=== PATIENT | female | born 1955 | race Caucasian/White ===

== ENCOUNTER 2019-12-25 07:00 | Outpatient (CLI) | payer OTHER, SELFPAY ==
[2019-12-25 07:34] LABS: Basophils Absolute Auto 0.1 K/mm3 (0.0-0.1); Basophils Percent Auto 0.8 % (0.2-1.2); Eosinophils Absolute Auto 0.2 K/mm3 (0-0.3); Eosinophils Percent Auto 3.7 % (0-4.4); Hematocrit 42.7 % (37.0-47.0); Hemoglobin 14.1 g/dL (12.0-15.0); Immature Granulocyte Absolute 0.02 K/mm3 (0.00-0.031); Immature Granulocyte Percent A 0.3 % (0-0.5); Lymphocytes Absolute Auto 1.92 K/mm3 (0.9-3.2); Lymphocytes Percent Auto 31.2 % (18.3-44.2); Mean Corpuscular Hemoglobin 30.5 pg (26-34); Mean Corpuscular Volume 92.2 fl (80-100); Mean Platelet Volume 9.4 fl (7.4-10.4); Monocytes Absolute Auto 0.6 K/mm3 (0.1-0.6); Monocytes Percent Auto 9.9 % (2.6-8.5); Neutrophils Absolute Auto 3.3 K/mm3 (1.3-6.7); Neutrophils Percent Auto 54.1 % (45.5-73.1); Platelet Count Result 271 k/mm3 (150-375); Red Blood Count 4.63 M/mm3 (4.2-5.4); Red Cell Distribution Width 12.8 % (11.5-14.5); White Blood Count 6.2 K/mm3 (4.5-10.0)
[2019-12-25 07:46] LABS: Alanine Aminotransferase 17 U/L (4-35); Alkaline Phosphatase 81 U/L (38-126); Aspartate Amino Transferase 23 U/L (14-36); Bilirubin,Total 0.5 mg/dL (0.2-1.3); Blood Urea Nitrogen 9 mg/dL (7-17); Calcium 9.1 mg/dL (8.4-10.2); Carbon Dioxide 36 mmol/L (22-30); Chloride 100 mmol/L (98-107); Estimated Glomerular Filt Rate > 60; Glucose 106 mg/dL (65-105); Potassium 3.2 mmol/L (3.4-5.0); Sodium 139 mmol/L (137-145)
[2019-12-25 07:48] LABS: Hemoglobin A1C 5.5 % (<5.7)
[2019-12-25 07:54] LABS: Cholesterol 240 mg/dL (0-200)
[2019-12-25 08:22] LABS: LDL Cholesterol Direct 151 mg/dL
[2019-12-25 08:39] LABS: HDL Direct 58 mg/dL; Triglycerides 124 mg/dL (<150)
== END 2019-12-25 07:01 | disposition home or self-care (01) ==
PROVIDERS: PCP Family Medicine; Visit Provider Family Medicine
DX: F32.89 Other specified depressive episodes (principal); E88.81 Metabolic syndrome and other insulin resistance; E78.5 Hyperlipidemia, unspecified; E55.9 Vitamin D deficiency, unspecified
CPT/HCPCS: 36415; 80053; 80061; 82306; 83036; 84443; 85025

== ENCOUNTER 2020-07-07 07:24 | Outpatient (CLI) | payer OTHER, SELFPAY ==
[2020-07-07 08:01] LABS: Basophils Percent Auto 0.7 % (0.2-1.2); Eosinophils Absolute Auto 0.2 K/mm3 (0-0.3); Hematocrit 44.2 % (37.0-47.0); Hemoglobin 14.9 g/dL (12.0-15.0); Immature Granulocyte Absolute 0.02 K/mm3 (0.00-0.031); Immature Granulocyte Percent A 0.3 % (0-0.5); Lymphocytes Absolute Auto 1.65 K/mm3 (0.9-3.2); Lymphocytes Percent Auto 27.2 % (18.3-44.2); Mean Corpuscular HGB Conc 33.7 g/dl (32-36); Mean Corpuscular Hemoglobin 31.4 pg (26-34); Mean Corpuscular Volume 93.1 fl (80-100); Mean Platelet Volume 9.4 fl (7.4-10.4); Monocytes Absolute Auto 0.5 K/mm3 (0.1-0.6); Monocytes Percent Auto 8.9 % (2.6-8.5); Neutrophils Absolute Auto 3.6 K/mm3 (1.3-6.7); Neutrophils Percent Auto 59.9 % (45.5-73.1); Platelet Count Result 283 k/mm3 (150-375); Red Blood Count 4.75 M/mm3 (4.2-5.4); Red Cell Distribution Width 12.1 % (11.5-14.5); White Blood Count 6.1 K/mm3 (4.5-10.0)
[2020-07-07 08:14] LABS: Alanine Aminotransferase 14 U/L (4-35); Albumin Level 4.1 g/dL (3.5-5.1); Alkaline Phosphatase 77 U/L (38-126); Anion Gap 4 mmol/L (8-16); Aspartate Amino Transferase 21 U/L (14-36); Bilirubin,Total 0.7 mg/dL (0.2-1.3); Blood Urea Nitrogen 8 mg/dL (7-17); Calcium 9.5 mg/dL (8.4-10.2); Carbon Dioxide 35 mmol/L (22-30); Chloride 101 mmol/L (98-107); Cholesterol 212 mg/dL (0-200); Estimated Glomerular Filt Rate > 60; Glucose 114 mg/dL (65-105); HDL Direct 52 mg/dL; Potassium 3.5 mmol/L (3.4-5.0); Sodium 140 mmol/L (137-145); Triglycerides 148 mg/dL (<150)
[2020-07-07 08:30] LABS: Hemoglobin A1C 5.5 % (<5.7)
[2020-07-07 08:38] LABS: LDL Cholesterol Direct 122 mg/dL
== END 2020-07-07 07:25 | disposition home or self-care (01) ==
PROVIDERS: PCP Family Medicine; Visit Provider Family Medicine
DX: E78.5 Hyperlipidemia, unspecified (principal); E03.9 Hypothyroidism, unspecified; I10 Essential (primary) hypertension; R73.03 Prediabetes
CPT/HCPCS: 36415; 80053; 80061; 83036; 84443; 85025

== ENCOUNTER 2020-10-02 15:13 | Outpatient (CLI) | payer OTHER, SELFPAY ==
--- NOTE | ~2020-10-02 | MM_ITS ---
EXAMINATION: MM screening christopher BI w jose ramon HISTORY: Screening TECHNIQUE: Craniocaudal and mediolateral oblique 3-D tomosynthesis images were obtained and synthetic 2-D images were generated. CAD analysis was submitted and interpreted. COMPARISON: Comparison to multiple prior studies sequentially, with oldest reviewed study dated 07/21. BREAST PARENCHYMAL COMPOSITION: There are scattered areas of fibroglandular density. FINDINGS: There is no evidence of suspicious mass, calcification, or architectural distortion to sugg est malignancy in either breast. There has been no suspicious interval change. IMPRESSION: 1. No mammographic evidence of malignancy. 2. Recommend routine screening mammography in one year. BI-RADS Category 1: Negative Reviewed, dictated and finalized at location A. [facility] [employer] SOCIAL WORKER
== END 2020-10-02 15:14 | disposition home or self-care (01) ==
PROVIDERS: PCP Family Medicine; Visit Provider Nurse Practitioner
DX: Z12.31 Encounter for screening mammogram for malignant neoplasm of breast (principal)
CPT/HCPCS: 77063; 77067

== ENCOUNTER 2020-11-10 09:55 | Outpatient (CLI) | payer OTHER, SELFPAY ==
--- NOTE | ~2020-11-10 | XR_ITS ---
XR chest 2V DATE: 11/10/2020 10:16 INDICATION: Cough TECHNIQUE: Frontal and lateral views COMPARISON: 02/04/2013 two-view chest FINDINGS: Normal heart size. No hilar or mediastinal enlargement. No pulmonary infiltrate or consolid ation, pleural effusion or pulmonary vascular congestion or pneumothorax. Diffuse osteopenia. Prominent rotatory levoscoliosis of the lumbar spine. IMPRESSION: No active cardiopulmonary disease Reviewed, dictated and finalized at location A. DITER CLERK
== END 2020-11-10 09:56 | disposition home or self-care (01) ==
PROVIDERS: PCP Family Medicine; Visit Provider Nurse Practitioner
DX: R05 Cough (principal)
CPT/HCPCS: 71046

== ENCOUNTER 2020-12-15 10:29 | Outpatient (CLI) | payer OTHER, SELFPAY ==
--- NOTE | 2020-12-15 10:36 | EST_ITS ---
Patient Info Name: Elli Garcia Age: 65 years : 1955 Gender: Female Ht: 69 in Wt: 245 lbs BSA: 2.37 m2 Exam Date: 12/15/2020 10:40 AM Exam Location: [facility] Stress Patient Status: Outpatient Admit Date: 12/15/2020 Staff Ordering Physician: Zara Nelson NP Attending Provider: Laurita Mueller MD Exercise Technologist: Alisa Finney RDCS Exercise Physician: Samy Almaguer DO Exam Type: CA stress test treadmill Study Info Indications R06.02 - Shortness of breath A treadmill exercise stress test was performed. Summary 1. 1. Negative [place] exercise stress test for ischemic ST changes by ECG criteria. 2. 2. Poor functional capacity, achieving 5 METs of workload. 3. 3. Rapid HR response to exercise. 4. 4. Appropriate HR recovery at 1 minute post exercise. 5. 5. Baseline hypertension with hypertensive response to exercise. 6. 6. No imaging with stress testing. 7. 7. Patient informed of the above results. Protocol: [place] Stress ECG Details Stage: REST Duration (min): 8 min : 42 sec Speed (mph): 0.0 Grade (%): 0 HR (bpm): 69 SBP (mmHg): 146 DBP (mmHg): 97 METS: --- Stage: REST Duration (min): 11 min : 6 sec Speed (mph): 0.0 Grade (%): 0 HR (bpm): 68 SBP (mmHg): 146 DBP (mmHg): 97 METS: --- Stage: STAGE 1 Duration (min): 1 min : 0 sec Speed (mph): 1.7 Grade (%): 10 HR (bpm): 105 SBP (mmHg): 146 DBP (mmHg): 97 METS: --- Stage: STAGE 1 Duration (min): 2 min : 0 sec Speed (mph): 1.7 Grade (%): 10 HR (bpm): 124 SBP (mmHg): 146 DBP (mmHg): 97 METS: --- Stage: STAGE 1 Duration (min): 3 min : 0 sec Speed (mph): 1.7 Grade (%): 10 HR (bpm): 135 SBP (mmHg): 183 DBP (mmHg): 97 METS: --- Stage: STAGE 2 Duration (min): 0 min : 12 sec Speed (mph): 2.5 Grade (%): 12 HR (bpm): 138 SBP (mmHg): 183 DBP (mmHg): 97 METS: --- Stage: RECOVERY Duration (min): 0 min : 47 sec Speed (mph): 0.0 Grade (%): 0 HR (bpm): 129 SBP (mmHg): 183 DBP (mmHg): 97 METS: --- Stage: RECOVERY Duration (min): 1 min : 47 sec Speed (mph): 0.0 Grade (%): 0 HR (bpm): 102 SBP (mmHg): 211 DBP (mmHg): 94 METS: --- Stage: RECOVERY Duration (min): 2 min : 47 sec Speed (mph): 0.0 Grade (%): 0 HR (bpm): 88 SBP (mmHg): 211 DBP (mmHg): 94 METS: --- Stage: RECOVERY Duration (min): 3 min : 47 sec Speed (mph): 0.0 Grade (%): 0 HR (bpm): 89 SBP (mmHg): 192 DBP (mmHg): 90 METS: --- Stage: RECOVERY Duration (min): 4 min : 47 sec Speed (mph): 0.0 Grade (%): 0 HR (bpm): 81 SBP (mmHg): 192 DBP (mmHg): 90 METS: --- Stage: RECOVERY Duration (min): 5 min : 15 sec Speed (mph): 0.0 Grade (%): 0 HR (bpm): 76 SBP (mmHg): 149 DBP (mmHg): 85 METS: --- Rest HR: 68 bpm Peak HR: 142
== END 2020-12-15 10:30 | disposition home or self-care (01) ==
PROVIDERS: PCP Family Medicine; Visit Provider Family Medicine
DX: R06.02 Shortness of breath (principal)
CPT/HCPCS: 93017

== ENCOUNTER 2021-02-03 13:49 | Outpatient (CLI) | payer OTHER, SELFPAY ==
--- NOTE | ~2021-02-03 | XR_ITS ---
XR hip LT min 3V w AP pelvis DATE: 02/03/2021 14:12 INDICATION: Left hip pain for 3 weeks. Recent fall. TECHNIQUE: AP pelvis. AP, lateral and crosstable lateral views of left hip COMPARISON: None FINDINGS: The pubic symphysis and sacroiliac joints are intact. No pelvic fracture or bone destructio n. No fracture, dislocation, avascular necrosis or bone destruction of the left hip. IMPRESSION: No significant abnormality Reviewed, dictated and finalized at location B. IMPRESSION: No significant abnormality
--- NOTE | ~2021-02-03 | XR_ITS ---
XR lumbar spine min 4V DATE: 02/03/2021 14:12 INDICATION: Low back pain for 3 weeks. Recent fall. TECHNIQUE: AP, lateral, coned lateral lumbosacral and bilateral oblique views COMPARISON: None FINDINGS: Mild levoscoliosis of the lumbar spine. Prominent degenerative disc disease at T11-T12 and moderately prominent degenerative disc disease at T12-L1. There are 6 functional lumbar vertebrae. Normal alignment of the lumbar spine. No fracture or bone destruction. The lumbar pedicles are intact . No spondylolysis. There is grade 1 anterolisthesis at L3-4 due to degenerative change at the apophyseal joints. The sac roiliac joints are intact. IMPRESSION: Mild levoscoliosis Degenerative changes of facet joints with associated minimal grade 1 anterolisthesis at L3-4 No fracture or bone destruction Reviewed, dictated and finalized at location B. IMPRESSION: Mild levoscoliosis Degenerative changes of facet joints with associated minimal grade 1 anterolist hesis at L3-4 No fracture or bone destruction
== END 2021-02-03 13:50 | disposition home or self-care (01) ==
PROVIDERS: PCP Family Medicine; Visit Provider Nurse Practitioner
DX: M47.815 Spondylosis without myelopathy or radiculopathy, thoracolumbar region (principal)
CPT/HCPCS: 72110; 73502

== ENCOUNTER 2021-03-26 07:36 | Outpatient (CLI) | payer MEDICARE, OTHER, SELFPAY ==
--- NOTE | ~2021-03-26 | MR_ITS ---
EXAMINATION: MR lumbar spine wo con DATE: 03/26/2021 08:48 INDICATION: Low back pain. TECHNIQUE: Magnetic resonance imaging (MRI) of the lumbar spine was performed without intravenous con trast. Sequences included sagittal T2-weighted FSE, sagittal T2-weighted FS FSE, sagittal T1-weighted FSE, and axial T2-weighted FSE. COMPARISON: Lumbar spine radiographs 02/03/2021, chest 2 views 11/10/2020 FINDINGS: There is 11 degrees levoscoliosis of lumbar spine. Vertebral body heights are normal. S1 is a transitional segment. There is severely decreased disc height at T11-T12 and mildly decreased disc height at L3-L4 with endplate remodeling. The distal spinal cord signal intensity is normal. The con us medullaris is at L1. The following disc levels are specifically discussed: L1-L2: The disc does not extend beyond the endplate margin. There is mild bilateral facet joint osteo arthritis. There is no neural foraminal stenosis. There is no central canal stenosis. L2-L3: There is a left foraminal protrusion. There is moderate right and mild left facet joint osteoa rthritis. There is mild left neural foraminal stenosis. There is no central canal stenosis. L3-L4: The disc is bulging and has an annular fissure. There is severe bilateral facet joint osteoart hritis. There is mild bilateral neural foraminal stenosis. There is mild central canal stenosis. L4-L5: The disc is bulging. There is severe bilateral facet joint osteoarthritis. There is mild bilat eral neural foraminal stenosis. There is no central canal stenosis. L5-S1: The disc is bulging and has an annular fissure. There is moderate right and severe left facet joint osteoarthritis. There is mild bilateral neural foraminal stenosis. There is no central canal st enosis. IMPRESSION: 1. Mild lumbar spondylosis and severe lower thoracic spondylosis. Reviewed, dictated and finalized at location A.
== END 2021-03-26 07:37 | disposition home or self-care (01) ==
LOC: ANHIMG 07:46
PROVIDERS: PCP Family Medicine; Visit Provider Nurse Practitioner
DX: M54.5 Low back pain (principal); M47.816 Spondylosis without myelopathy or radiculopathy, lumbar region; M47.814 Spondylosis without myelopathy or radiculopathy, thoracic region
CPT/HCPCS: 72148

== ENCOUNTER 2021-04-10 12:19 | Outpatient (CLI) | payer MEDICARE, OTHER, SELFPAY ==
[2021-04-14 11:18] LABS: ANA Cascade Screen Negative (Negative)
[2021-04-14 22:05] LABS: Immunoglobulin E 29 kU/L (<=114)
[2021-04-15 10:58] LABS: Alpha-1-Antitrypsin, QN 159 mg/dL (83-199)
== END 2021-04-10 12:20 | disposition home or self-care (01) ==
PROVIDERS: PCP Family Medicine; Visit Provider Internal Medicine Critical Care Medicine
DX: R06.02 Shortness of breath (principal); J84.9 Interstitial pulmonary disease, unspecified; R05 Cough
CPT/HCPCS: 36415; 82103; 82104; 82785; 86038

== ENCOUNTER 2021-04-27 06:36 | Outpatient (CLI) | payer MEDICARE, OTHER, SELFPAY ==
--- NOTE | ~2021-04-27 | CT_ITS ---
EXAMINATION: CT diagnostic chest wo con DATE: 04/27/2021 06:57 INDICATION: Shortness of breath and cough TECHNIQUE: Computed tomography (CT) of the chest was performed without intravenous contrast. The dose -length product (DLP) was 512.32 mGy-cm. Automated exposure control and iterative reconstruction tech [employer] were employed. COMPARISON: None FINDINGS: There is atelectasis of the lower lobes, lingula, and right middle lobe. No focal airspace opacities are identified. There is no pleural effusion or pneumothorax. No definite findings of inter stitial lung disease are evident. No pathologically enlarged thoracic lymph nodes are identified. The heart size is normal. Calcified coronary artery atherosclerosis is noted. Subendocardial fat deposit ion in the left ventricular apex is consistent with prior myocardial infarction. There is severe lowe r thoracic spondylosis. IMPRESSION: 1. Areas of mild atelectasis without definite findings of interstitial lung disease. Reviewed, dictated and finalized at location B. IMPRESSION: 1. Areas of mild atelectasis without definite findings of interstitial lung dis ease.
== END 2021-04-27 06:37 | disposition home or self-care (01) ==
PROVIDERS: PCP Family Medicine; Visit Provider Internal Medicine Critical Care Medicine
DX: R06.02 Shortness of breath (principal); J98.11 Atelectasis
CPT/HCPCS: 71250

== ENCOUNTER 2021-05-13 07:28 | Outpatient (CLI) | payer MEDICARE, OTHER, SELFPAY ==
--- NOTE | 2021-05-13 07:49 | ECHO_ITS ---
Patient Info Name: Elli Garcia Age: 66 years : 1955 Gender: Female Ht: 68 in Wt: 250 lbs BSA: 2.38 m2 HR: 70 bpm BP: 125 / 84 mmHg Heart Rhythm: Sinus Rhythm Exam Date: 05/13/2021 8:06 AM Exam Location: [facility] Patient Status: Outpatient Admit Date: 05/13/2021 Staff Ordering Physician: No Yousif MD Senior Wind Turbine Technician: Shira Kim RDCS Attending Provider: No Yousif MD Referring Physician: Benja LEMUS; Exam Type: CA echo doppler color flow Study Info Indications - EVALUATE FOR PULMONARY HYPERTENSION Complete two-dimensional, color flow and Doppler transthoracic echocardiogram is performed. Summary 1. Complete two-dimensional, color flow and Doppler transthoracic echocardiogram is performed. 2. Left ventricular chamber dimension is normal. 3. Left ventricular systolic function is normal, estimated at 60-65%. 4. The left ventricular diastolic function is grade II diastolic dysfunction. 5. E/e' 13 is mildly elevated. 6. There is mild mitral valve regurgitation. 7. There is trace tricuspid valve regurgitation. 8. No pulmonary hypertension, estimated pulmonary arterial systolic pressure is 24 mmHg. Left Ventricle E/e' 13 is mildly elevated. Left ventricular chamber dimension is normal. Left ventricular systolic function is normal, estimated at 60-65%. The left ventricular diastolic function is grade II diastolic dysfunction. Right Ventricle Right ventricular systolic function is normal and with normal TAPSE 1.9 cm. Right ventricular chamber dimension is normal. Left Atria Left atrial chamber dimension is normal. Right Atria Right atrial chamber dimension is normal. Aortic Valve The aortic valve is trileaflet. There is no aortic valve stenosis. There is no aortic valve regurgitation. Pulmonic Valve There is no pulmonic regurgitation. Mitral Valve There is no mitral valve stenosis. There is mild mitral valve regurgitation. Tricuspid Valve There is trace tricuspid valve regurgitation. No pulmonary hypertension, estimated pulmonary arterial systolic pressure is 24 mmHg. Pericardium/Pleural There is no pericardial effusion. Inferior Vena Cava Normal inferior vena cava with >50% collapse upon inspiration consistent with normal right atrial pressure, 5 mmHg. Aorta The aortic root size at the sinus of Valsalva is normal. Left Ventricular Outflow Tract Name Value Normal LVOT 2D LVOT Diameter 2.0 cm LVOT Doppler LVOT Peak Gradient 3 mmHg LVOT Mean Gradient 2 mmHg LVOT VTI 25 cm LVOT VTI/AV VTI Ratio 0.6 LVOT Stroke Volume 79 ml LVOT CO 4.6 l/min LVOT CI 2.0 l/min/m2 Pulmonic Valve Name Value Normal RVOT Doppler
--- NOTE | 2021-05-13 12:42 | WPDPFTINT ---
PFT Procedure Performed PFT Procedure Performed Spirometry with Pre/Post Bronchodilator Plethysmography (Lung Vol) Diffusing Cap (DLCO) Flow Vol Loop PFT Interpretation This is a pulmonary function test with pre and post-bronchodilator spirometry, plethysmography and diffusing capacity. The test was performed and results interpreted in accordance with the 2019 and 2005 ATS/ERS Task Force guidelines respectively using the Global Lung Function Initiative-2012 reference equations. Patient demonstrated good effort and cooperation. Reproducibility criteria were met. The quality of the pre bronchodilator spirometry maneuver was Grade A and post bronchodilator spirometry maneuver was Grade A. Findings: Spirometry: There is decreased maximal expiratory airflow at all lung volumes with concave expiratory flow tracing. The contour of the inspiratory flow tracing is normal. The pre bronchodilator FVC is 2.73 L, 79% predicted. The pre bronchodilator FEV1 is 1.74 L, 65% predicted. The FEV1: FVC ratio 64%. The post bronchodilator FVC is 3.13 L, representing a 15% increase. The post bronchodilator FEV1 is 2.01 L, representing a 16% increase. Plethysmography: The total lung capacity is 5.74 L, 101% predicted. The functional residual capacity is 3.82 L, 118% predicted. The residual volume is 3.01 L, 131% predicted. Diffusing capacity: The absolute diffusion capacity is 21.2, 94% predicted. The diffusing capacity corrected for alveolar volume is 4.29, 103% predicted. Impression: There is a moderate obstructive abnormality with significant improvement after inhaling a single dose of albuteral. The lung volumes are normal. The diffusing capacity is normal. There are no prior studies for comparison
== END 2021-05-13 07:29 | disposition home or self-care (01) ==
LOC: ANHCARD 07:30
PROVIDERS: PCP Family Medicine; Visit Provider Internal Medicine Critical Care Medicine
DX: R06.02 Shortness of breath (principal); R94.2 Abnormal results of pulmonary function studies
CPT/HCPCS: 93306; 94060; 94726; 94729

== ENCOUNTER 2021-06-01 07:41 | Outpatient (CLI) | payer MEDICARE, OTHER, SELFPAY ==
--- NOTE | 2021-06-12 17:58 | WPDHOMESLEEP ---
Sleep Study - Home Unattended Date of Study: 06/01/21 Ordering Provider: No Yousif MD Interpreting Provider: No Yousif MD Home Sleep Study Type: Apnea Link Air Height: 1.73 m Weight: 113.398 kg Body Mass Index: 38.0 Neck Circumference (inches): 15 [place]: 2 Reason for Sleep Study Restless sleep with night time awakenings, need for sedatives to go to sleep Sleep History Elli Garcia is a 66 year old female difficulty falling asleep. She uses Klonopin 0.5 mg HS to help her fall asleep. She does not awaken from sleep feeling short of breath. She rarely awakens at night with heartburn, belching or coughing. She does not know if she snores but others do not tell her or complain about it. She rarely has trouble sleeping with a cold. She does not suddenly wake up at night gasping for breath or have breathing problems at night observed by others. She does not sweat excessively at night or notice her heart pounding or beating irregularly at night. She does not fall asleep during the day, does not fall asleep involuntarily or while driving. She does not have loss of muscle tone with strong emotion. She does not have daytime difficulties due to excessive sleepiness. 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 She does not feel paralyzed on waking or falling asleep. She rarely has vivid dreamlike scenes upon awakening or falling asleep. She does not feel afraid to go to sleep. She does not have nightmares. She rarely remembers her dreams. She rarely has racing thoughts. She rarely feels sad or depressed. She rarely has anxiety. She occasionally has muscular tension. She does not notice parts of her body jerking and she does not kick at night. She frequently has crawling and aching feelings in her legs and frequently has leg pain during the night which she attributes to 3 bulging discs. She does not have morning jaw pain or grind her teeth during sleep. She constantly is bothered by pain during the day. She frequently is awakened by pain at night, frequently wakes up feeling stiff in the morning with sore achy muscles and pain in the neck and spine. She is depressed, has fatigue and take sedatives to get to sleep. Normal bedtime is between 9:00 p.m. and 10:00 p.m. falling asleep within 1-2 hours, typically waking 1-2 times during the night. While awake, she uses the bathroom and let her dogs out. It takes her 20 minutes to return to sleep. She wakes the morning between 6:00 and 7:00 a.m.. She does not take naps in the afternoon or evening. Most of the time she feels good when she wakes. She feels better in the morning compared to other times of day. Habits: never smoked tobacco. Caffeine 2-3 cups of coffee a day. One diet Coke. She drinks alcohol, 3 time a week. Recreational substances: CBD gummies. [facility] Past Medical History Medical History (Updated 06/12/21 @ 18:30 by No Yousif MD) Arthritis Bipolar 1 disorder Depression Hernia Hyperlipidemia Hypertension Hypothyroidism Obesity Obstructive lung disease Prediabetes Surgical History Surgical History History of umbilical hernia repair (~1998) S/P LAN-BSO 2003 Family History Family History Father Hypertension Carcinoma of colon Family history of emphysema Mother Hypertension Family history of diabetes mellitus in first degree relative Other Depression Diabetes mellitus Family history of arthritis Family history of cardiovascular disease Family history of lymphoma Family history of malignant neoplasm Social History Social History Smoking status: Never smoker Alcohol intake: current Substance use: never Substance use type: does not use Additional living arrangements comments: With Medications Home Medications Medication Instructions
[2021-06-12 18:38] VITALS: BMI 38.0
== END 2021-06-02 10:49 | disposition home or self-care (01) ==
LOC: ANHCSM 07:44
PROVIDERS: PCP Family Medicine; Visit Provider Internal Medicine Critical Care Medicine
DX: G47.10 Hypersomnia, unspecified (principal); G47.33 Obstructive sleep apnea (adult) (pediatric); G25.81 Restless legs syndrome; Z68.38 Body mass index [BMI] 38.0-38.9, adult
CPT/HCPCS: 95806

== ENCOUNTER 2021-07-03 07:47 | Outpatient (CLI) | payer MEDICARE, OTHER, SELFPAY ==
[2021-07-20 10:40] VITALS: BMI 38.2
--- NOTE | 2021-07-20 10:40 | WPDSLEEPSTUD ---
Sleep Study Date of Study: 07/03/21 Ordering Provider: Cuba Orellana APRN Interpreting Physician: No Yousif MD Sleep Study Type: CPAP Titration Height: 1.74 m Weight: 115.666 kg Body Mass Index: 38.2 Neck Circumference (inches): 15 [place]: 2 Reason for Sleep Study * 06/01/2021 home sleep test using ApneaLink with at least mild obstructive sleep apnea with an AHI of 5.4, desaturation to 87% and snoring. There were more central apneas than obstructive apneas, 83% central verses 17% obstructive however it was a small total number of apneas. She presents now for PAP titration. Sleep History Elli Garcia is a 66 year old female difficulty falling asleep. She uses Klonopin 0.5 mg HS to help her fall asleep. She does not awaken from sleep feeling short of breath. She rarely awakens at night with heartburn, belching or coughing. She does not know if she snores but others do not tell her or complain about it. She rarely has trouble sleeping with a cold. She does not suddenly wake up at night gasping for breath or have breathing problems at night observed by others. She does not sweat excessively at night or notice her heart pounding or beating irregularly at night. She does not fall asleep during the day, does not fall asleep involuntarily or while driving. She does not have loss of muscle tone with strong emotion. She does not have daytime difficulties due to excessive sleepiness. 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 She does not feel paralyzed on waking or falling asleep. She rarely has vivid dreamlike scenes upon awakening or falling asleep. She does not feel afraid to go to sleep. She does not have nightmares. She rarely remembers her dreams. She rarely has racing thoughts. She rarely feels sad or depressed. She rarely has anxiety. She occasionally has muscular tension. She does not notice parts of her body jerking and she does not kick at night. She frequently has crawling and aching feelings in her legs and frequently has leg pain during the night which she attributes to 3 bulging discs. She does not have morning jaw pain or grind her teeth during sleep. She constantly is bothered by pain during the day. She frequently is awakened by pain at night, frequently wakes up feeling stiff in the morning with sore achy muscles and pain in the neck and spine. She is depressed, has fatigue and take sedatives to get to sleep. Normal bedtime is between 9:00 p.m. and 10:00 p.m. falling asleep within 1-2 hours, typically waking 1-2 times during the night. While awake, she uses the bathroom and let her dogs out. It takes her 20 minutes to return to sleep. She wakes the morning between 6:00 and 7:00 a.m.. She does not take naps in the afternoon or evening. Most of the time she feels good when she wakes. She feels better in the morning compared to other times of day. Habits: never smoked tobacco. Caffeine 2-3 cups of coffee a day. One diet Coke. She drinks alcohol, 3 time a week. Recreational substances: CBD gummies. [facility] Past Medical History Medical History (Updated 07/20/21 @ 11:23 by No Yousif MD) Arthritis Bipolar 1 disorder Depression Hernia Hyperlipidemia Hypertension Hypothyroidism Obesity Obstructive lung disease Prediabetes Surgical History Surgical History History of umbilical hernia repair (~1998) S/P LAN-BSO 2003 Family History Family History Father Hypertension Carcinoma of colon Family history of emphysema Mother Hypertension Family history of diabetes mellitus in first degree relative Other Depression Diabetes mellitus Family history of arthritis Family history of cardiovascular disease Family history of lymphoma Family history of malignant neoplasm Social History Social History Smoking status: Never sm
== END 2021-07-04 07:06 | disposition home or self-care (01) ==
LOC: ANHCSM 07:48
PROVIDERS: PCP Family Medicine; Visit Provider Nurse Practitioner Family
DX: G47.33 Obstructive sleep apnea (adult) (pediatric) (principal)
CPT/HCPCS: 95811

== ENCOUNTER 2021-07-04 07:20 | Outpatient (CLI) | payer MEDICARE, OTHER, SELFPAY ==
[2021-07-04 08:04] LABS: Alanine Aminotransferase 22 U/L (4-35); Albumin Level 4.4 g/dL (3.5-5.1); Alkaline Phosphatase 84 U/L (38-126); Anion Gap 7 mmol/L (8-16); Aspartate Amino Transferase 29 U/L (14-36); Bilirubin,Total 0.5 mg/dL (0.2-1.3); Blood Urea Nitrogen 7 mg/dL (7-17); Calcium 9.4 mg/dL (8.4-10.2); Carbon Dioxide 33 mmol/L (22-30); Chloride 99 mmol/L (98-107); Cholesterol 220 mg/dL (0-200); Estimated Glomerular Filt Rate > 60; Glucose 117 mg/dL (65-110); HDL Direct 69 mg/dL; Potassium 3.2 mmol/L (3.4-5.0); Sodium 139 mmol/L (137-145); Triglycerides 113 mg/dL (<150)
[2021-07-04 08:14] LABS: Basophils Absolute Auto 0.1 K/mm3 (0.0-0.1); Basophils Percent Auto 1.1 % (0.2-1.2); Eosinophils Absolute Auto 0.3 K/mm3 (0-0.3); Eosinophils Percent Auto 5.2 % (0-4.4); Hematocrit 41.5 % (37.0-47.0); Hemoglobin 13.6 g/dL (12.0-15.0); Immature Granulocyte Absolute 0.02 K/mm3 (0.00-0.031); Immature Granulocyte Percent A 0.4 % (0-0.5); Lymphocytes Absolute Auto 1.72 K/mm3 (0.9-3.2); Lymphocytes Percent Auto 30.6 % (18.3-44.2); Mean Corpuscular HGB Conc 32.8 g/dl (32-36); Mean Corpuscular Hemoglobin 30.9 pg (26-34); Mean Corpuscular Volume 94.3 fl (80-100); Mean Platelet Volume 9.4 fl (7.4-10.4); Monocytes Absolute Auto 0.7 K/mm3 (0.1-0.6); Monocytes Percent Auto 12.3 % (2.6-8.5); Neutrophils Absolute Auto 2.8 K/mm3 (1.3-6.7); Neutrophils Percent Auto 50.4 % (45.5-73.1); Platelet Count Result 249 k/mm3 (150-375); White Blood Count 5.6 K/mm3 (4.5-10.0)
[2021-07-04 08:23] LABS: LDL Cholesterol Direct 117 mg/dL
[2021-07-04 08:33] LABS: Total Triiodothyronine (T3) 1.16 NG/ML (0.97-1.69)
[2021-07-06 12:39] LABS: Hemoglobin A1C 5.6 % (<5.7)
== END 2021-07-04 07:21 | disposition home or self-care (01) ==
LOC: ANHLAB 07:21
PROVIDERS: PCP Family Medicine; Visit Provider Nurse Practitioner
DX: E03.9 Hypothyroidism, unspecified (principal); E78.5 Hyperlipidemia, unspecified; R73.03 Prediabetes
CPT/HCPCS: 36415; 80053; 80061; 83036; 84436; 84443; 84480; 85025

== ENCOUNTER 2021-07-22 18:16 | Emergency (ER) | payer MEDICARE, OTHER, SELFPAY ==
--- NOTE | ~2021-07-22 | XR_ITS ---
XR chest 2V DATE: 07/22/2021 20:04 INDICATION: Left-sided chest and neck pain today. Shortness of breath. TECHNIQUE: 2 views COMPARISON: 05/07/2021 CT chest 11/10/2020 2 view chest FINDINGS: Normal heart size. No hilar or mediastinal enlargement. Moderate bilateral hyperinflation. There is mild discoid atelectasis or scarring in the lower lung zones. No pulmonary infiltrate or con solidation, pleural effusion or pulmonary vascular congestion or pneumothorax. Diffuse osteopenia. There is thoracic and particularly lumbar scoliosis. IMPRESSION: Mild discoid atelectasis or scarring in the lower lung zones, likely chronic Reviewed, dictated and finalized at location A. IMPRESSION: Mild discoid atelectasis or scarring in the lower lung zones, likel y chronic
[2021-07-22 18:51] VITALS: BP 144/86; PULSE 74; RESP 18; TEMP 36.3; O2SAT 98
--- NOTE | 2021-07-22 19:55 | ECG_ITS ---
Measurements Intervals [place] Rate: 71 P: 218 MI: 105 QRS: -4 QRSD: 101 T: 13 QT: 411 QTc: 448 Interpretive Statements SINUS RHYTHM BASELINE ARTIFACT- I, II, AVR, AVF NORMAL ECG Electronically Signed On 07-23-2021 6:36:02 CDT by Samy Almagure D.O.
[2021-07-22 21:00] VITALS: BP 150/77; PULSE 70; RESP 19; O2SAT 97
--- NOTE | 2021-07-22 22:14 | ED.SOB ---
HPI - SOB/Dyspnea General Chief Complaint: Shortness of Breath/Dyspnea Stated Complaint: sob, dizzy Time Seen by Provider: 07/22/21 22:10 Source: patient Mode of arrival: EMS Limitations: no limitations History of Present Illness HPI Narrative: 66-year-old female history of high cholesterol, sleep apnea, hypothyroidism comes in complaining of at least 2 weeks of ongoing dyspnea with exertion and chest pressure with exertion. 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 No cough, no fever, no wheezing, pressure substernal nonradiating only with exertion. No recent surgeries, no recent travel. No hemoptysis. No leg swelling. Of note patient has been diagnosed with sleep apnea and recently saw pulmonology for asthma. She has an appointment coming up with cardiology but has not had a stress test or cardiac cath in the past. She does have a family history of CAD both of her brothers have had MIs per patient. No chest pain currently. She did not take aspirin today. Related Data Home Medications Medication Instructions Recorded Confirmed bupropion HCl [Wellbutrin XL] 300 mg PO QAM 07/31/19 07/17/21 sertraline [Zoloft] 100 mg PO DAILY 07/31/19 07/17/21 quetiapine 50 mg tablet 50 mg PO ONCE tablet 07/09/20 07/17/21 calcium carbonate 500 mg calcium 500 mg PO DAILY 04/10/21 07/17/21 (1,250 mg) chewable tablet clonazepam 0.5 mg tablet 0.5 mg PO DAILY 04/10/21 07/17/21 omega-3 fatty acids 1,000 mg 1,000 mg PO DAILY 04/10/21 07/17/21 capsule Allergies Allergy/AdvReac Type Severity Reaction Status Date / Time atorvastatin Allergy Mild Muscle Pain Verified 07/17/21 10:30 levofloxacin Allergy Mild Muscle Pain Verified 07/17/21 10:30 simvastatin Allergy Mild Muscle Pain Verified 07/17/21 10:30 Review of Systems Review of Systems: CONSTITUTIONAL: no fever, no weight loss, no confusion EYES: no vision changes, no eye pain ENT: no rhinorrhea, no sore throat, no difficulty swallowing CARDIOVASCULAR: positive chest pain, no leg edema, no palpitations RESPIRATORY: no cough, positive shortness of breath, no hemoptysis GASTROINTESTINAL: no abdominal pain, no nausea, no vomiting, no diarrhea GENITOURINARY: no flank pain, no dysuria, no hematuria SKIN: no rash, no jaundice MUSCULOSKELETAL: no back pain, no trauma. NEUROLOGIC: No headache, no dizziness, no focal weakness PSYCHIATRIC: No hallucinations, no suicidal ideation [facility] Past Medical History Medical History Arthritis Bipolar 1 disorder Depression Hernia Hyperlipidemia Hypertension Hypothyroidism Obesity Obstructive lung disease Prediabetes Surgical History Surgical History History of umbilical hernia repair (~1998) S/P LAN-BSO 2003 Family History Family History Father Hypertension Carcinoma of colon Family history of emphysema Mother Hypertension Family history of diabetes mellitus in first degree relative Other Depression Diabetes mellitus Family history of arthritis Family history of cardiovascular disease Family history of lymphoma Family history of malignant neoplasm Social History Social History Smoking status: Never smoker Alcohol intake: current Substance use: never Substance use type: does not use Additional living arrangements comments: With Exam Narrative: General: alert, afebrile, answering all questions appropriately Head: normocephalic, atraumatic Eyes: EOMI bilaterally, anicteric, no injection ENT: moist mucous membranes, oropharynx patent, no rhinorrhea Neck: supple, trachea midline, no JVD Chest: equal chest rise bilaterally, no chest wall trauma noted Lungs: clear to auscultation bilaterally, respirations unlabored CV: regul
[2021-07-22 22:22] LABS: Basophils Absolute Auto 0.1 K/mm3 (0.0-0.1); Basophils Percent Auto 0.9 % (0.2-1.2); Eosinophils Absolute Auto 0.3 K/mm3 (0-0.3); Eosinophils Percent Auto 3.6 % (0-4.4); Hematocrit 40.7 % (37.0-47.0); Hemoglobin 13.7 g/dL (12.0-15.0); Immature Granulocyte Absolute 0.04 K/mm3 (0.00-0.031); Immature Granulocyte Percent A 0.5 % (0-0.5); Lymphocytes Absolute Auto 2.49 K/mm3 (0.9-3.2); Lymphocytes Percent Auto 28.5 % (18.3-44.2); Mean Corpuscular HGB Conc 33.7 g/dl (32-36); Mean Corpuscular Hemoglobin 31.1 pg (26-34); Mean Corpuscular Volume 92.5 fl (80-100); Mean Platelet Volume 9.2 fl (7.4-10.4); Monocytes Absolute Auto 0.8 K/mm3 (0.1-0.6); Monocytes Percent Auto 9.5 % (2.6-8.5); Platelet Count Result 302 k/mm3 (150-375); Red Cell Distribution Width 12.7 % (11.5-14.5); White Blood Count 8.7 K/mm3 (4.5-10.0)
[2021-07-22] MEDS: ASPIRIN 81 MG CHEWABLE TABLET 324 MG PO (22:49)
[2021-07-22 23:08] LABS: Anion Gap 10 mmol/L (8-16); Blood Urea Nitrogen 13 mg/dL (7-17); Calcium 9.4 mg/dL (8.4-10.2); Carbon Dioxide 30 mmol/L (22-30); Chloride 98 mmol/L (98-107); Estimated CRCL calculation 91 ml/min; Estimated Glomerular Filt Rate > 60; Glucose 108 mg/dL (65-110); Magnesium 1.9 mg/dL (1.6-2.3); Potassium 3.1 mmol/L (3.4-5.0); Sodium 138 mmol/L (137-145); Troponin I < 0.012 ng/mL (0.000-0.034)
[2021-07-23] MEDS: POTASSIUM CHLORIDE 20 MEQ TABLET 40 MEQ PO (01:23)
[2021-07-23 02:09] LABS: Troponin I < 0.012 ng/mL (0.000-0.034)
[2021-07-23 02:36] VITALS: BP 131/72; PULSE 70; RESP 22; O2SAT 98
== END 2021-07-23 02:30 | disposition home or self-care (01) ==
PROVIDERS: Family Medicine; Emergency Provider Emergency Medicine; PCP Family Medicine
DX: R06.00 Dyspnea, unspecified (principal); R07.89 Other chest pain; E78.5 Hyperlipidemia, unspecified; E03.9 Hypothyroidism, unspecified; J44.9 Chronic obstructive pulmonary disease, unspecified; R73.03 Prediabetes; M19.90 Unspecified osteoarthritis, unspecified site; F31.9 Bipolar disorder, unspecified
CPT/HCPCS: 36415; 71046; 80048; 83735; 84484; 85025; 93005; 99284; A9270

== ENCOUNTER 2021-08-31 01:02 | Day surgery (SDC) | payer MEDICARE, OTHER, SELFPAY ==
[2021-08-28 19:47] VITALS: BMI 38.1
[2021-08-31] VITALS (18 sets, daily range): BP systolic 121–141; BP diastolic 56–86; PULSE 63–84; RESP 12–20; TEMP 36.6–36.7; O2SAT 93–99; BMI 37.8
--- NOTE | ~2021-08-31 | US_ITS ---
EXAMINATION: US arterial duplex LE RT DATE: 09/01/2021 08:30 INDICATION: Right groin hematoma post angiogram TECHNIQUE: Multiple grayscale and Doppler ultrasound images of the right groin were obtained. COMPARISON: None FINDINGS: The right common femoral, superficial femoral and profunda femoral artery and veins appear normal. No evident pseudoaneurysm or fluid collections to suggest hematoma. IMPRESSION: 1. No evident pseudoaneurysm or hematoma at the right groin. Reviewed, dictated and finalized at location A. ROL ROOM OPERATOR
[2021-08-31] MEDS: SODIUM CHLORIDE 0.9% IV 500 ML 100 ML IV CONT (09:10)
[2021-08-31 09:24] LABS: Basophils Percent Auto 0.6 % (0.2-1.2); Eosinophils Absolute Auto 0.3 K/mm3 (0-0.3); Eosinophils Percent Auto 4.4 % (0-4.4); Hematocrit 39.7 % (37.0-47.0); Hemoglobin 13.7 g/dL (12.0-15.0); Immature Granulocyte Absolute 0.04 K/mm3 (0.00-0.031); Immature Granulocyte Percent A 0.6 % (0-0.5); Lymphocytes Absolute Auto 1.29 K/mm3 (0.9-3.2); Lymphocytes Percent Auto 19.5 % (18.3-44.2); Mean Corpuscular HGB Conc 34.5 g/dl (32-36); Mean Corpuscular Hemoglobin 32.1 pg (26-34); Mean Platelet Volume 9.1 fl (7.4-10.4); Monocytes Absolute Auto 0.7 K/mm3 (0.1-0.6); Monocytes Percent Auto 11.2 % (2.6-8.5); Neutrophils Absolute Auto 4.2 K/mm3 (1.3-6.7); Neutrophils Percent Auto 63.7 % (45.5-73.1); Platelet Count Result 254 k/mm3 (150-375); Red Blood Count 4.27 M/mm3 (4.2-5.4); Red Cell Distribution Width 12.6 % (11.5-14.5); White Blood Count 6.6 K/mm3 (4.5-10.0)
[2021-08-31 09:31] LABS: Prothrombin Time 13.1 Seconds (11.1-14.7)
[2021-08-31 09:32] LABS: Anion Gap 9 mmol/L (8-16); Blood Urea Nitrogen 8 mg/dL (7-17); Calcium 9.3 mg/dL (8.4-10.2); Carbon Dioxide 28 mmol/L (22-30); Chloride 101 mmol/L (98-107); Estimated CRCL calculation 92 ml/min; Estimated Glomerular Filt Rate > 60; Glucose 120 mg/dL (65-110); Potassium 3.2 mmol/L (3.4-5.0); Sodium 138 mmol/L (137-145)
--- NOTE | 2021-08-31 09:55 | SUR.PREOP ---
DR. PIZARRO HERE. NOTIFIED OF K+ LEVEL OF 3. 2.
--- NOTE | 2021-08-31 09:56 | WPDHPUPDATE1 ---
History and Physical Update Update Date/Time: 08/31/21 09:56 History and Physical has been reviewed, including an updated exam of the patient. There are NO changes in the patient's condition. Risks, benefits, and alternatives have been discussed and questions answered. Patient agrees to proceed with procedure.
--- NOTE | 2021-08-31 09:56 | WPDMODSED ---
Moderate Sedation Note-Pt Data Patient Data Diagnosis: Abnormal stress test, progressive angina Present Complaint: None Procedure to be performed/Plan: Left heart catheterization with selective left and right coronary angiography with left ventriculography and hemodynamics and possible percutaneous intervention and stent implantation Allergies Allergy/AdvReac Type Severity Reaction Status Date / Time atorvastatin Allergy Mild Muscle Pain Verified 08/31/21 08:55 levofloxacin Allergy Mild Muscle Pain Verified 08/31/21 08:55 simvastatin Allergy Mild Muscle Pain Verified 08/31/21 08:55 azithromycin Allergy Unknown Verified 08/31/21 08:55 Jynovbr-ACS-NaI Reductase Allergy Muscle Pain Verified 08/31/21 08:55 Inhibitor Sulfa (Sulfonamide Allergy Unknown Verified 08/31/21 08:55 Antibiotics) Home Medications Medication Instructions Recorded Confirmed Type bupropion HCl [Wellbutrin XL] 300 mg PO QAM 07/31/19 08/28/21 History sertraline [Zoloft] 100 mg PO DAILY 07/31/19 08/28/21 History quetiapine 50 mg tablet 50 mg PO HS tablet 07/09/20 08/28/21 History calcium carbonate 500 mg calcium 1,000 mg PO BID 04/10/21 08/28/21 History (1,250 mg) chewable tablet clonazepam 0.5 mg tablet 0.5 mg PO HS PRN 04/10/21 08/28/21 History omega-3 fatty acids 1,000 mg 1,000 mg PO BID 04/10/21 08/28/21 History capsule albuterol sulfate 90 mcg/actuation 1 inh INHALATION Q4H PRN #6.7 g 07/10/21 08/28/21 Rx aerosol inhaler celecoxib 200 mg capsule 200 mg PO DAILY #90 cap 07/10/21 08/31/21 Rx cetirizine 10 mg tablet 10 mg PO DAILY PRN #90 tablet 07/10/21 08/28/21 Rx ezetimibe 10 mg tablet 10 mg PO DAILY #90 tablet 07/10/21 08/28/21 Rx hydrochlorothiazide 25 mg tablet 25 mg PO DAILY #90 tablet 07/10/21 08/28/21 Rx levothyroxine 75 mcg tablet 75 mcg PO DAILY #90 tablet 07/10/21 08/28/21 Rx omeprazole 20 mg capsule,delayed 20 mg PO BID #180 cap 07/10/21 08/28/21 Rx release aspirin [Adult Low Dose Aspirin] 81 mg PO DAILY 08/28/21 08/31/21 History cyclobenzaprine 10 mg PO TID PRN 08/28/21 08/31/21 History fluticasone propion-salmeterol 1 inh INHALATION DAILY PRN 08/28/21 08/28/21 History [Advair Diskus] gabapentin 300 mg PO BID 08/28/21 08/31/21 History nitroglycerin 0.4 mg SUBLINGUAL Q5MIN PRN 08/28/21 08/28/21 History Current Medications: Active Medications Sodium Chloride (Normal Saline Iv) 500 mls @ 100 mls/hr IV CONT .Q5H AMIRA Sedation/Anesthesia: No previous sedation/anesthesia problems (including family history). PENDING SALE TO [facility] Past Medical History Medical History Arthritis Bipolar 1 disorder Depression Hernia Hyperlipidemia Hypertension Hypothyroidism Obesity Obstructive lung disease Prediabetes Surgical History Surgical History History of umbilical hernia repair (~1998) S/P LAN-BSO 2003 Family History Family History Father Hypertension Carcinoma of colon Family history of emphysema Mother Hypertension Family history of diabetes mellitus in first degree relative Other Depression Diabetes mellitus Family history of arthritis Family history of cardiovascular disease Family history of lymphoma Family history of malignant neoplasm Social History Social History Smoking packs per day: 0 Smoking cigarettes per day: 0.0 Years smoked: 0 Smoking pack-years: 0.00 Smoking status: Never smoker Second hand tobacco smoke exposure: No Alcohol intake: current Drinks per week: 2 Substance use: never Substance use type: does not use Living arrangements: with family Additional living arrangements comments: LIVES W/ Spiritual care concerns: No Mod Sed Physical Exam Physical Exam Pre Procedural Exam: Normal: Appearance, Eyes, Ears, Nose, Neck (Supple, norm
--- NOTE | 2021-08-31 09:58 | PM.OP ---
Procedure Note - Brief Procedure Note - Brief Date of procedure: 08/31/21 Pre-op diagnosis: Chest Pain , KEENE Post-op diagnosis: same Procedure performed: Left heart catheterization with selective [id number] coronary angiography with left ventriculography and hemodynamics Description of procedure: BRIEF HISTORY OF PRESENT ILLNESS: Patient is a pleasant 66-year-old female with past medical history significant for family history of premature atherosclerosis, progressive exertional dyspnea and chest pain, coronary artery calcification, dyslipidemia, hypertension, obstructive sleep apnea, and family history of premature atherosclerosis which chest pain with exertion, poor activity tolerance, hypertensive blood pressure response progressive lifestyle limiting exertional dyspnea chest discomfort referred for coronary angiography for delineation of her coronary anatomy. PROCEDURES PERFORMED: 1. Left heart catheterization 2. Selective left and right coronary angiography 3. Left ventriculography and hemodynamics 4. Moderate/conscious sedation administration CATHETERS UTILIZED: Left coronary system- 5 Irish JL3.5 catheter Right coronary system- 5 Irish JR4 catheter Left ventriculography and hemodynamics- 5 Irish angled pigtail catheter PROCEDURE IN DETAIL: After verbal and written informed consent was obtained the patient, risks, benefits, and alternatives explained in detail the patient agreed to proceed with the plan of care as outlined above. The patient was subsequently brought to the cardiac catheterization lab, placed on the cardiac catheterization table, and prepped and draped in the usual sterile fashion. Utilizing approximately 18cc of 1% subcutaneous Lidocaine, the right groin was then locally anesthetized. Utilizing the modified Seldinger technique, a 5 Irish arterial vascular access sheath was inserted in the right common femoral artery easily and without complications. Through this access, coronary angiography was subsequently obtained in multiple standard re-projections. The 5 Irish JL4 catheter was unable to satisfactorily engage the left main so this was removed, the sheath flushed. Subsequently, the 5 Irish JL 3.5 catheter was advanced easily and without complication and very nicely engaged the left main without difficulty. Following this, a 5 Irish angled pigtail catheter was advanced retrograde across aortic valve into the cavity of the left ventricle. Left ventriculography was performed and pullback across aortic valve was subsequently recorded. The vascular access sheath and angiographic catheters were flushed before and after catheter exchanges. At the conclusion of the diagnostic portion of the procedure, all angiographic guidewires and catheters were removed. The 5 Irish arterial vascular access sheath remained in place in anticipation for IFR and possible percutaneous intervention by Dr. Graham of Interventional Cardiology. There no complications noted at the conclusion of the diagnostic portion of the study. MODERATE SEDATION/ANESTHESIA ADMINISTRATION: Patient reports no prior problems with sedation/anesthesia. Please see pre-sedation noted for physical examination documentation. Sedation start time was 1028 and end time was 1055 for a total intra-service/procedure face-face time of 27 minutes. A total of 2 mg intravenous Versed and a total of 50 mcg intravenous Fentanyl in multiple divided doses was administered for moderate sedation. Moderate sedation was administered by qualified/certified observer Jael Fan RN under my supervision with intra-procedure [id number] observation and management throughout the entirety of the procedure. There were no other issues or complications and patient tolerated the procedure well. See post-anesthesia documentation. Anesthesia: local and other (Moderate/conscious sedation) Surgeon: Wellington Eason MD Drains: No Packing: No Pathology: none sent Complications: No
[2021-08-31] MEDS: KCL 20 MEQ/SW 100 ML 100 ML 50 MEQ IVPB (10:10)
--- NOTE | 2021-08-31 10:10 | SUR.PREOP ---
20 MEQ K+ RIDER ORDERED BY DR. PIZARRO FOR K+ 3.2. STARTED VIA PUMP AT THIS TIME.
[2021-08-31] MEDS: SODIUM CHLORIDE 0.9% IV 500 ML 150 ML IV CONT (12:35)
--- NOTE | 2021-08-31 13:26 | ADMGEN ---
This patient, Elli Garcia, was admitted to IMU obs status at 1326 from outpatient status. Remains in OFFICE NURSE PRACTITIONER 5 as IMU overflow. Patient/family oriented to hospital policies and general routines including ID bracelet, bed and alarms, visiting hours, pain management, procedures, bathroom and other care routines, personal items, smoking policy, room service/diet, and visiting hours. Information on how to activate the Rapid Response Team has been discussed. Patient/Family are encouraged to report perceived risks to care and to ask questions if they do not understand what they are told or what they should do.
[2021-08-31] MEDS: CYCLOBENZAPRINE HCL 10 MG TABLET PO (14:23)
--- NOTE | 2021-08-31 14:40 | P.PCNCC_ITS ---
Cardiac Cath Procedure Note Date of procedure:: 08/31/21 Performing physician:: Yadiel Graham MD Indication:: request to perform coronary IFR on identified circumflex lesion. Brief clinical history:: This is a 66-year-old patient who just underwent diagnostic angiography in this laboratory because of symptoms of chest pain. She was found to have a stenosis in the midportion of her circumflex of question able significance. I was asked to consider further evaluation of this with IFR. Procedure Procedure performed:: Attempted IFR Procedure note:: patient was in the cath laboratory technician with 5 Faroese sheath in the right femoral artery. The decision was made to upsize to a 6 Faroese sheath for a combination of a 6 Faroese guiding catheter and subsequent IFR. I placed the exchange wire for the sheath into the artery through the existing sheath and withdrew the 5 Faroese sheath. Upon attempts to advance the 6 Faroese sheath over the guidewire into the artery there was significant resistance. I stopped attempted to advance this and under the fluoroscopy the wire was badly deformed and coiled subcutaneously prior to entering the artery. The wire was deformed enough where there was clearly not going to be any way to reaccess the vessel using this wire it was badly deformed. I then withdrew the wire which did encounter some resistance on simply withdrawing it and manual pressure is being held to obtain hemostasis. The attempt at IFR of this lesion was therefore aborted because of access difficulty during the attempt at changing to a 6 Faroese sheath. Conclusion:: Coronary artery disease with moderate circumflex disease marva ographically IFR of this was to be performed but was not performed as we could not obtain successful access with the 6 Faroese sheath due to deformation/coiling of the guidewire as detailed above. Yadiel Graham MD [facility]
[2021-08-31] MEDS: fentaNYL CITRATE INJ (*CRX) 100 MCG/2 ML VIAL 50 MCG IV PUSH (14:42)
[2021-08-31 15:54] LABS: Hematocrit 37.3 % (37.0-47.0); Hemoglobin 12.6 g/dL (12.0-15.0); Mean Corpuscular HGB Conc 33.8 g/dl (32-36); Mean Corpuscular Volume 94.7 fl (80-100); Mean Platelet Volume 9.5 fl (7.4-10.4); Platelet Count Result 253 k/mm3 (150-375); Red Blood Count 3.94 M/mm3 (4.2-5.4); Red Cell Distribution Width 12.7 % (11.5-14.5); White Blood Count 5.5 K/mm3 (4.5-10.0)
[2021-08-31] MEDS: CALCIUM CARBONATE (TUMS) 500 MG (200 MG ELEMENTAL) 400 MG PO (19:01)
[2021-08-31] MEDS: GABAPENTIN 300 MG CAPSULE PO (19:01)
--- NOTE | 2021-08-31 19:25 | PC.NURSE ---
TRANSFERRED TO IMU 206.1 FROM [facility] 5 IMU STATUS PT, VIA WC WITH ALL PERSONAL BELONGINGS. OBSERVED Cliff Angulo/ BACILIO KERR ON ARRIVAL. DENIES PAIN OR SOB. NO DISTRESS NOTED.
--- NOTE | 2021-08-31 20:02 | PC.NURSE ---
This patient, Elli Garcia, was received from [[facility] ] on 08/31/21 at 1945. Patient/family oriented to unit policies and routines
--- NOTE | 2021-08-31 20:21 | PC.NURSE ---
REPORT CALLED TO BACILIO Bejarano RN IN IMU [id number]. PT. IT TO TRANSFER TO IMU 206.1 IMU STATUS PT.
[2021-08-31] MEDS: METOPROLOL TARTRATE 12.5 MG TABLET PO (21:16)
[2021-08-31] MEDS: clonazePAM (*CRX) 0.5 MG TABLET PO (21:16)
[2021-08-31] MEDS: PANTOPRAZOLE 40 MG TABLET PO (21:16)
[2021-08-31] MEDS: ACETAMINOPHEN 325 MG TABLET 650 MG PO (21:17)
[2021-08-31] MEDS: QUEtiapine FUMARATE 25 MG TABLET 50 MG PO (22:07)
[2021-09-01] VITALS (7 sets, daily range): BP systolic 117–121; BP diastolic 73–78; PULSE 66–77; RESP 16–18; TEMP 36.4–36.7; O2SAT 97–99
[2021-09-01 05:19] LABS: Hematocrit 35.8 % (37.0-47.0); Hemoglobin 12.1 g/dL (12.0-15.0); Mean Corpuscular HGB Conc 33.8 g/dl (32-36); Mean Corpuscular Hemoglobin 31.7 pg (26-34); Mean Corpuscular Volume 93.7 fl (80-100); Mean Platelet Volume 9.1 fl (7.4-10.4); Platelet Count Result 243 k/mm3 (150-375); Red Blood Count 3.82 M/mm3 (4.2-5.4); Red Cell Distribution Width 12.6 % (11.5-14.5); White Blood Count 6.5 K/mm3 (4.5-10.0)
[2021-09-01] MEDS: LEVOTHYROXINE SODIUM 75 MCG TABLET PO (05:50)
[2021-09-01] MEDS: ACETAMINOPHEN 325 MG TABLET 650 MG PO (09:27)
[2021-09-01] MEDS: GABAPENTIN 300 MG CAPSULE PO (09:28)
[2021-09-01] MEDS: CYCLOBENZAPRINE HCL 10 MG TABLET PO (09:28)
[2021-09-01] MEDS: ISOSORBIDE MONONITRATE 30 MG TAB.ER.24H PO (09:29)
[2021-09-01] MEDS: PANTOPRAZOLE 40 MG TABLET PO (09:29)
[2021-09-01] MEDS: METOPROLOL TARTRATE 12.5 MG TABLET PO (09:29)
[2021-09-01] MEDS: ROSUVASTATIN 10 MG TABLET PO (09:29)
[2021-09-01] MEDS: CELECOXIB 200 MG CAPSULE PO (09:30)
[2021-09-01] MEDS: CALCIUM CARBONATE (TUMS) 500 MG (200 MG ELEMENTAL) 400 MG PO (09:30)
--- NOTE | 2021-09-01 10:36 | PM.PNCARD ---
Progress Note: A&P Assessment and Plan (1) CAD (coronary artery disease): Code(s): I25.10 - Atherosclerotic heart disease of chilkoot coronary artery without angina pectoris Status: Acute Assessment and Plan: 80% somewhat hazy appearing stenosis in circumflex with mild nonobstructive disease 30% and mid LAD, 40% RCA. -ASA 81 mg daily, rosuvastatin 10 mg at bedtime goal LDL less than 70. Metoprolol tartrate. Lifestyle modification counseling. IFR plan to establish flow limiting hemodynamic significance of 80% stenosis, however, due to hematoma complication with sheath exchange this evaluation was aborted per Interventional Cardiology. Follow up as an outpatient, medical management in the interval with plans to proceed with repeat angiography and IFR if symptoms are not able to be controlled satisfactorily. We discussed at length the relative risks versus benefits of medical therapy versus invasive angiography and stent implantation. I reviewed in great detail circumstances surrounding to the best of my knowledge and according to Dr. Graham note regarding hematoma development of the underlying mechanism. All questions answered to her satisfaction. Patient verbalized understanding and appreciated although if done and understands those risks. She is open to repeat angiography if her symptoms are poorly controlled if recommended but we will allow her to heal provided symptoms are reasonably stable in the interval. (2) Stable angina: Code(s): I20.8 - Other forms of angina pectoris Status: Acute Assessment and Plan: Imdur 30 mg daily along with metoprolol tartrate 12.5 mg twice daily for additional antianginal benefit in optimal medical therapy. Counseled on side effects, risks and benefits. All questions answered to her satisfaction. Notify office with regards symptoms in response to therapy. Discussed medical management versus invasive stenting. If symptoms controlled on medical therapy continue observation. Patient verbalized understanding and agreed with this plan of care. Would like to see her back in the office within 2 weeks and she will communicate any new concerns, questions or progression as to his stability and satisfaction with quality of life on medical therapy. (3) Hematoma following angiography: Status: Acute Assessment and Plan: Right groin vascular ultrasound without hematoma, pseudoaneurysm or other complication. No residual hematoma noted. Successful hemostasis this morning. Local bruising and discomfort as expected no vascular compromise. H&H stable. Tylenol as counseled for pain control. Counseled on red flag symptoms to monitor for cold leg or discoloration, progressive swelling, firmness, pain, fevers, chills. Stable for discharge home today. See discharge instructions. Reviewed all precautions once again. All questions answered to her satisfaction. (4) Hypertension: Qualifiers: Hypertension type: essential hypertension Qualified Code(s): I10 - Essential (primary) hypertension Code(s): I10 - Essential (primary) hypertension Status: Acute Assessment and Plan: Well controlled. Continue medical therapy. (5) Hyperlipidemia: Qualifiers: Hyperlipidemia type: unspecified Qualified Code(s): E78.5 - Hyperlipidemia, unspecified Code(s): E78.5 - Hyperlipidemia, unspecified Status: Chronic Assessment and Plan: As above, add rosuvastatin 10 mg at bedtime. Patient reports intolerance to atorvastatin simvastatin the past, however, she agrees and would like to try another statin given the presence of CAD and we will observe her tolerance in this regard. Alternatives such as PCSK9 inhibitor will then be discussed and pursued if she poorly tolerates statin therapy once again. Goal LDL less than 70. LDL not ideally controlled given presence of CAD with LDL of 117 June 2021. Subjective Date/time seen: Date of service:
--- NOTE | 2021-09-01 10:54 | PM.DS ---
DS: Admitting Diagnosis Discharge Date 09/01/2021 Admitting Diagnosis Progressive angina Abnormal stress test Hypertension Dyslipidemia Family history of premature atherosclerosis DS: Discharge Diagnosis Discharge Diagnosis (1) CAD (coronary artery disease): Code(s): I25.10 - Atherosclerotic heart disease of [place] coronary artery without angina pectoris Status: Acute Assessment and Plan: 80% somewhat hazy appearing stenosis in circumflex with mild nonobstructive disease 30% and mid LAD, 40% RCA. -ASA 81 mg daily, rosuvastatin 10 mg at bedtime goal LDL less than 70. Metoprolol tartrate. Lifestyle modification counseling. IFR plan to establish flow limiting hemodynamic significance of 80% stenosis, however, due to hematoma complication with sheath exchange this evaluation was aborted per Interventional Cardiology. Follow up as an outpatient, medical management in the interval with plans to proceed with repeat angiography and IFR if symptoms are not able to be controlled satisfactorily. We discussed at length the relative risks versus benefits of medical therapy versus invasive angiography and stent implantation. I reviewed in great detail circumstances surrounding to the best of my knowledge and according to Dr. Graham note regarding hematoma development of the underlying mechanism. All questions answered to her satisfaction. Patient verbalized understanding and appreciated although if done and understands those risks. She is open to repeat angiography if her symptoms are poorly controlled if recommended but we will allow her to heal provided symptoms are reasonably stable in the interval. (2) Hematoma following angiography: Status: Acute Assessment and Plan: Right groin vascular ultrasound without hematoma, pseudoaneurysm or other complication. No residual hematoma noted. Successful hemostasis this morning. Local bruising and discomfort as expected no vascular compromise. H&H stable. Tylenol as counseled for pain control. Counseled on red flag symptoms to monitor for cold leg or discoloration, progressive swelling, firmness, pain, fevers, chills. Stable for discharge home today. See discharge instructions. Reviewed all precautions once again. All questions answered to her satisfaction. (3) Stable angina: Code(s): I20.8 - Other forms of angina pectoris Status: Acute Assessment and Plan: Imdur 30 mg daily along with metoprolol tartrate 12.5 mg twice daily for additional antianginal benefit in optimal medical therapy. Counseled on side effects, risks and benefits. All questions answered to her satisfaction. Notify office with regards symptoms in response to therapy. Discussed medical management versus invasive stenting. If symptoms controlled on medical therapy continue observation. Patient verbalized understanding and agreed with this plan of care. Would like to see her back in the office within 2 weeks and she will communicate any new concerns, questions or progression as to his stability and satisfaction with quality of life on medical therapy. (4) Hypertension: Qualifiers: Hypertension type: essential hypertension Qualified Code(s): I10 - Essential (primary) hypertension Code(s): I10 - Essential (primary) hypertension Status: Acute Assessment and Plan: Well controlled. Continue medical therapy. (5) Hyperlipidemia: Qualifiers: Hyperlipidemia type: unspecified Qualified Code(s): E78.5 - Hyperlipidemia, unspecified Code(s): E78.5 - Hyperlipidemia, unspecified Status: Chronic Assessment and Plan: As above, add rosuvastatin 10 mg at bedtime. Patient reports intolerance to atorvastatin simvastatin the past, however, she agrees and would like to try another statin given the presence of CAD and we will observe her tolerance in this regard. Alternatives such as PCSK9 inhibitor will then be discussed and pursued if she
[2021-09-01] MEDS: buPROPion HCL XL (24 HR) 150 MG TABCR 300 MG PO (12:22)
[2021-09-01] MEDS: ASPIRIN 81 MG ENTERIC TABLET PO (12:22)
[2021-09-01] MEDS: EZETIMIBE 10 MG TABLET PO (12:23)
[2021-09-01] MEDS: SERTRALINE HCL 50 MG TABLET 100 MG PO (12:23)
[2021-09-01] MEDS: hydroCHLOROthiazide 25 MG TABLET PO (12:23)
== END 2021-09-01 13:29 | disposition home or self-care (01) ==
LOC: ANHCATHLAB 12:40 → ANHCPC 13:09 → ANH2MED 09-27 09:31
PROVIDERS: Nurse Practitioner; PCP Family Medicine; Visit Provider Internal Medicine Cardiovascular Disease
PROC: 4A023N7 Measurement of Cardiac Sampling and Pressure, Left Heart, Percutaneous Approach (ICD-10-PCS; CPT 93452; principal; 2021-08-31 10:00)
DX: I25.118 Atherosclerotic heart disease of native coronary artery with other forms of angina pectoris (principal); R07.9 Chest pain, unspecified; R06.09 Other forms of dyspnea; R94.39 Abnormal result of other cardiovascular function study; I97.610 Postprocedural hemorrhage of a circulatory system organ or structure following a cardiac catheterization; Y84.0 Cardiac catheterization as the cause of abnormal reaction of the patient, or of later complication, without mention of misadventure at the time of the procedure; I10 Essential (primary) hypertension; E78.5 Hyperlipidemia, unspecified; E03.9 Hypothyroidism, unspecified; R73.03 Prediabetes; J44.9 Chronic obstructive pulmonary disease, unspecified; F31.9 Bipolar disorder, unspecified; Z79.51 Long term (current) use of inhaled steroids
CPT/HCPCS: 36415; 80048; 85025; 85027; 85610; 93458; 93926; 99199; A9270; C1887; C1894; J1644; J2250; J3010; J3480; J7040

== ENCOUNTER 2021-09-03 07:58 | Emergency (ER) | payer MEDICARE, OTHER, SELFPAY ==
[2021-09-03] VITALS (35 sets, daily range): BP systolic 118–153; BP diastolic 61–103; PULSE 57–76; RESP 10–37; TEMP 36.2–36.3; O2SAT 83–100
--- NOTE | ~2021-09-03 | US_ITS ---
EXAMINATION: US right upper quadrant DATE: 09/03/2021 09:06 INDICATION: Right upper quadrant pain TECHNIQUE: Multiple grayscale and Doppler ultrasound images of the abdomen were obtained. COMPARISON: None available FINDINGS: The head and body of the pancreas are normal. The pancreatic tail is obscured by bowel gas. The liver is normal with normal echogenicity and echotexture. No surface nodularity. Normal hepatope carlyn flow in the main portal vein. Stones are present in the nondistended gallbladder. The normal comm on bile duct measures 5 mm. There was a sonographic Andujar sign. IMPRESSION: 1. Cholelithiasis and positive sonographic Andujar sign without additional findings of acute cholecyst itis. Consider nuclear hepatobiliary scan if there is clinical concern for cholecystitis. Reviewed, dictated and finalized at location A. STRIPPER IMPRESSION: 1. Cholelithiasis and positive sonographic Andujar sign without additional findi ngs of acute cholecystitis. Consider nuclear hepatobiliary scan if there is cli nical concern for cholecystitis.
--- NOTE | ~2021-09-03 | XR_ITS ---
EXAMINATION: XR chest 2V DATE: 09/03/2021 08:34 INDICATION: Right-sided chest pain TECHNIQUE: AP and lateral views of the chest are obtained. COMPARISON: 07/22/2021 FINDINGS: There is mild atelectasis of the lung bases. There is no pleural effusion or pneumothorax. The cardiomediastinal silhouette is normal. There is moderate thoracic spondylosis. IMPRESSION: 1. Mild atelectasis of the lung bases. Reviewed, dictated and finalized at location A. TENDER SECOND OPERATOR
--- NOTE | 2021-09-03 08:02 | ECG_ITS ---
Measurements Intervals [place] Rate: 63 P: 63 IN: 184 QRS: 7 QRSD: 96 T: 21 QT: 402 QTc: 413 Interpretive Statements SINUS RHYTHM BASELINE WANDER- I, II, AVR, AVL, AVF, V1-V5 NORMAL ECG Electronically Signed On 09-03-2021 10:54:53 CURRICULUM COORDINATOR by Samy Almaguer D.O.
[2021-09-03 08:39] LABS: Basophils Absolute Auto 0.1 K/mm3 (0.0-0.1); Basophils Percent Auto 0.7 % (0.2-1.2); Eosinophils Absolute Auto 0.2 K/mm3 (0-0.3); Eosinophils Percent Auto 2.9 % (0-4.4); Hematocrit 35.9 % (37.0-47.0); Hemoglobin 12.4 g/dL (12.0-15.0); Immature Granulocyte Absolute 0.04 K/mm3 (0.00-0.031); Immature Granulocyte Percent A 0.5 % (0-0.5); Lymphocytes Percent Auto 20.7 % (18.3-44.2); Mean Corpuscular HGB Conc 34.5 g/dl (32-36); Mean Corpuscular Hemoglobin 32.4 pg (26-34); Mean Corpuscular Volume 93.7 fl (80-100); Mean Platelet Volume 9.6 fl (7.4-10.4); Monocytes Absolute Auto 0.7 K/mm3 (0.1-0.6); Monocytes Percent Auto 8.9 % (2.6-8.5); Neutrophils Absolute Auto 5.5 K/mm3 (1.3-6.7); Neutrophils Percent Auto 66.3 % (45.5-73.1); Platelet Count Result 284 k/mm3 (150-375); Red Blood Count 3.83 M/mm3 (4.2-5.4); Red Cell Distribution Width 12.6 % (11.5-14.5); White Blood Count 8.2 K/mm3 (4.5-10.0)
[2021-09-03] MEDS: ONDANSETRON INJ 4 MG/2 ML VIAL IV PUSH (08:40)
[2021-09-03] MEDS: MORPHINE SULFATE (*CRX) 4 MG/ML INJ IV PUSH ×2 (08:46→09:36)
[2021-09-03 08:57] LABS: Alanine Aminotransferase 21 U/L (4-35); Albumin Level 4.1 g/dL (3.5-5.1); Alkaline Phosphatase 92 U/L (38-126); Anion Gap 11 mmol/L (8-16); Aspartate Amino Transferase 37 U/L (14-36); Bilirubin,Total 0.6 mg/dL (0.2-1.3); Blood Urea Nitrogen 12 mg/dL (7-17); Carbon Dioxide 26 mmol/L (22-30); Chloride 100 mmol/L (98-107); Estimated CRCL calculation 92 ml/min; Estimated Glomerular Filt Rate > 60; Glucose 115 mg/dL (65-110); Lipase 120 U/L (23-300); Potassium 4.3 mmol/L (3.4-5.0); Sodium 137 mmol/L (137-145)
[2021-09-03 09:04] LABS: Troponin I < 0.012 ng/mL (0.000-0.034)
--- NOTE | 2021-09-03 09:36 | ED.GENADULT ---
HPI - General Adult General Chief complaint: Chest Pain Stated complaint: chest pain Time Seen by Provider: 09/03/21 08:03 History of Present Illness HPI narrative: Patient is a 66-year-old female who presents ER with chest pain. Sudden onset earlier this morning. Moves straight through to her back. No fevers or chills or sweats. Had a cardiac catheterization 2 days ago that showed 80% stenosis of her circumflex. There is a complication with sheath exchange and patient developed hematoma and intervention was aborted. Patient did have an ultrasound to rule out a pseudoaneurysm. She has large bruising in her groin but no increased pain or swelling. No improvement with nitroglycerin. Related Data Home Medications Medication Instructions Recorded Confirmed bupropion HCl [Wellbutrin XL] 300 mg PO QAM 07/31/19 08/28/21 sertraline [Zoloft] 100 mg PO DAILY 07/31/19 08/28/21 quetiapine 50 mg tablet 50 mg PO HS tablet 07/09/20 08/28/21 calcium carbonate 500 mg calcium 1,000 mg PO BID 04/10/21 08/28/21 (1,250 mg) chewable tablet clonazepam 0.5 mg tablet 0.5 mg PO HS PRN 04/10/21 08/28/21 omega-3 fatty acids 1,000 mg 1,000 mg PO BID 04/10/21 08/28/21 capsule aspirin [Adult Low Dose Aspirin] 81 mg PO DAILY 08/28/21 08/31/21 cyclobenzaprine 10 mg PO TID PRN 08/28/21 08/31/21 fluticasone propion-salmeterol 1 inh INHALATION DAILY PRN 08/28/21 08/28/21 [Advair Diskus] gabapentin 300 mg PO BID 08/28/21 08/31/21 nitroglycerin 0.4 mg SUBLINGUAL Q5MIN PRN 08/28/21 08/28/21 Allergies Allergy/AdvReac Type Severity Reaction Status Date / Time atorvastatin Allergy Mild Muscle Pain Verified 09/03/21 11:27 levofloxacin Allergy Mild Muscle Pain Verified 09/03/21 11:27 simvastatin Allergy Mild Muscle Pain Verified 09/03/21 11:27 azithromycin Allergy Unknown Verified 09/03/21 11:27 [id number] Reductase Allergy Muscle Pain Verified 09/03/21 11:27 Inhibitor Sulfa (Sulfonamide Allergy Unknown Verified 09/03/21 11:27 Antibiotics) Review of Systems Review of Systems: All systems reviewed & are unremarkable except as noted in HPI and below Constitutional: Constitutional: Denies chills, Denies fever(s) and Denies weakness ENT: Denies nasal congestion and Denies sore throat Cardiovascular: Cardiovascular: Reports chest pain, Denies rapid heart rate and Denies radiating jaw, neck or arm pain Comments: Radiates to back Respiratory: Respiratory: Denies cough, Denies dyspnea and Denies wheezing Gastrointestinal: Gastrointestinal: Reports abdominal pain, Denies diarrhea, Denies nausea and Denies vomiting [facility] Past Medical History Medical History (Updated 09/03/21 @ 12:58 by Lamberto Balderrama MD) Arthritis Bipolar 1 disorder CAD (coronary artery disease) Depression Hernia History of left heart catheterization Hyperlipidemia Hypertension Hypothyroidism Obesity Obstructive lung disease Prediabetes Surgical History Surgical History History of umbilical hernia repair (~1998) S/P LAN-BSO 2003 Family History Family History Father Hypertension Carcinoma of colon Family history of emphysema Mother Hypertension Family history of diabetes mellitus in first degree relative Other Depression Diabetes mellitus Family history of arthritis Family history of cardiovascular disease Family history of lymphoma Family history of malignant neoplasm Social History Social History Smoking packs per day: 0 Smoking cigarettes per day: 0.0 Years smoked: 0 Smoking pack-years: 0.00 Smoking status: Never smoker Second hand tobacco smoke exposure: No Alcohol intake: current Drinks per week: 2 Substance use: never Substance use type: does not use Additional living arrangements comments: LIVES W/ Spiritual care concern
[2021-09-03 11:50] LABS: Troponin I < 0.012 ng/mL (0.000-0.034)
--- NOTE | 2021-09-03 15:34 | PM.CNGS ---
Assessment and Plan Assessment and plan (1) Cholelithiasis: Code(s): K80.20 - Calculus of gallbladder without cholecystitis without obstruction Status: Acute Assessment and Plan: Current episode likely secondary to biliary colic, cholelithiasis, much improved after morphine, recommend conservative treatment at this time with low-fat diet, will follow-up as outpatient to discuss interval cholecystectomy (2) CAD (coronary artery disease): Code(s): I25.10 - Atherosclerotic heart disease of [place] coronary artery without angina pectoris Status: Acute Assessment and Plan: continue cardiac workup, cardiology has been consulted History of Present Illness Consult details Consult date: 09/03/21 Reason for consult: abdominal pain Requesting physician: Lamberto Balderrama MD Narrative: The the patient is a 66-year-old female presenting to the emergency department complaining of severe epigastric abdominal pain with radiation to her chest. The patient reports that the pain has been going on over the last few hours. The patient reports some abdominal distension and bloating, as well as nausea. The patient has a history of coronary artery disease, and had a cardiac catheterization 2 days ago that showed blockage of her circumflex artery. Workup in the emergency department, including imaging and laboratory, are consistent with biliary colic. Review of Systems Constitutional: Constitutional: Reports anorexia, Denies chills, Reports fatigue, Denies fever(s), Denies increased appetite, Reports lethargy, Denies malaise, Reports poor appetite, Denies weakness, Denies weight gain and Denies weight loss Eyes: Eyes: Reports no additional eye complaints ENT: Reports system reviewed and no additional complaints, except as documented Cardiovascular: Cardiovascular: Reports chest pain, Reports chest pain at rest, Reports chest pain with activity and Denies dyspnea Respiratory: Respiratory: Reports no additional respiratory complaints Gastrointestinal: Gastrointestinal: Reports as per HPI, Reports abdominal pain, Reports bloating, Reports GI cramping, Reports early satiety, Denies fecal incontinence, Reports diarrhea, Reports nausea and Denies vomiting Genitourinary: Genitourinary: Reports no additional female genitourinary complaints Musculoskeletal: Musculoskeletal: Reports no additional musculoskeletal complaints Integumentary/Breasts: Skin/Breast: Reports system reviewed and no additional complaints, except as docu Neurologic: Reports system reviewed and no additional complaints, except as documented Psychiatric: Psychiatric: Reports no additional psychiatric complaints Endocrine: Endocrine: Reports no additional endocrine complaints Hematologic/Lymphatic: Hematologic/Lymphatic: Reports no additional hematologic/lymphatic complaints Allergic/Immunologic: Allergic/Immunologic: Reports no additional allergic/immunologic complaints [facility] Past Medical History Medical History Arthritis Bipolar 1 disorder CAD (coronary artery disease) Depression Hernia History of left heart catheterization Hyperlipidemia Hypertension Hypothyroidism Obesity Obstructive lung disease Prediabetes Surgical History Surgical History History of umbilical hernia repair (~1998) S/P LAN-BSO 2003 Family History Family History Father Hypertension Carcinoma of colon Family history of emphysema Mother Hypertension Family history of diabetes mellitus in first degree relative Other Depression Diabetes mellitus Family history of arthritis Family history of cardiovascular disease Family history of lymphoma Family history of malignant neoplasm Social History Social History Smoking packs per day: 0 Smoking
== END 2021-09-03 13:18 | disposition home or self-care (01) ==
PROVIDERS: Emergency Provider Emergency Medicine; PCP Family Medicine
DX: K80.20 Calculus of gallbladder without cholecystitis without obstruction (principal); I25.10 Atherosclerotic heart disease of native coronary artery without angina pectoris; E78.5 Hyperlipidemia, unspecified; I10 Essential (primary) hypertension; E03.9 Hypothyroidism, unspecified; Z79.82 Long term (current) use of aspirin
CPT/HCPCS: 36415; 71046; 76705; 80053; 83690; 84484; 85025; 93005; 96374; 96375; 96376; 99284; J2270; J2405

== ENCOUNTER → 2021-09-30 02:14 | Outpatient (CLI) | payer MEDICARE, OTHER, SELFPAY ==
[2021-10-01 01:23] LABS: SARS-CoV-2 RNA PCR Positive
== END ==
PROVIDERS: PCP Family Medicine; Visit Provider Nurse Practitioner
DX: U07.1 COVID-19 (principal); Z20.822 Contact with and (suspected) exposure to COVID-19
CPT/HCPCS: C9803; U0003; U0005

== ENCOUNTER 2021-11-06 12:56 | Outpatient (CLI) | payer MEDICARE, OTHER, SELFPAY | END 2021-11-06 12:57 | disposition home or self-care (01) | PROVIDERS: PCP Family Medicine; Visit Provider Physician Assistant | DX: G25.81 Restless legs syndrome (principal); M25.552 Pain in left hip | CPT/HCPCS: 36415; 82728 ==

== ENCOUNTER 2021-11-06 15:22 | Outpatient (CLI) | payer MEDICARE, OTHER, SELFPAY ==
--- NOTE | ~2021-11-06 | MM_ITS ---
EXAMINATION: MM screening christopher BI w jose ramon HISTORY: Screening TECHNIQUE: Craniocaudal and mediolateral oblique 3-D tomosynthesis images were obtained and synthetic 2-D images were generated. CAD analysis was submitted and interpreted. COMPARISON: Comparison to multiple prior studies sequentially, with oldest reviewed study dated 07/21. BREAST PARENCHYMAL COMPOSITION: The breasts are almost entirely fatty. FINDINGS: There is no evidence of suspicious mass, calcification, or architectural distortion to sugg est malignancy in either breast. There has been no suspicious interval change. IMPRESSION: 1. No mammographic evidence of malignancy. 2. Recommend routine screening mammography in one year. BI-RADS Category 1: Negative Reviewed, dictated and finalized at location A. OR PASTOR
== END 2021-11-06 15:23 | disposition home or self-care (01) ==
LOC: ANHIMG 15:25
PROVIDERS: PCP Family Medicine; Visit Provider Family Medicine
DX: Z12.31 Encounter for screening mammogram for malignant neoplasm of breast (principal)
CPT/HCPCS: 36415; 77063; 77067; 82728

== ENCOUNTER 2021-11-09 16:00 | Observation (INO) | payer MEDICARE, OTHER, SELFPAY ==
[2021-11-06 16:51] VITALS: BMI 38.5
[2021-11-09] VITALS (25 sets, daily range): BP systolic 108–144; BP diastolic 61–97; PULSE 56–80; RESP 12–20; TEMP 36.3–36.9; O2SAT 94–100; BMI 37.8; BMI 39.0
[2021-11-09 09:21] LABS: Prothrombin Time 12.4 Seconds (11.1-14.7)
[2021-11-09 09:22] LABS: Basophils Absolute Auto 0.1 K/mm3 (0.0-0.1); Basophils Percent Auto 0.6 % (0.2-1.2); Eosinophils Absolute Auto 0.1 K/mm3 (0-0.3); Eosinophils Percent Auto 1.5 % (0-4.4); Hematocrit 42.6 % (37.0-47.0); Hemoglobin 14.1 g/dL (12.0-15.0); Immature Granulocyte Absolute 0.04 K/mm3 (0.00-0.031); Immature Granulocyte Percent A 0.5 % (0-0.5); Lymphocytes Absolute Auto 1.65 K/mm3 (0.9-3.2); Mean Corpuscular HGB Conc 33.1 g/dl (32-36); Mean Corpuscular Hemoglobin 30.2 pg (26-34); Mean Corpuscular Volume 91.2 fl (80-100); Mean Platelet Volume 9.4 fl (7.4-10.4); Monocytes Absolute Auto 0.8 K/mm3 (0.1-0.6); Monocytes Percent Auto 9.7 % (2.6-8.5); Neutrophils Absolute Auto 5.6 K/mm3 (1.3-6.7); Neutrophils Percent Auto 67.7 % (45.5-73.1); Platelet Count Result 285 k/mm3 (150-375); Red Blood Count 4.67 M/mm3 (4.2-5.4); Red Cell Distribution Width 13.3 % (11.5-14.5); White Blood Count 8.3 K/mm3 (4.5-10.0)
[2021-11-09 09:27] LABS: Anion Gap 7 mmol/L (8-16); Blood Urea Nitrogen 14 mg/dL (7-17); Calcium 9.2 mg/dL (8.4-10.2); Carbon Dioxide 32 mmol/L (22-30); Chloride 99 mmol/L (98-107); Estimated CRCL calculation 91 ml/min; Estimated Glomerular Filt Rate > 60; Glucose 93 mg/dL (65-110); Potassium 3.7 mmol/L (3.4-5.0); Sodium 138 mmol/L (137-145)
--- NOTE | 2021-11-09 10:12 | WPDMODSED ---
Moderate Sedation Note-Pt Data Patient Data Diagnosis: coronary artery disease with recent angiography demonstrating stenosis of the circumflex trunk Present Complaint: exertional dyspnea intermittent chest pain Procedure to be performed/Plan: percutaneous revascularization of the circumflex Allergies Allergy/AdvReac Type Severity Reaction Status Date / Time atorvastatin Allergy Mild Muscle Pain Verified 11/09/21 09:20 levofloxacin Allergy Mild Muscle Pain Verified 11/09/21 09:20 simvastatin Allergy Mild Muscle Pain Verified 11/09/21 09:20 azithromycin Allergy Unknown Verified 11/09/21 09:20 [id number] Reductase Allergy Muscle Pain Verified 11/09/21 09:20 Inhibitor Sulfa (Sulfonamide Allergy Unknown Verified 11/09/21 09:20 Antibiotics) Home Medications Medication Instructions Recorded Confirmed Type bupropion HCl [Wellbutrin XL] 300 mg PO QAM 07/31/19 11/09/21 History sertraline [Zoloft] 100 mg PO DAILY 07/31/19 11/09/21 History quetiapine 50 mg tablet 50 mg PO HS tablet 07/09/20 11/09/21 History calcium carbonate 500 mg calcium 1,000 mg PO BID 04/10/21 11/09/21 History (1,250 mg) chewable tablet clonazepam 0.5 mg tablet 0.5 mg PO HS PRN 04/10/21 11/09/21 History omega-3 fatty acids 1,000 mg 1,000 mg PO BID 04/10/21 11/09/21 History capsule albuterol sulfate 90 mcg/actuation 1 inh INHALATION Q4H PRN #6.7 g 07/10/21 11/06/21 Rx aerosol inhaler celecoxib 200 mg capsule 200 mg PO DAILY #90 cap 07/10/21 11/09/21 Rx cetirizine 10 mg tablet 10 mg PO DAILY PRN #90 tablet 07/10/21 11/09/21 Rx ezetimibe 10 mg tablet 10 mg PO DAILY #90 tablet 07/10/21 11/09/21 Rx hydrochlorothiazide 25 mg tablet 25 mg PO DAILY #90 tablet 07/10/21 11/09/21 Rx levothyroxine 75 mcg tablet 75 mcg PO DAILY #90 tablet 07/10/21 11/09/21 Rx aspirin [Adult Low Dose Aspirin] 81 mg PO DAILY 08/28/21 11/09/21 History nitroglycerin 0.4 mg SUBLINGUAL Q5MIN PRN 08/28/21 11/06/21 History metoprolol tartrate 12.5 mg PO BID #60 tablet 09/01/21 11/09/21 Rx rosuvastatin [Crestor] 10 mg PO QAM #30 tablet 09/01/21 11/09/21 Rx ondansetron 4 mg PO Q6H PRN #10 tablet 09/03/21 11/06/21 Rx cyclobenzaprine 5 mg tablet 5 mg PO TID PRN #90 tablet 09/22/21 11/06/21 Rx Advair Diskus 100 mcg-50 mcg/dose 1 inh INHALATION DAILY PRN #60 ea 10/06/21 11/09/21 Rx powder for inhalation NS gabapentin 300 mg PO DAILY 11/06/21 11/09/21 History isosorbide mononitrate 15 mg PO QAM 11/06/21 11/09/21 History omeprazole 20 mg PO DAILY 11/06/21 11/09/21 History Current Medications: Active Medications Sodium Chloride (Normal Saline Iv) 500 mls @ 100 mls/hr IV CONT .Q5H AMIRA Sedation/Anesthesia: No previous sedation/anesthesia problems (including family history). [facility] Past Medical History Medical History Arthritis Bipolar 1 disorder CAD (coronary artery disease) Depression Hernia History of left heart catheterization Hyperlipidemia Hypertension Hypothyroidism Obesity Obstructive lung disease Prediabetes Surgical History Surgical History History of umbilical hernia repair (~1998) S/P LAN-BSO 2003 Family History Family History Father Hypertension Carcinoma of colon Family history of emphysema Mother Hypertension Family history of diabetes mellitus in first degree relative Other Depression Diabetes mellitus Family history of arthritis Family history of cardiovascular disease Family history of lymphoma Family history of malignant neoplasm Social History Social History Smoking packs per day: 0 Smoking cigarettes per day: 0.0 Years smoked: 0 Smoking pack-years: 0.00 Smoking status: Never smoker Second hand tobacco smoke exposure: No Alcohol intake: current Drinks per week: 2 Substance use: never Substa
--- NOTE | 2021-11-09 11:03 | ECG_ITS ---
Measurements Intervals [place] Rate: 58 P: 55 ID: [id number] QRS: -61 QRSD: 101 T: 27 QT: 447 QTc: 439 Interpretive Statements SINUS BRADYCARDIA LEFT AXIS DEVIATION BASELINE ARTIFACT- I, II, III, AVF BORDERLINE ECG Electronically Signed On 11-09-2021 17:06:35 SUPERVISOR CEMETERY WORKERS by Samy Almaguer D.O.
--- NOTE | 2021-11-09 11:06 | WPDCARDPROC ---
Cardiac Cath Procedure Note Date of procedure:: 11/09/21 Performing physician:: Yadiel Graham MD Indication:: ischemic chest pain with known stenosis in proximal circumflex Brief clinical history:: this is a 66-year-old woman who just underwent diagnostic angiography recently in this laboratory because of ischemic chest pain. She was found to high-grade stenosis in the proximal trunk of her circumflex. PCI was considered during that hospitalization but there was difficulty on sheath exchange and procedure could not be performed at that time. She is admitted as an outpatient for planned PCI of this lesion. Procedure Procedure performed:: Right coronary angiography left coronary angiography PCI(BAILEY) to the proximal circumflex Sedation/Medication given:: fentanyl 25 mg Versed 2 mg case start time 10:40 a.m. case end time 11:01 a.m. sedation provided by Alvaro Rosenberg RN, trained observer Access site:: right femoral artery Estimated blood loss:: 15 cc Procedure note:: patient was brought to the cardiac catheterization lab in the postabsorptive state where the right femoral triangle was prepared and draped in the normal fashion. Anesthesia was provided with 1% lidocaine infiltrated locally. Using the modified Seldinger technique the right femoral artery was punctured and a 6 [place] vascular sheath was placed. I used a 5 [place] JR4 diagnostic catheter to engage and inject the right coronary artery in orthogonal projections. Following this I used a 6 [place] CLS 3.5 guiding catheter to engage and inject the left coronary artery. The plan PCI of the circumflex was then carried out. The patient received 600 mg of clopidogrel in the holding area prior to coming into the orthodontic laboratory technician. She was anticoagulated with Angiomax bolus and infusion for this PCI. Following conclusion of the PCI the sheath was sutured into position the patient was taken to the holding area for postprocedure recovery. There were no procedural complications. She was having modest 4/10 chest pain at the end of the procedure for which she was given nitro glycerin spray. Findings:: Hemodynamics: Central aortic pressure is 128/72. Left ventricle not entered during this procedure the left main coronary artery is nicely patent the left anterior descending artery is a medium caliber artery. In the views that was used there is no significant disease in the LAD. I did not perform a complete angiographic assessment of the LAD because that was just done about a month ago. The circumflex is a medium caliber vessel giving rise to 1 obtuse marginal branch. Prior to the origin of that branch the circumflex has a eccentric 85-90% stenosis. This lesion is relatively discrete. Right coronary artery is a large caliber vessel dominant to the posterior circulation there is mild atherosclerosis in the RCA. There is about a 40-50% stenosis in the 3rd portion of the RCA. There are diffuse luminal irregularities throughout the vessel. Intervention: The right coronary artery was wired using a 0.014 BMW coronary guidewire. The lesion was pre-dilated using a 2.5 x 15 mm emerge. Following this the lesion was stented using a 3 x 18 mm Xience Skypoint deployed at 12 atmospheres with an excellent anatomic result there was no residual stenosis dissection disruption or distal embolization with SHANAE 3 flow into the OM branch. Conclusion:: 1. Coronary artery disease angiographically unchanged from recent examination 2. culprit lesion was a high-grade stenosis in the proximal circumflex prior to the largest OM branch. This was treated successfully using the Xience drug-eluting stent described above with an excellent angiographic result. Yadiel Graham MD [facility]
[2021-11-09] MEDS: SODIUM CHLORIDE 0.9% IV 1,000 ML 125 ML IV CONT (13:31)
[2021-11-09] MEDS: HYDROcodone/acetaminophen (*CRX) 5-325 MG TABLET 1 TAB PO (13:41)
--- NOTE | 2021-11-09 16:30 | PC.NURSE ---
Pt received from cath lab radiological technologist for extended recovery overnight, after stent placement. Pt A&O x 4. Report received at bedside. Pt on bedrest until 2029 this evening.
[2021-11-09] MEDS: CALCIUM CARBONATE (TUMS) 500 MG (200 MG ELEMENTAL) 1000 MG PO (17:46)
[2021-11-09] MEDS: OMEGA 3 POLYUNSAT FATTY ACIDS 1 GM CAP PO (17:47)
[2021-11-09] MEDS: METOPROLOL TARTRATE 12.5 MG TABLET PO (20:47)
[2021-11-09] MEDS: clonazePAM (*CRX) 0.5 MG TABLET PO (20:47)
[2021-11-09] MEDS: QUEtiapine FUMARATE 25 MG TABLET 50 MG PO (20:47)
[2021-11-09] MEDS: ASPIRIN 81 MG ENTERIC TABLET PO (20:47)
[2021-11-10] VITALS (7 sets, daily range): BP systolic 134–152; BP diastolic 57–80; PULSE 50–72; RESP 12–20; TEMP 36.2–36.8; O2SAT 96–100
--- NOTE | 2021-11-10 05:11 | ECG_ITS ---
Measurements Intervals [place] Rate: 58 P: 14 [place]: 152 QRS: -20 QRSD: 97 T: 28 QT: 425 QTc: 420 Interpretive Statements SINUS OR ECTOPIC ATRIAL BRADYCARDIA LOW QRS VOLTAGE IN PRECORDIAL LEADS BORDERLINE ST-T WAVE ABNORMALITY- DIFFUSE LEADS BORDERLINE ECG Electronically Signed On 11-10-2021 11:03:01 READING COACH by Samy Almaguer D.O.
[2021-11-10] MEDS: LEVOTHYROXINE SODIUM 75 MCG TABLET PO (06:10)
--- NOTE | 2021-11-10 07:44 | PM.DS ---
DS: Admitting Diagnosis Discharge Date 11/10/2021 Admitting Diagnosis Coronary artery disease with angina pectoris DS: Discharge Diagnosis Discharge Diagnosis (1) CAD (coronary artery disease): Qualifiers: Coronary Disease-Associated Artery/Lesion type: unspecified vessel or lesion type [place] vs. transplanted heart: unspecified whether [place] or transplanted heart Associated angina: without angina Qualified Code(s): I25.10 - Atherosclerotic heart disease of [place] coronary artery without angina pectoris Code(s): I25.10 - Atherosclerotic heart disease of [place] coronary artery without angina pectoris Status: Acute (2) Chest pain: Qualifiers: Chest pain type: other chest pain Qualified Code(s): R07.89 - Other chest pain Code(s): R07.9 - Chest pain, unspecified Status: Acute (3) Stented coronary artery: Code(s): Z95.5 - Presence of coronary angioplasty implant and graft Status: Acute DS: Summary Hospital Course Reason for hospitalization: Elective/schedule PCI to circumflex Hospital Course: This is a 66-year-old woman who was recently found to have coronary artery disease with angiographically with significant stenosis in the proximal trunk for circumflex. PCI of this was recommended on the previous hospitalization but could not be done because there was difficulty with exchange of the sheath in the groin puncture site and access was lost. She is readmitted electively for this procedure. She underwent the procedure uneventfully. She had angiography performed of the right coronary artery which shows [id number] diffuse disease, no new problems compared with the recent angiogram. The left coronary artery also was angiographically unchanged. The details of this her the separately dictated cardiac cath no. There was 80-90% stenosis in the circumflex which is a medium caliber vessel. This was addressed uneventfully using a Xience drug-eluting stent with a good angiographic result. There were no procedural complications. She was started on Clopidogrel for this PCI. Today she is asymptomatic has recovered uneventfully and is a good candidate for discharge. Discharge medicines are listed below. Follow-up in the office is already scheduled for next month. Status at Discharge Functional status at discharge: independent ambulation Overall status at discharge: patient is back to baseline Time Spent with Patient Time attestation: Total time spent providing and/or coordinating discharge services: Time spent: Less than 30 minutes Exam Const: General: comfortable and no acute distress Other: Obese lady comfortable cooperative no distress HENMT: Mouth: Yes moist mucous membranes Eyes: Sclera: sclerae normal Pupils: Equal, round and reactive pupils present Neck: Neck: supple and no JVD Resp: Effort & Inspection: normal respiratory effort Auscultation: clear to auscultation bilaterally Cardio: Rate: regular rate Rhythm: regular rhythm Other: No murmur no gallop GI: GI Palp: Yes Soft to palpation Auscultation: normal bowel sounds Skin: General skin exam: normal color Extrem: General: normal to inspection DS: Data Data Completed and Pending Labs on day of discharge: Labs from last 24 hours 11/09/21 11/09/21 11/09/21 09:04 09:04 09:04 WBC 8.3 RBC 4.67 Hgb 14.1 Hct 42.6 MCV 91.2 MCH 30.2 MCHC 33.1 RDW 13.3 Plt Count 285 MPV 9.4 Immature Gran % (Auto) 0.5 Neut % (Auto) 67.7 Lymph % (Auto) 20.0 [place] % (Auto) 9.7 H Eos % (Auto) 1.5 Baso % (Auto) 0.6 Lymph # (Auto) 1.65 [place] # (Auto) 0.8 H Eos # (Auto) 0.1 Baso # (Auto) 0.1 Abs Immat Gran (auto) 0.04 H Absolute Neuts (auto) 5.6 Absolute Nucleated RBC 0.0 Nucleated RBC % 0.0 PT 12.4 INR 1.0 Sodium 138 Potassium 3.7 Chloride 99 Carbon Dioxide 32 H Anion Gap 7 L BUN 14 Creatinine 0.70 Estim Cr
[2021-11-10] MEDS: buPROPion HCL XL (24 HR) 150 MG TABCR 300 MG PO (09:19)
[2021-11-10] MEDS: CELECOXIB 200 MG CAPSULE PO (09:20)
[2021-11-10] MEDS: GABAPENTIN 300 MG CAPSULE PO (09:21)
[2021-11-10] MEDS: CLOPIDOGREL BISULFATE 75 MG TABLET PO (09:21)
[2021-11-10] MEDS: EZETIMIBE 10 MG TABLET PO (09:21)
[2021-11-10] MEDS: METOPROLOL TARTRATE 12.5 MG TABLET PO (09:22)
[2021-11-10] MEDS: FERROUS SULFATE 324 MG TABLET PO (09:22)
[2021-11-10] MEDS: hydroCHLOROthiazide 25 MG TABLET PO (09:22)
[2021-11-10] MEDS: ROSUVASTATIN 10 MG TABLET PO (09:23)
[2021-11-10] MEDS: OMEGA 3 POLYUNSAT FATTY ACIDS 1 GM CAP PO (09:23)
[2021-11-10] MEDS: SERTRALINE HCL 50 MG TABLET 100 MG PO (09:23)
[2021-11-10] MEDS: ISOSORBIDE MONONITRATE 15 MG TAB.ER.24H PO (09:23)
[2021-11-10] MEDS: PANTOPRAZOLE 40 MG TABLET PO (09:28)
[2021-11-10] MEDS: CALCIUM CARBONATE (TUMS) 500 MG (200 MG ELEMENTAL) 1000 MG PO (09:29)
--- NOTE | 2021-11-10 10:49 | PC.NURSE ---
Patient discharged this date; taken by wheelchair to front door to waiting vehicle/. Patient alert/oriented, no distress of any kind noted,p CHANG, no pain reported, pulses palpable in right foot prior to d/c; prescriptions transmitted to pharmacy at [place], right IV d/c'd, no bleeding, hematoma noted, dressing applied.
== END 2021-11-10 10:51 | disposition home or self-care (01) ==
LOC: ANHCPC 16:08
PROVIDERS: Admitting Provider Specialist; PCP Family Medicine; Visit Provider Specialist
PROC: (CPT 93454; principal; 2021-11-09 10:00)
PROC: (CPT 92928; 2021-11-09 10:00)
DX: I25.10 Atherosclerotic heart disease of native coronary artery without angina pectoris (principal); R07.9 Chest pain, unspecified; R06.09 Other forms of dyspnea; Z79.51 Long term (current) use of inhaled steroids; Z79.82 Long term (current) use of aspirin; I10 Essential (primary) hypertension; E78.5 Hyperlipidemia, unspecified; J44.9 Chronic obstructive pulmonary disease, unspecified; E03.9 Hypothyroidism, unspecified; R73.03 Prediabetes; F31.9 Bipolar disorder, unspecified; E66.9 Obesity, unspecified; Z68.39 Body mass index [BMI] 39.0-39.9, adult
CPT/HCPCS: 36415; 80048; 85025; 85610; 93005; 93454; A9270; C1725; C1769; C1874; C1887; C1894; C9600; G0378; J0583; J1644; J2250; J3010; J7030; J7040

== ENCOUNTER 2021-12-25 12:07 | Outpatient (CLI) | payer MEDICARE, OTHER, SELFPAY | END 2021-12-25 12:08 | disposition home or self-care (01) | LOC: ANHLAB 12:11 | PROVIDERS: PCP Family Medicine; Visit Provider Physician Assistant | DX: R79.0 Abnormal level of blood mineral (principal) | CPT/HCPCS: 36415; 82728 ==

== ENCOUNTER 2022-04-28 10:30 | Outpatient (NON) | payer MEDICARE, OTHER, SELFPAY | END 2022-04-28 10:31 | disposition home or self-care (01) | LOC: ANHLAB 05-26 10:30 | PROVIDERS: PCP Family Medicine; Visit Provider Nurse Practitioner | DX: R39.9 Unspecified symptoms and signs involving the genitourinary system (principal) | CPT/HCPCS: 87077; 87086; 87186 ==

== ENCOUNTER 2022-05-06 14:50 | Outpatient (CLI) | payer MEDICARE, OTHER, SELFPAY | END 2022-05-06 14:51 | disposition home or self-care (01) | LOC: ANHLAB 14:55 | PROVIDERS: Physician Assistant; PCP Family Medicine; Visit Provider Family Medicine | DX: D64.9 Anemia, unspecified (principal); N39.0 Urinary tract infection, site not specified | CPT/HCPCS: 36415; 82728; 87077; 87086; 87186 ==

== ENCOUNTER 2022-06-18 09:43 | Outpatient (CLI) | payer MEDICARE, OTHER, SELFPAY ==
[2022-06-18 10:34] LABS: Basophils Percent Auto 0.7 % (0.2-1.2); Eosinophils Absolute Auto 0.2 K/mm3 (0-0.3); Eosinophils Percent Auto 3.6 % (0-4.4); Hematocrit 43.7 % (37.0-47.0); Hemoglobin 14.6 g/dL (12.0-15.0); Immature Granulocyte Absolute 0.03 K/mm3 (0.00-0.031); Immature Granulocyte Percent A 0.5 % (0-0.5); Lymphocytes Absolute Auto 1.66 K/mm3 (0.9-3.2); Lymphocytes Percent Auto 27.3 % (18.3-44.2); Mean Corpuscular HGB Conc 33.4 g/dl (32-36); Mean Corpuscular Hemoglobin 32.1 pg (26-34); Mean Platelet Volume 9.3 fl (7.4-10.4); Monocytes Absolute Auto 0.6 K/mm3 (0.1-0.6); Monocytes Percent Auto 9.4 % (2.6-8.5); Neutrophils Absolute Auto 3.6 K/mm3 (1.3-6.7); Neutrophils Percent Auto 58.5 % (45.5-73.1); Platelet Count Result 261 k/mm3 (150-375); Red Blood Count 4.55 M/mm3 (4.2-5.4); Red Cell Distribution Width 12.4 % (11.5-14.5); White Blood Count 6.1 K/mm3 (4.5-10.0)
[2022-06-18 10:48] LABS: Hemoglobin A1C 5.4 % (<5.7)
[2022-06-18 11:36] LABS: Alanine Aminotransferase 19 U/L (6-35); Albumin Level 4.4 g/dL (3.5-5.1); Alkaline Phosphatase 70 U/L (38-126); Anion Gap 14 mmol/L (8-16); Aspartate Amino Transferase 24 U/L (14-36); Bilirubin,Total 0.6 mg/dL (0.2-1.3); Blood Urea Nitrogen 5 mg/dL (7-17); Calcium 9.4 mg/dL (8.4-10.2); Carbon Dioxide 32 mmol/L (22-30); Chloride 96 mmol/L (98-107); Cholesterol 162 mg/dL (0-200); Estimated Glomerular Filt Rate > 60; Glucose 107 mg/dL (65-110); HDL Direct 62 mg/dL; Potassium 3.7 mmol/L (3.4-5.0); Sodium 142 mmol/L (137-145); Triglycerides 132 mg/dL (<150)
[2022-06-18 11:47] LABS: LDL Cholesterol Direct 70 mg/dL
[2022-06-18 11:53] LABS: Vitamin D 25 Hydroxy 60.2 ng/mL
[2022-06-18 12:06] LABS: Thyroid Stimulating Hormone Reflex 0.481 uIU/mL (0.465-4.68)
== END 2022-06-18 09:44 | disposition home or self-care (01) ==
LOC: ANHLAB 09:46
PROVIDERS: PCP Family Medicine; Visit Provider Nurse Practitioner
DX: R73.03 Prediabetes (principal); I10 Essential (primary) hypertension; E78.5 Hyperlipidemia, unspecified; E03.9 Hypothyroidism, unspecified; E55.9 Vitamin D deficiency, unspecified
CPT/HCPCS: 36415; 80053; 80061; 82306; 83036; 84443; 85025

== ENCOUNTER 2022-09-17 09:51 | Outpatient (CLI) | payer MEDICARE, OTHER, SELFPAY ==
--- NOTE | ~2022-09-17 | DEXA_ITS ---
Bone Density Report Name: CLAU GAITAN Age: 67 Sex: Female Ethnicity: White Date of : 1955 Indication: postmenopausal; screening for osteoporosis; height loss; asthma or emphysema; hysterectomy; Referring Provider: BRANDEN ELLINGTON Study: Bone densitometry was performed. Exam Date: September 17, 2022 Accession number: [id number] Bone Density: Region BMD T-score Z-score Classification AP Spine(L1-L4) 1.349 2.7 4.6 Normal Femoral Neck (Left) 0.871 0.2 1.8 Normal Total Hip (Left) 0.951 0.1 1.4 Normal Femoral Neck (Right) 0.850 0.0 1.6 Normal Total Hip (Right) 0.929 -0.1 1.2 Normal Total Hip Mean 0.940 0.0 1.3 Normal World Health Organization criteria for BMD impression classify patients as: Normal (T-score at or above -1.0), Osteopenia (T-score between -1.0 and -2.5), or Osteoporosis (T-score at or below -2.5). 10-year Fracture Risk: FRAX not reported because: All T-scores for Spine Total, Hip Total, Femoral Neck at or above -1.0 Clinical Information Provided by Patient: Has used the following medications: Vitamin D, Calcium Has the following medical conditions: Asthma or Emphysema, Hysterectomy, hypothryroidism Patient maximum height was 69 Menopause Age: 49 No regular weight bearing exercise Does not regularly consume dairy products Drinks caffeinated beverages Onset of menses at age 15 Number of children 2 Impression: The patient has normal bone mass. Discussion: BONE DENSITY IS ABOVE THE MINIMUM DESIRABLE LEVEL AT ALL SKELETAL SITES TESTED. This patient?s bone mineral density is above the minimum desirable level (T-score -1.0 or better) at all sites measured. The patient should follow a healthful lifestyle (good nutrition with adequate calcium and vitamin D, and appropriate weight-bearing exercise). Follow-Up: Consider repeating this study in 5 years or sooner if there is some new clinical indication. Reported by: JOSE FRANCISCO on 09/17/2022 10:11:00 AM. Reviewed, dictated and finalized at location [facility]
== END 2022-09-17 09:52 | disposition home or self-care (01) ==
LOC: ANHIMG 09:52
PROVIDERS: PCP Family Medicine; Visit Provider Nurse Practitioner
DX: Z78.0 Asymptomatic menopausal state (principal)
CPT/HCPCS: 77080

== ENCOUNTER 2022-09-29 07:28 | Outpatient (CLI) | payer MEDICARE, OTHER, SELFPAY | END 2022-09-29 07:29 | disposition home or self-care (01) | PROVIDERS: PCP Family Medicine; Visit Provider Physician Assistant | DX: D64.9 Anemia, unspecified (principal) | CPT/HCPCS: 36415; 82728 ==

== ENCOUNTER 2022-10-05 11:23 | Outpatient (CLI) | payer MEDICARE, OTHER, SELFPAY ==
[2022-10-05 11:50] LABS: Hematocrit 42.3 % (37.0-47.0); Hemoglobin 13.9 g/dL (12.0-15.0)
[2022-10-05 12:12] LABS: Albumin Level 4.1 g/dL (3.5-5.1); Estimated Glomerular Filt Rate > 60; Glucose 91 mg/dL (65-110)
[2022-10-05 12:21] LABS: Hemoglobin A1C 5.6 % (<5.7)
== END 2022-10-05 11:24 | disposition home or self-care (01) ==
PROVIDERS: PCP Family Medicine; Visit Provider Orthopaedic Surgery
DX: M16.12 Unilateral primary osteoarthritis, left hip (principal); R73.03 Prediabetes; E78.5 Hyperlipidemia, unspecified
CPT/HCPCS: 36415; 82040; 82565; 82947; 83036; 85014; 85018

== ENCOUNTER 2022-11-19 07:59 | Outpatient (CLI) | payer MEDICARE, OTHER, SELFPAY ==
--- NOTE | 2022-11-19 09:35 | ECG_ITS ---
Measurements Intervals [place] Rate: 58 P: 227 IL: 101 QRS: 19 QRSD: 97 T: 42 QT: 467 QTc: 461 Interpretive Statements SINUS BRADYCARDIA WITH SHORT IL INTERVAL LOW QRS VOLTAGE IN PRECORDIAL LEADS BASELINE ARTIFACT- I, II, III, AVR, AVL, AVF, V1-V6 BORDERLINE ECG COMPARED TO ECG 11/10/2021 10:23:39 NO SIGNIFICANT CHANGES Electronically Signed On 11-19-2022 10:04:39 AUTOMOTIVE DESIGNER by Samy Almaguer D.O.
[2022-11-19 10:29] LABS: Basophils Percent Auto 0.7 % (0.2-1.2); Eosinophils Absolute Auto 0.2 K/mm3 (0-0.3); Hematocrit 42.7 % (37.0-47.0); Hemoglobin 14.2 g/dL (12.0-15.0); Immature Granulocyte Absolute 0.02 K/mm3 (0.00-0.031); Immature Granulocyte Percent A 0.4 % (0-0.5); Lymphocytes Absolute Auto 1.37 K/mm3 (0.9-3.2); Lymphocytes Percent Auto 25.4 % (18.3-44.2); Mean Corpuscular HGB Conc 33.3 g/dl (32-36); Mean Corpuscular Hemoglobin 31.8 pg (26-34); Mean Corpuscular Volume 95.5 fl (80-100); Mean Platelet Volume 9.5 fl (7.4-10.4); Monocytes Absolute Auto 0.6 K/mm3 (0.1-0.6); Monocytes Percent Auto 11.7 % (2.6-8.5); Neutrophils Absolute Auto 3.2 K/mm3 (1.3-6.7); Neutrophils Percent Auto 58.8 % (45.5-73.1); Platelet Count Result 225 k/mm3 (150-375); Red Blood Count 4.47 M/mm3 (4.2-5.4); Red Cell Distribution Width 12.6 % (11.5-14.5); White Blood Count 5.4 K/mm3 (4.5-10.0)
[2022-11-19 10:54] LABS: Anion Gap 4 mmol/L (8-16); Blood Urea Nitrogen 9 mg/dL (7-17); Calcium 9.3 mg/dL (8.4-10.2); Carbon Dioxide 32 mmol/L (22-30); Chloride 97 mmol/L (98-107); Estimated Glomerular Filt Rate > 60; Glucose 89 mg/dL (65-110); Potassium 3.7 mmol/L (3.4-5.0); Sodium 133 mmol/L (137-145)
[2022-11-19 11:14] LABS: Urine Cotinine NEGATIVE
== END 2022-11-19 08:00 | disposition home or self-care (01) ==
PROVIDERS: Anesthesiology; PCP Family Medicine; Visit Provider Orthopaedic Surgery
DX: Z01.818 Encounter for other preprocedural examination (principal); M16.12 Unilateral primary osteoarthritis, left hip; Z51.81 Encounter for therapeutic drug level monitoring
CPT/HCPCS: 80048; 80307; 85025; 86850; 86900; 86901; 87081; 93005

== ENCOUNTER 2022-12-02 00:50 | Day surgery (SDC) | payer MEDICARE, OTHER, SELFPAY ==
[2022-11-19 08:08] VITALS: BMI 39.9
[2022-11-19 08:30] VITALS: BP 137/65; PULSE 57; RESP 16; TEMP 36.5; O2SAT 96
--- NOTE | 2022-11-19 08:45 | PC.NURSE ---
Report to the Outpatient Waiting Room, entrance under the green pavilion located off [address], at time __6:00AM on date __12/02/22 . Planned Procedure Time: ___7:30AM . Time changes happen often and if your time is changed the preop area will call you the afternoon before. - You and your visitor will be asked to self-screen and do not enter if you have any COVID symptoms. - Only one visitor is requested with a max of two and NO children visitors are allowed at this time. - The patient visitor may be requested to leave or wait in car when not with patient due to distancing restrictions. - A mask is optional within the hospital at this time. Patients may have clear liquids (water, carbonated beverages, clear teas, apple juice) until 3 hours prior to surgery with a maximum of 20 ounces. - No food from midnight until time of surgery Take the following medications with a SIP of water the morning of surgery: ___ADVAIR DISKUS, ALBUTEROL INHALER NEEDED, BUPROPION, FLONASE NASAL SPRAY,LEVOTHYROXINE, METOPROLOL, SERTRALINE, GABAPENTIN NEEDED, HYDROCODONE OR TRAMADOL NEEDED DO NOT STOP ANY OF YOUR OTHER PRESCRIPTION MEDICATIONS PRIOR TO SURGERY ?EXCEPT THE FOLLOWING Medications to discontinue per physician __HOLD PLAVIX 7 DAYS PRE-OP- LAST DOSE 11/25/22, HOLD ASPIRIN PER DR JENNINGS, HOLD ALL VITAMINS/SUPPLEMENTS 3 DAYS PRE-OP- LAST DOSE 11/28/22 Please no make-up, nail citizen of [place], hairspray, perfume, deodorant, or body powder the day of surgery. No jewelry (including any body piercings) or valuables the day of surgery, leave them at home. Please take a shower or bath the night before, or the morning of, surgery with an antibacterial soap. Wear comfortable, loose fitting clothing. Children are encouraged to wear pajamas. - Jewelry must be removed prior to entering the operating room. Rings and piercings that are not removed may be cut off. - The hospital will not accept responsibility for valuables. - Please leave all valuables, including medications, at home the day of surgery. If you are going home after surgery, a licensed van cdl driver must drive you home. - NO public transportation without another adult if you receive anesthesia. - We recommend that an adult stay with you for 24 hours following discharge. - We also recommend that you do not drive, make important decision, drink alcoholic beverages, or take any drugs that were not prescribed by your health care provider for at least 24 hours after your discharge time. Follow any additional instructions given to you from your surgeon. If you or anyone in your household have experienced Covid symptoms in the past week, please notify your surgeon or the nurse liaison at the phone number below for possible testing. Telephone instructions given to _PATIENT and asked if any additional questions and then verbalized understanding. Patient advised to call surgeon office or pre surgery nurse liaison [phone] if any additional questions.
[2022-12-02] VITALS (11 sets, daily range): BP systolic 117–149; BP diastolic 68–75; PULSE 66–86; RESP 10–20; TEMP 36.1–37; O2SAT 93–100
--- NOTE | ~2022-12-02 | XR_ITS ---
EXAMINATION: XR hip LT min 2V DATE: 12/02/2022 10:52 INDICATION: Total left hip arthroplasty. Postop. TECHNIQUE: 2 views of left hip were obtained. COMPARISON: Left hip radiographs 09/30/2022 FINDINGS: There is a total left hip arthroplasty in near-anatomic alignment. No fracture. IMPRESSION: 1. Total left hip arthroplasty in near-anatomic alignment. Reviewed, dictated and finalized at location A.
[2022-12-02] MEDS: LACTATED RINGERS 1,000 ML 30 ML IV CONT ×2 (06:32→10:04)
[2022-12-02] MEDS: ACETAMINOPHEN 500 MG TABLET 1000 MG PO (06:40)
--- NOTE | 2022-12-02 06:50 | WPDANESEPPF ---
Anes - Initial Pre Proc Eval Procedure: Operation Date: 12/02/22 07:30 Proposed Procedures p Left Total Hip Arthroplasty - Rober Gordillo MD Date/Time: 12/02/22 06:50 Surgeon: Rober Gordillo MD Pre Op Diagnosis: primary OA left hip Patient Data Age: 67 Gender: F Height: 1.71 m Weight: 113.9 kg Last Vital Signs Temp 37.0 C 12/02/22 06:42 Pulse 66 12/02/22 06:42 Resp 16 12/02/22 06:42 BP 122/69 12/02/22 06:42 Pulse Ox 98 12/02/22 06:42 O2 Del Method Room Air 12/02/22 06:42 Allergies Allergy/AdvReac Type Severity Reaction Status Date / Time atorvastatin Allergy Mild Muscle Pain Verified 12/02/22 06:11 levofloxacin Allergy Mild Muscle Pain Verified 12/02/22 06:11 simvastatin Allergy Mild Muscle Pain Verified 12/02/22 06:11 azithromycin AdvReac AVOIDS PER Verified 12/02/22 06:11 POLITICAL 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 Home Medications Medication Instructions Recorded Confirmed Type bupropion HCl 300 mg 24 hr tablet, 300 mg PO QAM 07/31/19 12/02/22 History extended release (Wellbutrin XL) sertraline 100 mg tablet (Zoloft) 100 mg PO QAM 07/31/19 12/02/22 History quetiapine 50 mg tablet (Seroquel) 50 mg PO HS 07/09/20 12/02/22 History calcium carbonate 500 mg calcium 1,000 mg PO QAM 04/10/21 12/02/22 History (1,250 mg) chewable tablet (Calcium 500) clonazepam 0.5 mg tablet (Klonopin) 0.5 mg PO HS PRN Sleep 04/10/21 12/02/22 History omega-3 fatty acids 1,000 mg 1,000 mg PO BID 04/10/21 12/02/22 History capsule (Fish Oil Concentrate) albuterol sulfate 90 mcg/actuation 1 inh inhalation Q4H PRN shortness 07/10/21 12/02/22 Rx aerosol inhaler of breath or wheezing #6.7 grams aspirin 81 mg tablet,delayed 81 mg PO HS 08/28/21 12/02/22 History release (Adult Low Dose Aspirin) nitroglycerin 0.4 mg sublingual 0.4 mg sublingual Q5MIN PRN Chest 08/28/21 12/02/22 History tablet Pain rosuvastatin 10 mg tablet (Crestor) 10 mg PO QAM #30 tabs 09/01/21 12/02/22 Rx coenzyme Q10 100 mg capsule (Co 100 mg PO DAILY 01/13/22 12/02/22 History Q-10) multivitamin 1 tablet PO DAILY 01/13/22 12/02/22 History metoprolol tartrate 25 mg tablet 12.5 mg PO QAM 03/12/22 12/02/22 History ezetimibe 10 mg tablet (Zetia) 10 mg PO DAILY #90 tabs 06/15/22 11/30/22 Rx pantoprazole 20 mg tablet,delayed 20 mg PO QAM #90 tabs 06/15/22 12/02/22 Rx release (Protonix) ferrous sulfate 325 mg (65 mg 325 mg PO DAILY #30 tabs 09/29/22 12/02/22 Rx iron) tablet cyclobenzaprine 5 mg tablet 10 mg PO TID PRN muscle spasm #30 09/30/22 12/02/22 Rx tabs hydrocodone 7.5 mg-acetaminophen 1 tablet PO Q12H PRN pain (scale 09/30/22 12/02/22 Rx 325 mg tablet score 7-10) #30 tabs melatonin 5 mg capsule 5 mg PO .at bedtime 09/30/22 12/02/22 History celecoxib 200 mg capsule (Celebrex) 200 mg PO QAM 11/19/22 12/02/22 History cetirizine 10 mg tablet (Zyrtec) 10 mg PO HS PRN allergy symptoms 11/19/22 12/02/22 History fluticasone 100 mcg-salmeterol 50 1 inh inhalation QAM 11/19/22 12/02/22 History mcg/dose blistr powdr for inhalation (Advair Diskus) fluticasone propionate 50 1 spray intranasal QAM 11/19/22 12/02/22 History mcg/actuation nasal spray,suspension hydrochlorothiazide 25 mg tablet 25 mg PO QAM 11/19/22 12/02/22 History levothyroxine 75 mcg tablet 75 mcg PO QAM 11/19/22 12/02/22 History gabapentin 300 mg capsule 300 mg PO DAILY PRN back pain #90 11/22/22 11/30/22 Rx caps tramadol 50 mg tablet 50 mg PO TID PRN pain #90 tabs 11/26/22 11/30/22 Rx Patient hx anesthesia problems: none Family hx anesthesia problems: none Results Review: All pre-operative results and documents have been reviewed as part of the pre-operative evaluation. [facility] Past Medical History Medical History Arthritis Bipolar 1 disorder CAD (coronary artery disease) Carcinoma determined by biopsy of vagina COPD (chronic obstructive pulmonary disease) Depression Hernia History
[2022-12-02] MEDS: TRANEXAMIC ACID 1,000MG/ISO100 1,000 MG/100 ML BAG 200 MG IVPB (07:11)
--- NOTE | 2022-12-02 07:24 | WPDHPUPDATE1 ---
History and Physical Update Update Date/Time: 12/02/22 07:24 History and Physical has been reviewed, including an updated exam of the patient. There are NO changes in the patient's condition. Risks, benefits, and alternatives have been discussed and questions answered. Patient agrees to proceed with procedure.
--- NOTE | 2022-12-02 07:35 | PM.IMHP ---
H&P: HPI History of Present Illness Date/Time: 12/02/22 07:35 Chief Complaint: Left hip pain. Narrative: Patient complains of persistent left hip pain. Pain started a year ago. Pain was in her groin, down her leg, and in her back. Notes that she has arthritis in her back and knee. She has had an injection to her SI and lumbar spine which has helped her back. Now her left hip is severe. She is using a cane. Pain is stabbing and radiates into her groin and down the front of her leg. She is having trouble sleeping. She has to ride a scooter in a store due to the pain. Interim history: Has obtained pulmonary and cardiac clearance. History of heart stent placed 11/09/21, she may come off of the Plavix preoperatively, but is instructed to continue with the aspirin 81 mg without interruption. Treatments: NSAIDs: Yes. Injections: None at her hip joint. PT: She has had 12 PT visits for her back. Review of Systems Review of Systems: All systems reviewed & are unremarkable except as noted in HPI and below PMFSH Past Medical History Medical History Arthritis Bipolar 1 disorder CAD (coronary artery disease) Carcinoma determined by biopsy of vagina COPD (chronic obstructive pulmonary disease) Depression Hernia History of left heart catheterization History of stress test (~2020) Hyperlipidemia Hypertension Hypothyroidism Low ferritin level Obesity Obstructive lung disease Osteoarthritis of spine Osteopenia Prediabetes Primary osteoarthritis of left hip Surgical History Surgical History History of arthroscopy of right knee History of breast biopsy Left -benign History of coronary artery stent placement (~11/09/21) History of hysterectomy (~2003) History of tonsillectomy (~1961) History of umbilical hernia repair (~1998) S/P LAN-BSO 2003 Family History Family History Father Hypertension Carcinoma of colon Family history of emphysema Mother Hypertension Family history of diabetes mellitus in first degree relative Family history of lymphoma Heart disease Diabetes mellitus COPD (chronic obstructive pulmonary disease) Grandparent Cerebrovascular accident Sibling Acute myocardial infarction Sibling Heart disease COPD (chronic obstructive pulmonary disease) Acute myocardial infarction Other Depression Family history of arthritis Family history of cardiovascular disease Family history of malignant neoplasm Social History Social History Smoking packs per day: 0 Smoking cigarettes per day: 0.0 Years smoked: 0 Smoking pack-years: 0.00 Smoking status: Never smoker Second hand tobacco smoke exposure: No Alcohol intake: current Drinks per week: 2 Substance use: never Substance use type: does not use Lack of Transportation: No Lack of Food: Never True Current Housing: I Have Housing Concerned About Future Housing: No Difficulty Paying Gas/Electric Bills: No Difficulty Paying for Meds: No Currently Unemployed: No Education: Associate Degree Difficulty w/ Childcare or Family Care: No Living arrangements: with family Additional living arrangements comments: [facility] Occupation/Education: retired Spiritual care concerns: No Meds Home Medications and Allergies Home Medications Medication Instructions Recorded Confirmed Type bupropion HCl 300 mg 24 hr tablet, 300 mg PO QAM 07/31/19 12/02/22 History extended release (Wellbutrin XL) sertraline 100 mg tablet (Zoloft) 100 mg PO QAM 07/31/19 12/02/22 History quetiapine 50 mg tablet (Seroquel) 50 mg PO HS 07/09/20 12/02/22 History calcium carbonate 500 mg calcium 1,000 mg PO QAM 04/10/21 12/02/22 History (1,250 mg) chewable tablet (Calcium 500) clonazepam 0.5 mg ta
[2022-12-02] MEDS: ceFAZolin 2 GM/D5W 50 ML 2 GM/50 ML BAG IVPB (07:43)
[2022-12-02] MEDS: TRANEXAMIC ACID 1,000 MG/10 ML AMPUL 1000 MG IV PUSH (09:27)
--- NOTE | 2022-12-02 10:34 | W.PM.PROC2 ---
Procedure Note - Detailed Date of Procedure 12/02/22 Pre-op Diagnosis primary OA left hip Post-op Diagnosis Same Procedure Performed Left Total Hip Arthroplasty Surgeon Rober Gordillo MD Anesthesia General Findings Good bone quality. Standard offset. Description of Procedure The patient was given preoperative antibiotics. A general anesthetic was administered. The patient was carefully placed in the lateral decubitus position on the PEG board. The shoulders and hips were carefully positioned for component and leg length positioning reference. The hip was prepped and draped in the usual sterile fashion. A longitudinal incision was created over the posterior aspect of the greater trochanter. Careful dissection was brought down through the deep fascia with electrocautery. A minimally invasive optimized posterior approach to the hip was performed. The short external rotators and capsule were taken down in an L-shaped capsulotomy. The tissue was tagged for later repair using number 2 high strength suture. The femoral neck was measured and taken in situ. The femoral head was removed. The acetabulum was carefully exposed. The inferior capsule was released. The labrum was resected. The acetabulum was sequentially reamed to the intended cup size. The cup was impacted into position with excellent press-fit. Typical anatomic landmarks, including the bony contact points as well as the inferior transverse acetabular ligament were used to confirm cup positioning with preoperative templating. Attention was turned to the femur, which was carefully exposed. The hip was reamed and then broached sequentially. Excellent press-fit was obtained with the broach. The hip was trialed. Measurements were utilized, including the lesser trochanter as well as the center of the femoral head and the tip of the trochanter, and excellent assessment of the offset and leg lengths were confirmed. The real component was impacted into position. Trialing confirmed appropriate leg length and offset with soft tissue balancing as well apparent feel of the leg, both at the knee and the heel. Soft tissues were assessed using the the iliotibial band. Reduction of the posterior capsule and external rotators were also used as a secondary assessment. The hip was copiously irrigated with pulsatile lavage antibiotic solution periodically throughout the procedure. The real components were then assembled and reduced. The hip was stable throughout typical maneuvers, including extension, external rotation to 70 degrees, the position of sleep as well as flexion to 90 degrees with internal rotation past 45 degrees. The shake test confirmed stability without impingement. Osteophytes were removed as necessary. The short external rotators and capsule were repaired back to the posterior trochanter through drill holes. The deep fascia was repaired with running number 2 Quill suture, followed by 0 Stratafix suture and 2-0 Stratafix suture in the dermis. Steri-Strips were placed on the skin, followed by a sterile silver occlusive dressing. There were no complications. Meticulous hemostasis was maintained with the AquaMantys device. The patient was brought to the recovery room in stable condition. There were no complications. Implants The Accolade II hip stem, 132 degree size 5 , was utilized with excellent press-fit. The 52 mm Trident II acetabular component was impacted with excellent press-fit stability.10 degree polyethylene liner. The +0, 36 mm Biolox ceramic femoral head was utilized. Estimated Blood Loss 400 Drains No Packing No Pathology None sent Complications No immediate complications Condition Stable Disposition PACU [facility] Billing Surgery - Charge Forward: Surgery Billing
[2022-12-02] MEDS: oxyCODONE HCL (*CRX) 5 MG TAB IR PO (14:10)
[2022-12-02] MEDS: SODIUM CHLORIDE 0.9% IV 1,000 ML 125 ML IV CONT (14:13)
--- NOTE | 2022-12-02 17:44 | PM.PNORT ---
Progress Note: A&P Assessment and Plan (1) Status post total hip replacement, left: Code(s): Z96.642 - Presence of left artificial hip joint Status: Acute Assessment and Plan: Post op check. Doing very well. Pain well controlled. Mobilizing with therapy. Dressing clean, dry, intact. NVI. Radiographs satisfactory. Instructions reviewed. Plan discharge tomorrow after morning therapy. Subjective Subjective Date/Time Seen: 12/02/22 17:44 Objective Data Vital Signs Vital Signs: Vital Signs - 24 hr 12/02/22 06:42 12/02/22 10:05 12/02/22 10:35 Temperature 37.0 C 36.6 C Pulse Rate 66 85 78 Respiratory Rate 16 16 18 Blood Pressure 122/69 126/71 122/75 Pulse Oximetry 98 99 96 Oxygen Delivery Room Air Simple Face Mask Room Air Oxygen Flow Rate 8 12/02/22 10:50 12/02/22 11:05 12/02/22 11:30 Temperature 36.2 C L Pulse Rate 75 79 74 Respiratory Rate 10 L 20 16 Blood Pressure 117/71 120/70 139/68 Pulse Oximetry 100 95 95 Oxygen Delivery Room Air Room Air Oxygen Flow Rate 12/02/22 11:45 12/02/22 12:15 12/02/22 13:27 Temperature 36.2 C L 36.4 C L Pulse Rate 78 78 Respiratory Rate 16 18 Blood Pressure 142/70 H 129/73 Pulse Oximetry 93 93 Oxygen Delivery Room Air Oxygen Flow Rate 12/02/22 13:15 Temperature 36.1 C L Pulse Rate 73 Respiratory Rate 16 Blood Pressure 125/72 Pulse Oximetry 93 Oxygen Delivery Oxygen Flow Rate Intake/Output Intake/Output: Intake & Output 11/29/22 11/30/22 12/01/22 12/02/22 23:59 23:59 23:59 23:59 Intake Total 1290 Balance 1290 Meds/Results Medications: Active Medications Generic Name Dose Route Start Last Admin Trade Name Freq PRN Reason Stop Dose Admin Albuterol 1 puff 12/02/22 11:13 Albuterol Sulfate (*Sp) Aerosol 1 Puff INHALATION Q4HRT PRN shortness of breath or wheezing Aspirin 81 mg 12/02/22 21:00 Aspirin 81 Mg Enteric Tablet PO HS AMIRA Bupropion HCl 300 mg 12/03/22 09:00 Bupropion Hcl Xl (24 Hr) 150 Mg Tabcr PO QAM [facility] Calcium Carbonate 400 mg 12/03/22 09:00 Calcium Carbonate (Tums) 500 Mg (200 Mg Elemental) PO QAM [facility] Celecoxib 200 mg 12/03/22 09:00 Celecoxib 200 Mg Capsule PO QAM [facility] Clonazepam 0.5 mg 12/02/22 11:13 Clonazepam (*Crx) 0.5 Mg Tablet PO HS PRN Sleep Cyclobenzaprine HCl 10 mg 12/02/22 11:13 Cyclobenzaprine Hcl 10 Mg Tablet PO TID PRN muscle spasm Ezetimibe 10 mg 12/03/22 09:00 Ezetimibe 10 Mg Tablet PO DAILY [facility] Ferrous Sulfate 324 mg 12/03/22 09:00 Ferrous Sulfate 324 Mg Tablet PO DAILY [facility] Fish Oil 1 gm 12/02/22 17:00 [place] 3 Polyunsat Fatty Acids 1 Gm Cap PO BID [facility] Fluticasone Propionate 1 spray 12/03/22 09:00 Fluticasone Propionate 0.05% Na Spr 16 Gm Btl (*Bkc) NASAL QAM [facility] Hydrochlorothiazide 25 mg 12/03/22 09:00 Hydrochlorothiazide 25 Mg Tablet PO QAM [facility] Acetaminophen 1,000 mg in 100 mls @ 400 mls/hr 12/02/22 12:00 12/02/22 14:13 Ofirmev 1,000 Mg Ivpb IVPB 12/03/22 11:59 400 mls/hr Q6HR [facility]IR[facility] Administration Cefazolin Sodium 1 gm in 50 mls @ 100 mls/hr 12/02/22 15:00 Ancef 1 Gm/Ns 50 Ml IVPB 12/03/22 07:29 Q8H [facility] Sodium Chloride 1,000 mls @ 125 mls/hr 12/02/22 11:13 12/02/22 14:13 Normal Saline Iv IV CONT 125 mls/hr .Q8H AMIRA Administration Levothyroxine Sodium 75 mcg 12/03/22 06:30 Levothyroxine Sodium 75 Mcg Tablet PO DAILY@0630 [facility] Loratadine 10 mg 12/02/22 11:13 Loratadine 10 Mg Tablet PO HS PRN allergy symptoms Melatonin 5 mg 12/02/22 21:00 Melatonin 5 Mg Tablet PO HS [facility] Metoprolol Tartrate 12.5 mg 12/03/22 09:00 Metoprolol Tartrate 12.5 Mg Tablet PO QAM [facility] Multivitamins Therapeutic 1 tablet 12/03/22 09:00 Multivitamins Therapeutic Tab (*Bkc) PO DAILY [facility] Naloxone HCl 0.1 mg 12/02/22 11:13 Naloxone
[2022-12-02] MEDS: ceFAZolin 1 GM/NS 50 ML 1 GM/50 ML BAG IVPB ×2 (18:12→23:00)
[2022-12-02] MEDS: OMEGA 3 POLYUNSAT FATTY ACIDS 1 GM CAP PO (18:16)
[2022-12-02] MEDS: SENNA/DOCUSATE SODIUM TABLET 2 TAB PO (18:17)
[2022-12-02] MEDS: oxyCODONE HCL (*CRX) 5 MG TAB IR 10 MG PO (21:14)
[2022-12-02] MEDS: clonazePAM (*CRX) 0.5 MG TABLET PO (21:15)
[2022-12-02] MEDS: MELATONIN 5 MG TABLET PO (21:15)
[2022-12-02] MEDS: ASPIRIN 81 MG ENTERIC TABLET PO (21:15)
[2022-12-02] MEDS: QUEtiapine FUMARATE 25 MG TABLET 50 MG PO (21:17)
[2022-12-02] MEDS: FLUTICASONE/SALMETEROL 45-21 MCG INHALER 1 PUFF 2 PUFF INHALATION (21:30)
[2022-12-02] MEDS: CYCLOBENZAPRINE HCL 10 MG TABLET PO (23:17)
[2022-12-03 00:58] VITALS: BP 122/41; PULSE 91; RESP 16; TEMP 35.9; O2SAT 91
[2022-12-03] MEDS: oxyCODONE HCL (*CRX) 5 MG TAB IR 10 MG PO ×3 (01:08→11:52)
[2022-12-03 04:58] VITALS: BP 138/54; PULSE 98; RESP 16; TEMP 37.1; O2SAT 91
[2022-12-03] MEDS: ceFAZolin 1 GM/NS 50 ML 1 GM/50 ML BAG IVPB (06:06)
[2022-12-03 06:28] LABS: Basophils Percent Auto 0.2 % (0.2-1.2); Eosinophils Percent Auto 0.1 % (0-4.4); Hematocrit 33.5 % (37.0-47.0); Hemoglobin 11.3 g/dL (12.0-15.0); Immature Granulocyte Absolute 0.06 K/mm3 (0.00-0.031); Immature Granulocyte Percent A 0.6 % (0-0.5); Lymphocytes Absolute Auto 1.29 K/mm3 (0.9-3.2); Lymphocytes Percent Auto 13.2 % (18.3-44.2); Mean Corpuscular HGB Conc 33.7 g/dl (32-36); Mean Corpuscular Hemoglobin 32.1 pg (26-34); Mean Corpuscular Volume 95.2 fl (80-100); Mean Platelet Volume 9.5 fl (7.4-10.4); Monocytes Absolute Auto 0.9 K/mm3 (0.1-0.6); Monocytes Percent Auto 8.8 % (2.6-8.5); Neutrophils Absolute Auto 7.6 K/mm3 (1.3-6.7); Neutrophils Percent Auto 77.1 % (45.5-73.1); Platelet Count Result 211 k/mm3 (150-375); Red Blood Count 3.52 M/mm3 (4.2-5.4); Red Cell Distribution Width 12.3 % (11.5-14.5); White Blood Count 9.8 K/mm3 (4.5-10.0)
[2022-12-03 06:39] LABS: Anion Gap 5 mmol/L (8-16); Blood Urea Nitrogen 9 mg/dL (7-17); Calcium 8.3 mg/dL (8.4-10.2); Carbon Dioxide 29 mmol/L (22-30); Chloride 100 mmol/L (98-107); Estimated CRCL calculation 89 ml/min; Estimated Glomerular Filt Rate > 60; Glucose 121 mg/dL (65-110); Potassium 3.6 mmol/L (3.4-5.0); Sodium 134 mmol/L (137-145)
[2022-12-03] MEDS: FLUTICASONE/SALMETEROL 45-21 MCG INHALER 1 PUFF 2 PUFF INHALATION (08:31)
[2022-12-03 08:33] VITALS: O2SAT 93
[2022-12-03] MEDS: buPROPion HCL XL (24 HR) 150 MG TABCR 300 MG PO (08:36)
[2022-12-03] MEDS: polyethylene glycoL 3350 17 GM POWD.PACK PO (08:36)
[2022-12-03] MEDS: CALCIUM CARBONATE (TUMS) 500 MG (200 MG ELEMENTAL) 400 MG PO (08:37)
[2022-12-03] MEDS: SERTRALINE HCL 50 MG TABLET 100 MG PO (08:37)
[2022-12-03] MEDS: OMEGA 3 POLYUNSAT FATTY ACIDS 1 GM CAP PO (08:37)
[2022-12-03] MEDS: FERROUS SULFATE 324 MG TABLET PO (08:37)
[2022-12-03] MEDS: LEVOTHYROXINE SODIUM 75 MCG TABLET PO (08:37)
[2022-12-03] MEDS: CELECOXIB 200 MG CAPSULE PO (08:37)
[2022-12-03] MEDS: PANTOPRAZOLE SOD SESQUIHYDRATE 20 MG TAB PO (08:37)
[2022-12-03] MEDS: hydroCHLOROthiazide 25 MG TABLET PO (08:38)
[2022-12-03] MEDS: EZETIMIBE 10 MG TABLET PO (08:38)
[2022-12-03] MEDS: SENNA/DOCUSATE SODIUM TABLET 2 TAB PO (08:38)
[2022-12-03] MEDS: MULTIVITAMINS THERAPEUTIC TAB (*BKC) 1 TABLET PO (08:38)
[2022-12-03] MEDS: FLUTICASONE PROPIONATE 0.05% NA SPR 16 GM BTL (*BKC) 1 SPRAY NASAL (08:38)
[2022-12-03] MEDS: METOPROLOL TARTRATE 12.5 MG TABLET PO (08:38)
[2022-12-03] MEDS: ROSUVASTATIN 10 MG TABLET PO (08:38)
[2022-12-03 08:58] VITALS: BP 118/53; PULSE 98; RESP 14; TEMP 36.7; O2SAT 93
== END 2022-12-03 12:03 | disposition home or self-care (01) ==
LOC: ANHSURGERY 05:48 → ANH3MEDSUR 11:19
PROVIDERS: PCP Family Medicine; Visit Provider Orthopaedic Surgery
PROC: (CPT 27130; principal; 2022-12-02 07:30)
DX: M16.12 Unilateral primary osteoarthritis, left hip (principal); I25.10 Atherosclerotic heart disease of native coronary artery without angina pectoris; J44.9 Chronic obstructive pulmonary disease, unspecified; F31.9 Bipolar disorder, unspecified; I10 Essential (primary) hypertension; E78.5 Hyperlipidemia, unspecified; E03.9 Hypothyroidism, unspecified; Z79.51 Long term (current) use of inhaled steroids; Z95.5 Presence of coronary angioplasty implant and graft; E66.9 Obesity, unspecified; Z68.38 Body mass index [BMI] 38.0-38.9, adult
CPT/HCPCS: 27130; 36415; 73502; 80048; 85025; 94640; 97110; 97116; 97161; 97165; 97530; 97535; A9270; C1776; J0131; J0171; J0690; J1100; J1170; J1885; J2270; J2405; J2704; J2710; J2795; J3010; J7030; J7120

== ENCOUNTER 2022-12-31 08:12 | Outpatient (CLI) | payer MEDICARE, OTHER, SELFPAY ==
--- NOTE | ~2022-12-31 | MM_ITS ---
EXAMINATION: MM screening christopher BI w jose ramon HISTORY: Screening mammogram TECHNIQUE: Craniocaudal and mediolateral oblique 3-D tomosynthesis images were obtained and synthetic 2-D images were generated. CAD analysis was submitted and interpreted. COMPARISON: November 06, 2021, October 02, 2020, August 02, 2019 bilateral screening mammogram exam inations BREAST PARENCHYMAL COMPOSITION: The breasts are almost entirely fatty. FINDINGS: There is no evidence of suspicious mass, calcification, or architectural distortion to sugg est malignancy in either breast. There has been no suspicious interval change. IMPRESSION: 1. No mammographic evidence of malignancy. 2. Recommend routine screening mammography in one year. BI-RADS Category 1: Negative Reviewed, dictated and finalized at location A.
== END 2022-12-31 08:13 | disposition home or self-care (01) ==
LOC: ANHIMG 08:15
PROVIDERS: PCP Family Medicine; Visit Provider Family Medicine
DX: Z12.31 Encounter for screening mammogram for malignant neoplasm of breast (principal)
CPT/HCPCS: 36415; 77063; 77067; 82728

== ENCOUNTER 2022-12-31 08:51 | Outpatient (CLI) | payer MEDICARE, OTHER, SELFPAY | END 2022-12-31 08:52 | disposition home or self-care (01) | PROVIDERS: PCP Family Medicine; Visit Provider Physician Assistant | DX: D64.9 Anemia, unspecified (principal) | CPT/HCPCS: 36415; 82728 ==

== ENCOUNTER 2023-02-16 15:22 | Outpatient (NON) | payer MEDICARE, OTHER, SELFPAY | END 2023-02-16 15:23 | disposition home or self-care (01) | LOC: ANHLAB 15:24 | PROVIDERS: PCP Family Medicine; Visit Provider Nurse Practitioner Family | DX: N39.0 Urinary tract infection, site not specified (principal) | CPT/HCPCS: 87077; 87086; 87186 ==

== ENCOUNTER 2023-03-05 15:49 | Emergency (ER) | payer MEDICARE, OTHER, SELFPAY ==
--- NOTE | ~2023-03-05 | CT_ITS ---
EXAMINATION: CT abdomen pelvis w con DATE: 03/05/2023 17:34 INDICATION: Right upper quadrant pain TECHNIQUE: Computed tomography (CT) of the abdomen and pelvis was performed with 100 cc Omnipaque 350 intravenous contrast. The dose-length product was 1405.27 mGy-cm. Automated exposure control and ite rative reconstruction technique were employed. COMPARISON: No prior studies for comparison. FINDINGS: There is bilateral lower lobe atelectasis. Heart size normal. No significant pleural or per icardial effusion. Gallbladder is distended with possible pericholecystic fluid and mild surrounding inflammatory change s, suspicious for cholecystitis. Possible mild biliary dilatation. The spleen, pancreas, adrenal glands and kidneys are unremarkable. Nonobstructive bowel gas pattern. There is a left total hip arthroplasty. There is moderate multileve l lower thoracic and lumbar spondylosis. There is scoliosis. IMPRESSION: 1. Distended gallbladder containing high density material with possible pericholecystic fluid and sub tle pericholecystic fatty infiltration. This constellation of findings is suspicious for cholecystiti s. Reviewed, dictated and finalized at location A. IMPRESSION: 1. Distended gallbladder containing high density material with possible pericho lecystic fluid and subtle pericholecystic fatty infiltration. This constellatio n of findings is suspicious for cholecystitis.
[2023-03-05 15:52] VITALS: BP 151/84; PULSE 75; RESP 17; TEMP 36.4; O2SAT 100
[2023-03-05 16:06] LABS: Basophils Percent Auto 0.4 % (0.2-1.2); Eosinophils Absolute Auto 0.2 K/mm3 (0-0.3); Eosinophils Percent Auto 1.4 % (0-4.4); Hematocrit 43.8 % (37.0-47.0); Hemoglobin 14.5 g/dL (12.0-15.0); Immature Granulocyte Absolute 0.04 K/mm3 (0.00-0.031); Immature Granulocyte Percent A 0.4 % (0-0.5); Lymphocytes Absolute Auto 1.44 K/mm3 (0.9-3.2); Lymphocytes Percent Auto 12.8 % (18.3-44.2); Mean Corpuscular HGB Conc 33.1 g/dl (32-36); Mean Corpuscular Hemoglobin 31.2 pg (26-34); Mean Corpuscular Volume 94.2 fl (80-100); Mean Platelet Volume 8.5 fl (7.4-10.4); Monocytes Absolute Auto 0.9 K/mm3 (0.1-0.6); Monocytes Percent Auto 7.9 % (2.6-8.5); Neutrophils Absolute Auto 8.7 K/mm3 (1.3-6.7); Neutrophils Percent Auto 77.1 % (45.5-73.1); Platelet Count Result 240 k/mm3 (150-375); Red Blood Count 4.65 M/mm3 (4.2-5.4); Red Cell Distribution Width 12.3 % (11.5-14.5); White Blood Count 11.2 K/mm3 (4.5-10.0)
[2023-03-05 16:17] LABS: Alanine Aminotransferase 23 U/L (6-35); Albumin Level 4.2 g/dL (3.5-5.1); Alkaline Phosphatase 78 U/L (38-126); Anion Gap 3 mmol/L (8-16); Aspartate Amino Transferase 26 U/L (14-36); Bilirubin,Total 0.6 mg/dL (0.2-1.3); Blood Urea Nitrogen 9 mg/dL (7-17); Calcium 9.1 mg/dL (8.4-10.2); Carbon Dioxide 34 mmol/L (22-30); Chloride 98 mmol/L (98-107); Estimated CRCL calculation 90 ml/min; Estimated Glomerular Filt Rate > 60; Glucose 113 mg/dL (65-110); Lipase 50 U/L (23-300); Potassium 3.9 mmol/L (3.4-5.0); Sodium 135 mmol/L (137-145)
--- NOTE | 2023-03-05 16:32 | ED.ABDPAIN ---
HPI - Abdominal Pain General Chief Complaint: Abdominal Pain Stated Complaint: abdominal pain Time Seen by Provider: 03/05/23 16:15 History of Present Illness HPI narrative: 67-year-old female with history of gallstones presented to the ED for evaluation of right upper quadrant pain. Patient reports in 2020 she was having some right upper quadrant pain and was diagnosed with gallstones. Patient states she has not had any issues with biliary colic since then and has not had follow-up with a surgeon. Patient reports that she began having increasing right upper quadrant pain last night and that the pain is now spread to her entire upper abdomen. Patient does have some associated nausea. Related Data Home Medications Medication Instructions Recorded Confirmed bupropion HCl 300 mg 24 hr tablet, 300 mg PO QAM 07/31/19 02/15/23 extended release (Wellbutrin XL) sertraline 100 mg tablet (Zoloft) 100 mg PO QAM 07/31/19 02/15/23 quetiapine 50 mg tablet (Seroquel) 50 mg PO HS 07/09/20 02/15/23 calcium carbonate 500 mg calcium 1,000 mg PO QAM 04/10/21 02/15/23 (1,250 mg) chewable tablet (Calcium 500) clonazepam 0.5 mg tablet (Klonopin) 0.5 mg PO HS PRN Sleep 04/10/21 02/15/23 omega-3 fatty acids 1,000 mg 1,000 mg PO BID 04/10/21 02/15/23 capsule (Fish Oil Concentrate) aspirin 81 mg tablet,delayed 81 mg PO HS 08/28/21 02/15/23 release (Adult Low Dose Aspirin) nitroglycerin 0.4 mg sublingual 0.4 mg sublingual Q5MIN PRN Chest 08/28/21 02/15/23 tablet Pain multivitamin 1 tablet PO DAILY 01/13/22 02/15/23 metoprolol tartrate 25 mg tablet 12.5 mg PO QAM 03/12/22 02/15/23 fluticasone 100 mcg-salmeterol 50 1 inh inhalation QAM 11/19/22 02/15/23 mcg/dose blistr powdr for inhalation (Advair Diskus) fluticasone propionate 50 1 spray intranasal QAM 11/19/22 02/15/23 mcg/actuation nasal spray,suspension levothyroxine 75 mcg tablet 75 mcg PO QAM 11/19/22 02/15/23 Allergies Allergy/AdvReac Type Severity Reaction Status Date / Time atorvastatin Allergy Mild Muscle Pain Verified 03/05/23 15:49 levofloxacin Allergy Mild Muscle Pain Verified 03/05/23 15:49 simvastatin Allergy Mild Muscle Pain Verified 03/05/23 15:49 azithromycin AdvReac AVOIDS PER Verified 03/05/23 15:49 [employer]ITE DEVEL[employer] Review of Systems Review of Systems: All systems reviewed & are unremarkable except as noted in HPI and below PMFSH Past Medical History Medical History Bipolar 1 disorder CAD (coronary artery disease) Carcinoma determined by biopsy of vagina COPD (chronic obstructive pulmonary disease) Hernia History of left heart catheterization History of stress test (~2020) Hyperlipidemia Hypertension Hypothyroidism Low ferritin level Obesity Obstructive lung disease Osteoarthritis of spine Osteopenia Prediabetes Primary osteoarthritis of left hip Surgical History Surgical History History of arthroscopy of right knee History of breast biopsy Left -benign History of coronary artery stent placement (~11/09/21) History of hysterectomy (~2003) History of tonsillectomy (~1961) History of umbilical hernia repair (~1998) S/P LAN-BSO 2003 Status post total hip replacement, left (~12/02/22) Stented coronary artery Family History Family History Father Hypertension Carcinoma of colon Family history of emphysema Mother Hypertension Family history of diabetes mellitus in first degree relative Family history of lymphoma Heart disease Diabetes mellitus COPD (chronic obstructive pulmonary disease) Grandparent Cerebrovascular accident Sibling Acute myocardial infarction Sibling Heart disease COPD (chronic obstructive pulmonary disease) Acute myocardial infarction Other Depression Family history of arthritis Family history of cardiovascular disease Family his
[2023-03-05] MEDS: SODIUM CHLORIDE 0.9% IV 1,000 ML 999 ML IV CONT (16:49)
[2023-03-05] MEDS: ONDANSETRON INJ 4 MG/2 ML VIAL IV PUSH (16:49)
[2023-03-05] MEDS: HYDROmorphone HCL INJ (*CRX) 1 MG/ML SYR IV PUSH (16:50)
[2023-03-05 16:54] VITALS: O2SAT 97
[2023-03-05 17:04] VITALS: O2SAT 92
[2023-03-05 17:09] LABS: Appearance Urine Clear (Clear); Bacteria Urine None Seen /hpf; Bilirubin Urine Negative (Negative); Blood Urine Negative (Negative); Color Urine Yellow (Yellow); Glucose Urine UA Negative (Negative); Ketones Urine Negative (Negative); Leukocyte Esterase Ur Trace LEU/UL (Negative); Nitrate Urine Negative (Negative); Non Pathogenic Casts 0-2; Protein Urine Negative (Negative); Specific Grav Ur 1.014 (1.001-1.035); Squamous Epithelial Cell Urine None seen /hpf (Few); WBC Urine 0-5 /hpf
[2023-03-05 17:10] LABS: Add Urine Microscopic? YES
[2023-03-05 17:15] VITALS: O2SAT 91
[2023-03-05 17:17] VITALS: BP 146/66; O2SAT 99
[2023-03-05 17:47] VITALS: BP 154/76; RESP 18; O2SAT 95
== END 2023-03-05 18:25 | disposition home or self-care (01) ==
PROVIDERS: Emergency Provider Emergency Medicine; PCP Family Medicine
DX: K80.50 Calculus of bile duct without cholangitis or cholecystitis without obstruction (principal); I25.10 Atherosclerotic heart disease of native coronary artery without angina pectoris; J44.9 Chronic obstructive pulmonary disease, unspecified; E78.5 Hyperlipidemia, unspecified; I10 Essential (primary) hypertension; E66.9 Obesity, unspecified; Z68.41 Body mass index [BMI] 40.0-44.9, adult; M85.80 Other specified disorders of bone density and structure, unspecified site; R73.03 Prediabetes; Z96.642 Presence of left artificial hip joint; Z95.5 Presence of coronary angioplasty implant and graft; Z90.710 Acquired absence of both cervix and uterus; Z90.722 Acquired absence of ovaries, bilateral; Z90.79 Acquired absence of other genital organ(s)
CPT/HCPCS: 36415; 74177; 80053; 81001; 83690; 85025; 96361; 96374; 96375; 99284; J1170; J2405; J7030; Q9967

== ENCOUNTER 2023-03-18 03:09 | Inpatient (IN) | payer MEDICARE, OTHER, SELFPAY ==
[2023-03-18] VITALS (25 sets, daily range): BP systolic 112–183; BP diastolic 62–99; PULSE 64–102; RESP 12–21; TEMP 36.4–37.7; O2SAT 90–99; BMI 39.7
--- NOTE | ~2023-03-18 | CT_ITS ---
CT of the Abdomen and Pelvis: Indication: Abdominal pain Technique: 2.5 mm axial scans were obtained through the abdomen and pelvis following intravenous adm inistration of 100 cc of Omnipaque 350. Dose reduction technique was used on this scan by utilizing a utomated exposure control and iterative reconstruction technique. The dose-length product (DLP) was 1 388.45 mGy-cm. COMPARISON: 03/05/2023 Findings: Scans through the lung bases demonstrate mild bibasilar atelectasis or scarring. There is gallbladder wall thickening and pericholecystic inflammatory stranding. There is mild peripo rtal edema. The liver, spleen, pancreas, adrenals and kidneys are otherwise within normal limits. No evidence of aortic aneurysm. No lymphadenopathy. No bowel obstruction or bowel wall thickening. There is no evidence to suggest acute appendicitis. Images through the pelvis are degraded by streak artifact from left hip arthroplasty. Urinary bladder unremarkable. Patient is post hysterectomy. No adnexal mass seen. No ascites. Impression: Gallbladder wall thickening and pericholecystic inflammatory change is consistent with acute cholecys titis. Reviewed, dictated and finalized at [facility]. Impression: Gallbladder wall thickening and pericholecystic inflammatory change is consiste nt with acute cholecystitis.
--- NOTE | ~2023-03-18 | XR_ITS ---
EXAMINATION: XR cholangiogram surg 1st inj DATE: 03/19/2023 12:14 INDICATION: Intraoperative cholangiogram TECHNIQUE: 89 fluoroscopic images of the right upper quadrant were obtained during intraoperative cho langiography performed by the surgeon. I was not present in the operating room. Fluoroscopy exposure time was 15.3 seconds. COMPARISON: None. FINDINGS: No stones or stricture of the common bile duct are identified. There is mild spillage of co ntrast at the injection site. IMPRESSION: 1. No stone or stricture identified in the common bile duct. Reviewed, dictated and finalized at location A.
[2023-03-18 04:32] LABS: Lactic Acid 1.2 mmol/L (0.7-2.0)
[2023-03-18 04:33] LABS: Anion Gap 5 mmol/L (8-16); Carbon Dioxide 32 mmol/L (22-30); Chloride 96 mmol/L (98-107); Potassium 3.8 mmol/L (3.4-5.0); Sodium 133 mmol/L (137-145)
--- NOTE | 2023-03-18 04:33 | ED.ABDPAIN ---
HPI - Abdominal Pain General Chief Complaint: Abdominal Pain <Gabriel Parker MD - Last Filed: 03/23/23 07:31> Time Seen by Provider: 03/18/23 07:16 <Gbariel Parker MD - Last Filed: 03/23/23 07:31> History of Present Illness HPI narrative: 67-year-old female with history of biliary sludge presented the emergency department for evaluation of acute onset of right upper quadrant pain. Patient was seen in the ED few weeks ago for similar symptoms and ultimately had follow-up with surgery. Prior to having her cholecystectomy patient was told that she needed to have cardiac clearance. Patient reports that her pain had been controlled until tonight she had acute worsening of her symptoms. Patient denies any current nausea but does have increased epigastric and right upper quadrant pain. <Gabriel Parker MD - Last Filed: 03/23/23 07:31> Related Data Home Medications: Home Medications Medication Instructions Recorded Confirmed bupropion HCl 300 mg 24 hr tablet, 300 mg PO QAM 07/31/19 03/18/23 extended release (Wellbutrin XL) sertraline 100 mg tablet (Zoloft) 100 mg PO QAM 07/31/19 03/18/23 quetiapine 50 mg tablet (Seroquel) 50 mg PO HS 07/09/20 03/18/23 calcium carbonate 500 mg calcium 1,000 mg PO QAM 04/10/21 03/18/23 (1,250 mg) chewable tablet (Calcium 500) clonazepam 0.5 mg tablet (Klonopin) 0.5 mg PO HS PRN Sleep 04/10/21 03/18/23 omega-3 fatty acids 1,000 mg 1,000 mg PO BID 04/10/21 03/18/23 capsule (Fish Oil Concentrate) aspirin 81 mg tablet,delayed 81 mg PO HS 08/28/21 03/18/23 release (Adult Low Dose Aspirin) nitroglycerin 0.4 mg sublingual 0.4 mg sublingual Q5MIN PRN Chest 08/28/21 03/18/23 tablet Pain multivitamin 1 tablet PO DAILY 01/13/22 03/18/23 fluticasone 100 mcg-salmeterol 50 1 inh inhalation QAM 11/19/22 03/18/23 mcg/dose blistr powdr for inhalation (Advair Diskus) fluticasone propionate 50 1 spray intranasal QAM 11/19/22 03/18/23 mcg/actuation nasal spray,suspension levothyroxine 75 mcg tablet 75 mcg PO QAM 11/19/22 03/18/23 metoprolol succinate 25 mg 12.5 mg PO DAILY 03/19/23 03/19/23 tablet,extended release 24 hr <Gabriel Parker MD - Last Filed: 03/23/23 07:31> Allergies/Adverse Reactions: Allergies Allergy/AdvReac Type Severity Reaction Status Date / Time atorvastatin Allergy Mild Muscle Pain Verified 03/16/23 10:30 levofloxacin Allergy Mild Muscle Pain Verified 03/16/23 10:30 simvastatin Allergy Mild Muscle Pain Verified 03/16/23 10:30 azithromycin AdvReac AVOIDS PER 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 COPD (chronic obstructive pulmonary disease) Denies COPD but states that she has asthma. Degenerative disc disease Hernia History of left heart catheterization History of sciatica History of stress test (~2020) Hyperlipidemia Hypertension Hypothyroidism Low ferritin level Obesity Obstructive lung disease Osteoarthritis of spine Osteopenia Prediabetes Primary osteoarthritis of left hip <Gabriel Parker MD - Last Filed: 03/23/23 07:31> Surgical History Surgical History: Surgical History History of arthroscopy of right knee History of breast biopsy Left -benign History of coronary artery stent placement (~11/09/21) History of hysterectomy (~2003) History of tonsillectomy (~1961) History of umbilical hernia repair (~1998) S/P LAN-BSO 2003 Status post total hip replaceme
[2023-03-18 04:34] LABS: Alanine Aminotransferase 250 U/L (6-35); Albumin Level 4.2 g/dL (3.5-5.1); Alkaline Phosphatase 168 U/L (38-126); Aspartate Amino Transferase 900 U/L (14-36); Bilirubin,Total 1.4 mg/dL (0.2-1.3); Blood Urea Nitrogen 10 mg/dL (7-17); Calcium 9.2 mg/dL (8.4-10.2); Estimated Glomerular Filt Rate > 60; Glucose 132 mg/dL (65-110); Lipase 99 U/L (23-300); Total Protein 7.7 g/dL (6.3-8.2)
[2023-03-18 04:42] LABS: Basophils Percent Auto 0.4 % (0.2-1.2); Eosinophils Absolute Auto 0.1 K/mm3 (0-0.3); Eosinophils Percent Auto 0.7 % (0-4.4); Hematocrit 38.7 % (37.0-47.0); Hemoglobin 12.8 g/dL (12.0-15.0); Immature Granulocyte Absolute 0.05 K/mm3 (0.00-0.031); Immature Granulocyte Percent A 0.6 % (0-0.5); Lymphocytes Absolute Auto 0.85 K/mm3 (0.9-3.2); Lymphocytes Percent Auto 10.4 % (18.3-44.2); Mean Corpuscular HGB Conc 33.1 g/dl (32-36); Mean Corpuscular Hemoglobin 30.5 pg (26-34); Mean Corpuscular Volume 92.4 fl (80-100); Mean Platelet Volume 9.1 fl (7.4-10.4); Monocytes Absolute Auto 0.7 K/mm3 (0.1-0.6); Monocytes Percent Auto 8.7 % (2.6-8.5); Neutrophils Absolute Auto 6.5 K/mm3 (1.3-6.7); Neutrophils Percent Auto 79.2 % (45.5-73.1); Platelet Count Result 349 k/mm3 (150-375); Red Blood Count 4.19 M/mm3 (4.2-5.4); Red Cell Distribution Width 12.2 % (11.5-14.5); White Blood Count 8.2 K/mm3 (4.5-10.0)
[2023-03-18] MEDS: HYDROmorphone HCL INJ (*CRX) 1 MG/ML SYR 0.5 MG IV PUSH ×4 (06:24→13:37)
--- NOTE | 2023-03-18 06:36 | PC.NURSE ---
Patient placed on 2L of oxygen for oxygen saturations of 88% after Dilaudid administration.
[2023-03-18] MEDS: SODIUM CHLORIDE 0.9% IV 1,000 ML 999 ML IV CONT (09:29)
[2023-03-18] MEDS: DICYCLOMINE HCL INJ 20 MG/2 ML VIAL IM (09:29)
[2023-03-18] MEDS: PIPERACILLN/TAZ 3.375GM/NS50ML 3.375 GM/50 ML BAG IVPB ×3 (09:30→20:12)
--- NOTE | 2023-03-18 10:21 | PC.NURSE ---
This patient, Elli Garcia, was admitted to 2 Medical Room 248-. Patient/family oriented to hospital policies and general routines including ID bracelet, bed and alarms, visiting hours, pain management, procedures, bathroom and other care routines, personal items, smoking policy, room service/diet, and visiting hours. Information on how to activate the Rapid Response Team has been discussed. Patient/Family are encouraged to report perceived risks to care and to ask questions if they do not understand what they are told or what they should do.
[2023-03-18] MEDS: LACTATED RINGERS 1,000 ML 125 ML IV CONT ×2 (11:33→20:14)
--- NOTE | 2023-03-18 12:40 | PM.CNCAR ---
Assessment and Plan Assessment and plan (1) CAD (coronary artery disease): Qualifiers: Coronary Disease-Associated Artery/Lesion type: unspecified vessel or lesion type [place] vs. transplanted heart: unspecified whether [place] or transplanted heart Associated angina: without angina Qualified Code(s): I25.10 - Atherosclerotic heart disease of [place] coronary artery without angina pectoris Code(s): I25.10 - Atherosclerotic heart disease of [place] coronary artery without angina pectoris Status: Acute Plan 67-year-old lady with history of single-vessel coronary disease with sick moderate circumflex stenosis identified about a year and half ago angiographically. This was treated successfully with percutaneous revascularization and from that respect she is stable. She is clear for gallbladder surgery Yadiel Graham MD [facility] History of Present Illness History of Present Illness Consult date/time: 03/18/23 12:40 Reason For Visit: Acute Cholecystitis Narrative: This is a 67-year-old lady known to our practice with following with Dr. Eason. She has a history of coronary artery disease which was diagnosed in the latter part of 2020 and for which she underwent percutaneous revascularization with drug-eluting stent to her proximal circumflex in October of 2021. Her principal symptom at that time was shortness of breath with activity and she had a somewhat abnormal looking nuclear stress test. She has done well following her percutaneous intervention and has not had any cardiac problems since then. She still experiences some exertional dyspnea and was apparently a bit disappointed that the symptoms did not resolve following PCI. None the less she have is doing well 1 year after her PCI dual anti-platelet therapy was discontinued. She continues to follow with Dr. Eason in the office and has not had any further problems with her ischemic heart disease. She is known to have cholelithiasis and had some gallbladder pain prior to her PCI which delayed any consideration of gallbladder surgery. Apparently her symptoms and improved and the decision was made to follow her conservatively. Recently her gallbladder pain is worsening she entered the hospital very early this morning sort of in the middle of the night with worsening of the symptoms she was admitted to the hospital. We have been asked to see her to provide cardiac clearance. There is no note in the chart from the surgeon yet to determine if they anticipate operating on her today or not. The patient was asking regarding those plans I told her that will be discussed between she and her surgeon. Review of Systems Constitutional: Constitutional: Reports no additional constitutional complaints Eyes: Eyes: Reports no additional eye complaints ENT: Reports system reviewed and no additional complaints, except as documented Cardiovascular: Cardiovascular: Reports no additional cardiovascular complaints Respiratory: Respiratory: Reports no additional respiratory complaints Gastrointestinal: Gastrointestinal: Reports as per HPI and Reports abdominal pain Musculoskeletal: Musculoskeletal: Reports back pain Integumentary/Breasts: Skin/Breast: Reports system reviewed and no additional complaints, except as docu Neurologic: Reports system reviewed and no additional complaints, except as documented Endocrine: Endocrine: Reports no additional endocrine complaints Hematologic/Lymphatic: Hematologic/Lymphatic: Reports no additional hematologic/lymphatic complaints Allergic/Immunologic: Allergic/Immunologic: Reports no additional allergic/immunologic complaints ON LICENSE OF [facility] Past Medical History Medical History Bipolar 1 disorder CAD (coronary artery disease) Carcinoma determined by biopsy of vagina COPD (chronic obstructive pulmonary disease) Hernia History of left heart catheterization History of stress test (~2020)
--- NOTE | 2023-03-18 13:17 | PM.IMHP ---
H&P: HPI History of Present Illness Date/Time: 03/18/23 13:17 Chief Complaint: Abdominal pain Narrative: This is a 67-year-old female patient has a history of biliary sludge. The patient stated that she was supposed to have her gallbladder removed over year ago however she had a stress test preoperatively which she failed and required a cardiac stent. The patient has been on anti-platelet for 1 year a needed to be off of her Plavix before she could have surgery. The patient stated that she has had similar episodes like today. The patient stated that her pain is worse than she previously remembered. Dr. Guo is her lens generator. The patient had uncontrolled pain last night and worsening of her symptoms. She denies any fever or chills or any nausea vomiting at this time. The patient did receive Dilaudid she stating that her pain is still in 8 out of 10. Her white count is normal. Sodium is 133 which appears to be her baseline. Her total bilirubin is 1.4. AST is 900 ALT is 250 and alkaline phosphatase [address] today was read as gallbladder wall thickening and pericholecystic inflammation. Cardiology was consulted for surgical clearance. Patient was started on Zosyn in the emergency room. She was given Dilaudid in IV fluids as well. Surgical consult was placed. The patient is being admitted to inpatient status on the date of service of 03/18/2023. Review of Systems Review of Systems: All systems reviewed & are unremarkable except as noted in HPI and below Constitutional: Constitutional: Reports as per HPI and Reports no additional constitutional complaints Eyes: Eyes: Reports as per HPI and Reports no additional eye complaints ENT: Reports system reviewed and no additional complaints, except as documented and Reports Normal hearing present Cardiovascular: Cardiovascular: Reports no additional cardiovascular complaints Respiratory: Respiratory: Reports no additional respiratory complaints and Reports no additional respiratory complaints Gastrointestinal: Gastrointestinal: Reports as per HPI and Reports no additional gastrointestinal complaints Musculoskeletal: Musculoskeletal: Reports no additional musculoskeletal complaints Integumentary/Breasts: Skin/Breast: Reports system reviewed and no additional complaints, except as docu and Reports as per HPI Neurologic: Reports system reviewed and no additional complaints, except as documented, Reports as per HPI and Reports Normal hearing present Psychiatric: Psychiatric: Reports no additional psychiatric complaints and Reports as per HPI Endocrine: Endocrine: Reports no additional endocrine complaints Hematologic/Lymphatic: Hematologic/Lymphatic: Reports no additional hematologic/lymphatic complaints Allergic/Immunologic: Allergic/Immunologic: Reports no additional allergic/immunologic complaints [facility] [place] Past Medical History Medical History (Updated 03/18/23 @ 15:06 by Marline Pérez NP) Bipolar 1 disorder CAD (coronary artery disease) Carcinoma determined by biopsy of vagina The patient stated it was benign she had a fibroid tumor. COPD (chronic obstructive pulmonary disease) Denies COPD but states that she has asthma. Degenerative disc disease Hernia History of left heart catheterization History of sciatica History of stress test (~2020) Hyperlipidemia Hypertension Hypothyroidism Low ferritin level Obesity Obstructive lung disease Osteoarthritis of spine Osteopenia Prediabetes Primary osteoarthritis of left hip Surgical History Surgical History History of arthroscopy of right knee History of breast biopsy Left -benign History of coronary artery stent placement (~11/09/21) History of hysterectomy (~2003) History of tonsillectomy (~1961) History of umbilical hernia repair (~1998) S/P LAN-BSO 2003 Status post total hip replacement, left (~12/02/22) Stented coronary artery
--- NOTE | 2023-03-18 15:32 | PM.CNGS ---
Assessment and Plan Assessment and plan (1) Acute cholecystitis: Code(s): K81.0 - Acute cholecystitis Status: Acute Assessment and Plan: continues to be quite symptomatic, pain control, recheck labs in am, will need urgent cholecystectomy, cont IV abx (2) CAD (coronary artery disease): Qualifiers: Coronary Disease-Associated Artery/Lesion type: unspecified vessel or lesion type [place] vs. transplanted heart: unspecified whether [place] or transplanted heart Associated angina: without angina Qualified Code(s): I25.10 - Atherosclerotic heart disease of [place] coronary artery without angina pectoris Code(s): I25.10 - Atherosclerotic heart disease of [place] coronary artery without angina pectoris Status: Acute Assessment and Plan: appreciate cardiology input, she has been cleared for surgery at this point History of Present Illness Consult details Consult date: 03/18/23 Reason for consult: abdominal pain Requesting physician: Yadiel Medellin MD Narrative: The patient is a 67-year-old female, well known to my service from previous consultation for cholecystectomy, presenting to the emergency department overnight complaining of severe right upper quadrant, epigastric abdominal pain. The patient reports that the pain is severe and constant, significantly worse than her previous episodes. The patient reports associated anorexia, nausea, bloating. Workup in the emergency department, including imaging, is significant for acute cholecystitis. Review of Systems Constitutional: Constitutional: Reports as per HPI, Reports anorexia, Denies chills, Reports fatigue, Denies fever(s), Reports lethargy, Reports malaise, Reports poor appetite, Reports weakness, Denies weight gain and Denies weight loss Eyes: Eyes: Reports no additional eye complaints ENT: Reports system reviewed and no additional complaints, except as documented Cardiovascular: Cardiovascular: Reports no additional cardiovascular complaints Respiratory: Respiratory: Reports no additional respiratory complaints Gastrointestinal: Gastrointestinal: Reports as per HPI, Reports abdominal pain, Reports bloating, Denies change in bowel habits, Reports GI cramping, Reports early satiety, Reports dyspepsia, Reports heartburn, Reports nausea, Denies vomiting and Denies hematemesis Genitourinary: Genitourinary: Reports no additional female genitourinary complaints Musculoskeletal: Musculoskeletal: Reports no additional musculoskeletal complaints Integumentary/Breasts: Skin/Breast: Reports system reviewed and no additional complaints, except as docu Neurologic: Reports system reviewed and no additional complaints, except as documented Psychiatric: Psychiatric: Reports no additional psychiatric complaints Endocrine: Endocrine: Reports no additional endocrine complaints Hematologic/Lymphatic: Hematologic/Lymphatic: Reports no additional hematologic/lymphatic complaints Allergic/Immunologic: Allergic/Immunologic: Reports no additional allergic/immunologic complaints [facility] Past Medical History Medical History Bipolar 1 disorder CAD (coronary artery disease) Carcinoma determined by biopsy of vagina The patient stated it was benign she had a fibroid tumor. COPD (chronic obstructive pulmonary disease) Denies COPD but states that she has asthma. Degenerative disc disease Hernia History of left heart catheterization History of sciatica History of stress test (~2020) Hyperlipidemia Hypertension Hypothyroidism Low ferritin level Obesity Obstructive lung disease Osteoarthritis of spine Osteopenia Prediabetes Primary osteoarthritis of left hip Surgical History Surgical History History of arthroscopy of right knee History of breast biopsy Left -benign History of coronary artery stent placement (~11/09/21) History of hysterect
[2023-03-18] MEDS: fentaNYL CITRATE INJ (*CRX) 100 MCG/2 ML VIAL 25 MCG IV PUSH ×2 (15:35→20:17)
[2023-03-18] MEDS: FLUTICASONE/SALMETEROL 45-21 MCG INHALER 1 PUFF 2 PUFF INHALATION (19:45)
[2023-03-19] VITALS (17 sets, daily range): BP systolic 117–152; BP diastolic 57–75; PULSE 81–94; RESP 12–20; TEMP 36–37.1; O2SAT 92–99
[2023-03-19] MEDS: fentaNYL CITRATE INJ (*CRX) 100 MCG/2 ML VIAL 25 MCG IV PUSH ×5 (00:12→12:35)
[2023-03-19] MEDS: LACTATED RINGERS 1,000 ML 125 ML IV CONT (03:04)
[2023-03-19] MEDS: PIPERACILLN/TAZ 3.375GM/NS50ML 3.375 GM/50 ML BAG IVPB ×4 (03:04→20:20)
[2023-03-19 04:42] LABS: Basophils Percent Auto 0.4 % (0.2-1.2); Eosinophils Absolute Auto 0.1 K/mm3 (0-0.3); Hematocrit 36.2 % (37.0-47.0); Hemoglobin 11.4 g/dL (12.0-15.0); Immature Granulocyte Absolute 0.06 K/mm3 (0.00-0.031); Immature Granulocyte Percent A 0.6 % (0-0.5); Lymphocytes Absolute Auto 0.79 K/mm3 (0.9-3.2); Lymphocytes Percent Auto 7.6 % (18.3-44.2); Mean Corpuscular HGB Conc 31.5 g/dl (32-36); Mean Corpuscular Hemoglobin 30.2 pg (26-34); Mean Platelet Volume 8.6 fl (7.4-10.4); Monocytes Absolute Auto 0.9 K/mm3 (0.1-0.6); Neutrophils Absolute Auto 8.4 K/mm3 (1.3-6.7); Neutrophils Percent Auto 81.4 % (45.5-73.1); Platelet Count Result 275 k/mm3 (150-375); Red Blood Count 3.77 M/mm3 (4.2-5.4); Red Cell Distribution Width 12.4 % (11.5-14.5); White Blood Count 10.4 K/mm3 (4.5-10.0)
[2023-03-19 04:54] LABS: Alanine Aminotransferase 340 U/L (6-35); Albumin Level 3.1 g/dL (3.5-5.1); Alkaline Phosphatase 230 U/L (38-126); Anion Gap 2 mmol/L (8-16); Aspartate Amino Transferase 516 U/L (14-36); Bilirubin,Total 3.1 mg/dL (0.2-1.3); Blood Urea Nitrogen 8 mg/dL (7-17); Calcium 8.3 mg/dL (8.4-10.2); Carbon Dioxide 35 mmol/L (22-30); Chloride 100 mmol/L (98-107); Estimated CRCL calculation 89 ml/min; Estimated Glomerular Filt Rate > 60; Glucose 100 mg/dL (65-110); Lactic Acid Reflex 0.7 mmol/L (0.7-2.0); Magnesium 2.2 mg/dL (1.6-2.3); Potassium 3.6 mmol/L (3.4-5.0); Sodium 137 mmol/L (137-145)
[2023-03-19] MEDS: LEVOTHYROXINE SODIUM INJ 100 MCG/5 ML VIAL 37.5 MCG IV PUSH (06:40)
[2023-03-19 07:02] LABS: Thyroid Stimulating Hormone Reflex 0.415 uIU/mL (0.465-4.68)
[2023-03-19 07:42] LABS: Free T4 Free Thyroxine Reflex 1.24 ng/dL (0.78-2.19)
[2023-03-19] MEDS: FLUTICASONE/SALMETEROL 45-21 MCG INHALER 1 PUFF 2 PUFF INHALATION ×2 (07:54→20:57)
--- NOTE | 2023-03-19 08:21 | PM.IMPN ---
Progress Note: A&P Assessment and Plan (1) Acute cholecystitis: Code(s): K81.0 - Acute cholecystitis Status: Acute Assessment and Plan: -moderate to severe right upper quadrant pain requiring fentanyl q 4 hours. -WBC 8.2--10.4 today; afebrile -Liver enzymes remain elevated: T bili 1.4-->3.1, AST 900-->516, ALT 250-->340, Alk Phos 168-->230 -Dr Grigsby is going to take her for surgery today for a lap emily, possibly open with potential cholangiogram -On Zosyn Q 6 hours (2) Hypertension: Qualifiers: Hypertension type: essential hypertension Qualified Code(s): I10 - Essential (primary) hypertension Code(s): I10 - Essential (primary) hypertension Status: Acute Assessment and Plan: -blood pressures reviewed and stable. Will restart home medication hydrochlorothiazide 25 mg PO and metoprolol 12.5 mg PO daily with tomorrows am medications. (3) Hyperlipidemia: Qualifiers: Hyperlipidemia type: unspecified Qualified Code(s): E78.5 - Hyperlipidemia, unspecified Code(s): E78.5 - Hyperlipidemia, unspecified Status: Chronic Assessment and Plan: -Will obtain lipid panel tomorrow. -Continue home medications ezetimibe 10 mg PO daily and Rosuvastatin 10 mg PO daily. -daily baby ASA resumes tomorrow (4) Hypothyroidism: Qualifiers: Hypothyroidism type: unspecified Qualified Code(s): E03.9 - Hypothyroidism, unspecified Code(s): E03.9 - Hypothyroidism, unspecified Status: Acute Assessment and Plan: TSH 0.415, Free thyroxine 1.24, and T3 0.83 -Levothyroxine 75 mcg PO daily, resumed (5) Bipolar 1 disorder: Code(s): F31.9 - Bipolar disorder, unspecified Status: Acute Assessment and Plan: pleasant, cooperative -resume home medications (6) CAD (coronary artery disease): Qualifiers: Associated angina: without angina Coronary Disease-Associated Artery/Lesion type: unspecified vessel or lesion type [place] vs. transplanted heart: unspecified whether [place] or transplanted heart Qualified Code(s): I25.10 - Atherosclerotic heart disease of [place] coronary artery without angina pectoris Code(s): I25.10 - Atherosclerotic heart disease of [place] coronary artery without angina pectoris Status: Acute Assessment and Plan: CAD with stents -will resume home ASA 81 mg tomorrow (7) GERD (gastroesophageal reflux disease): Qualifiers: Esophagitis presence: without esophagitis Qualified Code(s): K21.9 - Gastro-esophageal reflux disease without esophagitis Code(s): K21.9 - Gastro-esophageal reflux disease without esophagitis Status: Acute Assessment and Plan: Currently not an active issue -resume home protonix (8) Low ferritin level: Code(s): R79.0 - Abnormal level of blood mineral Status: Acute Assessment and Plan: Stable in December of this year, 43.2 -continue home medication Plan To OR for lap emily, possibly open with Dr Grigsby. Continue IV antibiotics. Subjective Date/time seen: 03/19/23 08:21 Interval history: This is a 67 year old female who presented to our ED last night with complaints of abdominal pain. She has a PMH of CAD s/p stents, Bipolar 1, COPD, DJD, HLD, HTN, and hypothyroidism. She had an episode like this a year ago and she was supposed to have surgery but failed cardiac clearance. Since she has had a cancerization with stenting and is now cleared by Cards. She was just here two weeks ago for the same complaints and was going to be scheduled as an outpatient. Unfortunately she had another attack before that could happen. She was seen by Dr Sahu with general surgery yesterday. Per the patient Dr Sahu wanted to get an ERCP prior to surgery because of transaminitis. I am reached out to Dr Grigsby, who is covering for general surgery to clarify plan of care. Per his recommendations the patient needs an MRCP at
[2023-03-19] MEDS: FLUTICASONE PROPIONATE 0.05% NA SPR 16 GM BTL (*BKC) 1 SPRAY NASAL (09:19)
[2023-03-19 09:22] LABS: Total Triiodothyronine (T3) 0.83 NG/ML (0.97-1.69)
--- NOTE | 2023-03-19 09:45 | WPDANESEPPF ---
Anes - Initial Pre Proc Eval Date/Time: 03/19/23 09:45 Surgeon: Yadiel Medellin MD Pre Op Diagnosis: Acute Cholecystitis Patient Data Age: 67 Gender: F Height: 1.7 m Weight: 115.2 kg Last Vital Signs Temp 36.0 C L 03/19/23 04:00 Pulse 87 03/19/23 04:00 Resp 20 03/19/23 04:00 BP 117/63 03/19/23 04:00 Pulse Ox 92 03/19/23 07:58 O2 Del Method Room Air 03/19/23 07:58 O2 Flow Rate 2 03/18/23 20:00 Allergies Allergy/AdvReac Type Severity Reaction Status Date / Time atorvastatin Allergy Mild Muscle Pain Verified 03/16/23 10:30 levofloxacin Allergy Mild Muscle Pain Verified 03/16/23 10:30 simvastatin Allergy Mild Muscle Pain Verified 03/16/23 10:30 azithromycin AdvReac AVOIDS PER Verified 03/16/23 10:30 E [employer] Home Medications Medication Instructions Recorded Confirmed Type bupropion HCl 300 mg 24 hr tablet, 300 mg PO QAM 07/31/19 03/18/23 History extended release (Wellbutrin XL) sertraline 100 mg tablet (Zoloft) 100 mg PO QAM 07/31/19 03/18/23 History quetiapine 50 mg tablet (Seroquel) 50 mg PO HS 07/09/20 03/18/23 History calcium carbonate 500 mg calcium 1,000 mg PO QAM 04/10/21 03/18/23 History (1,250 mg) chewable tablet (Calcium 500) clonazepam 0.5 mg tablet (Klonopin) 0.5 mg PO HS PRN Sleep 04/10/21 03/18/23 History omega-3 fatty acids 1,000 mg 1,000 mg PO BID 04/10/21 03/18/23 History capsule (Fish Oil Concentrate) albuterol sulfate 90 mcg/actuation 1 inh inhalation Q4H PRN shortness 07/10/21 03/18/23 Rx aerosol inhaler of breath or wheezing #6.7 grams aspirin 81 mg tablet,delayed 81 mg PO HS 08/28/21 03/18/23 History release (Adult Low Dose Aspirin) nitroglycerin 0.4 mg sublingual 0.4 mg sublingual Q5MIN PRN Chest 08/28/21 03/18/23 History tablet Pain rosuvastatin 10 mg tablet (Crestor) 10 mg PO QAM #30 tabs 09/01/21 03/18/23 Rx multivitamin 1 tablet PO DAILY 01/13/22 03/18/23 History metoprolol tartrate 25 mg tablet 12.5 mg PO QAM 03/12/22 03/18/23 History pantoprazole 20 mg tablet,delayed 20 mg PO QAM #90 tabs 06/15/22 03/18/23 Rx release (Protonix) fluticasone 100 mcg-salmeterol 50 1 inh inhalation QAM 11/19/22 03/18/23 History mcg/dose blistr powdr for inhalation (Advair Diskus) fluticasone propionate 50 1 spray intranasal QAM 11/19/22 03/18/23 History mcg/actuation nasal spray,suspension levothyroxine 75 mcg tablet 75 mcg PO QAM 11/19/22 03/18/23 History tramadol 50 mg tablet 50 mg PO TID PRN pain #90 tabs 11/26/22 03/18/23 Rx cetirizine 10 mg tablet (Zyrtec) 10 mg PO HS PRN allergy symptoms 12/16/22 03/18/23 Rx #90 tabs cholecalciferol (vitamin D3) 125 125 mcg PO DAILY 30 days #30 caps 01/03/23 03/18/23 Rx mcg (5,000 unit) capsule hydrochlorothiazide 25 mg tablet 25 mg PO QAM #90 tabs 01/11/23 03/18/23 Rx celecoxib 200 mg capsule (Celebrex) 200 mg PO QAM #90 caps 01/17/23 03/18/23 Rx ezetimibe 10 mg tablet (Zetia) 10 mg PO DAILY #90 tabs 01/17/23 03/18/23 Rx gabapentin 300 mg capsule 300 mg PO DAILY PRN back pain #90 01/17/23 03/18/23 Rx caps ferrous sulfate 325 mg (65 mg 325 mg PO DAILY #90 tabs 01/26/23 03/18/23 Rx iron) tablet Laboratory Tests 03/19/23 04:35 WBC 10.4 H K/mm3 (4.5-10.0) RBC 3.77 L M/mm3 (4.2-5.4) Hgb 11.4 L g/dL (12.0-15.0) Hct 36.2 L % (37.0-47.0) MCV 96.0 fl (80-100) MCH 30.2 pg (26-34) MCHC 31.5 L g/dl (32-36) RDW 12.4 % (11.5-14.5) Plt Count 275 k/mm3 (150-375) MPV 8.6 fl (7.4-10.4) Immature Gran % (Auto) 0.6 H % (0-0.5) Neut % (Auto) 81.4 H % (45.5-73.1) Lymph % (Auto) 7.6 L % (18.3-44.2) [place] % (Auto) 9.0 H % (2.6-8.5) Eos % (Auto) 1.0 % (0-4.4) Baso % (Auto) 0.4 % (0.2-1.2) Lymph # (Auto) 0.79 L K/mm3 (0.9-3.2) [place] # (Auto) 0.9 H K/mm3 (0.1-0.6) Eos # (Auto) 0.1 K/mm3 (0-0.3) Baso # (Auto) 0.0 K/mm3 (0.0-0.1) Abs Immat Gran (auto) 0.06 H K/mm3 (0.0
--- NOTE | 2023-03-19 10:07 | PM.PNGS ---
Progress Note: A&P Assessment and Plan (1) Acute cholecystitis: Code(s): K81.0 - Acute cholecystitis Status: Acute Assessment and Plan: The patient continues to constant pain and her liver enzymes are still elevated. GI unavailable for consultation this weekend. Have recommended proceeding with urgent laparoscopic cholecystectomy with cholangiogram, possible open. Discussed the procedure, risks, benefits, and alternatives. Questions were answered. (2) CAD (coronary artery disease): Qualifiers: Coronary Disease-Associated Artery/Lesion type: unspecified vessel or lesion type [place] vs. transplanted heart: unspecified whether [place] or transplanted heart Associated angina: without angina Qualified Code(s): I25.10 - Atherosclerotic heart disease of [place] coronary artery without angina pectoris Code(s): I25.10 - Atherosclerotic heart disease of [place] coronary artery without angina pectoris Status: Acute (3) Hypertension: Qualifiers: Hypertension type: essential hypertension Qualified Code(s): I10 - Essential (primary) hypertension Code(s): I10 - Essential (primary) hypertension Status: Acute (4) Bipolar 1 disorder: Code(s): F31.9 - Bipolar disorder, unspecified Status: Acute Subjective Subjective Date/Time Seen: 03/19/23 10:07 Interval history: Patient continued to have pain overnight. She was requiring pain meds every 4 hours. Exam GI: Inspection: normal to inspection and non-distended GI Palp: Yes Soft to palpation, Yes Tenderness to palpation present (GI) (Right upper quadrant), No Guarding due to palpation present (GI) and No Rebound tenderness present Objective Data Vital Signs Vital Signs: Vital Signs - 24 hr 03/18/23 10:41 03/18/23 10:25 03/18/23 14:20 Temperature 36.4 C 37.1 C Pulse Rate 70 83 Respiratory Rate 16 16 Blood Pressure 147/72 H 153/69 H Pulse Oximetry 97 97 98 Oxygen Delivery Nasal Cannula Oxygen Flow Rate 2 03/18/23 18:27 03/18/23 19:59 03/18/23 20:00 Temperature 37.7 C H 36.7 C Pulse Rate 102 H 101 H Respiratory Rate 20 20 Blood Pressure 183/83 H 150/81 H Pulse Oximetry 90 97 91 Oxygen Delivery Oxygen Flow Rate 1 03/18/23 20:00 03/19/23 00:00 03/19/23 04:00 Temperature 36.8 C 36.0 C L Pulse Rate 101 H 90 87 Respiratory Rate 20 18 20 Blood Pressure 145/69 H 117/63 Pulse Oximetry 91 95 95 Oxygen Delivery Nasal Cannula Oxygen Flow Rate 2 03/19/23 07:58 Temperature Pulse Rate Respiratory Rate Blood Pressure Pulse Oximetry 92 Oxygen Delivery Room Air Oxygen Flow Rate Intake/Output Intake/Output: Intake & Output 03/16/23 03/17/23 03/18/23 03/19/23 23:59 23:59 23:59 23:59 Intake Total 1150 1050 Balance 1150 1050 Meds/Results Medications: Active Medications Generic Name Dose Route Start Last Admin Trade Name Freq PRN Reason Stop Dose Admin Albuterol 1 puff 03/18/23 15:17 Albuterol Sulfate (*Sp) Aerosol 1 Puff INHALATION Q4H PRN shortness of breath or wheezing Fentanyl Citrate 25 mcg 03/18/23 18:14 03/19/23 08:26 Fentanyl Citrate Inj (*Crx) 100 Mcg/2 Ml Vial IV PUSH 25 mcg Q4H PRN Administration Pain Rated 7-10 Fentanyl Citrate 25 mcg 03/19/23 09:46 Fentanyl Citrate Inj (*Crx) 100 Mcg/2 Ml Vial IV PUSH Q2M PRN Pain Fluticasone Propionate 1 spray 03/19/23 09:00 03/19/23 09:19 Fluticasone Propionate 0.05% Na Spr 16 Gm Btl (*Bkc) NASAL 1 spray QAM AMIRA Administration Piperacillin/Tazobactam/Dextrose 3.375 gm in 50 mls @ 100 mls/hr 03/18/23 15:00 03/19/23 09:19 Zosyn 3.375 Gm/Ns 50 Ml IVPB 100 mls/hr Q6H AMIRA Administration Lactated Ringer's 1,000 mls @ 125 mls/hr 03/18/23 09:30 03/19/23 03:04 Lr - Lactated Ringers Iv IV CONT 125 mls/hr .Q8H AMIRA Administration Lactated Ringer's 1,000 mls @ 30 mls/hr 03/19/23 09:50 Lr - Lactated Ringers Iv IV CONT
--- NOTE | 2023-03-19 10:10 | WPDHPUPDATE1 ---
History and Physical Update Update Date/Time: 03/19/23 10:10 History and Physical has been reviewed, including an updated exam of the patient. There are NO changes in the patient's condition. Risks, benefits, and alternatives have been discussed and questions answered. Patient agrees to proceed with procedure.
[2023-03-19] MEDS: BUPIVACAINE/EPINEPHRINE 0.25% 50 ML VIAL 30 ML INFILTRATE (11:50)
[2023-03-19] MEDS: LACTATED RINGERS 1,000 ML 30 ML IV CONT ×2 (12:22)
--- NOTE | 2023-03-19 12:23 | W.PM.PROC2 ---
Procedure Note - Detailed Date of Procedure 03/19/23 Pre-op Diagnosis Acute Cholecystitis, elevated liver enzymes Post-op Diagnosis Same Procedure Performed Laparoscopic cholecystectomy with intraoperative cholangiogram Surgeon Zeke Raza, DO Anesthesia General and Local (0.5% bupivacaine) Indications This is a 67 year woman who presented to the emergency department with abdominal pain. This is the 2nd time she had presented to the emergency department in the past week. She was found to have evidence of acute calculous cholecystitis. Her liver enzymes were also slightly elevated. There was no evidence of a dilated common bile duct. She continued to have pain after being admitted and placed NPO with IV antibiotics. Discussions were then made with the patient about treatment options and decision was made to proceed with urgent laparoscopic cholecystectomy with cholangiogram, possible open. Findings Laparoscopic cholecystectomy with cholangiogram was performed. The surgery was extremely difficult due to significant pericholecystic adhesions and a thickened gallbladder wall. The patient's gallbladder was also filled with gallstones which made grabbing and manipulating it very difficult. I attempted to decompress the gallbladder but was only able to aspirate about 10 mL of bile. The surgery took a total of about 80 minutes which is about twice as long as an uncomplicated cholecystectomy. There was also significant blood loss due to the pericholecystic adhesions and inflammation. Total blood loss was about 350 mL which is over 10 times the typical amount of blood loss expected. With careful dissection I was able to eventually identify the neck of the gallbladder and then identify the cystic duct. Intraoperative cholangiogram was obtained which showed no filling defects or occlusion within the common bile duct. The gallbladder was then removed and sent to the lab for pathology. Description of Procedure Procedure as well as risks, benefits, and alternatives were discussed with patient. Written consent was obtained and placed in chart prior to procedure. The patient was brought back to surgical suite. Patient was placed in supine position on operating table. Time-out was done to confirm patient and procedure. Patient was then intubated by the anesthesia department. Abdomen was prepped and draped in sterile fashion using chlorhexidine prep. 0.5% bupivacaine with epinephrine was infiltrated at each site of incision. A 5 millimeter incision was made near the umbilicus, and a 5 millimeter Optiview trocar was advanced through the abdominal layers under direct visualization. Once inside the abdominal cavity, carbon dioxide was insufflated to create a pneumoperitoneum. The camera was inserted and the abdomen was inspected. No immediate abnormalities were identified. The patient was placed in reverse Trendelenburg position and rotated slightly to the left. An 11 millimeter incision was made in the subxiphoid region, and an 11 millimeter trocar was inserted under direct visualization. Two 5 millimeter incisions were made in the right upper quadrant, and two 5 millimeter trocars were inserted under direct visualization. The gallbladder was identified and grasped at the fundus and retracted superiorly. It was then grasped at the infundibulum retracted laterally. Careful dissection around the neck of the gallbladder was performed using blunt dissection with a [place] grasper and hook electrocautery. The cystic duct was identified, and a window was created behind it. The cystic artery was also identified and a window was created behind it. The critical view of safety was identified, visualizing the cystic duct running directly into the neck of the gallbladder, and the cystic artery running directly into the wall of the gallbladder. A Brink clamp was then placed across the neck of the gallbladder and the Brink cholangiocatheter was advanced into the dista
--- NOTE | 2023-03-19 13:27 | PC.NURSE ---
Returned from OR. Report received from CIRILO Keller.
[2023-03-19] MEDS: LACTATED RINGERS 1,000 ML 100 ML IV CONT (13:45)
[2023-03-19] MEDS: OMEGA 3 POLYUNSAT FATTY ACIDS 1 GM CAP PO (16:58)
[2023-03-19 17:14] LABS: Hematocrit 39.2 % (37.0-47.0); Hemoglobin 12.5 g/dL (12.0-15.0); Mean Corpuscular HGB Conc 31.9 g/dl (32-36); Mean Corpuscular Volume 97.3 fl (80-100); Mean Platelet Volume 9.1 fl (7.4-10.4); Platelet Count Result 317 k/mm3 (150-375); Red Blood Count 4.03 M/mm3 (4.2-5.4); Red Cell Distribution Width 12.5 % (11.5-14.5); White Blood Count 12.8 K/mm3 (4.5-10.0)
[2023-03-19 17:26] LABS: Alanine Aminotransferase 315 U/L (6-35); Albumin Level 3.6 g/dL (3.5-5.1); Alkaline Phosphatase 272 U/L (38-126); Anion Gap 7 mmol/L (8-16); Aspartate Amino Transferase 318 U/L (14-36); Bilirubin,Total 2.3 mg/dL (0.2-1.3); Blood Urea Nitrogen 8 mg/dL (7-17); Calcium 8.5 mg/dL (8.4-10.2); Carbon Dioxide 28 mmol/L (22-30); Chloride 102 mmol/L (98-107); Estimated CRCL calculation 121 ml/min; Estimated Glomerular Filt Rate > 60; Glucose 117 mg/dL (65-110); Potassium 3.7 mmol/L (3.4-5.0); Sodium 137 mmol/L (137-145)
[2023-03-19 17:55] LABS: Band Neutrophils Percent 2 % (0-6); Lymphocytes Absolute Manual 0.12 K/mm3 (1.1-4.5); Monocytes Absolute Manual 0.76 K/mm3 (0.1-0.90); Monocytes Percent Manual 6 % (3-9); Neutrophils Percent Manual 91 % (46-73); Platelet Estimate Adequate (Adequate); Total Cells Counted 100
[2023-03-19 17:56] LABS: Hypochromasia 1+ (NORMAL); Schistocytes None Seen (NORMAL)
[2023-03-19] MEDS: ACETAMINOPHEN 325 MG TABLET 650 MG PO (18:21)
[2023-03-19] MEDS: HYDROcodone/acetaminophen (*CRX) 10-325 MG TABLET 1 TAB PO (20:19)
[2023-03-19] MEDS: ASPIRIN 81 MG ENTERIC TABLET PO (20:20)
[2023-03-19] MEDS: QUEtiapine FUMARATE 25 MG TABLET 50 MG PO (20:52)
[2023-03-20] VITALS (7 sets, daily range): BP systolic 106–140; BP diastolic 43–68; PULSE 65–89; RESP 18; TEMP 36.6–36.8; O2SAT 93–97
[2023-03-20] MEDS: PIPERACILLN/TAZ 3.375GM/NS50ML 3.375 GM/50 ML BAG IVPB (02:41)
[2023-03-20] MEDS: HYDROcodone/acetaminophen (*CRX) 10-325 MG TABLET 1 TAB PO ×3 (02:46→21:30)
[2023-03-20 05:21] LABS: Basophils Percent Auto 0.2 % (0.2-1.2); Eosinophils Percent Auto 0.2 % (0-4.4); Hemoglobin 10.3 g/dL (12.0-15.0); Immature Granulocyte Absolute 0.08 K/mm3 (0.00-0.031); Immature Granulocyte Percent A 0.9 % (0-0.5); Lymphocytes Absolute Auto 0.57 K/mm3 (0.9-3.2); Lymphocytes Percent Auto 6.1 % (18.3-44.2); Mean Corpuscular HGB Conc 32.2 g/dl (32-36); Mean Corpuscular Hemoglobin 30.7 pg (26-34); Mean Corpuscular Volume 95.2 fl (80-100); Mean Platelet Volume 9.1 fl (7.4-10.4); Monocytes Absolute Auto 0.6 K/mm3 (0.1-0.6); Monocytes Percent Auto 6.1 % (2.6-8.5); Neutrophils Absolute Auto 8.1 K/mm3 (1.3-6.7); Neutrophils Percent Auto 86.5 % (45.5-73.1); Platelet Count Result 267 k/mm3 (150-375); Red Blood Count 3.36 M/mm3 (4.2-5.4); Red Cell Distribution Width 12.2 % (11.5-14.5); White Blood Count 9.3 K/mm3 (4.5-10.0)
[2023-03-20 05:28] LABS: Alanine Aminotransferase 230 U/L (6-35); Albumin Level 2.9 g/dL (3.5-5.1); Alkaline Phosphatase 214 U/L (38-126); Anion Gap 2 mmol/L (8-16); Aspartate Amino Transferase 167 U/L (14-36); Bilirubin,Total 0.9 mg/dL (0.2-1.3); Blood Urea Nitrogen 6 mg/dL (7-17); Calcium 8.2 mg/dL (8.4-10.2); Carbon Dioxide 33 mmol/L (22-30); Chloride 102 mmol/L (98-107); Cholesterol 137 mg/dL (0-200); Estimated CRCL calculation 101 ml/min; Estimated Glomerular Filt Rate > 60; Glucose 118 mg/dL (65-110); HDL Direct 43 mg/dL; Potassium 3.5 mmol/L (3.4-5.0); Sodium 137 mmol/L (137-145); Triglycerides 69 mg/dL (<150)
[2023-03-20 05:40] LABS: LDL Cholesterol Direct 61 mg/dL
[2023-03-20] MEDS: LEVOTHYROXINE SODIUM 75 MCG TABLET PO (06:23)
--- NOTE | 2023-03-20 07:08 | PM.IMPN ---
Progress Note: A&P Assessment and Plan (1) Acute cholecystitis: Code(s): K81.0 - Acute cholecystitis Status: Acute Assessment and Plan: -mild pain to RUQ controlled with prn norco. Pain is much improved today after surgery. -WBC 8.2--10.4--> 9.3 today; afebrile -Liver enzymes remain elevated: T bili 1.4-->3.1-->normalized, AST 900-->516-->167, ALT 250-->340-->230, Alk Phos 168-->230-->214 -POD 1 lap emily with cholangiogram with Dr Grigsby -On Zosyn Q 6 hours. Loss of IV access this morning. Dr. Leon Care assess it is okay to transition to oral antibiotics. Added Augmentin 500-125 t.i.d. for another 3 days as she has already received 2 days of IV Zosyn, for a total treatment of 5 days. -white count is normalized 9.3 today and she remains afebrile (2) Hypertension: Qualifiers: Hypertension type: essential hypertension Qualified Code(s): I10 - Essential (primary) hypertension Code(s): I10 - Essential (primary) hypertension Status: Acute Assessment and Plan: -blood pressures reviewed, SBP 104/54 this morning. Holding home hydrochlorothiazide 25 mg PO. Resume metoprolol 12.5 mg PO daily, less likely to lower BP. (3) Hyperlipidemia: Qualifiers: Hyperlipidemia type: unspecified Qualified Code(s): E78.5 - Hyperlipidemia, unspecified Code(s): E78.5 - Hyperlipidemia, unspecified Status: Chronic Assessment and Plan: -Will obtain lipid panel. WNL. -Continue home medications ezetimibe 10 mg PO daily and Rosuvastatin 10 mg PO daily. -daily baby ASA resumes tomorrow (4) Hypothyroidism: Qualifiers: Hypothyroidism type: unspecified Qualified Code(s): E03.9 - Hypothyroidism, unspecified Code(s): E03.9 - Hypothyroidism, unspecified Status: Acute Assessment and Plan: TSH 0.415, Free thyroxine 1.24, and T3 0.83 -Levothyroxine 75 mcg PO daily, resumed (5) Bipolar 1 disorder: Code(s): F31.9 - Bipolar disorder, unspecified Status: Acute Assessment and Plan: pleasant, cooperative -resume home medications (6) CAD (coronary artery disease): Qualifiers: Associated angina: without angina Coronary Disease-Associated Artery/Lesion type: unspecified vessel or lesion type [place] vs. transplanted heart: unspecified whether [place] or transplanted heart Qualified Code(s): I25.10 - Atherosclerotic heart disease of [place] coronary artery without angina pectoris Code(s): I25.10 - Atherosclerotic heart disease of [place] coronary artery without angina pectoris Status: Acute Assessment and Plan: CAD with stents -will resume home ASA 81 mg tomorrow (7) GERD (gastroesophageal reflux disease): Qualifiers: Esophagitis presence: without esophagitis Qualified Code(s): K21.9 - Gastro-esophageal reflux disease without esophagitis Code(s): K21.9 - Gastro-esophageal reflux disease without esophagitis Status: Acute Assessment and Plan: Currently not an active issue -resume home protonix (8) Low ferritin level: Code(s): R79.0 - Abnormal level of blood mineral Status: Acute Assessment and Plan: Stable in December of this year, 43.2 -continue home medication Plan POD2 Lap Emily. Continue post-op care. Transition to p.o. antibiotics hopefully patient will discharge tomorrow. Subjective Date/time seen: 03/20/23 07:08 Interval history: This is a 67 year old female who presented to our ED last night with complaints of abdominal pain. She has a PMH of CAD s/p stents, Bipolar 1, COPD, DJD, HLD, HTN, and hypothyroidism. She had an episode like this a year ago and she was supposed to have surgery but failed cardiac clearance. Since she has had a cancerization with stenting and is now cleared by Cards. She was just here two weeks ago for the same complaints and was going to be scheduled as an outpatient. Unfortunately she had another miriam
[2023-03-20] MEDS: FLUTICASONE/SALMETEROL 45-21 MCG INHALER 1 PUFF 2 PUFF INHALATION ×2 (08:13→20:38)
[2023-03-20] MEDS: buPROPion HCL XL (24 HR) 150 MG TABCR 300 MG PO (09:06)
[2023-03-20] MEDS: CALCIUM CARBONATE (TUMS) 500 MG (200 MG ELEMENTAL) 400 MG PO (09:06)
[2023-03-20] MEDS: CHOLECALCIFEROL 1,000 UNITS TABLET 5000 UNITS PO (09:07)
[2023-03-20] MEDS: CELECOXIB 200 MG CAPSULE PO (09:07)
[2023-03-20] MEDS: EZETIMIBE 10 MG TABLET PO (09:07)
[2023-03-20] MEDS: FERROUS SULFATE 324 MG TABLET PO (09:08)
[2023-03-20] MEDS: FLUTICASONE PROPIONATE 0.05% NA SPR 16 GM BTL (*BKC) 1 SPRAY NASAL (09:08)
[2023-03-20] MEDS: OMEGA 3 POLYUNSAT FATTY ACIDS 1 GM CAP PO ×2 (09:09→17:05)
[2023-03-20] MEDS: METOPROLOL SUCCINATE EXT REL 12.5 MG TABCR PO (09:09)
[2023-03-20] MEDS: MULTIVITAMINS THERAPEUTIC TAB (*BKC) 1 TABLET PO (09:09)
[2023-03-20] MEDS: ROSUVASTATIN 10 MG TABLET PO (09:10)
[2023-03-20] MEDS: SERTRALINE HCL 50 MG TABLET 100 MG PO (09:10)
[2023-03-20] MEDS: PANTOPRAZOLE SOD SESQUIHYDRATE 20 MG TAB PO (09:10)
[2023-03-20] MEDS: ENOXAPARIN 40 MG/0.4 ML SYRINGE SUB-Q (09:12)
[2023-03-20] MEDS: polyethylene glycoL 3350 17 GM POWD.PACK PO (09:15)
--- NOTE | 2023-03-20 14:07 | PM.PNGS ---
Progress Note: A&P Assessment and Plan (1) Acute cholecystitis: Code(s): K81.0 - Acute cholecystitis Status: Acute Assessment and Plan: Advanced to low-fat diet as tolerated Transition from Zosyn to Augmentin and Flagyl Increase activity Possibly home in the next 1-2 days (2) CAD (coronary artery disease): Qualifiers: Coronary Disease-Associated Artery/Lesion type: unspecified vessel or lesion type [place] vs. transplanted heart: unspecified whether [place] or transplanted heart Associated angina: without angina Qualified Code(s): I25.10 - Atherosclerotic heart disease of [place] coronary artery without angina pectoris Code(s): I25.10 - Atherosclerotic heart disease of [place] coronary artery without angina pectoris Status: Acute (3) Hypertension: Qualifiers: Hypertension type: essential hypertension Qualified Code(s): I10 - Essential (primary) hypertension Code(s): I10 - Essential (primary) hypertension Status: Acute (4) Bipolar 1 disorder: Code(s): F31.9 - Bipolar disorder, unspecified Status: Acute Subjective Subjective Date/Time Seen: 03/20/23 14:07 Interval history: Doing well on postop day 1. Still having a little abdominal soreness. Still only on full liquids but advancing diet as tolerated. No fevers. Pain controlled. Exam GI: Inspection: incision (Mild bruising around incisions, intact with glue) GI Palp: Yes Soft to palpation, Yes Tenderness to palpation present (GI) (Right upper quadrant and incisional) and No Guarding due to palpation present (GI) Auscultation: normal bowel sounds Objective Data Vital Signs Vital Signs: Vital Signs - 24 hr 03/19/23 14:30 03/19/23 15:04 03/19/23 19:25 Temperature 36.6 C 36.7 C 36.4 C L Pulse Rate 91 94 86 Respiratory Rate 16 16 16 Blood Pressure 133/75 137/67 123/64 Pulse Oximetry 95 97 95 Oxygen Delivery Oxygen Flow Rate 03/19/23 20:00 03/19/23 20:57 03/19/23 23:01 Temperature 37.1 C Pulse Rate 86 86 85 Respiratory Rate 16 17 18 Blood Pressure 142/68 H Pulse Oximetry 95 94 Oxygen Delivery Nasal Cannula Oxygen Flow Rate 1 03/20/23 03:04 03/20/23 08:13 03/20/23 09:09 Temperature 36.6 C 36.8 C Pulse Rate 65 89 89 Respiratory Rate 18 18 Blood Pressure 106/43 L 140/68 Pulse Oximetry 94 93 Oxygen Delivery Oxygen Flow Rate 03/20/23 09:00 Temperature Pulse Rate Respiratory Rate Blood Pressure Pulse Oximetry 93 Oxygen Delivery Nasal Cannula Oxygen Flow Rate 1 Intake/Output Intake/Output: Intake & Output 03/17/23 03/18/23 03/19/23 03/20/23 23:59 23:59 23:59 23:59 Intake Total 1150 2680 1400 Output Total 800 2 Balance 1150 1880 1398 Meds/Results Medications: Active Medications Generic Name Dose Route Start Last Admin Trade Name Freq PRN Reason Stop Dose Admin Acetaminophen 650 mg 03/19/23 13:19 03/19/23 18:21 Acetaminophen 325 Mg Tablet PO 650 mg Q6H PRN Administration Mild Pain (1-3) or Fever Hydrocodone Bitart/Acetaminophen 1 tab 03/19/23 13:19 Hydrocodone/Acetaminophen (*Crx) 5-325 Mg Tablet PO Q4H PRN Pain Rated 4-6 Hydrocodone Bitart/Acetaminophen 1 tab 03/19/23 13:19 03/20/23 09:10 Hydrocodone/Acetaminophen (*Crx) 10-325 Mg Tablet PO 1 tab Q6H PRN Administration Pain Rated 7-10 Albuterol 1 puff 03/18/23 15:17 Albuterol Sulfate (*Sp) Aerosol 1 Puff INHALATION Q4H PRN shortness of breath or wheezing Amoxicillin/Clavulanate Potassium 1 tablet 03/20/23 21:00 Amoxicillin/Clavulanate K 875-125 Mg Tab PO Q12HR AMIRA Aspirin 81 mg 03/19/23 21:00 03/19/23 20:20 Aspirin 81 Mg Enteric Tablet PO 81 mg HS AMIRA Administration Bupropion HCl 300 mg 03/20/23 09:00 03/20/23 09:06 Bupropion Hcl Xl (24 Hr) 150 Mg Tabcr PO 300 mg QAM AMIRA Administration Calcium Carbonate 400 mg 03/20/23 09:00 03/20/23 09:06 Calciu
[2023-03-20] MEDS: HYDROcodone/acetaminophen (*CRX) 5-325 MG TABLET 1 TAB PO (15:25)
[2023-03-20] MEDS: metroNIDAZOLE 250 MG TABLET 500 MG PO ×2 (15:26→21:30)
[2023-03-20] MEDS: AMOXICILLIN/CLAVULANATE K 875-125 MG TAB 1 TABLET PO (21:30)
[2023-03-20] MEDS: QUEtiapine FUMARATE 25 MG TABLET 50 MG PO (21:30)
[2023-03-20] MEDS: ASPIRIN 81 MG ENTERIC TABLET PO (21:30)
[2023-03-20] MEDS: clonazePAM (*CRX) 0.5 MG TABLET PO (23:17)
[2023-03-21 05:38] LABS: Basophils Absolute Auto 0.1 K/mm3 (0.0-0.1); Basophils Percent Auto 0.6 % (0.2-1.2); Eosinophils Absolute Auto 0.7 K/mm3 (0-0.3); Eosinophils Percent Auto 8.4 % (0-4.4); Hematocrit 36.2 % (37.0-47.0); Hemoglobin 11.4 g/dL (12.0-15.0); Immature Granulocyte Absolute 0.05 K/mm3 (0.00-0.031); Immature Granulocyte Percent A 0.6 % (0-0.5); Lymphocytes Absolute Auto 1.36 K/mm3 (0.9-3.2); Lymphocytes Percent Auto 16.2 % (18.3-44.2); Mean Corpuscular HGB Conc 31.5 g/dl (32-36); Mean Corpuscular Hemoglobin 30.5 pg (26-34); Mean Corpuscular Volume 96.8 fl (80-100); Mean Platelet Volume 8.9 fl (7.4-10.4); Monocytes Absolute Auto 0.6 K/mm3 (0.1-0.6); Monocytes Percent Auto 7.1 % (2.6-8.5); Neutrophils Absolute Auto 5.6 K/mm3 (1.3-6.7); Neutrophils Percent Auto 67.1 % (45.5-73.1); Platelet Count Result 385 k/mm3 (150-375); Red Blood Count 3.74 M/mm3 (4.2-5.4); Red Cell Distribution Width 12.4 % (11.5-14.5); White Blood Count 8.4 K/mm3 (4.5-10.0)
[2023-03-21 05:56] LABS: Alanine Aminotransferase 202 U/L (6-35); Albumin Level 3.4 g/dL (3.5-5.1); Alkaline Phosphatase 240 U/L (38-126); Anion Gap 3 mmol/L (8-16); Aspartate Amino Transferase 126 U/L (14-36); Bilirubin,Total 0.7 mg/dL (0.2-1.3); Blood Urea Nitrogen 4 mg/dL (7-17); Calcium 8.5 mg/dL (8.4-10.2); Carbon Dioxide 38 mmol/L (22-30); Chloride 98 mmol/L (98-107); Estimated CRCL calculation 101 ml/min; Estimated Glomerular Filt Rate > 60; Glucose 89 mg/dL (65-110); Potassium 3.3 mmol/L (3.4-5.0); Sodium 139 mmol/L (137-145)
[2023-03-21 06:00] VITALS: BP 135/59; PULSE 71; RESP 18; TEMP 36.7; O2SAT 94
[2023-03-21] MEDS: metroNIDAZOLE 250 MG TABLET 500 MG PO ×2 (06:05→13:14)
[2023-03-21] MEDS: HYDROcodone/acetaminophen (*CRX) 10-325 MG TABLET 1 TAB PO (06:05)
[2023-03-21] MEDS: LEVOTHYROXINE SODIUM 75 MCG TABLET PO (06:05)
--- NOTE | 2023-03-21 06:45 | PM.IMPN ---
Progress Note: A&P Assessment and Plan (1) Acute cholecystitis: Code(s): K81.0 - Acute cholecystitis Status: Acute Assessment and Plan: -mild pain to RUQ controlled with prn norco. Pain is much improved today after surgery. -WBC 8.2--10.4--> 9.3 today; afebrile -Liver enzymes remain elevated: T bili 1.4-->3.1-->normalized, AST 900-->516-->167-->126, ALT 250-->340-->230-->202, Alk Phos 168-->230-->214-->240 -POD 2 lap emily with cholangiogram with Dr Grigsby -On Zosyn Q 6 hours. Loss of IV access this morning. Dr. Grigsby says it is okay to transition to oral antibiotics. Added Augmentin 500-125 PO BID and Flagyl 500 PO Q 8 hours. -white count is normalized 9.3-->8.4 today and she remains afebrile -Replace K+ 40 meq (2) Hypertension: Qualifiers: Hypertension type: essential hypertension Qualified Code(s): I10 - Essential (primary) hypertension Code(s): I10 - Essential (primary) hypertension Status: Acute Assessment and Plan: -blood pressures reviewed, SBP 104/54 this morning. Holding home hydrochlorothiazide 25 mg PO. Resume metoprolol 12.5 mg PO daily, less likely to lower BP. (3) Hyperlipidemia: Qualifiers: Hyperlipidemia type: unspecified Qualified Code(s): E78.5 - Hyperlipidemia, unspecified Code(s): E78.5 - Hyperlipidemia, unspecified Status: Chronic Assessment and Plan: -Will obtain lipid panel. WNL. -Continue home medications ezetimibe 10 mg PO daily and Rosuvastatin 10 mg PO daily. -daily baby ASA resumes tomorrow (4) Hypothyroidism: Qualifiers: Hypothyroidism type: unspecified Qualified Code(s): E03.9 - Hypothyroidism, unspecified Code(s): E03.9 - Hypothyroidism, unspecified Status: Acute Assessment and Plan: TSH 0.415, Free thyroxine 1.24, and T3 0.83 -Levothyroxine 75 mcg PO daily, resumed (5) Bipolar 1 disorder: Code(s): F31.9 - Bipolar disorder, unspecified Status: Acute Assessment and Plan: pleasant, cooperative -resume home medications (6) CAD (coronary artery disease): Qualifiers: Associated angina: without angina Coronary Disease-Associated Artery/Lesion type: unspecified vessel or lesion type [place] vs. transplanted heart: unspecified whether [place] or transplanted heart Qualified Code(s): I25.10 - Atherosclerotic heart disease of [place] coronary artery without angina pectoris Code(s): I25.10 - Atherosclerotic heart disease of [place] coronary artery without angina pectoris Status: Acute Assessment and Plan: CAD with stents -will resume home ASA 81 mg tomorrow (7) GERD (gastroesophageal reflux disease): Qualifiers: Esophagitis presence: without esophagitis Qualified Code(s): K21.9 - Gastro-esophageal reflux disease without esophagitis Code(s): K21.9 - Gastro-esophageal reflux disease without esophagitis Status: Acute Assessment and Plan: Currently not an active issue -resume home protonix (8) Low ferritin level: Code(s): R79.0 - Abnormal level of blood mineral Status: Acute Assessment and Plan: Stable in December of this year, 43.2 -continue home medication Plan POD2 Lap Emily. Continue post-op care. Transition to p.o. antibiotics Anticipate d/c today if okay with surgery. Subjective Date/time seen: 03/21/23 06:45 Interval history: This is a 67 year old female who presented to our ED last night with complaints of abdominal pain. She has a PMH of CAD s/p stents, Bipolar 1, COPD, DJD, HLD, HTN, and hypothyroidism. She had an episode like this a year ago and she was supposed to have surgery but failed cardiac clearance. Since she has had a cancerization with stenting and is now cleared by Cards. She was just here two weeks ago for the same complaints and was going to be scheduled as an outpatient. Unfortunately she had another attack before that could happen. She
[2023-03-21] MEDS: FLUTICASONE/SALMETEROL 45-21 MCG INHALER 1 PUFF 2 PUFF INHALATION (07:48)
[2023-03-21] MEDS: AMOXICILLIN/CLAVULANATE K 875-125 MG TAB 1 TABLET PO (08:09)
[2023-03-21] MEDS: CALCIUM CARBONATE (TUMS) 500 MG (200 MG ELEMENTAL) 400 MG PO (08:10)
[2023-03-21] MEDS: buPROPion HCL XL (24 HR) 150 MG TABCR 300 MG PO (08:10)
[2023-03-21] MEDS: CHOLECALCIFEROL 1,000 UNITS TABLET 5000 UNITS PO (08:10)
[2023-03-21] MEDS: ENOXAPARIN 40 MG/0.4 ML SYRINGE SUB-Q (08:10)
[2023-03-21] MEDS: CELECOXIB 200 MG CAPSULE PO (08:10)
[2023-03-21] MEDS: FLUTICASONE PROPIONATE 0.05% NA SPR 16 GM BTL (*BKC) 1 SPRAY NASAL (08:11)
[2023-03-21] MEDS: FERROUS SULFATE 324 MG TABLET PO (08:11)
[2023-03-21] MEDS: EZETIMIBE 10 MG TABLET PO (08:11)
[2023-03-21 08:12] VITALS: PULSE 61
[2023-03-21] MEDS: METOPROLOL SUCCINATE EXT REL 12.5 MG TABCR PO (08:12)
[2023-03-21] MEDS: MULTIVITAMINS THERAPEUTIC TAB (*BKC) 1 TABLET PO (08:13)
[2023-03-21] MEDS: OMEGA 3 POLYUNSAT FATTY ACIDS 1 GM CAP PO (08:13)
[2023-03-21] MEDS: SERTRALINE HCL 50 MG TABLET 100 MG PO (08:14)
[2023-03-21] MEDS: ROSUVASTATIN 10 MG TABLET PO (08:14)
[2023-03-21] MEDS: PANTOPRAZOLE SOD SESQUIHYDRATE 20 MG TAB PO (08:14)
[2023-03-21] MEDS: polyethylene glycoL 3350 17 GM POWD.PACK PO (08:14)
[2023-03-21] MEDS: POTASSIUM CHLORIDE 20 MEQ ER TABLET 40 MEQ PO (08:14)
[2023-03-21] MEDS: HYDROcodone/acetaminophen (*CRX) 5-325 MG TABLET 1 TAB PO (13:13)
[2023-03-21 14:40] VITALS: BP 121/59; PULSE 74; RESP 16; TEMP 36.9; O2SAT 98
--- NOTE | 2023-03-21 14:41 | PM.DS ---
DS: Admitting Diagnosis Discharge Date March 21 Admitting Diagnosis acute cholecystitis DS: Discharge Diagnosis Discharge Diagnosis (1) Acute cholecystitis: Code(s): K81.0 - Acute cholecystitis Status: Acute Assessment and Plan: -mild pain to RUQ controlled with prn norco. Pain is much improved today after surgery. -WBC 8.2--10.4--> 9.3 today; afebrile -Liver enzymes remain elevated: T bili 1.4-->3.1-->normalized, AST 900-->516-->167-->126, ALT 250-->340-->230-->202, Alk Phos 168-->230-->214-->240 -POD 2 lap emily with cholangiogram with Dr Grigsby -On Zosyn Q 6 hours. Loss of IV access this morning. Dr. Grigsby says it is okay to transition to oral antibiotics. Added Augmentin 500-125 PO BID and Flagyl 500 PO Q 8 hours. -white count is normalized 9.3-->8.4 today and she remains afebrile -Replace K+ 40 meq (2) Hypertension: Qualifiers: Hypertension type: essential hypertension Qualified Code(s): I10 - Essential (primary) hypertension Code(s): I10 - Essential (primary) hypertension Status: Acute Assessment and Plan: -blood pressures reviewed, SBP 104/54 this morning. Holding home hydrochlorothiazide 25 mg PO. Resume metoprolol 12.5 mg PO daily, less likely to lower BP. (3) Hyperlipidemia: Qualifiers: Hyperlipidemia type: unspecified Qualified Code(s): E78.5 - Hyperlipidemia, unspecified Code(s): E78.5 - Hyperlipidemia, unspecified Status: Chronic Assessment and Plan: -Will obtain lipid panel. WNL. -Continue home medications ezetimibe 10 mg PO daily and Rosuvastatin 10 mg PO daily. -daily baby ASA resumes tomorrow (4) Hypothyroidism: Qualifiers: Hypothyroidism type: unspecified Qualified Code(s): E03.9 - Hypothyroidism, unspecified Code(s): E03.9 - Hypothyroidism, unspecified Status: Acute Assessment and Plan: TSH 0.415, Free thyroxine 1.24, and T3 0.83 -Levothyroxine 75 mcg PO daily, resumed (5) Bipolar 1 disorder: Code(s): F31.9 - Bipolar disorder, unspecified Status: Acute Assessment and Plan: pleasant, cooperative -resume home medications (6) CAD (coronary artery disease): Qualifiers: Coronary Disease-Associated Artery/Lesion type: unspecified vessel or lesion type [place] vs. transplanted heart: unspecified whether [place] or transplanted heart Associated angina: without angina Qualified Code(s): I25.10 - Atherosclerotic heart disease of [place] coronary artery without angina pectoris Code(s): I25.10 - Atherosclerotic heart disease of [place] coronary artery without angina pectoris Status: Acute Assessment and Plan: CAD with stents -will resume home ASA 81 mg tomorrow (7) GERD (gastroesophageal reflux disease): Qualifiers: Esophagitis presence: without esophagitis Qualified Code(s): K21.9 - Gastro-esophageal reflux disease without esophagitis Code(s): K21.9 - Gastro-esophageal reflux disease without esophagitis Status: Acute Assessment and Plan: Currently not an active issue -resume home protonix (8) Low ferritin level: Code(s): R79.0 - Abnormal level of blood mineral Status: Acute Assessment and Plan: Stable in December of this year, 43.2 -continue home medication Plan POD2 Lap Emily. Continue post-op care. Transition to p.o. antibiotics Anticipate d/c today if okay with surgery. DS: Summary Hospital Course Reason for hospitalization: acute cholecystitis Hospital Course: you came to the hospital with abdominal pain and was found to have acute calculous cholecystitis. your liver enzymes were also elevated. You underwent a laparoscopic cholecystectomy with Dr. Grigsby. since surgery her labs have continued to normalize and her pain is much improved. Your vital signs are also stable in your tolerating a regular diet. From medical standpoint you are ready f
--- NOTE | 2023-03-21 15:02 | PM.PNGS ---
Progress Note: A&P Assessment and Plan (1) Acute cholecystitis: Code(s): K81.0 - Acute cholecystitis Status: Acute Assessment and Plan: Doing well today OK to discharge home Discharge instructions discussed with patient. Follow up in 2 weeks. (2) CAD (coronary artery disease): Qualifiers: Coronary Disease-Associated Artery/Lesion type: unspecified vessel or lesion type [place] vs. transplanted heart: unspecified whether [place] or transplanted heart Associated angina: without angina Qualified Code(s): I25.10 - Atherosclerotic heart disease of [place] coronary artery without angina pectoris Code(s): I25.10 - Atherosclerotic heart disease of [place] coronary artery without angina pectoris Status: Acute (3) Hypertension: Qualifiers: Hypertension type: essential hypertension Qualified Code(s): I10 - Essential (primary) hypertension Code(s): I10 - Essential (primary) hypertension Status: Acute (4) Bipolar 1 disorder: Code(s): F31.9 - Bipolar disorder, unspecified Status: Acute Subjective Subjective Date/Time Seen: 03/21/23 15:02 Interval history: Doing well. Tolerating low fat diet. Pain controlled. Exam GI: Inspection: incision (Mild bruising around incisions, intact with glue) GI Palp: Yes Soft to palpation, Yes Tenderness to palpation present (GI) (Right upper quadrant and incisional) and No Guarding due to palpation present (GI) Auscultation: normal bowel sounds Objective Data Vital Signs Vital Signs: Vital Signs - 24 hr 03/20/23 20:13 03/20/23 20:00 03/21/23 06:00 Temperature 36.7 C 36.7 C Pulse Rate 68 68 71 Respiratory Rate 18 18 18 Blood Pressure 110/47 L 135/59 L Pulse Oximetry 97 97 94 Oxygen Delivery Nasal Cannula Oxygen Flow Rate 1 03/21/23 08:12 03/21/23 08:00 Temperature Pulse Rate 61 Respiratory Rate Blood Pressure Pulse Oximetry Oxygen Delivery Room Air Oxygen Flow Rate Intake/Output Intake/Output: Intake & Output 03/18/23 03/19/23 03/20/23 03/21/23 23:59 23:59 23:59 23:59 Intake Total 1150 2680 2150 360 Output Total 800 502 Balance 1150 1880 1648 360 Meds/Results Medications: Active Medications Generic Name Dose Route Start Last Admin Trade Name Freq PRN Reason Stop Dose Admin Acetaminophen 650 mg 07/01/23 13:19 03/19/23 18:21 Acetaminophen 325 Mg Tablet PO 650 mg Q6H PRN Administration Mild Pain (1-3) or Fever Hydrocodone Bitart/Acetaminophen 1 tab 03/19/23 13:19 03/21/23 13:13 Hydrocodone/Acetaminophen (*Crx) 5-325 Mg Tablet PO 1 tab Q4H PRN Administration Pain Rated 4-6 Hydrocodone Bitart/Acetaminophen 1 tab 03/19/23 13:19 03/21/23 06:05 Hydrocodone/Acetaminophen (*Crx) 10-325 Mg Tablet PO 1 tab Q6H PRN Administration Pain Rated 7-10 Albuterol 1 puff 03/18/23 15:17 Albuterol Sulfate (*Sp) Aerosol 1 Puff INHALATION Q4H PRN shortness of breath or wheezing Amoxicillin/Clavulanate Potassium 1 tablet 03/20/23 21:00 03/21/23 08:09 Amoxicillin/Clavulanate K 875-125 Mg Tab PO 1 tablet Q12HR AMIRA Administration Aspirin 81 mg 03/19/23 21:00 03/20/23 21:30 Aspirin 81 Mg Enteric Tablet PO 81 mg HS AMIRA Administration Bupropion HCl 300 mg 03/20/23 09:00 03/21/23 08:10 Bupropion Hcl Xl (24 Hr) 150 Mg Tabcr PO 300 mg QAM AMIRA Administration Calcium Carbonate 400 mg 03/20/23 09:00 03/21/23 08:10 Calcium Carbonate (Tums) 500 Mg (200 Mg Elemental) PO 400 mg QAM AMIRA Administration Celecoxib 200 mg 03/20/23 09:00 03/21/23 08:10 Celecoxib 200 Mg Capsule PO 200 mg QAM AMIRA Administration Clonazepam 0.5 mg 03/19/23 10:53 03/20/23 23:17 Clonazepam (*Crx) 0.5 Mg Tablet PO 0.5 mg HS PRN Administration Sleep Ezetimibe 10 mg 03/20/23 09:00 03/21/23 08:11 Ezetimibe 10 Mg Tablet PO 10 mg DAILY AMIRA Administration Enoxaparin Sodium 4
== END 2023-03-21 16:27 | disposition home or self-care (01) | DRG 419 ==
LOC: ANHED 09:25 → ANH2MED 09:58
PROVIDERS: Emergency Medicine; Nurse Practitioner; Surgery; Admitting Provider Chiropractor; Emergency Provider Emergency Medicine; PCP Family Medicine; Visit Provider Nurse Practitioner Acute Care
PROC: 0FT44ZZ Resection of Gallbladder, Percutaneous Endoscopic Approach (ICD-10-PCS; CPT 47562; principal; 2023-03-19 10:30)
DX: K80.00 Calculus of gallbladder with acute cholecystitis without obstruction (principal); K82.8 Other specified diseases of gallbladder; I10 Essential (primary) hypertension; E78.5 Hyperlipidemia, unspecified; E03.9 Hypothyroidism, unspecified; F31.9 Bipolar disorder, unspecified; I25.10 Atherosclerotic heart disease of native coronary artery without angina pectoris; K21.9 Gastro-esophageal reflux disease without esophagitis; R79.0 Abnormal level of blood mineral; M16.12 Unilateral primary osteoarthritis, left hip; M47.9 Spondylosis, unspecified; E66.01 Morbid (severe) obesity due to excess calories; Z68.39 Body mass index [BMI] 39.0-39.9, adult; Z95.5 Presence of coronary angioplasty implant and graft; Z79.82 Long term (current) use of aspirin; Z85.89 Personal history of malignant neoplasm of other organs and systems; Z96.642 Presence of left artificial hip joint; Z90.710 Acquired absence of both cervix and uterus; J45.909 Unspecified asthma, uncomplicated; G47.33 Obstructive sleep apnea (adult) (pediatric)
CPT/HCPCS: 36415; 74177; 74300; 80053; 80061; 83605; 83690; 83735; 84439; 84443; 84480; 85025; 88304; 94640; 96374; 96376; 99285; A9270; J0500; J1100; J1170; J1650; J2250; J2405; J2543; J2704; J2710; J3010; J7030; J7120; Q9967

== ENCOUNTER 2023-04-01 06:44 | Outpatient (CLI) | payer MEDICARE, OTHER, SELFPAY ==
[2023-04-01 07:47] LABS: Cholesterol 206 mg/dL (0-200); HDL Direct 63 mg/dL; Triglycerides 89 mg/dL (<150)
[2023-04-01 07:58] LABS: LDL Cholesterol Direct 99 mg/dL
[2023-04-01 08:20] LABS: Thyroid Stimulating Hormone Reflex 0.681 uIU/mL (0.465-4.68)
[2023-04-01 08:50] LABS: Hemoglobin A1C 5.6 % (<5.7)
== END 2023-04-01 06:45 | disposition home or self-care (01) ==
PROVIDERS: PCP Family Medicine; Referring Provider Physician Assistant; Visit Provider Nurse Practitioner
DX: D64.9 Anemia, unspecified (principal); R73.03 Prediabetes; E78.5 Hyperlipidemia, unspecified; E03.9 Hypothyroidism, unspecified
CPT/HCPCS: 36415; 80061; 82728; 83036; 84443

== ENCOUNTER 2023-06-16 07:00 | Outpatient (NON) | payer MEDICARE, OTHER, SELFPAY | END 2023-06-16 07:01 | disposition home or self-care (01) | LOC: ANHLAB 06-17 09:43 | PROVIDERS: PCP Family Medicine; Visit Provider Family Medicine | DX: M31.0 Hypersensitivity angiitis (principal) | CPT/HCPCS: 88305 ==

== ENCOUNTER 2023-07-20 11:25 | Outpatient (CLI) | payer MEDICARE, OTHER, SELFPAY ==
[2023-07-20 11:56] LABS: Basophils Percent Auto 0.6 % (0.2-1.2); Eosinophils Absolute Auto 0.3 K/mm3 (0-0.3); Eosinophils Percent Auto 5.2 % (0-4.4); Hematocrit 42.7 % (37.0-47.0); Hemoglobin 14.5 g/dL (12.0-15.0); Immature Granulocyte Absolute 0.02 K/mm3 (0.00-0.031); Immature Granulocyte Percent A 0.3 % (0-0.5); Lymphocytes Absolute Auto 1.76 K/mm3 (0.9-3.2); Mean Corpuscular Hemoglobin 31.4 pg (26-34); Mean Corpuscular Volume 92.4 fl (80-100); Mean Platelet Volume 8.9 fl (7.4-10.4); Monocytes Absolute Auto 0.5 K/mm3 (0.1-0.6); Monocytes Percent Auto 7.8 % (2.6-8.5); Neutrophils Absolute Auto 3.8 K/mm3 (1.3-6.7); Neutrophils Percent Auto 59.1 % (45.5-73.1); Platelet Count Result 234 k/mm3 (150-375); Red Blood Count 4.62 M/mm3 (4.2-5.4); Red Cell Distribution Width 12.1 % (11.5-14.5); White Blood Count 6.5 K/mm3 (4.5-10.0)
[2023-07-20 12:09] LABS: Rheumatoid Factor < 12.0 IU/ML (<12)
[2023-07-20 13:05] LABS: Erythrocyte Sedimentation Rate 20 mm/hr (0-20)
[2023-07-24 14:23] LABS: CRP, High Sensitivity 3.5 mg/L (***)
== END 2023-07-20 11:26 | disposition home or self-care (01) ==
PROVIDERS: PCP Family Medicine; Visit Provider Nurse Practitioner Family
DX: R53.83 Other fatigue (principal); M31.0 Hypersensitivity angiitis; I10 Essential (primary) hypertension; Z83.2 Family history of diseases of the blood and blood-forming organs and certain disorders involving the immune mechanism
CPT/HCPCS: 36415; 85025; 85652; 86038; 86141; 86430

== ENCOUNTER 2023-09-23 10:55 | Outpatient (CLI) | payer MEDICARE, OTHER, SELFPAY | END 2023-09-23 10:56 | disposition home or self-care (01) | PROVIDERS: PCP Family Medicine; Visit Provider Physician Assistant | DX: D64.9 Anemia, unspecified (principal) | CPT/HCPCS: 36415; 82728 ==

== ENCOUNTER 2023-11-09 09:37 | Outpatient (CLI) | payer MEDICARE, OTHER, SELFPAY ==
--- NOTE | ~2023-11-09 | MR_ITS ---
EXAMINATION: MR lumbar spine wo con DATE: 11/09/2023 10:08 INDICATION: Lumbago TECHNIQUE: Magnetic resonance imaging (MRI) of the lumbar spine was performed without intravenous con trast. Sequences included sagittal T2-weighted FSE, sagittal T2-weighted FS FSE, sagittal T1-weighted FSE, and axial T2-weighted FSE. COMPARISON: 03/26/2021 FINDINGS: 15 degrees lumbar levoscoliosis. 1 mm retrolisthesis T12 on L1, L1 on L2 and L2 on L3 and 2 mm retrol isthesis L5 on the partially lumbarized S1 segment.. Vertebral body heights are normal. Severe disc h eight loss with associated fibrovascular degenerative endplate changes at T11-T12. Marrow signal is o therwise normal. Moderate disc height loss at T10-T11 and mild disc height loss at T12-L1 and L3-L4. The conus medullaris terminates at L1. There is normal signal in the caudal spinal cord. Paravertebra l soft tissues are unremarkable. The following disc levels are specifically discussed: T12-L1: Disc is mildly bulging with superimposed annular fissure and small left subarticular zone dis c extrusion with disc material extending up to 6 mm cephalad to the level of the inferior endplate of T12. There is mild left and moderate right facet joint osteoarthritis. There is minimal right neural foraminal stenosis. There is minimal central canal stenosis. L1-L2: Disc is mildly bulging. There is moderate right and mild to moderate left bilateral facet join t osteoarthritis. There is no neural foraminal stenosis. There is minimal central canal stenosis. L2-L3: Disc is mildly bulging. There is moderate right and mild to moderate left facet joint osteoart hritis. There is mild bilateral neural foraminal stenosis. There is mild central canal stenosis. L3-L4: Disc is bulging with annular fissure. There is hypertrophy of the ligamentum flavum. There is severe bilateral facet joint osteoarthritis. There is mild bilateral neural foraminal stenosis. Ther e is moderate central canal stenosis. L4-L5: Disc is mildly bulging. There is hypertrophy of the ligamentum flavum. There is severe bilate ral facet joint osteoarthritis. There is mild bilateral neural foraminal stenosis. There is mild cent ral canal stenosis. L5-S1: Disc is mildly bulging with annular fissure and small right foraminal zone disc protrusion. Th ere is moderate right and severe left facet joint osteoarthritis. There is mild bilateral neural fora nathan stenosis. There is mild central canal stenosis. IMPRESSION: 1. Interval progression of mild lumbar spondylosis with no significant change in severe spondylosis a t T11-T12. Reviewed, dictated and finalized at location A. [facility] IMPRESSION: 1. Interval progression of mild lumbar spondylosis with no significant change i n severe spondylosis at T11-T12.
== END 2023-11-09 09:38 | disposition home or self-care (01) ==
LOC: ANHIMG 09:39
PROVIDERS: PCP Family Medicine; Visit Provider Nurse Practitioner Family
DX: M54.50 Low back pain, unspecified (principal); M43.06 Spondylolysis, lumbar region
CPT/HCPCS: 72148

== ENCOUNTER 2023-12-01 10:28 | Outpatient (CLI) | payer MEDICARE, OTHER, SELFPAY ==
--- NOTE | ~2023-12-01 | XR_ITS ---
AP and lateral views of the left hip Clinical history: Pain Findings: No acute fracture or dislocation is seen. Left hip arthroplasty in place. No hardware compl ication.. Soft tissues are unremarkable. Impression: No acute abnormality is seen. Left hip arthroplasty. Reviewed, dictated and finalized at location . Impression: No acute abnormality is seen. Left hip arthroplasty.
== END 2023-12-01 10:29 | disposition home or self-care (01) ==
LOC: ANHIMG 10:29
PROVIDERS: PCP Family Medicine; Visit Provider Orthopaedic Surgery
DX: M25.552 Pain in left hip (principal); Z96.642 Presence of left artificial hip joint
CPT/HCPCS: 73502

== ENCOUNTER 2023-12-27 11:47 | Outpatient (CLI) | payer MEDICARE, OTHER, SELFPAY ==
[2023-12-27 12:14] LABS: Basophils Absolute Auto 0.1 K/mm3 (0.0-0.1); Basophils Percent Auto 0.7 % (0.2-1.2); Eosinophils Absolute Auto 0.2 K/mm3 (0-0.3); Eosinophils Percent Auto 2.3 % (0-4.4); Hematocrit 44.1 % (37.0-47.0); Hemoglobin 14.6 g/dL (12.0-15.0); Immature Granulocyte Absolute 0.03 K/mm3 (0.00-0.031); Immature Granulocyte Percent A 0.4 % (0-0.5); Lymphocytes Absolute Auto 1.47 K/mm3 (0.9-3.2); Lymphocytes Percent Auto 21.4 % (18.3-44.2); Mean Corpuscular HGB Conc 33.1 g/dl (32-36); Mean Corpuscular Hemoglobin 31.7 pg (26-34); Mean Corpuscular Volume 95.7 fl (80-100); Mean Platelet Volume 9.2 fl (7.4-10.4); Monocytes Absolute Auto 0.6 K/mm3 (0.1-0.6); Monocytes Percent Auto 8.3 % (2.6-8.5); Neutrophils Absolute Auto 4.6 K/mm3 (1.3-6.7); Neutrophils Percent Auto 66.9 % (45.5-73.1); Platelet Count Result 239 k/mm3 (150-375); Red Blood Count 4.61 M/mm3 (4.2-5.4); Red Cell Distribution Width 12.6 % (11.5-14.5); White Blood Count 6.9 K/mm3 (4.5-10.0)
[2023-12-27 12:25] LABS: Appearance Urine Clear (Clear); Bilirubin Urine Negative (Negative); Blood Urine Negative (Negative); Color Urine Yellow (Yellow); Glucose Urine UA Negative (Negative); Ketones Urine Negative (Negative); Leukocyte Esterase Ur Negative LEU/UL (Negative); Nitrate Urine Negative (Negative); Protein Urine Negative (Negative); Specific Grav Ur 1.007 (1.001-1.035); Urobilinogen Urine 0.2 mg/dL (<2.0)
[2023-12-27 12:30] LABS: Alanine Aminotransferase 17 U/L (6-35); Albumin Level 4.6 g/dL (3.5-5.1); Alkaline Phosphatase 72 U/L (38-126); Anion Gap 7 mmol/L (4-12); Aspartate Amino Transferase 23 U/L (14-36); Bilirubin,Total 0.6 mg/dL (0.2-1.3); Blood Urea Nitrogen 11 mg/dL (7-17); CRP 0.5 mg/dL (<1.0); Calcium 9.8 mg/dL (8.4-10.2); Carbon Dioxide 30 mmol/L (22-30); Chloride 101 mmol/L (98-107); Estimated Glomerular Filt Rate > 60; Glucose 109 mg/dL (65-110); Potassium 3.7 mmol/L (3.4-5.0); Sodium 138 mmol/L (137-145); Uric Acid 6.4 mg/dL (2.5-7.5)
[2023-12-27 12:36] LABS: Complement C3 150 mg/dL (88-165)
[2023-12-27 12:49] LABS: Add Urine Microscopic? NO
[2023-12-27 14:58] LABS: Hepatitis C Virus Antibody Negative (Negative)
[2023-12-27 17:40] LABS: Erythrocyte Sedimentation Rate 18 mm/hr (0-20)
[2023-12-30 08:59] LABS: Myeloperoxidase Ab <1.0 AI (<1.0)
== END 2023-12-27 11:48 | disposition home or self-care (01) ==
PROVIDERS: PCP Family Medicine; Visit Provider Internal Medicine
DX: M19.90 Unspecified osteoarthritis, unspecified site (principal); M31.0 Hypersensitivity angiitis; F31.9 Bipolar disorder, unspecified; Z11.59 Encounter for screening for other viral diseases; Z79.899 Other long term (current) drug therapy
CPT/HCPCS: 36415; 80053; 81003; 82306; 84550; 85025; 85652; 86036; 86140; 86160; 86803

== ENCOUNTER 2024-03-15 00:29 | Day surgery (SDC) | payer MEDICARE, OTHER, SELFPAY ==
[2024-02-28 14:26] VITALS: BMI 35.9
[2024-03-15 11:44] VITALS: BP 117/71; PULSE 73; RESP 16; TEMP 36; O2SAT 97; BMI 35.9
[2024-03-15] MEDS: LACTATED RINGERS 1,000 ML 150 ML IV CONT (11:56)
--- NOTE | 2024-03-15 11:56 | WPDANESEPPF ---
Anes - Initial Pre Proc Eval Procedure: Operation Date: 03/15/24 13:00 Proposed Procedures p Colonoscopy - Javi Layne MD Date/Time: 03/15/24 11:56 Surgeon: Javi Layne MD Pre Op Diagnosis: Positive Cologuard Patient Data Age: 68 Gender: F Height: 1.73 m Weight: 107 kg Last Vital Signs Temp 96.8 F L 03/15/24 11:44 Pulse 73 03/15/24 11:44 Resp 16 03/15/24 11:44 BP 117/71 03/15/24 11:44 Pulse Ox 97 03/15/24 11:44 O2 Del Method Room Air 03/15/24 11:44 Allergies Allergy/AdvReac Type Severity Reaction Status Date / Time atorvastatin Allergy Mild Muscle Pain Verified 03/15/24 11:42 levofloxacin Allergy Mild Muscle Pain Verified 03/15/24 11:42 simvastatin Allergy Mild Muscle Pain Verified 03/15/24 11:42 azithromycin AdvReac AVOIDS PER Verified 03/15/24 11:42 [employer] Home Medications Medication Instructions Recorded Confirmed Type bupropion HCl 300 mg 24 hr tablet, 300 mg PO QAM 07/31/19 03/15/24 History extended release (Wellbutrin XL) sertraline 100 mg tablet (Zoloft) 100 mg PO QAM 07/31/19 03/15/24 History calcium carbonate (Calcium 500) 1,000 mg PO QAM 04/10/21 03/15/24 History omega-3 fatty acids 1,000 mg 1,000 mg PO BID 04/10/21 03/15/24 History capsule (Fish Oil Concentrate) aspirin 81 mg tablet,delayed 81 mg PO HS 08/28/21 03/15/24 History release (Adult Low Dose Aspirin) nitroglycerin 0.4 mg sublingual 0.4 mg sublingual Q5MIN PRN Chest 08/28/21 03/15/24 History tablet Pain rosuvastatin 10 mg tablet (Crestor) 10 mg PO QAM #30 tabs 09/01/21 03/15/24 Rx multivitamin 1 tablet PO DAILY 01/13/22 03/15/24 History metoprolol succinate 25 mg 12.5 mg PO DAILY #30 tabs 03/21/23 03/15/24 Rx tablet,extended release 24 hr (Toprol XL) albuterol sulfate 90 mcg/actuation 1 - 2 puff inhalation Q4-6H PRN 05/31/23 03/15/24 Rx aerosol inhaler shortness of breath or wheezing #8.5 grams cetirizine 10 mg tablet (Zyrtec) 10 mg PO HS PRN allergy symptoms 07/11/23 03/15/24 Rx #90 tabs hydrochlorothiazide 25 mg tablet 25 mg PO QAM #90 tabs 07/11/23 03/15/24 Rx fluticasone propionate 50 1 spray intranasal QAM #16 grams 09/07/23 03/15/24 Rx mcg/actuation nasal spray,suspension celecoxib 200 mg capsule (Celebrex) 200 mg PO QAM #90 caps 11/16/23 03/15/24 Rx quetiapine 25 mg tablet (Seroquel) 25 mg PO QHS 12/02/23 03/15/24 History trazodone 50 mg tablet 50 mg PO QHS 12/09/23 03/15/24 History levothyroxine 75 mcg tablet 75 mcg PO QAM #90 tabs 01/16/24 03/15/24 Rx fluticasone 250 mcg-salmeterol 50 1 inh inhalation BID #60 ea 01/17/24 03/15/24 Rx mcg/dose blistr powdr for inhalation (Advair Diskus) ezetimibe 10 mg tablet (Zetia) 10 mg PO DAILY #90 tabs 01/18/24 03/15/24 Rx cholecalciferol (vitamin D3) 125 125 mcg PO DAILY 90 days #90 caps 02/06/24 03/15/24 Rx mcg (5,000 unit) capsule ferrous sulfate 325 mg (65 mg 325 mg PO DAILY #90 tabs 02/06/24 03/15/24 Rx iron) tablet Patient hx anesthesia problems: none Family hx anesthesia problems: none Results Review: All pre-operative results and documents have been reviewed as part of the pre-operative evaluation. [facility] Past Medical History Medical History Acute cholecystitis Bipolar 1 disorder CAD (coronary artery disease) Carcinoma determined by biopsy of vagina The patient stated it was benign she had a fibroid tumor. Cholelithiasis Chronic cholecystitis with calculus COPD (chronic obstructive pulmonary disease) Denies COPD but states that she has asthma. Degenerative disc disease Encounter for screening for other viral diseases Encounter for surgical aftercare following surgery on the digestive system Family history of autoimmune disorder Fatigue Hernia History of left heart catheterization History of sciatica History of stress test (~2020) Hyperlipidemia Hypertension Hypothyroidism Joint pain Lef
--- NOTE | 2024-03-15 12:56 | PM.HPGS ---
History of Present Illness History of Present Illness Consent: Risks, benefits, and alternatives have been discussed and questions answered. Patient agrees to proceed with procedure. Chief complaint: Positive Cologuard Narrative: Elli Garcia is a 68 year old female with + cologuard, last colonoscopy 2017 Review of Systems Review of Systems: All systems reviewed & are unremarkable except as noted in HPI and below PMFSH Past Medical History Medical History Acute cholecystitis Bipolar 1 disorder CAD (coronary artery disease) Carcinoma determined by biopsy of vagina The patient stated it was benign she had a fibroid tumor. Cholelithiasis Chronic cholecystitis with calculus COPD (chronic obstructive pulmonary disease) Denies COPD but states that she has asthma. Degenerative disc disease Encounter for screening for other viral diseases Encounter for surgical aftercare following surgery on the digestive system Family history of autoimmune disorder Fatigue Hernia History of left heart catheterization History of sciatica History of stress test (~2020) Hyperlipidemia Hypertension Hypothyroidism Joint pain Left knee pain Low ferritin level Obesity Obstructive lung disease Osteoarthritis of spine Osteopenia Positive colorectal cancer screening using Cologuard test Prediabetes Primary osteoarthritis of left hip Surgical History Surgical History History of arthroscopy of right knee History of breast biopsy Left -benign History of coronary artery stent placement (~11/09/21) History of hysterectomy (~2003) History of tonsillectomy (~1961) History of total left hip replacement History of umbilical hernia repair (~1998) Hx laparoscopic cholecystectomy 03/19/23 S/P LAN-BSO 2003 Status post total hip replacement, left (~12/02/22) Stented coronary artery Family History Family History Father Hypertension Carcinoma of colon Family history of emphysema Mother Hypertension Family history of diabetes mellitus in first degree relative Family history of lymphoma Heart disease Diabetes mellitus COPD (chronic obstructive pulmonary disease) Grandparent Cerebrovascular accident Sibling Acute myocardial infarction Sibling Heart disease COPD (chronic obstructive pulmonary disease) Acute myocardial infarction Other Depression Family history of arthritis Family history of cardiovascular disease Family history of malignant neoplasm Leukocytoclastic vasculitis Social History Social History Social History: The patient lives at home with her who is the durable power transactional attorney for healthcare. The patient is retired. She is a lifelong nonsmoker. Code status full code Smoking packs per day: 0 Smoking cigarettes per day: 0.0 Years smoked: 0 Smoking pack-years: 0.00 Smoking status: Never smoker Second hand tobacco smoke exposure: No Alcohol intake: current Drinks per week: 2 Substance use: never Substance use type: does not use Lack of Transportation: No Lack of Food: Never True Current Housing: I Have Housing Concerned About Future Housing: No Difficulty Paying Gas/Electric Bills: No Difficulty Paying for Meds: No Currently Unemployed: No Education: Associate Degree Difficulty w/ Childcare or Family Care: No Living arrangements: with family Additional living arrangements comments: [facility] Occupation/Education: retired Gender identity (if verbalized by the patient): Female Sexual Orientation (if Verbalized by the Patient): Straight or Heterosexual Spiritual care concerns: No Meds Home Medications and Allergies Home Medications Medication Instructions Recorded Confirmed Type bupropion HCl 3
[2024-03-15 13:27] VITALS: BP 138/79; PULSE 79; RESP 24; O2SAT 100
[2024-03-15 13:37] VITALS: BP 131/75; PULSE 73; RESP 19; O2SAT 99
[2024-03-15 13:47] VITALS: BP 133/77; PULSE 73; RESP 22; O2SAT 99
== END 2024-03-15 13:55 | disposition home or self-care (01) ==
PROVIDERS: PCP Family Medicine; Referring Provider Nurse Practitioner Family; Visit Provider Internal Medicine Gastroenterology
PROC: 0DJD8ZZ Inspection of Lower Intestinal Tract, Via Natural or Artificial Opening Endoscopic (ICD-10-PCS; CPT 45378; principal; 2024-03-15 13:00)
DX: R19.5 Other fecal abnormalities (principal); K64.8 Other hemorrhoids; F31.9 Bipolar disorder, unspecified; I25.10 Atherosclerotic heart disease of native coronary artery without angina pectoris; E78.5 Hyperlipidemia, unspecified; E03.9 Hypothyroidism, unspecified; I10 Essential (primary) hypertension; E66.9 Obesity, unspecified; Z68.35 Body mass index [BMI] 35.0-35.9, adult; Z96.642 Presence of left artificial hip joint
CPT/HCPCS: 45378; J1596; J2001; J2704; J7120

== ENCOUNTER 2024-04-02 09:53 | Outpatient (CLI) | payer MEDICARE, OTHER, SELFPAY | END 2024-04-02 09:54 | disposition home or self-care (01) | LOC: ANHLAB 09:56 | PROVIDERS: PCP Family Medicine; Visit Provider Physician Assistant | DX: D64.9 Anemia, unspecified (principal) | CPT/HCPCS: 36415; 82728 ==

== ENCOUNTER 2024-05-17 08:47 | Outpatient (CLI) | payer MEDICARE, OTHER, SELFPAY ==
--- NOTE | ~2024-05-17 | MM_ITS ---
EXAMINATION: MM screening [facility] BI w jose ramon HISTORY: Screening TECHNIQUE: Craniocaudal and mediolateral oblique 3-D tomosynthesis images were obtained and synthetic 2-D images were generated. CAD analysis was submitted and interpreted. COMPARISON: Comparison to multiple prior studies sequentially, with oldest reviewed study dated 07/21. BREAST PARENCHYMAL COMPOSITION: Not Dense: The breasts are almost entirely fatty. FINDINGS: There is no evidence of suspicious mass, calcification, or architectural distortion to sugg est malignancy in either breast. There has been no suspicious interval change. IMPRESSION: 1. No mammographic evidence of malignancy. 2. Recommend routine screening mammography in one year. BI-RADS Category 1: Negative Reviewed, dictated and finalized at location B.
== END 2024-05-17 08:48 | disposition home or self-care (01) ==
LOC: ANHIMG 08:48
PROVIDERS: PCP Family Medicine; Visit Provider Family Medicine
DX: Z12.31 Encounter for screening mammogram for malignant neoplasm of breast (principal)
CPT/HCPCS: 77063; 77067

== ENCOUNTER 2024-08-11 12:26 | Outpatient (CLI) | payer MEDICARE, OTHER, SELFPAY ==
[2024-08-15 17:03] LABS: Vitamin D 1,25 (OH)2 Total 44 pg/mL (18-72); Vitamin D2 1,25 (OH)2 <8 pg/mL; Vitamin D3 1,25 (OH)2 44 pg/mL
== END 2024-08-11 12:27 | disposition home or self-care (01) ==
LOC: ANHLAB 12:29
PROVIDERS: PCP Family Medicine; Visit Provider Physician Assistant
DX: D64.9 Anemia, unspecified (principal); E55.9 Vitamin D deficiency, unspecified
CPT/HCPCS: 36415; 82652; 82728

== ENCOUNTER 2024-12-05 12:21 | Outpatient (CLI) | payer MEDICARE, OTHER, SELFPAY ==
--- NOTE | ~2024-12-05 | CT_ITS ---
CT Scan of the Chest without Contrast: Clinical Indication: Hypersensitivity angiitis Technique: Contiguous sections were acquired throughout the chest without intravenous contrast. Dose reduction technique was used on this scan by utilizing automated exposure control and iterative recon struction technique. The dose-length product (DLP) was 417.28 mGy-cm. COMPARISON: 04/27/2021 Findings: There is no evidence of any significant mediastinal, hilar or axillary lymphadenopathy. Coronary rosa ry calcifications are present. There is no evidence of pleural or pericardial effusion. There are linear areas of scarring at the bilateral lung bases and left upper lower lobe/lingula. No pulmonary nodule or consolidation seen otherwise. Images through the upper abdomen reveal no abnormalities. Impression: Areas of linear pulmonary scarring, as above. No other significant findings. Reviewed, dictated and finalized at [facility]. Impression: Areas of linear pulmonary scarring, as above. No other significant findings.
--- OUTSIDE RECORDS SUMMARY | 2024-12-05 13:51 | XMS_ITS ---
Author Organization [facility] Address [address] [place] [address] Care Team Providers Care Bit Sharpener Name Role Phone Reji Mueller MD Primary Care Provider Unavailable Bonny Enriquez Unavailable [phone] Allergies Allergen (clinical drug ingredient) Drug/Non Drug Allergy documented on EMR Reaction Allergy Type Onset Date Status Azithromycin Unknown Drug Allergy Acti ve Levaquin rash Drug Allergy Active Substance with 7-fyuzarp-0-methylglut aryl-coenzyme A reductase inhibitor mechanism of action (substance) Statins Unknown Drug Allergy Active REASON FOR VISIT yd/2 week follow up/flc, joint pain, history of vasculitis, referred by Dr. Reji Mueller [address] [facility], [address], [place] [address], tel [phone], fax [phone] Medications Medication SIG (Take, Route, Frequency, Duration) Notes Start Date End Date Status Advair Diskus 250-50 MCG/ACT 1 puff Inha lation Twice a day Active Astepro 205.5 MCG/SPRAY 2 sprays (1 spra y in each nostril) Nasally Twice a day for 30 day(s) Active Albuterol Sulfate 108 (90 Base) MCG/ACT 1 puff as needed Inhalation every 4 hrs Active Magnesium 200 MG 2 tablets with a meal Orally Once a day for 30 day(s) Active Celecoxib 200 MG 1 capsule with food Orally Once a day for 30 day(s) Active Melatonin 3 MG 1 tablet at bedtime as needed Orally Once a day for 30 day(s) Active Calcium 500 MG 1 tablet with meals Orally Twice a day for 30 day(s) Active CoQ-10 200 MG as directed Orally Active predniSONE 5 MG 1 Orally Once a day for 30 days As needed 11/27/2024 01/26/2025 Active Finger 3 1000 MG 1 capsule Orally Three times a day for 30 day(s) Active Vitamin D3 50 MCG (2000 UT) 1 capsule Or ally Once a day for 30 day(s) Active traZODone HCl 50 MG 1 tablet at bedtime as needed Orally Once a day for 30 day(s) Active QUEtiapine Fumarate 25 MG 1 tablet at be dtime Orally Once a day for 30 day(s) Active Ezetimibe 10 MG 1 tablet Orally Once a day for 30 day(s) Active Multivitamin Active Omeprazole 40 MG 1 capsule 1/2 to 1 hour before morning meal Orally Once a day for 30 day(s) Active buPROPion HCl ER (XL) 300 MG 1 tablet in the morning Orally Once a day for 30 day(s) Active Aspirin 81 81 MG 1 tablet Orally Once a day for 30 day(s) Active Cetirizine HCl 10 MG 1 tablet Orally Onc e a day for 30 day(s) Active Sertraline HCl 100 MG 1 tablet Orally On ce a day for 30 day(s) Active Hydroxychloroquine Sulfate 2 00 MG 1 Orally daily with food for 30 days 11/27/2024 02/25/2025 Active Metoprolol Succinate ER 25 MG 1 tablet O rally Once a day for 30 day(s) Active Ferrous Sulfate 325 (65 Fe) MG 1 tablet Orally once a day for 30 day(s) Active Nitroglycerin 0.4 MG 1 tablet under the tongue and allow to dissolve as needed. Take every 5 minutes up to 3 times if chest pain persists Sublingual Three times a day for 30 day(s) Active Rosuvastatin Calcium 10 MG 1 tablet Oral ly Once a day for 30 day(s) Active Levothyroxine Sodium 75 MCG 1 tablet in the morning on an empty stomach Orally Once a day for 30 day(s) Active hydroCHLOROthiazide 25 MG 1 tablet in th e morning Orally Once a day for 30 day(s) Active Social History Tobacco Use: Social History Observation Description Date Details (start date - stop date) Never Smoker NA - NA Household Question Answer Notes Marital status: Tobacco Control (Standard) Question Answer Notes Tobacco use: Nonsmoker Problems Problem Type SNOMED Code ICD Code Onset Dates Problem Status W/U Status Risk Notes Problem [id number] Rheumatoid arthritis without rheumatoid factor, 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) Active confirmed Encounters Encounter Location Date Provider Diagnosis [facility] [address] [place] [address] 11/27/2024 Bonny Enriquez Multiple joint pain M25.50 ; Rheumatoid arthritis without rheumatoid factor, multiple sites M06.09 and 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 Assessments Encounter Date Diagnosis (ICD Code) Assessment Notes Treatment Notes Treatment Clinical Notes Section Notes 11/27/2024 Multiple joint pain (ICD-10 - M25.50) seronegative, joint pain steroid responsive, 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, start plaquenil, continue prednisone 5mg/day prn, return in 2 months 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, start plaquenil, continue prednisone 5mg/day prn, return in 2 months 11/27/2024 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, joint pain steroid responsive, 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, start plaquenil, continue prednisone 5mg/day prn, return in 2 months Plan Of Treatment Medication Medication Name Sig Start Date Stop Date Notes predniSONE 5 MG 1 Orally Once a day for 30 days 11/27/2024 01/26/2025 Hydroxychloroquine Sulfate 200 MG 1 Oral ly daily with food for 30 days 11/27/2024 02/25/2025 Next Appt Details Follow Up: 2 Months, Reason: Provider Name:Bonny Enriquez, 01/28 01:15:00 PM, [address], [address], [place], [address], Progress Notes * Elli GAITANDOB:[birth year] (69 yo F)Acc No.[id number]:11/27/2024 Patient: Elli JONES Provider: Grisel ENRIQUEZ MD :[id number] A ge:69 Y S ex:Female Date:11/27/2024 Address:[address] [place] [address] [facility] Pcp:Reji Mueller MD Subjective: * Chief Complaints: * Y d/2 week follow up/flcJoint pain, history of vasculitisreferred by Dr. Reji Mueller [address] [place] [address], [address], [place] [address], tel [phone], fax [phone] * HPI: G eneral Follow up: Synchronous video/audio telecommunication with [facility] Patient has agreed to telehealth visit and is aware insurance will be billed for this visit Location: patient at home, physician in office knees, legs and upper back hurting today, celebrex helping some, took gabapentin before, takes prednisone 5mg a few days per month, it helps with joint pain and back pain, joint pain is worse in the morning, am stiffness: until noon Hips, knees and ankles have been hurting on and off for 3 years. 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 Knee injections did help some. She has noticed swelling in the knees. The pain is worse in the afternoon. Am stiffness: 30 minutes. Celebrex helps a little. She developed petechial rash on the legs in 02/2024. Biopsy showed leukocytoclastic vasculitis. She saw Dr. Godinez. Rashes went away in 05/2024. She has had no recurrence since then. 11/13/2024, SHRUTI (-), ANCA (-), RF/CCP (-), SSA/SSB (-), cryo (-), HBV/HCV (-), ESR, CRP, CK, C3 and C4 normal, CBC normal, Cr 0.80, GFR 80, LFTs normal Son: leukocytoclastic vasculitis. * ROS: G eneral / Constitutional: Patient denies c hange in appetite, chills, fatigue, fever, weight loss, weakness. C omments [facility] for details. M usculoskeletal: Comments [facility] for details. S kin: Comments [facility] for details . N eurologic: Patient denies d izziness, gait abnormality, headache, tingling / numbness . * Medical History: * Surgical History: k nee surgery, breast biopsy, coronary artery stent, hysterectomy, tonsillectomy, hernia repair, cholecystectomy, left hip replacement * Hospitalization/Major Diagno stic Procedure: * Family History: leukocytoclastic vasculitis (son), hypertension, colon cancer, emphysema, diabetes, lymphoma, heart disease, CVA, depression. * Social History: T obacco Use: T obacco Control (Standard) T obacco use: N onsmoker. D rug/Alcohol: D o you drink alcohol?: 4 drinks a week. H ousehold: H ousehold M arital status: w idowed. M iscellaneous: E xercise: Walking and stationary bike 3 times a week. * Medications: T akingAstepro 205.5 MCG/SPRAY Solution 2 sprays (1 spray in each nostril) Nasally Twice a day Celecoxib 200 MG Capsule 1 capsule with food Orally Once a day Albuterol Sulfate 108 (90 Base) MCG/ACT Aerosol Powder Breath Activated 1 puff as needed Inhalation every 4 hrs Advair Diskus 250-50 MCG/ACT Aerosol Powder Breath Activated 1 puff Inhalation Twice a day hydroCHLOROthiazide 25 MG Tablet 1 tablet in the morning Orally Once a day Levothyroxine Sodium 75 MCG Tablet 1 tablet in the morning on an empty stomach Orally Once a day Ferrous Sulfate 325 (65 Fe) MG Tablet 1 tablet Orally once a day Metoprolol Succinate ER 25 MG Tablet Extended Release 24 Hour 1 tablet Orally Once a day Rosuvastatin Calcium 10 MG Tablet 1 tablet Orally Once a day Nitroglycerin 0.4 MG Tablet Sublingual 1 tablet under the tongue and allow to dissolve as needed. Take every 5 minutes up to 3 times if chest pain persists Sublingual Three times a day Aspirin 81 81 MG Tablet Delayed Release 1 tablet Orally Once a day buPROPion HCl ER (XL) 300 MG Tablet Extended Release 24 Hour 1 tablet in the morning Orally Once a day Sertraline HCl 100 MG Tablet 1 tablet Orally Once a day Cetirizine HCl 10 MG Tablet 1 tablet Orally Once a day Omeprazole 40 MG Capsule Delayed Release 1 capsule 1/2 to 1 hour before morning meal Orally Once a day traZODone HCl 50 MG Tablet 1 tablet at bedtime as needed Orally Once a day Vitamin D3 50 MCG (2000 UT) Capsule 1 capsule Orally Once a day Ezetimibe 10 MG Tablet 1 tablet Orally Once a day QUEtiapine Fumarate 25 MG Tablet 1 tablet at bedtime Orally Once a day Multivitamin Finger 3 1000 MG Capsule 1 capsule Orally Three times a day Calcium 500 MG Tablet 1 tablet with meals Orally Twice a day Melatonin 3 MG Tablet 1 tablet at bedtime as needed Orally Once a day CoQ-10 200 MG Capsule as directed Orally Magnesium 200 MG Tablet 2 tablets with a meal Orally Once a day Taking Astepro 205.5 MCG/SPRAY Solution 2 sprays (1 spray in each nostril) Nasally Twice a day Taking Celecoxib 200 MG Capsule 1 capsule with food Orally Once a day Taking Albuterol Sulfate 108 (90 Base) MCG/ACT Aerosol Powder Breath Activated 1 puff as needed Inhalation every 4 hrs Taking Advair Diskus 250-50 MCG/ACT Aerosol Powder Breath Activated 1 puff Inhalation Twice a day Taking hydroCHLOROthiazide 25 MG Tablet 1 tablet in the morning Orally Once a day Taking Levothyroxine Sodium 75 MCG Tablet 1 tablet in the morning on an empty stomach Orally Once a day Taking Ferrous Sulfate 325 (65 Fe) MG Tablet 1 tablet Orally once a day Taking Metoprolol Succinate ER 25 MG Tablet Extended Release 24 Hour 1 tablet Orally Once a day Taking Rosuvastatin Calcium 10 MG Tablet 1 tablet Orally Once a day Taking Nitroglycerin 0.4 MG Tablet Sublingual 1 tablet under the tongue and allow to dissolve as needed. Take every 5 minutes up to 3 times if chest pain persists Sublingual Three times a day Taking Aspirin 81 81 MG Tablet Delayed Release 1 tablet Orally Once a day Taking buPROPion HCl ER (XL) 300 MG Tablet Extended Release 24 Hour 1 tablet in the morning Orally Once a day Taking Sertraline HCl 100 MG Tablet 1 tablet Orally Once a day Taking Cetirizine HCl 10 MG Tablet 1 tablet Orally Once a day Taking Omeprazole 40 MG Capsule Delayed Release 1 capsule 1/2 to 1 hour before morning meal Orally Once a day Taking traZODone HCl 50 MG Tablet 1 tablet at bedtime as needed Orally Once a day Taking Vitamin D3 50 MCG (2000 UT) Capsule 1 capsule Orally Once a day Taking Ezetimibe 10 MG Tablet 1 tablet Orally Once a day Taking QUEtiapine Fumarate 25 MG Tablet 1 tablet at bedtime Orally Once a day Taking Multivitamin Taking Finger 3 1000 MG Capsule 1 capsule Orally Three times a day Taking Calcium 500 MG Tablet 1 tablet with meals Orally Twice a day Taking Melatonin 3 MG Tablet 1 tablet at bedtime as needed Orally Once a day Taking CoQ-10 200 MG Capsule as directed Orally Taking Magnesium 200 MG Tablet 2 tablets with a meal Orally Once a day * Allergies: L evaquin: rashStatinsAzithromycinno[Allergies Verified] Objective: * Vitals: * P ast Orders: L ab:SHRUTI reflex titer pattern ROSITA + dsDNA (Order Date - 11/13/2024) (Collection Date & Time - 11/13/2024 11:29 AM) Value Reference Range SHRUTI Ql Negative - L ab:ANCA reflex MPO and PR3 Abs (Order Date 11/13/2024) (Collection Date & Time - 11/13/2024 11:29 AM) Value Reference Range ANCA Ql Negative - L ab:C Reactive Protein (Order 11/13/2024) (Collection Date & Time - 11/13/2024 11:29 AM) Value Reference Range CRP 4.1 <=10.0 - mg/L L ab:CBC w auto diff (Order 11/13/2024) (Collection Date & Time 11/13/2024 11:29 AM) Value Reference Range WBC 6.6 3.8-9.9 - K/cumm RBC 4.49 3.90-5.20 - M/cumm Hgb 14.0 11.9-15.5 - g/dL Hct 42.8 35.6-45.5 - % MCV 95.3 81.3-96.4 - fL MCH 31.2 27.1-33.3 - pg MCHC 32.7 32.3-35.7 - g/dL Plt 259 150-400 - K/cumm MPV 9.6 9.1-12.3 - fL RDW CV 12.2 11.1-14.9 - % RDW SD 42.5 35.7-48.1 - fL NRBC Abs Auto 0.00 0.00-0.01 - K/cumm L ab:Anti-CCP (Cyclic Citrullinated Peptide Ab) (Order Date 11/13/2024) (Collection Date & Time - 11/13/2024 11:29 AM) Value Reference Range CCP Ab <0.5 <=2.9 - units/mL L ab:Complement C3 (Order Date 11/13/2024) (Collection Date & Time - 11/13/2024 11:29 AM) Value Reference Range Comp C3 178 90-180 - mg/dL L ab:Complement C4 (Order 11/13/2024) (Collection Date & Time - 11/13/2024 11:29 AM) Value Reference Range Comp C4 22 10-40 - mg/dL L ab:Comprehensive metabolic panel (CMP) (Order 11/13/2024) (Collection Date & Time - 11/13/2024 11:29 AM) Value Reference Range BUN 15 6-25 - mg/dL ALT 22 7-45 - Units/L Albumin 4.1 3.5-5.0 - g/dL Alk Phos 72 40-130 - Units/L AST 20 10-45 - Units/L Bili Totl 0.5 0.1-1.2 - mg/dL Calcium 9.3 8.5-10.3 - mg/dL Chloride 99 97-110 - mmol/L Glucose 94 70-199 - mg/dL Potassium Plas 3.6 3.3-4.9 - mmol/L CO2 Totl 29 22-32 - mmol/L Protein Plas 6.8 6.5-8.5 - g/dL Creatinine 0.80 0.60-1.10 - mg/dL Sodium 139 135-145 - mmol/L Anion Gap 11 2-15 - mmol/L L ab:Creatine Kinase (Order Date - 11/13/2024) (Collection Date & Time - 11/13/2024 11:29 AM) Value Reference Range CK Totl 44 30-200 - Units/L L ab:Cryoglobulin, S&P (Order Date - 11/13/2024) (Collection Date & Time - 11/13/2024 11:29 AM) Value Reference Range Cryoglobulin, Serum See Footnote Negative - Cryofibrinogen, Plasma Negative Negative - L ab:G6PD Ql (Order Date - 11/13/2024) (Collection Date & Time - 11/13/2024 11:29 AM) Value Reference Range G6PD Ql Normal Normal - L ab:Hep B surf AG (Order Date 11/13/2024) (Collection Date & Time - 11/13/2024 11:29 AM) Value Reference Range HepB Surf Ag Nonreactive Nonreactiv - L ab:Hep C AB (Order Date 11/13/2024) (Collection Date & Time - 11/13/2024 11:29 AM) Value Reference Range HepC Ab Nonreactive Nonreactiv - L ab:Rheumatoid Factor (Order Date 11/13/2024) (Collection Date & Time - 11/13/2024 11:29 AM) Value Reference Range RF Qn 10 <=15 - IUnits/mL L ab:Sed Rate (Order Date 11/13/2024) (Collection Date & Time - 11/13/2024 11:29 AM) Value Reference Range ESR 23 1-30 - mm/hr L ab:SSA Ab (Order Date - 11/13/2024) (Collection Date & Time - 11/13/2024 11:29 AM) Value Reference Range SS A Ab <0.2 <=0.9 - Ab Index L ab:SSB Ab (Order Date - 11/13/2024) (Collection Date & Time - 11/13/2024 11:29 AM) Value Reference Range SS B Ab <0.2 <=0.9 - Ab Index L ab:Differential Automated (Order Date - 11/13/2024) (Collection Date & Time - 11/13/2024 11:29 AM) Value Reference Range Neut Abs 4.2 1.5-6.5 - K/cumm ImmGran Abs 0.0 0.0-0.1 - K/cumm Arroyo Abs 0.7 0.2-0.8 - K/cumm Eos Abs 0.2 0.0-0.5 - K/cumm Baso Abs 0.1 0.0-0.1 - K/cumm Neut Pct 64.5 - % ImmGran Pct 0.3 - % Lymph Pct 21.7 - % Arroyo Pct 10.1 - % Eos Pct 2.6 - % Baso Pct 0.8 - % Lymphocyte Abs 1.4 0.8-3.3 - K/cumm L ab:eGFR (Order Date - 11/13/2024) (Collection Date & Time - 11/13/2024 11:29 AM) Value Reference Range eGFR 80 >=60 - mL/min/1.73 m 2 * Examination: G eneral Examination: General appearance: a lert, well-nourished and in no acute distress. Head: n ormocephalic, atraumatic. Eyes: n ormal. Skin: n o rash. Lungs: r espiratory effort normal. P sychiatry: Affect / mood: n ormal affect, normal mood. ? N eurology: s peech normal. Assessment: * Assessment: 1. R heumatoid arthritis without rheumatoid factor, multiple sites - M06.09 (Primary) ? 2 . M ultiple joint pain - M25.50 3 . L eukocytoclastic vasculitis - M31.0 seronegative, joint pain jazzmine roid responsive, 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, start plaquenil, continue prednisone 5mg/day prn, return in 2 months Plan: * Treatment: 2. M ultiple joint pain Start Hydroxychloroquine Sulfate Tablet, 200 MG, 1, Orally, daily with food, 30 days, 30, Refills 2. * Procedure Codes: * Follow Up: 2 Months * Billing Information: * Visit Code: 13055 Office Visit, Est Pt., Level 4. Modifiers: 95 * Procedure Codes: * Sign off status: Completed true * Provider: Grisel ENRIQUEZ MD Date: 11/27/2024 Generated for Prabha mcclure/Mark/Sorin on: 0 12/05/2024 01:50 PM CDT History and Physical Notes * HPI (History of Present Illness) Category Sub-Category Detail Notes Category Not es General Follow up Synchronous video/audio telecommunication with [employer] Patient has agreed to telehealth visit and is aware insurance will be billed for this visit Location: patient at home, physician in office knees, legs and upper back hurting today, celebrex helping some, took gabapentin before, takes prednisone 5mg a few days per month, it helps with joint pain and back pain, joint pain is worse in the morning, am stiffness: until noon Hips, knees and ankles have been hurting on and off for 3 years. 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 Knee injections did help some. She has noticed swelling in the knees. The pain is worse in the afternoon. Am stiffness: 30 minutes. Celebrex helps a little. She developed petechial rash on the legs in 02/2024. Biopsy showed leukocytoclastic vasculitis. She saw Dr. Godinez. Rashes went away in 05/2024. She has had no recurrence since then. 11/13/2024, SHRUTI (-), ANCA (-), RF/CCP (-), SSA/SSB (-), cryo (-), HBV/HCV (-), ESR, CRP, CK, C3 and C4 normal, CBC normal, Cr 0.80, GFR 80, LFTs normal Son: leukocytoclastic vasculitis Examination Category Sub-Category Detail Notes Category Not es Neurology speech normal Psychiatry Affect / mood: normal affect, normal mood General Examination General appearance: alert, w ell-nourished and in no acute distress Head: normocephalic, atrau matic Eyes: normal Lungs: respiratory effort n ormal Skin: no rash
--- OUTSIDE RECORDS SUMMARY | 2024-12-05 13:51 | XMS_ITS | Clinical Summary ---
Author Organization [facility] Address [address] [place] [address] Care Team Providers Care Breaker Machine Tender Name Role Phone Reji Mueller MD Primary Care Provider Allergies Active Allergy Reactions Criticality Noted Date Comments Azithromycin Unknown 04/23/2021 Levofloxacin Unknown 04/23/2021 Eumbgww-Yll-Gfa Reductase Inhibitors Muscle Pain Low 04/23/2021 Medications cyclobenzaprine (FLEXERIL) 10 mg tabletIndication s:Inflammation of left sacroiliac joint,Lumbar spondylosis Take 1 Tablet (10 mg) by mouth 3 times daily as needed for Spasm. 30 Tablet 07/03/2021 Active gabapentin (NEURONTIN) 300 mg capsuleIndicatio ns:Inflammation of left sacroiliac joint,Lumbar spondylosis Take 1 Capsule (300 mg) by mouth 3 times daily. 60 Capsule 07/03/2021 Active gabapentin (NEURONTIN) 300 mg capsule Take 1 Capsule (300 mg) by mouth every 12 hours. 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 Lumbar spondylosis 04/23/2021 Social History Tobacco Use Types Packs/Day Years Used Date Smoking Tobacco: Never Smokeless Tobacco: Never Alcohol Use Standard Drinks/Week Comments Yes 2 (1 standard drink = 0.6 oz pur e alcohol) Comments Unknown Sex and Gender Information Value Date Recorded Sex Assigned at Not on file Legal Sex Female 2:16 PM CDT Gender Identity Not on file Sexual Orientation Not on file Last Filed Vital Signs Vital Sign Reading Time Taken Comments Blood Pressure 137/79 11/03/2021 2:12 PM BINDERY MACHINE OPERATOR Pulse 62 11/03/2021 2:12 PM BINDERY MACHINE OPERATOR Temperature 36.9 C (98.5 F) 08/20/2021 10:41 AM BINDERY MACHINE OPERATOR Respiratory Rate 18 11/03/2021 2:12 PM BINDERY MACHINE OPERATOR Oxygen Saturation 98% 11/03/2021 2:12 PM BINDERY MACHINE OPERATOR Inhaled Oxygen Concentration - - Weight 115.8 kg (255 lb 3.2 oz) 021 10:41 AM BINDERY MACHINE OPERATOR Height 174 cm (5' 8.5 ) 08/20/2021 10:4 1 AM BINDERY MACHINE OPERATOR Body Mass Index 38.24 08/20/2021 10:41 AM BINDERY MACHINE OPERATOR Plan of Treatment Health Maintenance Due Date Last Done Comments BREAST CANCER SCREENING 1996 COLORECTAL SCREENING 2001 Colorectal Cancer Screening 2001 FIT-DNA Q 3 years 2001 FIT/FOBT Q 1 year 2001 Flex Sig/CT Colonography Q 5 years 2001 OSTEOPOROSIS SCREENING 2021 PNEUMOCOCCAL VACCINE 50+ YEA RS (2 of 2 - PCV) 07/01/2022 07/01/2021 INFLUENZA VACCINE (#1) 2024 , 08/01/2017, 06/24/2016, Additional history exists DTAP/TDAP/TD VACCINES (2 - T d or Tdap) 07/10/2025 07/10/2015 RSV VACCINE (60+ or ) (1 - 1-dose 75+ series) 2031 ZOSTER VACCINE Completed 10/10/2020, 1112/2019, 06/24/[address] [place] [address] MEDICARE PART A AND B FOR LIFE Care Teams Breaker Machine Tender Relationship Specialty Start Date End Date Reji Mueller MD [address] [place] [id number] PCP - General Family Practice 04/23/21
--- OUTSIDE RECORDS SUMMARY | 2024-12-05 13:51 | XMS_ITS | Encounter Summary ---
Author Organization [facility] Address [address] [place] [address] Care Team Providers Care Briquette Machine Operator Name Role Phone Reji Mueller MD Primary Care Provider Rober Gordillo MD Unavailable [phone] Encounter Details Date Type Department Care Team (Late st Contact Info) Description 11/27/2024 Results Follow-Up [facility] [address] [address] [address] [place] [address] Meron Lind, CIRILO Social History Tobacco Use Types Packs/Day Years Used Date Smoking Tobacco: Never Smokeless Tobacco: Never Alcohol Use Standard Drinks/Week Comments Yes 0 (1 standard drink = 0.6 oz pur e alcohol) Comments Unknown Sex and Gender Information Value Date Recorded Sex Assigned at Not on file Legal Sex Female 9:46 AM HYPERBARIC NURSE Gender Identity Not on file Sexual Orientation Not on file documented as of this encounter Plan of Treatment Not on file documented as of this encounter Visit Diagnoses Not on filedocumented in this encounter Care Teams Briquette Machine Operator Relationship Specialty Start Date End Date Reji Mueller MD PCP - General Family Practice 07/21/21 Rober Gordillo MD [address] [place] [address] Referring Physician Orthopedic Surgery 08/16/22 documented as of this encounter
--- OUTSIDE RECORDS SUMMARY | 2024-12-05 13:51 | XMS_ITS | Clinical Summary ---
Author Organization [facility] [address] Address [address] [place] [address] Care Team Providers Care Assistant Manager/Embalmer Name Role Phone Reji Mueller MD Primary Care Provider Rober Gordillo MD Unavailable [phone] Allergies Active Allergy Reactions Criticality Noted Date Comments Atorvastatin Muscle pain Reaction: Muscular Pain, Azithromycin Unknown 04/23/2021 Levofloxacin Simvastatin Muscle pain Reaction: Muscular Pain, Medications levothyroxine (SYNTHROID) 75 mcg tablet take 1 tablet by oral route every day 0 0 4 Active aspirin 81 mg tablet take 1 tablet by oral route every day 0 0 4 Active hydroCHLOROthia zide (HYDRODIURIL) 25 mg tablet take 1 tablet by oral route every day 0 0 4 Active buPROPion XL (WELLBUTRIN XL) 300 mg 24 hr tablet take 1 tablet by oral route every day 0 0 4 Active omega-3 fatty acids-fish oil 340-1,000 mg capsule take 1 by Oral route once 0 0 4 Active calcium carbonate-vitam in D3 (CALCIUM 600 + D,3,) 1500 mg (600 mg elemental) -400 units per tablet take 1 by Oral route 2 times every day 0 0 4 Active celecoxib (CeleBREX) 200 mg capsule take 1 capsule by oral route every day as needed 0 0 4 Active ezetimibe (ZETIA) 10 mg tablet take 1 tablet by oral route every day 0 0 6 Active cyclobenzaprine (FLEXERIL) 10 mg tablet Take 1 tablet (10 mg total) by mouth 3 (three) times a day as needed 1 Active QUEtiapine (SEROquel) 50 mg tablet Take 0.5 tablets (25 mg total) by mouth nightly 1 Active sertraline (ZOLOFT) 100 mg tablet 1 Active Advair Diskus 100-50 mcg/dose diskus inhaler 1 Active ProAir HFA 90 mcg/actuation inhaler 1 Active nitroglycerin (NITROSTAT) 0.[address] 1 tablet (0.4 mg total) under the tongue every 5 (five) minutes as needed for chest pain Max 3 doses. 60 tablet 3 1 Active cetirizine (ZyrTEC) 10 mg tablet Take 1 tablet (10 mg total) by mouth daily Active multivitamin-Ca -iron-minerals tablet Take 1 tablet by mouth daily Active pantoprazole DR (PROTONIX) 20 mg EC tablet 2 Active melatonin 5 mg tablet Active traMADoL (ULTRAM) 50 mg tablet Take 1 tablet (50 mg total) by mouth every 6 (six) hours as needed for pain Active ferrous sulfate 325 mg (65 mg of elemental iron) tabletIndicatio ns:Iron Deficiency Anemia Take 1 tablet (325 mg total) by mouth daily with breakfast Active coenzyme Q10 200 mg capsule Take 1 capsule (200 mg total) by mouth daily 90 capsule 3 2 Active traZODone (DESYREL) 50 mg tablet Take 1 tablet (50 mg total) by mouth nightly 4 Active metoprolol XL (TOPROL-XL) 25 mg extended release tablet Take 1 tablet (25 mg total) by mouth daily 0.5 tablet daily (12.5 mg total) 45 tablet 5 10/16/19 26 Active rosuvastatin (CRESTOR) 20 mg tablet Take 1 tablet (20 mg total) by mouth every morning 90 tablet 3 5 Active isosorbide mononitrate ER (IMDUR) 30 mg 24 hr tablet Take 1 tablet (30 mg total) by mouth daily 90 tablet 3 5 11/13/19 26 Active rosuvastatin (CRESTOR) 10 mg tablet Take 1 tablet (10 mg total) by mouth every morning 90 tablet 3 5 11/13/19 25 Discontinu ed(Reorder ) Active Problems Problem Noted Date Diagnosed Date Chronic fatigue 01/02/2024 Vasculitis 06/29/2023 Morbid (severe) obesity due to excess calories 0 05/03/2022 Coronary artery disease invo lving naknek coronary artery of [place] heart without angina pectoris 09/16/2021 Medication side effects 09/16/2021 Mixed hyperlipidemia 08/19/2021 Exertional chest pain 08/19/2021 Shortness of breath 08/19/2021 Statin myopathy 08/19/2021 Family history of premature CAD 08/19/2021 JUS (obstructive sleep apnea) 08/19/2021 Coronary artery calcification 08/19/2021 Ventricular premature beats 09/15/2016 Overview (12/23/2016): Symptomatic PVCs Premature atrial contraction 09/15/2016 Overview (12/23/2016): PAC (premature atrial contraction) Palpitations 09/15/2016 Overview (12/23/2016): Palpitations Prolonged QT interval 09/15/2016 Overview (12/23/2016): QT prolongation Obesity with body mass index 30 or greater 09/15 Overview (12/23/2016): Obesity (BMI 35.0-39.9 without comorbidity) Benign hypertension 09/15/2016 Overview (12/23/2016): HTN (hypertension), benign Resolved Problems Problem Noted Date Diagnosed Date Resolved Date Dyslipidemia 09/15/2016 09/16/2021 Overview (12/23/2016): Dyslipidemia Encounters Date Type Department Care Team Description 11/27/2024 Results Follow-Up [facility] [address] [facility] [address] [place] [phone] Meron Lind RN 11/26/2024 11:15 AM CDT Ancillary Procedure [facility]iology [address] [facility] [address] [place] [address] KEENE (dyspnea on exertion) 11/13/2024 11:25 AM ENERGY CONTROL OFFICER Lab [id number] [place] [address] 11/13/2024 Telephone [facility] Cardiology [address] [place] [address] [address] [place] [phone] Oracio Lindsey MD 11/12/2024 9:15 AM ENERGY CONTROL OFFICER Ancillary Procedure [facility] Cardiology [address] [place] [address] [address] [place] [phone] Shortness of breath 10/16/2024 8:00 AM ENERGY CONTROL OFFICER Office Visit [facility] Cardiology [address] [place] [address] [place] [phone] Oracio Lindsey MD Shortness of breath (Primary Dx) 09/10/2024 Telephone [place] [address] [place] [phone] Oracio Lindsey MD from Last 3 Months Surgical History Surgery Date Site/Laterality Comments BIOPSY 09/19/2022 - 09/18/2023 Left leg LAPAROSCOPIC CHOLECYSTECTOMY 09/19/2022 - 09/18/2023 HYSTERECTOMY Medical History Medical History Date Comments Hypertension Hypertension Hx Other Medical QT prolongation Hypothyroidism Hypothyroidism Adiposity Obesity Depression Depression Hx Other Medical Bipolar Disorde r Family History Medical History Relation Name Comments Colon cancer Father 2 Cancer, colon; Cause of : Cancer, colon Lymphoma Mother 2 Lymphoma; Cause of : Lymphoma Relation Name Status Comments Father 1 Father 2 Mother 1 Mother 2 Social History Tobacco Use Types Packs/Day Years Used Date Smoking Tobacco: Never Smokeless Tobacco: Never Tobacco Cessation:Counseling Given: Not Answered Alcohol Use Standard Drinks/Week Comments Yes 0 (1 standard drink = 0.6 oz pur e alcohol) Comments Unknown Sex and Gender Information Value Date Recorded Sex Assigned at Not on file Legal Sex Female 9:46 AM ENERGY CONTROL OFFICER Gender Identity Not on file Sexual Orientation Not on file Obstetrics History Last Filed Vital Signs Vital Sign Reading Time Taken Comments Blood Pressure 136/70 10/16/2024 7:55 AM ENERGY CONTROL OFFICER Pulse 70 10/16/2024 7:55 AM ENERGY CONTROL OFFICER Temperature - - Respiratory Rate 16 08/19/2021 3:40 PM ENERGY CONTROL OFFICER Oxygen Saturation 97% 10/16/2024 7:55 AM ENERGY CONTROL OFFICER Inhaled Oxygen Concentration - - Weight 112 kg (247 lb) 10/16/2024 7:55 AM ENERGY CONTROL OFFICER Height 172.7 cm (5' 8 ) 10/16/2024 7:55 AM ENERGY CONTROL OFFICER Body Mass Index 37.56 10/16/2024 7:55 AM ENERGY CONTROL OFFICER Plan of Treatment Health Maintenance Due Date Last Done Comments Breast Cancer Screening-Mammogram 1955 Colon Cancer Screening-Colonoscopy 1955 Depression Screening 1955 Fall Risk Assessment 1955 Osteoporosis Screening-Bone Density Scan 1955 Hepatitis B Screening 1974 Well Visit 65+ 2021 Pneumococcal vaccine 65+ (2 of 2 - PCV) 07/01/2022 07/01/2021 Covid-19 Vaccine (3 - 2023-2 5 season) 2024 07/13/2021, 11/21/2020 Influenza Vaccine (#1) 2024 , 07/07/2020, 07/10/2018, Additional history exists DTaP/Tdap/Td Vaccine (2 - Td or Tdap) 07/10/2025 07/10/2015 Zoster Vaccine Completed 10/10/2020, 11/0 12/2019, 06/24/2016 Hepatitis C Screening Completed 11/13/2024 Procedures Procedure Name Priority Date/Time Associated Diagnosis Comments NM MPI SPECT (REST AND/OR STRESS) MULTIPLE STUDIES Schedule Routine, Read Routine (OP Routine) 11/26/2024 12:50 PM CDT KEENE (dyspnea on exertion) RHEUMATOID FACTOR Routine 11/13/2024 11: 29 AM ENERGY CONTROL OFFICER EGFR Routine 11/13/2024 11:29 AM ENERGY CONTROL OFFICER DIFFERENTIAL AUTO Routine 11/13/2024 11: 29 AM ENERGY CONTROL OFFICER SJOGRENS SYNDROME-B ANTIBODY Routine 11/13/2024 11:29 AM ENERGY CONTROL OFFICER SJOGRENS SYNDROME-A ANTIBODY Routine 11/13/2024 11:29 AM ENERGY CONTROL OFFICER ERYTHROCYTE SEDIMENTATION RATE Routine 11/13/2024 11:29 AM ENERGY CONTROL OFFICER G6PD QUALITATIVE WITH REFLEX TO QUANTITATIVE Routine 11/13/2024 11:29 AM ENERGY CONTROL OFFICER CRYOGLOBULIN, SERUM AND PLASMA Routine 11/13/2024 11:29 AM ENERGY CONTROL OFFICER CREATINE KINASE (CK), TOTAL Routine 11/13/2024 11:29 AM ENERGY CONTROL OFFICER COMPREHENSIVE METABOLIC PANEL Routine 11/13/2024 11:29 AM ENERGY CONTROL OFFICER C4 COMPLEMENT Routine 11/13/2024 11:29 AM ENERGY CONTROL OFFICER C3 COMPLEMENT Routine 11/13/2024 11:29 AM ENERGY CONTROL OFFICER CBC WITH AUTO DIFFERENTIAL Routine 11/13/2024 11:29 AM ENERGY CONTROL OFFICER CRP (ACUTE PHASE) Routine 11/13/2024 11: 29 AM ENERGY CONTROL OFFICER CYCLIC CITRUL PEPTIDE ANTIBODY, IGG Routine 11/13/2024 11:29 AM ENERGY CONTROL OFFICER ANTI-NEUTROPHILIC CYTOPLASMIC ANTIBODY (ANCA) WITH REFLEX TO MPO AND PR3 ABS Routine 11/13/2024 11:29 AM ENERGY CONTROL OFFICER SHRUTI SCREEN W/REFLEX ROSITA+DSDNA Routine 11/13/2024 11:29 AM ENERGY CONTROL OFFICER HEPATITIS C ANTIBODY Routine 11/13/2024 11:29 AM ENERGY CONTROL OFFICER HEPATITIS B SURFACE ANTIGEN Routine 11/13/2024 11:29 AM ENERGY CONTROL OFFICER TRANSTHORACIC ECHO (TTE) COMPLETE W DOPPLER/CF WO CONTRAST Routine 11/12/2024 9:27 AM ENERGY CONTROL OFFICER Shortness of breath from Last 3 Months Results * NM MPI SPECT (Rest and/or Stress) Multiple Studies (11/26/2024 12:50 PM CDT) Anatomical Region Laterality Modality Body N/A Nuclear Medicine 11/26/2024 7:26 AM CDT Narrative 11/26/2024 2:32 PM CDT [facility] [address], [place] [address] [address] [facility] [address], [place] [address] P:[phone] P:[phone] MPI Imaging Report Patient Name: ELLI GAITAN L : 1955 Study Date: 11/26/2024 7:26:57 AM Gender: F Tech: Ref Provider: ORACIO LINDSEY Height(Cm): BSA: Weight(Kg): BMI: Order Provider: ORACIO LINDSEY PHYSICIAN: Referring Physician: Dr. Mueller. HCG Physician: Oracio Lindsey M.D. Interpreting Physician: Arnoldo Moon M.D. Stress Supervision: Arnoldo Moon M.D. PROCEDURES: Pharmacologic SPECT Report: Myocardial perfusion imaging with Tc99M Sestamibi SPECT at rest and stress post regadenoson (Lexiscan) infusion. Treadmill stress converted to ambulatory Lexiscan stress at 2:55 due to dyspnea and unable to reach target heart rate. INDICATIONS: Coronary Artery Disease, Hypertension, Family Hx CAD, High Cholesterol, and R06.09 Other forms of dyspnea. FINDINGS: Procedural Findings: One day rest/stress was used. Tc99m Sestamibi injected IV at rest was 12.4 millicuries 37.8 millicuries of Tc99M Sestamibi injected IV during Lexiscan stress Lexiscan 0.4mg given IV over 10 seconds with low level exercise: 0.8 MPH Pharmacologic stress related symptoms and/or side effects during infusion include shortness of breath. Symptoms were resolved with rest and completion of Lexiscan protocol. Baseline heart rate was 65 BPM Maximum Heart Rate Achieved was: 112 BPM Baseline blood pressure was 134/68 mmHg Post Stress Blood Pressure was 132/72 mmHg Termination: Protocol complete. Resting ECG: Normal sinus rhythm. Cannot r/o anterior infarct - age uncertain. Post ECG: No diagnostic ST changes. Arrhythmia: Occasional PVCs. Occasional APCs. Perfusion Findings: Normal perfusion imaging. No definite fixed or reversible defects. Technical quality of study is excellent. Prone imaging was not performed. Left ventricle cavity size at rest is normal. Left ventricle cavity size with stress is unchanged. A TID of 0.93 was automatically calculated. LV Function: Global left ventricular function is normal. Left ventricular ejection fraction is 71 %. CONCLUSIONS: Global left ventricular function is normal. Left ventricular ejection fraction is 71 %. Myocardial perfusion imaging is probably normal. Anterior defect is seen at both rest and stress likely related to breast attenuation artifact although previous infarction is not completely excluded. Negative EKG portion of stress test. Limiting dyspnea. Unable to reach target heart rate and converted to Lexiscan before the end of stage I. Electronically Signed By: Jj Moon MD 11/26/2024 1:57:25 PM CDT Electronically Signed By: Jj Moon MD 11/26/2024 2:31:01 PM CDT Procedure Note Jj Moon MD - 11/26/2024 [facility] [address] [facility] [address], [place] [address] [address] [facility] [address], [place] [address] P:[phone] P:[phone] MPI Imaging Report Patient Name: ELLI GAITAN L : 1955 Study Date: 11/26/2024 7:26:57 AM Gender: F Tech: Ref Provider: ORACIO LINDSEY Height(Cm): BSA: Weight(Kg): BMI: Order Provider: ORACIO LINDSEY PHYSICIAN: Referring Physician: Dr. Mueller. HCG Physician: Oracio Lindsey M.D. Interpreting Physician: Arnoldo Moon M.D. Stress Supervision: Arnoldo Moon M.D. PROCEDURES: Pharmacologic SPECT Report: Myocardial perfusion imaging with Tc99M Sestamibi SPECT at rest and stresspost regadenoson (Lexiscan) infusion. Treadmill stress converted to ambulatoryLexiscan stress at 2:55 due to dyspnea and unable to reach target heart rate. INDICATIONS: Coronary Artery Disease, Hypertension, Family Hx CAD, High Cholesterol,and R06.09 Other forms of dyspnea. FINDINGS: Procedural Findings: One day rest/stress was used. Tc99m Sestamibi injected IV at rest was 12.4 millicuries 37.8 millicuries of Tc99M Sestamibi injected IV during Lexiscan stress Lexiscan 0.4mg given IV over 10 seconds with low level exercise: 0.8MPH Pharmacologic stress related symptoms and/or side effects duringinfusion include shortness of breath. Symptoms were resolved with rest and completion of Lexiscan protocol. Baseline heart rate was 65 BPM Maximum Heart Rate Achieved was: 112 BPM Baseline blood pressure was 134/68 mmHg Post Stress Blood Pressure was 132/72 mmHg Termination: Protocol complete. Resting ECG: Normal sinus rhythm. Cannot r/o anterior infarct - age uncertain. Post ECG: No diagnostic ST changes. Arrhythmia: Occasional PVCs. Occasional APCs. Perfusion Findings: Normal perfusion imaging. No definite fixed or reversible defects.Technical quality of study is excellent. Prone imaging was not performed. Left ventricle cavitysize at rest is normal. Left ventricle cavity size with stress is unchanged. A TID of0.93 was automatically calculated. LV Function: Global left ventricular function is normal. Left ventricular ejectionfraction is 71 %. CONCLUSIONS: Global left ventricular function is normal. Left ventricular ejectionfraction is 71 %. Myocardial perfusion imaging is probably normal. Anterior defect is seenat both rest and stress likely related to breast attenuation artifact although previousinfarction is not completely excluded. Negative EKG portion of stress test. Limiting dyspnea. Unable to reachtarget heart rate and converted to Lexiscan before the end of stage I. Electronically Signed By: Jj Moon MD 11/26/2024 1:57:25 PM CDT Electronically Signed By: Jj Moon MD 11/26/2024 2:31:01 PM CDT Oracio Lindsey MD IMG NM PROCEDURES Final Result * SHRUTI screen w/rflx ORSITA+dsDNA (11/13/2024 11:29 AM ENERGY CONTROL OFFICER) SHRUTI Negative Comment: Interpretive Data Normal range for SHRUTI Qualitative Antibody = Negative. 1. SHRUTI is performed using indirect immunofluorescence against HEp-2 cells 2. SHRUTI titers are performed on all positive qualitative results. 3. A significantly positive SHRUTI result is defined as a positive nuclear fluorescence at a titer of 1:80 or greater. 4. 15% of normal people above age 65 have significantly positive SHRUTI results. 5% or less of normal people age 65 or under have significantly positive SHRUTI results. Current interpretive data was last revised on 2020. Testing performed by: [facility], [address] [facility], [place]., [address] Blood 11/13/2024 11:2 9 AM ENERGY CONTROL OFFICER 11/13/2024 11:43 PM ENERGY CONTROL OFFICER us Bonny Uribe MD LAB BLOOD ORDERABLES Final Resul t [facility] [address] Department [place] [address] * G6PD qualitative with reflex to quantitative (11/13/2024 11:29 AM ENERGY CONTROL OFFICER) G6PD Normal Normal Comment: Interp data: G6PD activity should be interpreted in the context of a patient's hematocrit. Hematocrit < 20% may lead to a falsely deficient result, while hematocrit > 50% may lead to a falsely normal result. Current interpretive data was last revised on 2019. Testing performed by: [facility], [address] [place]., [address] Blood 11/13/2024 11:2 9 AM ENERGY CONTROL OFFICER 11/13/2024 7:57 PM ENERGY CONTROL OFFICER us Bonny Uribe MD LAB BLOOD ORDERABLES Final Resul t Performing Organization Address [facility] Co de Phone Number [facility] [address] Department [place] [address] * eGFR (11/13/2024 11:29 AM ENERGY CONTROL OFFICER) eGFR 80 >=60 mL/min/1. 73 m2 Comment: Interpretive Data Reference Interval Normal >/= 90 mL/min/1.73m2 Mildly decreased* 60 - 89 mL/min/1.73m2 Mildly to moderately decreased 45 - 59 mL/min/1.73m2 Moderately to severely decreased 30 - 44 mL/min/1.73m2 Severely decreased 15 - 29 mL/min/1.73m2 Kidney Failure < 15 mL/min/1.73m2 *Relative to young adult level Estimated glomerular filtration rate is determined by the 2020 CKD-EPI equation recommended by the National Kidney Foundation (A Unifying Approach to GFR Estimation: Recommendations of the NKF-ASK Task Force on Reassessing the Inclusion of Race in Diagnosing Kidney Disease, JASN 2020). The CKD-EPI equation should not be used for patients with unstable renal function and has not been validated in children and those over 70. Current interpretive data was last reviewed 2021. Blood 11/13/2024 11:2 9 AM ENERGY CONTROL OFFICER 11/13/2024 7:22 PM ENERGY CONTROL OFFICER us Bonny Uribe MD LAB BLOOD ORDERABLES Final Resul t Performing Organization Address City/[facility]/ZIP Co de Phone Number [facility] [address] Department [place] [address] * Differential, auto (11/13/2024 11:29 AM ENERGY CONTROL OFFICER) Neutrophil abs 4.2 1.5 - 6.5 K/cumm Imm gran abs 0.0 0.0 - 0.1 K/cumm [facility] Lymphocyte abs 1.4 0.8 - 3.3 K/cumm [facility] Monocyte abs 0.7 0.2 - 0.8 K/cumm [facility] Eosinophil abs 0.2 0.0 - 0.5 K/cumm [facility] Basophil abs 0.1 0.0 - 0.1 K/cumm [facility] Neutrophil pct 64.5 % [facility] Comment: Interpretive Data Percent cell count reference ranges are not reported, since discordance with absolute values may lead to misinterpretation of CBC data. Current Interpretive Data was last revised on 2017. Imm gran pct 0.3 % [facility] Comment: Interpretive Data Percent cell count reference ranges are not reported, since discordance with absolute values may lead to misinterpretation of CBC data. Current Interpretive Data was last revised on 2017. Lymphocyte pct 21.7 % [facility] Comment: Interpretive Data Percent cell count reference ranges are not reported, since discordance with absolute values may lead to misinterpretation of CBC data. Current Interpretive Data was last revised on 2017. Monocyte pct 10.1 % [facility] Comment: Interpretive Data Percent cell count reference ranges are not reported, since discordance with absolute values may lead to misinterpretation of CBC data. Current Interpretive Data was last revised on 2017. Eosinophil pct 2.6 % [facility] Comment: Interpretive Data Percent cell count reference ranges are not reported, since discordance with absolute values may lead to misinterpretation of CBC data. Current Interpretive Data was last revised on 2017. Basophil pct 0.8 % [facility] Comment: Interpretive Data Percent cell count reference ranges are not reported, since discordance with absolute values may lead to misinterpretation of CBC data. Current Interpretive Data was last revised on 2017. Blood 11/13/2024 11:2 9 AM ENERGY CONTROL OFFICER 11/13/2024 3:23 PM ENERGY CONTROL OFFICER us Bonny Uribe MD LAB BLOOD ORDERABLES Final Resul t Performing Organization Address [facility] Co de Phone Number [facility] [address] [facility], [place] [id number] * C4 complement (11/13/2024 11:29 AM ENERGY CONTROL OFFICER) Pathologist [facility] Complement C4 22 10 - 40 mg/dL Blood 11/13/2024 11:2 9 AM ENERGY CONTROL OFFICER 11/13/2024 7:22 PM ENERGY CONTROL OFFICER us Bonny Uribe MD LAB BLOOD ORDERABLES Final Resul t Performing Organization Address [facility] Co de Phone Number [facility] [address] Department [facility] [place], [place] [phone] * Anti-Neutrophilic Cytoplasmic Antibody (ANCA) with Reflex to MPO and PR3 Abs (11/13/2024 11:29 AM ENERGY CONTROL OFFICER) [facility] ANCA Negative Comment:Testing performed by : [facility], [address] [place]., [address] Blood 11/13/2024 11:2 9 AM ENERGY CONTROL OFFICER 11/13/2024 11:43 PM ENERGY CONTROL OFFICER us Bonny Uribe MD LAB BLOOD ORDERABLES Final Resul t Performing Organization Address [facility] Co de Phone Number [facility] [address] Department of [facility] [place], [place] [phone] * CBC with auto differential (11/13/2024 11:29 AM ENERGY CONTROL OFFICER) [facility] WBC 6.6 3.8 - 9.9 K/cumm Hgb 14.0 11.9 - 15.5 g/dL [facility] Hct 42.8 35.6 - 45.5 % [facility] Plt 259 150 - 400 K/cumm [facility] MPV 9.6 9.1 - 12.3 fL [facility] RBC 4.49 3.90 - 5.20 M/cumm [facility] MCV 95.3 81.3 - 96.4 fL [facility] MCH 31.2 27.1 - 33.3 pg [facility] MCHC 32.7 32.3 - 35.7 g/dL [facility] RDW CV 12.2 11.1 - 14.9 % [facility] RDW SD 42.5 35.7 - 48.1 fL [facility] NRBC abs 0.00 0.00 - 0.01 K/cumm [facility] Blood 11/13/2024 11:2 9 AM ENERGY CONTROL OFFICER 11/13/2024 3:23 PM ENERGY CONTROL OFFICER us Bonny Uribe MD LAB BLOOD ORDERABLES Final Resul t Performing Organization Address [facility] Co de Phone Number [facility] [address] [employer] [place], [place] [phone] * Hepatitis C antibody Blood (11/13/2024 11:29 AM ENERGY CONTROL OFFICER) Hep C Ab Nonreactive Nonreactive Comment: Interpretive Data Nonreactive: Antibodies to HCV not detected. Does NOT exclude the possibility of recent exposure to HCV. Equivocal: Equivocal for HCV antibodies. Supplemental molecular testing will be automatically performed to determine infection status in accordance with current CDC screening recommendations. Reactive: Positive for HCV antibodies. This may represent current or past HCV infection. Supplemental molecular testing will be automatically performed to determine current infection status in accordance with current CDC screening recommendations. Interpretive data was last revised on 2019. Blood 11/13/2024 11:2 9 AM ENERGY CONTROL OFFICER 11/13/2024 3:24 PM ENERGY CONTROL OFFICER us Bonny Uribe MD LAB MICROBIOLOGY - GENERAL ORDER SCHUYLER Final Result Performing Organization Address [facility]/ZIP Co de Phone Number [facility] [address] [place] [address] * Cyclic citrul peptide antibody, IgG (11/13/2024 11:29 AM ENERGY CONTROL OFFICER) CCP Ab <0.5 <=2.9 units/mL Comment: Interpretive data Negative: <3 units/mL Positive: > or equal to 3 units/mL Current interpretive data was last revised on 2016. Testing performed by: [facility], [address] [place]., [address] Blood 11/13/2024 11:2 9 AM ENERGY CONTROL OFFICER 11/13/2024 11:43 PM ENERGY CONTROL OFFICER us Bonny Uribe MD LAB BLOOD ORDERABLES Final Resul t Performing Organization Address [facility] Co de Phone Number [facility] [address] [place] [address] * Cryoglobulin, Serum and Plasma (11/13/2024 11:29 AM ENERGY CONTROL OFFICER) Pathologist [facility] [place] Cryoglobulin, quant See Footnote Negative [facility] ref Lab Comment: Negative. This test is negative at 24 hours. All samples are held and reviewed again at 7 days. If delayed precipitation occurs after 7 days, Immunofixation will be performed and an additional report will follow. Cryofibrinogen Negative Negative [facility] Comment: Test Performed by: [facility] [address] [place] [address] Base Brander: Anjali Hernadez Ph.D.; CLIA# [id number] Blood 11/13/2024 11:2 9 AM ENERGY CONTROL OFFICER 11/13/2024 3:45 PM ENERGY CONTROL OFFICER Result [facility] us Bonny Uirbe MD LAB BLOOD ORDERABLES Final Resul t Performing Organization Address [facility] Co de Phone Number [facility] [address] [place] [address] [place] [facility] * Hepatitis B Surface Antigen Blood (11/13/2024 11:29 AM ENERGY CONTROL OFFICER) Pathologist [facility] [place] HepBsAg Nonreactive Nonreactive Blood 11/13/2024 11:2 9 AM ENERGY CONTROL OFFICER 11/13/2024 3:24 PM ENERGY CONTROL OFFICER Result [facility] us Bonny Uribe MD LAB MICROBIOLOGY - GENERAL ORDER SCHUYLER Final Result Performing Organization Address City/[facility] Co de Phone Number [facility] [address] [place] [address] * Sjogren's syndrome B ab (11/13/2024 11:29 AM ENERGY CONTROL OFFICER) Anti-ROSITA, SS-B <0.2 <=0.9 Ab Index Comment: Interpretive Data Negative: < 1.0 Ab Index Positive: > or = 1.0 Ab Index Current interpretive data was last revised on 2016. Testing performed by: [facility], [address] [place] [address]., [id number] Blood 11/13/2024 11:2 9 AM ENERGY CONTROL OFFICER 11/14/2024 11:36 AM ENERGY CONTROL OFFICER us Bonny Uribe MD LAB BLOOD ORDERABLES Final Resul t Performing Organization Address [facility] Co de Phone Number [facility] [address] Department [place] [address] * Sjogren's syndrome A ab (11/13/2024 11:29 AM ENERGY CONTROL OFFICER) Anti-ROSITA, SS-A <0.2 <=0.9 Ab Index Comment: Interpretive Data Negative: < 1.0 Ab Index Positive: > or = 1.0 Ab Index Current interpretive data was last revised on 2016. Testing performed by: [facility], [address] [place] [address]., [id number] Blood 11/13/2024 11:2 9 AM ENERGY CONTROL OFFICER 11/14/2024 11:36 AM ENERGY CONTROL OFFICER us Bonny Uribe MD LAB BLOOD ORDERABLES Final Resul t Performing Organization Address City/[facility]/ZIP Co de Phone Number [facility] [address] Department of [place] [facility] [place], [place] [id number] * Erythrocyte sedimentation rate (11/13/2024 11:29 AM ENERGY CONTROL OFFICER) Pathologist [facility] [place] Erythrocyte sedimentation rate 23 1 - 30 mm/hr Blood 11/13/2024 11:2 9 AM ENERGY CONTROL OFFICER 11/13/2024 3:23 PM ENERGY CONTROL OFFICER Result Lissett Uribe MD LAB BLOOD ORDERABLES Final Resul t Performing Organization Address [facility] Co de Phone Number [facility] [address] [facility] [place] [address] * Rheumatoid factor (11/13/2024 11:29 AM ENERGY CONTROL OFFICER) Pathologist [facility] [place] Rheumatoid factor, quant 10 <=15 IUnits/mL Blood 11/13/2024 11:2 9 AM ENERGY CONTROL OFFICER 11/13/2024 7:22 PM ENERGY CONTROL OFFICER Result Lissett Uribe MD LAB BLOOD ORDERABLES Final Resul t Performing Organization Address [facility] Co de Phone Number [facility] [address] [place] [address] * C3 complement (11/13/2024 11:29 AM ENERGY CONTROL OFFICER) [facility] Complement C3 178 90 - 180 mg/dL Blood 11/13/2024 11:2 9 AM ENERGY CONTROL OFFICER 11/13/2024 7:22 PM ENERGY CONTROL OFFICER Result Lissett Uribe MD LAB BLOOD ORDERABLES Final Resul t Performing Organization Address [facility] Co de Phone Number [facility] [address] [facility] [place] [address] * CRP (acute phase) (11/13/2024 11:29 AM ENERGY CONTROL OFFICER) Pathologist [facility] [place] CRP 4.1 <=10.0 mg/L Blood 11/13/2024 11:2 9 AM ENERGY CONTROL OFFICER 11/13/2024 7:22 PM ENERGY CONTROL OFFICER Result Lissett Uribe MD LAB BLOOD ORDERABLES Final Resul t Performing Organization Address [facility]/ZIP Co de Phone Number [facility] [address] [place] [address] * Creatine kinase (CK), total (11/13/2024 11:29 AM ENERGY CONTROL OFFICER) Pathologist [facility] [place] CK 44 30 - 200 Units/L Blood 11/13/2024 11:2 9 AM ENERGY CONTROL OFFICER 11/13/2024 7:22 PM ENERGY CONTROL OFFICER us Bonny Uribe MD LAB BLOOD ORDERABLES Final Resul t Performing Organization Address [facility] Co de Phone Number [facility] [address] [place] [address] * Comprehensive metabolic panel (11/13/2024 11:29 AM ENERGY CONTROL OFFICER) [facility] Sodium 139 135 - 145 mmol/L Potassium, pl 3.6 3.3 - 4.9 mmol/L [facility] Chloride 99 97 - 110 mmol/L [facility] CO2 29 22 - 32 mmol/L [facility] Anion gap 11 2 - 15 mmol/L [facility] BUN 15 6 - 25 mg/dL [facility] Creatinine 0.80 0.60 - 1.10 mg/dL [facility] Glucose 94 70 - 199 mg/dL [facility] Comment: Interpretive Data Fasting glucose >/= 126 mg/dl is diagnostic for diabetes. Fasting is defined as no caloric intake for at least 8 hours. Fasting glucose between 100 mg/dl to 125 mg/dl is diagnostic of prediabetes. In a patient with classic symptoms of hyperglycemia or hyperglycemic crisis, a random glucose >/= 200 mg/dl is diagnostic for diabetes. In the absence of unequivocal hyperglycemia, results should be confirmed by repeat testing. The classification and Diagnosis of Diabetes Diabetes Care 202; 46: S19-S40. Current interpretive data was last revised 2022. Calcium 9.3 8.5 - 10.3 mg/dL [facility] Bilirubin, total 0.5 0.1 - 1.2 mg/dL [facility] Protein, pl 6.8 6.5 - 8.5 g/dL [facility] Albumin 4.1 3.5 - 5.0 g/dL [facility] Alk phos 72 40 - 130 Units/L [facility] ALT 22 7 - 45 Units/L [facility] AST 20 10 - 45 Units/L [facility] Blood 11/13/2024 11:2 9 AM ENERGY CONTROL OFFICER 11/13/2024 7:22 PM ENERGY CONTROL OFFICER us Bonny Uribe MD LAB BLOOD ORDERABLES Final Resul t [facility] [address] Department [place] [address] * TRANSTHORACIC ECHO (TTE) COMPLETE W DOPPLER/CF WO CONTRAST (11/12/2024 9:27 AM ENERGY CONTROL OFFICER) Anatomical Region Laterality Modality Ultrasound 11/12/2024 9:01 AM ENERGY CONTROL OFFICER Narrative 11/12/2024 12:02 PM ENERGY CONTROL OFFICER [facility] [address] [facility] [address] [address] [address] [facility] [address], [place] [address] P:[phone] P:[phone] Echocardiographic Report Patient Name: ELLI GAITAN L : 1955 Study Date: 11/12/2024 9:01:43 AM Gender: F Tech: Location: [facility] Provider: ORACIO LINDSEY Height(Cm): 173 BSA: 2.32 Weight(Kg): 112 Heart Rate: 63 BP: 136 / 70 Quality: Good Order Provider: ORACIO LINDSEY PROCEDURES: Echocardiographic Report: Transthoracic echocardiogram with complete 2D, M-Mode, and color Doppler examination. With Strain Analysis. INDICATIONS: R06.02 Shortness of breath. MEASUREMENTS: 2D/MM Value Range Doppler Value Range EF Mod BP 58 % [ 54 - 74 ] MICHAEL Vmax 1.95 cm2 [ 2.00 - 4.00 ] EF Teich MM 64 % [ 54 - 74 ] AV Mean PG 6 mmHg LVIDd 2D 4.99 cm [ 3.80 - 5.20 ] AV Peak Rich 1.69 m/s [ 1.00 - 1.70 ] LVIDd MM 5.65 cm [ 3.80 - 5.20 ] AV Peak PG 11 mmHg LVIDs 2D 3.55 cm [ 2.20 - 3.50 ] AV VTI 41.79 cm LVIDs MM 3.66 cm [ 2.20 - 3.50 ] LVOT Diam 2.01 cm [ 1.70 - 2.10 ] LVPWd 2D 1.06 cm [ 0.60 - 0.90 ] LVOT Peak Rich 1.01 m/s [ 0.70 - 1.10 ] LVPWd MM 1.10 cm [ 0.60 - 0.90 ] LVOT VTI 25.80 cm IVSd 2D 1.18 cm [ 0.60 - 0.90 ] MV E Peak Rich 1.02 m/s [ 0.60 - 1.30 ] IVSd MM 0.99 cm [ 0.60 - 0.90 ] MV A Peak Rich 1.20 m/s [ 1.00 - 1.20 ] LA Dimension MM 3.97 cm [ 2.70 - 3.80 ] MV Decel Time 172 msec [ 104 - 258 ] AoR Diam MM 3.05 cm [ 2.70 - 3.70 ] PV Peak Rich 0.88 m/s [ 0.40 - 0.80 ] LA Volume Index 26 cc/m2 [ 16 - 34 ] TR Peak Rich 2.66 m/s [ 1.00 - 2.80 ] ACS MM 2.05 cm TR Peak PG 28 mmHg RVSP 36.00 mmHg [ 10.00 - 36.00 ] Lateral E` 0.08 m/s [ 0.10 - 0.15 ] E` 0.06 m/s E/E` 13 2D/MM Value Range Doppler Value Range - FINDINGS: Interpretation Site: Exam was interpreted at [facility]. Left Ventricle: Normal left ventricular size. Normal left ventricular wall thickness. Diastolic dysfunction is present. Ejection fraction is measured at 58 %. Global Longitudinal Strain is -17 %. These segments of the LV are hypokinetic: Inferolateral segment. Right Ventricle: Normal right ventricular size. Normal right ventricular systolic function. Left Atrium: The left atrium is normal in size. Right Atrium: The right atrium is normal in size. Atrial Septum: Normal atrial septum. Mitral Valve: Normal appearance of the mitral valve. Mild mitral valve regurgitation. There is no hemodynamically significant mitral stenosis by Doppler. Aortic Valve: Normal appearance of the aortic valve. No evidence of hemodynamically significant aortic stenosis by Doppler. Probable trileaflet aortic valve, although not all leaflets are visualized. No aortic regurgitation. Tricuspid Valve: Normal appearance of the tricuspid valve. Estimated peak RVSP is 36 mmHg. Mild tricuspid regurgitation. Pulmonic Valve: Normal appearance of the pulmonic valve. No evidence of pulmonic regurgitation. Pericardium: Normal pericardium with no significant pericardial effusion. Aorta: Sinus of Valsalva is normal. IVC: Normal size and normal respiratory collapse consistent with normal right atrial pressure (<5 mmHg). Pulmonary Artery: Normal pulmonary artery size. CONCLUSIONS: Normal left ventricular size. Normal left ventricular wall thickness. Diastolic dysfunction is present. Ejection fraction is measured at 58 %. Global Longitudinal Strain is -17 %. These segments of the LV are hypokinetic: Inferolateral segment. Mild mitral valve regurgitation. Estimated peak RVSP is 36 mmHg. Mild tricuspid regurgitation. Electronically Signed By: Dr. Chuckie Gupta [facility] 11/12/2024 12:01:51 PM ENERGY CONTROL OFFICER Procedure Note Chuckie Gupta MD - 11/12/2024 [facility] [address] [facility] [address], [place] [address] [address] [facility] [address], [place] [address] P:[phone] P:[phone] Echocardiographic Report Patient Name: ELLI GAITAN L : 1955 Study Date: 11/12/2024 9:01:43 AM Gender: F Tech: Location: [facility] Provider: ORACIO LINDSEY Height(Cm): 173 BSA: 2.32 Weight(Kg): 112 Heart Rate: 63 BP: 136 / 70 Quality: Good Order Provider: ORACIO LINDSEY PROCEDURES: Echocardiographic Report: Transthoracic echocardiogram with complete 2D, M-Mode, and color Dopplerexamination. With Strain Analysis. INDICATIONS: R06.02 Shortness of breath. MEASUREMENTS: 2D/MM Value Range Doppler ValueRange EF Mod BP 58 % [ 54 - 74 ] MICHAEL Vmax 1.95cm2 [ 2.00 - 4.00 ] EF Teich MM 64 % [ 54 - 74 ] AV Mean PG 6mmHg LVIDd 2D 4.99 cm [ 3.80 - 5.20 ] AV Peak Rich 1.69m/s [ 1.00 - 1.70 ] LVIDd MM 5.65 cm [ 3.80 - 5.20 ] AV Peak PG 11mmHg LVIDs 2D 3.55 cm [ 2.20 - 3.50 ] AV VTI 41.79cm LVIDs MM 3.66 cm [ 2.20 - 3.50 ] LVOT Diam 2.01 cm[ 1.70 - 2.10 ] LVPWd 2D 1.06 cm [ 0.60 - 0.90 ] LVOT Peak Rich 1.01m/s [ 0.70 - 1.10 ] LVPWd MM 1.10 cm [ 0.60 - 0.90 ] LVOT VTI 25.80cm IVSd 2D 1.18 cm [ 0.60 - 0.90 ] MV E Peak Rich 1.02m/s [ 0.60 - 1.30 ] IVSd MM 0.99 cm [ 0.60 - 0.90 ] MV A Peak Rich 1.20m/s [ 1.00 - 1.20 ] LA Dimension MM 3.97 cm [ 2.70 - 3.80 ] MV Decel Time 172msec [ 104 - 258 ] AoR Diam MM 3.05 cm [ 2.70 - 3.70 ] PV Peak Rich 0.88m/s [ 0.40 - 0.80 ] LA Volume Index 26 cc/m2 [ 16 - 34 ] TR Peak Rich 2.66m/s [ 1.00 - 2.80 ] ACS MM 2.05 cm TR Peak PG 28mmHg RVSP 36.00 mmHg [ 10.00 - 36.00 ] Lateral E` 0.08 m/s [ 0.10 - 0.15 ] E` 0.06 m/s E/E` 13 2D/MM Value Range Doppler ValueRange - FINDINGS: Interpretation Site: Exam was interpreted at [facility]. Left Ventricle: Normal left ventricular size. Normal left ventricular wall thickness.Diastolic dysfunction is present. Ejection fraction is measured at 58 %. GlobalLongitudinal Strain is -17 %. These segments of the LV are hypokinetic: Inferolateralsegment. Right Ventricle: Normal right ventricular size. Normal right ventricular systolicfunction. Left Atrium: The left atrium is normal in size. Right Atrium: The right atrium is normal in size. Atrial Septum: Normal atrial septum. Mitral Valve: Normal appearance of the mitral valve. Mild mitral valve regurgitation.There is no hemodynamically significant mitral stenosis by Doppler. Aortic Valve: Normal appearance of the aortic valve. No evidence of hemodynamicallysignificant aortic stenosis by Doppler. Probable trileaflet aortic valve, although not allleaflets are visualized. No aortic regurgitation. Tricuspid Valve: Normal appearance of the tricuspid valve. Estimated peak RVSP is 36 mmHg.Mild tricuspid regurgitation. Pulmonic Valve: Normal appearance of the pulmonic valve. No evidence of pulmonicregurgitation. Pericardium: Normal pericardium with no significant pericardial effusion. Aorta: Sinus of Valsalva is normal. IVC: Normal size and normal respiratory collapse consistent with normal rightatrial pressure (<5 mmHg). Pulmonary Artery: Normal pulmonary artery size. CONCLUSIONS: Normal left ventricular size. Normal left ventricular wall thickness.Diastolic dysfunction is present. Ejection fraction is measured at 58 %. GlobalLongitudinal Strain is -17 %. These segments of the LV are hypokinetic: Inferolateralsegment. Mild mitral valve regurgitation. Estimated peak RVSP is 36 mmHg. Mild tricuspid regurgitation. Electronically Signed By: Dr. Chuckie Gupta [facility] 11/12/2024 12:01:51 PM ENERGY CONTROL OFFICER Oracio Lindsey MD CV ECHO PROCEDURES Final Result from Last 3 Months Insurance MEDICARE [employer] FOR LIFE MEDICARE FOR LIFE Care Teams Assistant Manager/Embalmer Relationship Specialty Start Date End Date Reji Mueller MD PCP - General Family Practice 07/21/21 Rober Gordillo MD [address] [facility] [address] [place] [address] Referring Physician Orthopedic Surgery 08/16/22
--- OUTSIDE RECORDS SUMMARY | 2024-12-05 13:51 | XMS_ITS ---
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
--- OUTSIDE RECORDS SUMMARY | 2024-12-05 13:51 | XMS_ITS | Clinical Summary ---
Author Organization [facility] Address [address] [place] [address] Care Team Providers Care Gas Appliance Installer Name Role Phone Unavailable Primary Care Provider Unavailabl e Social History Tobacco Use Types Packs/Day Years Used Date Smoking Tobacco: Never Assessed Comments Unknown Sex and Gender Information Value Date Recorded Sex Assigned at Not on file Legal Sex Female 4:16 PM CDT Gender Identity Not on file Sexual Orientation Not on file Plan of Treatment Health Maintenance Due Date Last Done Comments Colorectal Cancer Screening Colonoscopy (10 Years) 1955 Hepatitis C 1974 DTaP, Tdap and Td Vaccines ( 1 - Tdap) 1975 Mammogram Screening 1996 Zoster Vaccines (1 of 2) 2006 Dexa Scan (General) 2021 Pneumococcal Vaccine: 65+ Ye ars (1 of 1 - PCV) 2021 COVID-19 Vaccine (2023-2 5 season) 2024 Influenza Adult (#1) 2024 RSV Immunization or 60+ Years (1 - 1-dose 75+ series) 2031 Meningococcal B Vaccine Aged Out No l onger eligible based on patient's age to complete this topic Meningococcal Vaccine Aged Out No cristobal margaret eligible based on patient's age to complete this topic RSV Immunizations Under 20 Months Aged Out No longer eligible based on patient's age to complete this topic
--- OUTSIDE RECORDS SUMMARY | 2024-12-05 13:51 | XMS_ITS | Referral Summary ---
Author Organization [place] [address] [place] [phone] Care Team Providers Care International Manager Name Role Phone Reji Mueller MD Primary Care Provider Rober Gordillo MD Unavailable [phone] Encounters Date Type Department Care Team Description 11/27/2024 Results Follow-Up [facility] Cardiology [address] [place] [address] [address] [place] [phone] Meron Lind RN 11/26/2024 11:15 AM CDT Ancillary Procedure [address] [place] [address] KEENE (dyspnea on exertion) 11/13/[address] [place] [phone] Oracio Lindsey MD 11/13/2024 11:25 AM TAKE AWAY WORKER Lab [address] [phone] 11/12/2024 9:15 AM TAKE AWAY WORKER Ancillary Procedure [facility] Cardiology [address] [place] [address] [address] [place] [address] Shortness of breath 10/16/2024 8:00 AM TAKE AWAY WORKER Office Visit [facility] Cardiology [address] [place] [address] [address] [place] [phone] Oracio Lindsey MD Shortness of breath (Primary Dx) 09/10/2024 Telephone [facility] Cardiology [address] [place] [address] Oracio Lindsey MD from Last 3 Months Allergies Active Allergy Reactions Criticality Noted Date [...] 0 05/03/2022 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 09/16/2021 Medication side [...] Date Dyslipidemia 09/15/2016 09/16/2021 Overview (12/23/2016): Dyslipidemia Social History Tobacco Use Types Packs/Day Years Used Date Smoking Tobacco: Never Smokeless Tobacco: Never Tobacco Cessation:Counseling Given: Not Answered Alcohol Use Standard Drinks/Week Comments Yes 0 (1 standard drink = 0.6 oz pur e alcohol) Comments Unknown Sex and Gender Information Value Date Recorded Sex Assigned at Not on file Legal Sex Female 9:46 AM TAKE AWAY WORKER Gender Identity Not on file Sexual Orientation Not on file Last Filed Vital Signs Vital Sign Reading Time Taken Comments Blood Pressure 136/70 10/16/2024 7:55 AM TAKE AWAY WORKER Pulse 70 10/16/2024 7:55 AM TAKE AWAY WORKER Temperature - - Respiratory Rate 16 08/19/2021 3:40 PM TAKE AWAY WORKER Oxygen Saturation 97% 10/16/2024 7:55 AM TAKE AWAY WORKER Inhaled Oxygen Concentration - - Weight 112 kg (247 lb) 10/16/2024 7:55 AM TAKE AWAY WORKER Height 172.7 cm (5' 8 ) 10/16/2024 7:55 AM TAKE AWAY WORKER Body Mass Index 37.56 10/16/2024 7:55 AM TAKE AWAY WORKER Plan of Treatment Not on file Procedures Procedure Name Priority Date/Time Associated Diagnosis Comments NM MPI SPECT (REST AND/OR STRESS) MULTIPLE STUDIES Schedule Routine, Read Routine (OP Routine) 11/26/2024 12:50 PM CDT KEENE (dyspnea on exertion) RHEUMATOID FACTOR Routine 11/13/2024 11: 29 AM TAKE AWAY WORKER EGFR Routine 11/13/2024 11:29 AM TAKE AWAY WORKER DIFFERENTIAL AUTO Routine 11/13/2024 11: 29 AM TAKE AWAY WORKER SJOGRENS SYNDROME-B ANTIBODY Routine 11/13/2024 11:29 AM TAKE AWAY WORKER SJOGRENS SYNDROME-A ANTIBODY Routine 11/13/2024 11:29 AM TAKE AWAY WORKER ERYTHROCYTE SEDIMENTATION RATE Routine 11/13/2024 11:29 AM TAKE AWAY WORKER G6PD QUALITATIVE WITH REFLEX TO QUANTITATIVE Routine 11/13/2024 11:29 AM TAKE AWAY WORKER CRYOGLOBULIN, SERUM AND PLASMA Routine 11/13/2024 11:29 AM TAKE AWAY WORKER CREATINE KINASE (CK), TOTAL Routine 11/13/2024 11:29 AM TAKE AWAY WORKER COMPREHENSIVE METABOLIC PANEL Routine 11/13/2024 11:29 AM TAKE AWAY WORKER C4 COMPLEMENT Routine 11/13/2024 11:29 AM TAKE AWAY WORKER C3 COMPLEMENT Routine 11/13/2024 11:29 AM TAKE AWAY WORKER CBC WITH AUTO DIFFERENTIAL Routine 11/13/2024 11:29 AM TAKE AWAY WORKER CRP (ACUTE PHASE) Routine 11/13/2024 11: 29 AM TAKE AWAY WORKER CYCLIC CITRUL PEPTIDE ANTIBODY, IGG Routine 11/13/2024 11:29 AM TAKE AWAY WORKER ANTI-NEUTROPHILIC CYTOPLASMIC ANTIBODY (ANCA) WITH REFLEX TO MPO AND PR3 ABS Routine 11/13/2024 11:29 AM TAKE AWAY WORKER SHRUTI SCREEN W/REFLEX ROSITA+DSDNA Routine 11/13/2024 11:29 AM TAKE AWAY WORKER HEPATITIS C ANTIBODY Routine 11/13/2024 11:29 AM TAKE AWAY WORKER HEPATITIS B SURFACE ANTIGEN Routine 11/13/2024 11:29 AM TAKE AWAY WORKER TRANSTHORACIC ECHO (TTE) COMPLETE W DOPPLER/CF WO CONTRAST Routine 11/12/2024 9:27 AM TAKE AWAY WORKER Shortness of breath from Last 3 Months Results * NM MPI SPECT (Rest and/or Stress) Multiple Studies (11/26/2024 12:50 PM CDT) Anatomical Region Laterality Modality Body N/A Nuclear Medicine 11/26/2024 7:26 AM CDT Narrative 11/26/2024 2:32 PM CDT [facility] Cardiology [address] [facility] [address] [address] [address] [facility] [address], [place] [address] P:[phone] P:[phone] MPI Imaging Report Patient Name: ELLI GAITAN [...] Procedure Note Jj Moon MD - 11/26/2024 [facility] Cardiology [address], [place] [address] [address] [facility] [address], [place] [address] P:[phone] P:[phone] MPI Imaging Report Patient Name: ELLI GAITAN [...] 11/26/2024 2:31:01 PM CDT Oracio Lindsey MD IM NM PROCEDURES Final Result * SHRUTI screen w/rflx ROSITA+dsDNA (11/13/2024 11:29 AM TAKE AWAY WORKER) SHRUTI Negative Comment: Interpretive Data Normal range [...] last revised on 2020. Testing performed by: [facility], [address] [facility], [place]., [address] Blood 11/13/2024 11:2 9 AM TAKE AWAY WORKER 11/13/2024 11:43 PM TAKE AWAY WORKER us Bonny Uribe MD LAB BLOOD ORDERABLES Final Resul t Performing Organization Address [facility] de Phone Number [facility] [address] Department [place] [address] * G6PD qualitative with reflex to quantitative (11/13/2024 11:29 AM TAKE AWAY WORKER) G6PD Normal Normal Comment: Interp data: G6PD activity should be interpreted in the context of a patient's hematocrit. Hematocrit < 20% may lead to a falsely deficient result, while hematocrit > 50% may lead to a falsely normal result. Current interpretive data was last revised on 2019. Testing performed by: [facility], [address] [place] [address]., [address] Blood 11/13/2024 11:2 9 AM TAKE AWAY WORKER 11/13/2024 7:57 PM TAKE AWAY WORKER us Bonny Uribe MD LAB BLOOD ORDERABLES Final Resul t Performing Organization Address [facility] Co de Phone Number [facility] [address] Department [place] [address] * eGFR (11/13/2024 11:29 AM TAKE AWAY WORKER) eGFR 80 >=60 mL/min/1. 73 m2 Comment: [...] reviewed 2021. Blood 11/13/2024 11:2 9 AM TAKE AWAY WORKER 11/13/2024 7:22 PM TAKE AWAY WORKER us Bonny Uribe MD LAB BLOOD ORDERABLES Final Resul t [facility] [address] Department [place] [address] * Differential, auto (11/13/2024 11:29 AM TAKE AWAY WORKER) Neutrophil abs 4.2 1.5 - 6.5 K/cumm Imm gran abs 0.0 0.0 - 0.1 K/cumm [facility] Lymphocyte abs 1.4 0.8 - 3.3 K/cumm [facility] Monocyte abs 0.7 0.2 - 0.8 K/cumm [facility] Eosinophil abs 0.2 0.0 - 0.5 K/cumm [facility] Basophil abs 0.1 0.0 - 0.1 K/cumm [facility] Neutrophil pct 64.5 % [facility] Comment: Interpretive Data Percent cell count reference ranges are not reported, since discordance with absolute values may lead to misinterpretation of CBC data. Current Interpretive Data was last revised on 2017. Imm gran pct 0.3 % [facility] Comment: Interpretive Data Percent cell count reference ranges are not reported, since discordance with absolute values may lead to misinterpretation of CBC data. Current Interpretive Data was last revised on 2017. Lymphocyte pct 21.7 % [facility] Comment: Interpretive Data Percent cell count reference ranges are not reported, since discordance with absolute values may lead to misinterpretation of CBC data. Current Interpretive Data was last revised on 2017. Monocyte pct 10.1 % [facility] Comment: Interpretive Data Percent cell count reference ranges are not reported, since discordance with absolute values may lead to misinterpretation of CBC data. Current Interpretive Data was last revised on 2017. Eosinophil pct 2.6 % [facility] Comment: Interpretive Data Percent cell count reference ranges are not reported, since discordance with absolute values may lead to misinterpretation of CBC data. Current Interpretive Data was last revised on 2017. Basophil pct 0.8 % [facility] Comment: Interpretive Data Percent cell count reference ranges are not reported, since discordance with absolute values may lead to misinterpretation of CBC data. Current Interpretive Data was last revised on 2017. Blood 11/13/2024 11:2 9 AM TAKE AWAY WORKER 11/13/2024 3:23 PM TAKE AWAY WORKER us Bonny Uribe MD LAB BLOOD ORDERABLES Final Resul t Performing Organization Address [facility] de Phone Number [facility] [address] Department [place] [address] * C4 complement (11/13/2024 11:29 AM TAKE AWAY WORKER) Complement C4 22 10 - 40 mg/dL Blood 11/13/2024 11:2 9 AM TAKE AWAY WORKER 11/13/2024 7:22 PM TAKE AWAY WORKER Result Lissett Uribe MD LAB BLOOD ORDERABLES Final Resul t Performing Organization Address [facility] de Phone Number [facility] [address] Department [place] [address] * Anti-Neutrophilic Cytoplasmic Antibody (ANCA) with Reflex to MPO and PR3 Abs (11/13/2024 11:29 AM TAKE AWAY WORKER) ANCA Negative Comment:Testing performed by : [facility], [address] [facility] [address] Blood 11/13/2024 11:2 9 AM TAKE AWAY WORKER 11/13/2024 11:43 PM TAKE AWAY WORKER Result Lissett Uribe MD LAB BLOOD ORDERABLES Final Resul t [facility] [address] [place] [address] * CBC with auto differential (11/13/2024 11:29 AM TAKE AWAY WORKER) [facility] WBC 6.6 3.8 - 9.9 K/cumm Hgb 14.0 11.9 - 15.5 g/dL [facility] Hct 42.8 35.6 - 45.5 % [facility] Plt 259 150 - 400 K/cumm [facility] MPV 9.6 9.1 - 12.3 fL [facility] RBC 4.49 3.90 - 5.20 M/cumm [facility] MCV 95.3 81.3 - 96.4 fL [facility] MCH 31.2 27.1 - 33.3 pg [facility] MCHC 32.7 32.3 - 35.7 g/dL [facility] RDW CV 12.2 11.1 - 14.9 % [facility] RDW SD 42.5 35.7 - 48.1 fL [facility] NRBC abs 0.00 0.00 - 0.01 K/cumm [facility] Blood 11/13/2024 11:2 9 AM TAKE AWAY WORKER 11/13/2024 3:23 PM TAKE AWAY WORKER us Bonny Uribe MD LAB BLOOD ORDERABLES Final Resul t [facility] [address] [place] [address] * Hepatitis C antibody Blood (11/13/2024 11:29 AM TAKE AWAY WORKER) [facility] Hep C Ab Nonreactive Nonreactive Comment: Interpretive [...] on 2019. Blood 11/13/2024 11:2 9 AM TAKE AWAY WORKER 11/13/2024 3:24 PM TAKE AWAY WORKER us Bonny Uribe MD LAB MICROBIOLOGY - GENERAL ORDER SCHUYLER Final Result Performing Organization Address [facility] Co de Phone Number [facility] [address] [place] [address] * Cyclic citrul peptide antibody, IgG (11/13/2024 11:29 AM TAKE AWAY WORKER) CCP Ab <0.5 <=2.9 units/mL Comment: Interpretive data Negative: <3 units/mL Positive: > or equal to 3 units/mL Current interpretive data was last revised on 2016. Testing performed by: [facility], [address] [place] [address]., [id number] Blood 11/13/2024 11:2 9 AM TAKE AWAY WORKER 11/13/2024 11:43 PM TAKE AWAY WORKER us Bonny Uribe MD LAB BLOOD ORDERABLES Final Resul t Performing Organization Address [facility] Co de Phone Number [facility] [address] [place] [address] * Cryoglobulin, Serum and Plasma (11/13/2024 11:29 AM TAKE AWAY WORKER) Pathologist [facility] Cryoglobulin, quant See Footnote Negative [facility] Comment: Negative. This test is negative at 24 hours. All samples are held and reviewed again at 7 days. If delayed precipitation occurs after 7 days, Immunofixation will be performed and an additional report will follow. Cryofibrinogen Negative Negative [facility] Comment: Test Performed by: [facility] [address] [place] [address] Mobile Developer: Anjali Hernadez Ph.D.; CLIA# [id number] Blood 11/13/2024 11:2 9 AM TAKE AWAY WORKER 11/13/2024 3:45 PM TAKE AWAY WORKER us Bonny Uribe MD LAB BLOOD ORDERABLES Final Resul t Performing Organization Address [facility] Co de Phone Number [facility] [address] [place] [address] [facility] * Hepatitis B Surface Antigen Blood (11/13/2024 11:29 AM TAKE AWAY WORKER) HepBsAg Nonreactive Nonreactive Blood 11/13/2024 11:2 9 AM TAKE AWAY WORKER 11/13/2024 3:24 PM TAKE AWAY WORKER Result Lissett Uribe MD LAB MICROBIOLOGY - GENERAL ORDER SCHUYLER Final Result Performing Organization Address [facility] de Phone Number [facility] [address] [place] [address] * Sjogren's syndrome B ab (11/13/2024 11:29 AM TAKE AWAY WORKER) Anti-ROSITA, SS-B <0.2 <=0.9 Ab Index Comment: Interpretive Data Negative: < 1.0 Ab Index Positive: > or = 1.0 Ab Index Current interpretive data was last revised on 2016. Testing performed by: [facility], [address] [facility], [place]., [address] Blood 11/13/2024 11:2 9 AM TAKE AWAY WORKER 11/14/2024 11:36 AM TAKE AWAY WORKER Result Lissett Uribe MD LAB BLOOD ORDERABLES Final Resul t Performing Organization Address [facility] Co de Phone Number [facility] [address] Department of [place], [place] [id number] * Sjogren's syndrome A ab (11/13/2024 11:29 AM TAKE AWAY WORKER) Anti-ROSITA, SS-A <0.2 <=0.9 Ab Index Comment: Interpretive Data Negative: < 1.0 Ab Index Positive: > or = 1.0 Ab Index Current interpretive data was last revised on 2016. Testing performed by: [facility], [address] [place]., [address] Blood 11/13/2024 11:2 9 AM TAKE AWAY WORKER 11/14/2024 11:36 AM TAKE AWAY WORKER us Bonny Uribe MD LAB BLOOD ORDERABLES Final Resul t Performing Organization Address City/[facility] Co de Phone Number [facility] [address] [place] [address] * Erythrocyte sedimentation rate (11/13/2024 11:29 AM TAKE AWAY WORKER) Erythrocyte sedimentation rate 23 1 - 30 mm/hr Blood 11/13/2024 11:2 9 AM TAKE AWAY WORKER 11/13/2024 3:23 PM TAKE AWAY WORKER us Bonny Uribe MD LAB BLOOD ORDERABLES Final Resul t Performing Organization Address [facility] de Phone Number [facility] [address] [place] [address] * Rheumatoid factor (11/13/2024 11:29 AM TAKE AWAY WORKER) Rheumatoid factor, quant 10 <=15 IUnits/mL Blood 11/13/2024 11:2 9 AM TAKE AWAY WORKER 11/13/2024 7:22 PM TAKE AWAY WORKER Result Lissett Uribe MD LAB BLOOD ORDERABLES Final Resul t Performing Organization Address [facility] Co de Phone Number [facility] [address] [place] [address] * C3 complement (11/13/2024 11:29 AM TAKE AWAY WORKER) Complement C3 178 90 - 180 mg/dL Blood 11/13/2024 11:2 9 AM TAKE AWAY WORKER 11/13/2024 7:22 PM TAKE AWAY WORKER us Bonny Uribe MD LAB BLOOD ORDERABLES Final Resul t Performing Organization Address [facility] Co de Phone Number [facility] [address] [facility] [place] [address] * CRP (acute phase) (11/13/2024 11:29 AM TAKE AWAY WORKER) Pathologist [facility] CRP 4.1 <=10.0 mg/L Blood 11/13/2024 11:2 9 AM TAKE AWAY WORKER 11/13/2024 7:22 PM TAKE AWAY WORKER us Bonny Uribe MD LAB BLOOD ORDERABLES Final Resul t Performing Organization Address [facility] de Phone Number [facility] [address] [place] [address] * Creatine kinase (CK), total (11/13/2024 11:29 AM TAKE AWAY WORKER) [facility] CK 44 30 - 200 Units/L Blood 11/13/2024 11:2 9 AM TAKE AWAY WORKER 11/13/2024 7:22 PM TAKE AWAY WORKER us Bonny Uribe MD LAB BLOOD ORDERABLES Final Resul t Performing Organization Address [facility] Co de Phone Number [facility] [address] [facility] [place] [address] * Comprehensive metabolic panel (11/13/2024 11:29 AM TAKE AWAY WORKER) [facility] Sodium 139 135 - 145 mmol/L Potassium, pl 3.6 3.3 - 4.9 mmol/L [facility] Chloride 99 97 - 110 mmol/L [facility] CO2 29 22 - 32 mmol/L [facility] Anion gap 11 2 - 15 mmol/L [facility] BUN 15 6 - 25 mg/dL [facility] Creatinine 0.80 0.60 - 1.10 mg/dL [facility] Glucose 94 70 - 199 mg/dL [facility] Comment: Interpretive Data Fasting glucose >/= 126 [...] classification and Diagnosis of Diabetes Diabetes Care 2021; 46: S19-S40. Current interpretive data was last revised 2022. Calcium 9.3 8.5 - 10.3 mg/dL [facility] Bilirubin, total 0.5 0.1 - 1.2 mg/dL [facility] Protein, pl 6.8 6.5 - 8.5 g/dL [facility] Albumin 4.1 3.5 - 5.0 g/dL [facility] Alk phos 72 40 - 130 Units/L [facility] ALT 22 7 - 45 Units/L [facility] AST 20 10 - 45 Units/L [facility] Blood 11/13/2024 11:2 9 AM TAKE AWAY WORKER 11/13/2024 7:22 PM TAKE AWAY WORKER us Bonny Uribe MD LAB BLOOD ORDERABLES Final Resul t [facility] [address] Department [place] [address] * TRANSTHORACIC ECHO (TTE) COMPLETE W DOPPLER/CF WO CONTRAST (11/12/2024 9:27 AM TAKE AWAY WORKER) Anatomical Region Laterality Modality Ultrasound 11/12/2024 9:01 AM TAKE AWAY WORKER Narrative 11/12/2024 12:02 PM TAKE AWAY WORKER [facility] Medical [facility] Cardiology [address] [address] [address], [place] [address] P:[phone] P:[phone] Echocardiographic Report Patient Name: ELLI GAITAN L : 1955 Study Date: 11/12/2024 9:01:43 AM Gender: F Tech: Location: [facility] Provider: ORACIO LINDSEY Height(Cm): 173 BSA: 2.32 [...] FINDINGS: Interpretation Site: Exam was interpreted at [facility]. Left Ventricle: Normal left ventricular size. Normal [...] regurgitation. Electronically Signed By: Dr. Chuckie Gupta [facility] 11/12/2024 12:01:51 PM TAKE AWAY WORKER Procedure Note Chuckie Gupta MD - 11/12/2024 [facility] Medical Group Cardiology [address], [place] [address] [address] [facility] [address], [place] [address] P:[phone] P:[phone] Echocardiographic Report Patient Name: ELLI GAITAN L : 1955 Study Date: 11/12/2024 9:01:43 AM Gender: F Tech: Location: [facility] Provider: ORACIO LINDSEY Height(Cm): 173 BSA: 2.32 [...] FINDINGS: Interpretation Site: Exam was interpreted at [facility]. Left Ventricle: Normal left ventricular size. Normal [...] regurgitation. Electronically Signed By: Dr. Chuckie Gupta [facility] 11/12/2024 12:01:51 PM TAKE AWAY WORKER Oracio Lindsey MD CV ECHO PROCEDURES Final Result from Last 3 Months Insurance MEDICARE [employer] MEDICARE FOR LIFE Care Teams International Manager Relationship Specialty Start Date End Date Reji Mueller MD PCP - General Family Practice 07/21/21 Rober Gordillo MD [address] [facility] [address] [place] [address] Referring Physician Orthopedic Surgery 08/16/22
--- OUTSIDE RECORDS SUMMARY | 2024-12-05 13:51 | XMS_ITS ---
Author Organization [facility] marcus Address [address] [place] [address] Care Team Providers Care Hearing Care Practitioner Name Role Phone Reji Mueller MD Primary Care Provider Unavailable Bonny Enriquez Unavailable [phone] Allergies Allergen (clinical drug ingredient) Drug/Non Drug Allergy documented on EMR Reaction Allergy Type Onset Date Status Azithromycin Unknown Drug Allergy Acti ve Levaquin rash Drug Allergy Active Substance with 2-gpgdorl-3-methylglut aryl-coenzyme A reductase inhibitor mechanism of action (substance) Statins Unknown Drug Allergy Active Results Component Value Reference Range Notes SHRUTI reflex titer pattern ROSITA + dsDNA Reviewed date:11/14/2024 12:01:33 PM Interpretation: Performing Lab:[facility] , [address] [place] [address] Notes/Report: SHRUTI, Qual Negative Interpretive Data Normal range for SHRUTI Qualitative [...] last revised on 2020. Testing performed by: [facility], [address] [facility] [place]., [address] ANCA reflex MPO and PR3 Abs Reviewed date:11/15/2024 12:47:39 PM Interpretation: Performing Lab:[facility] , [address] [place] [address] Notes/Report: Neutrophil Cytoplas Ab, Qual Negative Testing performed by: [facility], [address] [facility], [place]., [address] Anti-CCP (Cyclic Citrullinat ed Peptide Ab) Reviewed date:11/14/2024 12:01:33 PM Interpretation: Performing Lab:[facility] , [address] [place] [address]. [facility] [address] Notes/Report: CCP Ab <0.5 <=2.9 units/mL Interpretive data Negative: <3 units/mL Positive: > or equal to 3 units/mL Current interpretive data was last revised on 2016. C Reactive Protein Reviewed date:11/14/2024 08:26:18 AM Interpretation: Performing Lab:[facility] , [address] [place] [address]. [facility] [address] Notes/Report: C-Reactive Protein 4.1 <=10.0 mg/L CBC w auto diff Reviewed date:11/13/2024 06:14:51 PM Interpretation: Performing Lab:[facility] , [address] [place] [address]. [facility] [address] Notes/Report: WBC 6.6 3.8-9.9 K/cumm Hgb 14.0 11.9-15.5 g/dL Hct 42.8 35.6-45.5 % Platelet Ct 259 150-400 K/cumm MPV 9.6 9.1-12.3 fL RBC 4.49 3.90-5.20 M/cumm MCV 95.3 81.3-96.4 fL MCH 31.2 27.1-33.3 pg MCHC 32.7 32.3-35.7 g/dL RDW CV 12.2 11.1-14.9 % RDW SD 42.5 35.7-48.1 fL NRBC Abs Auto 0.00 0.00-0.01 K/cumm Complement C3 Reviewed date:11/14/2024 08:26:18 AM Interpretation: Performing Lab:[facility] , [address] [place] [address]. [facility] [address] Notes/Report: Complement, C3 178 90-180 mg/dL Complement C4 Reviewed date:11/14/2024 08:26:18 AM Interpretation: Performing Lab:[facility] , [address] [place] [address]. [facility] [address] Notes/Report: Complement, C4 22 10-40 mg/dL Comprehensive metabolic pane l (CMP) Reviewed date:11/14/2024 08:26:18 AM Interpretation: Performing Lab:[facility] , [address] [place] [address]. [facility] [address] Notes/Report: Sodium 139 135-145 mmol/L Plasma Potassium 3.6 3.3-4.9 mmol/L Chloride 99 97-110 mmol/L Total CO2 29 22-32 mmol/L Anion Gap 11 2-15 mmol/L BUN 15 6-25 mg/dL Creatinine 0.80 0.60-1.10 mg/dL Glucose 94 70-199 mg/dL Interpretive Data Fasting glucose >/= 126 mg/dl [...] Current interpretive data was last revised 2022. Total Calcium 9.3 8.5-10.3 mg/dL Total Bilirubin 0.5 0.1-1.2 mg/dL Plasma Total Protein 6.8 6.5-8.5 g/dL Albumin 4.1 3.5-5.0 g/dL Alkaline Phosphatase 72 40-130 Units/L ALT 22 7-45 Units/L AST 20 10-45 Units/L Creatine Kinase Reviewed date:11/14/2024 08:26:18 AM Interpretation: Performing Lab:[facility] , [address] [place] [address]. [facility] [address] Notes/Report: Total CK 44 30-200 Units/L Cryoglobulin, S&P Reviewed date:11/15/2024 12:47:39 PM Interpretation: Performing Lab:[facility] , [address] [place] [address]. [facility] [address] Notes/Report: Cryo S See Footnote Negative Negative. This test is negative at 24 hours. All samples are held and reviewed again at 7 days. If delayed precipitation occurs after 7 days, Immunofixation will be performed and an additional report will follow. Cryofib P Negative Negative Test Performed by: [facility] [address] [place] [address] Raw Stock Dyeing Machine Tender: Anjali Hernadez Ph.D.; CLIA# [id number] G6PD Ql Reviewed date:11/14/2024 08:26:18 AM Interpretation: Performing Lab:[facility] , [address] [facility] [place] [address] Notes/Report: G6PD, Qual Normal Normal Interp data: G6PD activity should be interpreted in the context of a patient's hematocrit. Hematocrit < 20% may lead to a falsely deficient result, while hematocrit > 50% may lead to a falsely normal result. Current interpretive data was last revised on 2019. Testing performed by: [facility], [address] [place]., [address] Hep B surf AG Reviewed date:11/13/2024 06:14:51 PM Interpretation: Performing Lab:[facility] , [address] [place] [address] Notes/Report: Hepatitis B Surface Antigen Nonreactive Nonreactiv Hep C AB Reviewed date:11/13/2024 06:14:51 PM Interpretation: Performing Lab:[facility] , [address] [place] [address] Notes/Report: Hepatitis C Antibody Nonreactive Nonreactiv Interpretive Data Nonreactive: Antibodies to HCV not [...] Interpretive data was last revised on 2019. Rheumatoid Factor Reviewed date:11/14/2024 08:26:18 AM Interpretation: Performing Lab:[facility] , [address] [facility] [place] [address] Notes/Report: RF, Calderon 10 <=15 IUnits/mL Sed Rate Reviewed date:11/13/2024 06:14:51 PM Interpretation: Performing Lab:[facility] , [address] [place] [address]. [facility] [address] Notes/Report: ESR 23 1-30 mm/hr SSA Ab Reviewed date:11/14/2024 09:42:56 PM Interpretation: Performing Lab:[facility] , [address] [place] [address]. [facility] [address] Notes/Report: SS A Antibody <0.2 <=0.9 Ab Index Interpretive Data Negative: < 1.0 Ab Index Positive: > or = 1.0 Ab Index Current interpretive data was last revised on 2016. SSB Ab Reviewed date:11/14/2024 09:42:56 PM Interpretation: Performing Lab:[facility] , [address] [place] [address]. [facility] [address] Notes/Report: SS B Antibody <0.2 <=0.9 Ab Index Interpretive Data Negative: < 1.0 Ab Index Positive: > or = 1.0 Ab Index Current interpretive data was last revised on 2016. REASON FOR VISIT joint pain, history of vasculitis, referred by Dr. Reji Mueller [address] [place] [address], [address], [place] [address], tel [phone], fax [phone] Medications Medication SIG (Take, Route, Frequency, Duration) Notes Start Date End Date Status Magnesium 200 MG 2 tablets with a michael l Orally Once a day for 30 day(s) Active CoQ-10 200 MG as directed Orally Active Melatonin 3 MG 1 tablet at bedtime as needed Orally Once a day for 30 day(s) Active Calcium 500 MG 1 tablet with meals Orally Twice a day for 30 day(s) Active Larimore 3 1000 MG 1 capsule Orally Three times a day for 30 day(s) Active traZODone HCl 50 MG 1 tablet at bedtime as needed Orally Once a day for 30 day(s) Active Multivitamin Active QUEtiapine Fumarate 25 MG 1 tablet at be dtime Orally Once a day for 30 day(s) Active Ezetimibe 10 MG 1 tablet Orally Once a day for 30 day(s) Active Vitamin D3 50 MCG (1999 UT) 1 capsule Or ally Once a day for 30 day(s) Active Omeprazole 40 MG 1 capsule 1/2 to 1 hour before morning meal Orally Once a day for 30 day(s) Active Cetirizine HCl 10 MG 1 tablet Orally Onc e a day for 30 day(s) Active Sertraline HCl 100 MG 1 tablet Orally On ce a day for 30 day(s) Active buPROPion HCl ER (XL) 300 MG 1 tablet in the morning Orally Once a day for 30 day(s) Active Aspirin 81 81 MG 1 tablet Orally Once a day for 30 day(s) Active Nitroglycerin 0.4 MG 1 tablet under the tongue and allow to dissolve as needed. Take every 5 minutes up to 3 times if chest pain persists Sublingual Three times a day for 30 day(s) Active Rosuvastatin Calcium 10 MG 1 tablet Oral ly Once a day for 30 day(s) Active Metoprolol Succinate ER 25 MG 1 tablet O rally Once a day for 30 day(s) Active Ferrous Sulfate 325 (65 Fe) MG 1 tablet Orally once a day for 30 day(s) Active Levothyroxine Sodium 75 MCG 1 tablet in the morning on an empty stomach Orally Once a day for 30 day(s) Active Advair Diskus 250-50 MCG/ACT 1 puff Inha lation Twice a day Active Albuterol Sulfate 108 (90 Ba se) MCG/ACT 1 puff as needed Inhalation every 4 hrs Active Celecoxib 200 MG 1 capsule with food Orally Once a day for 30 day(s) Active Astepro 205.5 MCG/SPRAY 2 sprays (1 spra y in each nostril) Nasally Twice a day for 30 day(s) Active hydroCHLOROthiazide [...] Problem Status W/U Status Risk Notes Problem [id number] 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 Vital Signs Temperature 98.3 degrees Fahrenheit 11/13/19 25 Blood pressure systolic 126 mm Hg 11/13/19 25 Blood pressure diastolic 72 mm Hg 025 Heart Rate 71 /min 11/13/2024 Height 68.5 in 11/13/2024 Weight 257.4 lbs 11/13/2024 BMI 38.56 kg/m2 11/13/2024 Oximetry 95 % 11/13/2024 Height-cm 173.99 cm 11/13/2024 Weight-kg 116.73 kg 11/13/2024 Encounters Encounter Location Date Provider Diagnosis [facility] [address] [facility] [address] [place] [address] 11/13/2024 Bonny Enriquez Multiple joint pain M25.50 and 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 Assessments Encounter Date Diagnosis (ICD Code) Assessment Notes Treatment Notes Treatment Clinical Notes Section Notes 11/13/2024 Multiple joint pain (ICD-10 - M25.50) 69 year old fe male with joint pain. She developed petechial rash on the legs last year. Biospy showed leukocytoclastic vasculitis. She has had no recurrent rash since 05/2024. Serologies will be ordered. Follow up visit will be scheduled. 11/13/2024 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) 69 year old fema le with joint pain. She developed petechial rash on the legs last year. Biospy showed leukocytoclastic vasculitis. She has had no recurrent rash since 05/2024. Serologies will be ordered. Follow up visit will be scheduled. Plan Of Treatment Next Appt Details Follow Up: 2 Weeks, Reason: Provider Name:Bonny Enriquez, 01/28 01:15:00 PM, [address], [place], [address], Progress Notes * Elli GAITANDOB:[birth year] (69 yo F)Acc No.[id number]:11/13/2024 Progress Notes Patient: Elli JONES Provider: Grisel ENRIQUEZ MD :1955 A ge:69 Y S ex:Female Date:11/13/2024 Address:[address] [place] [address] , [facility] Pcp:Reji Mueller MD Subjective: * Chief Complaints: * J oint pain, history of vasculitisreferred by Dr. Reji Mueller [address] [facility], [address], [place] [address], tel [phone], fax [phone] * HPI: n ew patient: She developed petechial rash on the legs in 02/2024. Biopsy showed leukocytoclastic vasculitis. She saw Dr. Godinez. Rashes went away in 05/2024. She has had no recurrence since then. Hips, knees and ankles have been hurting on and off for 3 years. 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 Knee injections did help some. She has noticed swelling in the knees. The pain is worse in the afternoon. Am stiffness: 30 minutes. Celebrex helps a little. Son: leukocytoclastic vasculitis. * ROS: G eneral / Constitutional: Patient denies f ever. P atient complains of f atigue. O phthalmologic: Patient complains of d ry eye(s). E NT: Patient denies o ral ulcers. P atient complains of d ry mouth. E ndocrine: Patient denies h eat intolerance. R espiratory: Patient denies c ough, shortness of breath. ? C ardiovascular: Patient denies c hest pain. G astrointestinal: Patient denies a bdominal pain, blood in stool, diarrhea.? H ematology: Patient denies e asy bleeding, easy bruising. ? M usculoskeletal: Patient complains of s ee HPI. S kin: Patient denies r courtney, photosensitivity, Raynaud's. P atient complains of h air loss. N eurologic: Patient denies t ingling / numbness. P atient complains of o ccasional headaches. P sychiatric: Patient complains of d epressed mood. * Medical History: * Surgical History: k [...] at bedtime Orally Once a day Multivitamin Larimore 3 1000 MG Capsule 1 capsule Orally Three times a day Calcium 500 MG Tablet 1 tablet with meals Orally Twice a day Melatonin 3 MG Tablet 1 tablet at bedtime as needed Orally Once a day CoQ-10 200 MG Capsule as directed Orally Magnesium 200 MG Tablet 2 tablets with a meal Orally Once a day Medication List reviewed and reconciled with the patientTaking Astepro 205.5 MCG/SPRAY Solution 2 sprays (1 [...] Orally Once a day Taking Multivitamin Taking Larimore 3 1000 MG Capsule 1 capsule Orally Three times a day Taking Calcium 500 MG Tablet 1 tablet with meals Orally Twice a day Taking Melatonin 3 MG Tablet 1 tablet at bedtime as needed Orally Once a day Taking CoQ-10 200 MG Capsule as directed Orally Taking Magnesium 200 MG Tablet 2 tablets with a meal Orally Once a day Medication List reviewed and reconciled with the patient * Allergies: L evaquin: jamesStatinNajma[Allergies Verified] Objective: * Vitals: B P:126/72mm Hg, HR:71/min, Temp:98.3F, Oxygen sat %:95%, Wt:257.4lbs, Wt- k.73kg, Ht:68.5in, Ht-cm:173.99cm, BMI:38.56Index, Body Surface Area:2.38. * Examination: G eneral Examination: General appearance: a lert, well-nourished and in no acute distress . Head: n ormocephalic, atraumatic . Eyes: n ormal. Ears: n ormal . Neck / thyroid: n jono is supple, with full range of motion.? Lymph nodes: n o cervical lymphadenopathy. Skin: s kin is warm and dry, with no rashes . Heart: r egular rate and rhythm. Lungs: c lear to auscultation bilaterally. Abdomen: s oft, nontender. P sychiatry: Affect / mood: a ppropriate. R heumatology: J OINT EXAM: knees tender laterally, R knee mildly swollen. N eurology: n onfocal. Assessment: * Assessment: 1. M ultiple joint pain - M25.50 (Primary) 2 . L eukocytoclastic vasculitis - M31.0 69 year old female with join t pain. She developed petechial rash on the legs last year. Biospy showed leukocytoclastic vasculitis. She has had no recurrent rash since 05/2024. Serologies will be ordered. Follow up visit will be scheduled. Plan: * Treatment: Value Reference Range A NA Ql Negative - * This lab was reviewed by Earlene Enriquez on 11/14/2024 at 12:01 PM LOCKSTITCH WAISTLINE JOINER ?LAB: ANCA reflex MPO and PR3 Abs* Value Reference Range A NCA Ql Negative - * This lab was reviewed by Earlene Enriquez on 11/15/2024 at 12:47 PM LOCKSTITCH WAISTLINE JOINER ?LAB: Anti-CCP (Cyclic Citrullinated Peptide Ab)* Value Reference Range C CP Ab <0.5 <=2.9 - units/mL * This lab was reviewed by Earlene Enriquez on 11/14/2024 at 12:01 PM LOCKSTITCH WAISTLINE JOINER ?LAB: C Reactive Protein* Value Reference Range C RP 4.1 <=10.0 - mg/L * This lab was reviewed by Earlene Enriquez on 11/14/2024 at 08:26 AM LOCKSTITCH WAISTLINE JOINER ?LAB: CBC w auto diff* Value Reference Range W BC 6.6 3.8-9.9 - K/cumm * R BC 4.49 3.90-5.20 - M/cumm * H gb 14.0 11.9-15.5 - g/dL * H ct 42.8 35.6-45.5 - % * M CV 95.3 81.3-96.4 - fL * M CH 31.2 27.1-33.3 - pg * M CHC 32.7 32.3-35.7 - g/dL * P lt 259 150-400 - K/cumm * M PV 9.6 9.1-12.3 - fL * R DW CV 12.2 11.1-14.9 - % * R DW SD 42.5 35.7-48.1 - fL * N RBC Abs Auto 0.00 0.00-0.01 - K/cumm * This lab was reviewed by Earlene Enriquez on 11/13/2024 at 18:14 PM LOCKSTITCH WAISTLINE JOINER ?LAB: Complement C3* Value Reference Range C omp C3 178 90-180 - mg/dL * This lab was reviewed by Earlene Enriquez on 11/14/2024 at 08:26 AM LOCKSTITCH WAISTLINE JOINER ?LAB: Complement C4* Value Reference Range C omp C4 22 10-40 - mg/dL * This lab was reviewed by Earlene Enriquez on 11/14/2024 at 08:26 AM LOCKSTITCH WAISTLINE JOINER ?LAB: Comprehensive metabolic panel (CMP)* Value Reference Range B UN 15 6-25 - mg/dL * A LT 22 7-45 - Units/L * A lbumin 4.1 3.5-5.0 - g/dL * A lk Phos 72 40-130 - Units/L * A ST 20 10-45 - Units/L * B janell Totl 0.5 0.1-1.2 - mg/dL * C alcium 9.3 8.5-10.3 - mg/dL * C hloride 99 97-110 - mmol/L * G lucose 94 70-199 - mg/dL * P otassium Plas 3.6 3.3-4.9 - mmol/L * C O2 Totl 29 22-32 - mmol/L * P rotein Plas 6.8 6.5-8.5 - g/dL * C reatinine 0.80 0.60-1.10 - mg/dL * S odium 139 135-145 - mmol/L * A nion Gap 11 2-15 - mmol/L * This lab was reviewed by Earlene Enriquez on 11/14/2024 at 08:26 AM LOCKSTITCH WAISTLINE JOINER ?LAB: Creatine Kinase* Value Reference Range C K Totl 44 30-200 - Units/L * This lab was reviewed by Earlene Enriquez on 11/14/2024 at 08:26 AM LOCKSTITCH WAISTLINE JOINER ?LAB: Cryoglobulin, S&P* Value Reference Range C ryoglobulin, Serum See Footnote Negative - * C ryofibrinogen, Plasma Negative Negative - * This lab was reviewed by Earlene Enriquez on 11/15/2024 at 12:47 PM LOCKSTITCH WAISTLINE JOINER ?LAB: G6PD Ql* Value Reference Range G 6PD Ql Normal Normal - * This lab was reviewed by Earlene Enriquez on 11/14/2024 at 08:26 AM LOCKSTITCH WAISTLINE JOINER ?LAB: Hep B surf AG* Value Reference Range H epB Surf Ag Nonreactive Nonreactiv - * This lab was reviewed by Earlene Enriquez on 11/13/2024 at 18:14 PM LOCKSTITCH WAISTLINE JOINER ?LAB: Hep C AB* Value Reference Range H epC Ab Nonreactive Nonreactiv - * This lab was reviewed by Earlene Enriquez on 11/13/2024 at 18:14 PM LOCKSTITCH WAISTLINE JOINER ?LAB: Rheumatoid Factor* Value Reference Range R F Qn 10 <=15 - IUnits/mL * This lab was reviewed by Earlene Enriquez on 11/14/2024 at 08:26 AM LOCKSTITCH WAISTLINE JOINER ?LAB: Sed Rate* Value Reference Range E SR 23 1-30 - mm/hr * This lab was reviewed by Earlene Enriquez on 11/13/2024 at 18:14 PM LOCKSTITCH WAISTLINE JOINER ?LAB: SSA Ab* Value Reference Range S S A Ab <0.2 <=0.9 - Ab Index * This lab was reviewed by Earlene Enriquez on 11/14/2024 at 21:42 PM LOCKSTITCH WAISTLINE JOINER ?LAB: SSB Ab* Value Reference Range S S B Ab <0.2 <=0.9 - Ab Index * This lab was reviewed by Earlene Enriquez on 11/14/2024 at 21:42 PM LOCKSTITCH WAISTLINE JOINER * Procedure Codes: * Follow Up: 2 Weeks * Billing Information: * Visit Code: 22105 Office Visit, New Pt., Level 4. * Procedure Codes: * STITCH WAISTLINE JOINER Sign off status: Completed true * Provider: Grisel ENRIQUEZ MD Date: 0 11/13/2024 Generated for Prabha mcclure/Mark/Esthelaitting on: 0 12/05/2024 01:51 PM CDT History and Physical Notes * HPI (History of Present Illness) Category Sub-Category Detail Notes Category Not es new patient She developed petechial rash on the legs in 02/2024. Biopsy showed leukocytoclastic vasculitis. She saw Dr. Godinez. Rashes went away in 05/2024. She has had no recurrence since then. Hips, knees and ankles have been hurting on and off for 3 years. 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 Knee injections did help some. She has noticed swelling in the knees. The pain is worse in the afternoon. Am stiffness: 30 minutes. Celebrex helps a little. Son: leukocytoclastic vasculitis Examination Category Sub-Category Detail Notes Category Not es Rheumatology JOINT EXAM: knees tender laterally, R knee mildly swollen Neurology nonfocal Psychiatry Affect / mood: appropriate General Examination General appearance: alert, w ell-nourished and in no acute distress Head: normocephalic, atrau matic Eyes: normal Ears: normal Neck / thyroid: neck is supple, with full range of motion Heart: regular rate and rhy thm Lungs: clear to auscultatio n bilaterally Abdomen: soft, nontender Skin: skin is warm and dry , with no rashes Lymph nodes: no cervical lymphade nopathy
--- OUTSIDE RECORDS SUMMARY | 2024-12-05 13:51 | XMS_ITS | Patient Health Record ---
Author Organization [facility] marcus Address [address] [facility] [place] [address] Care Team Providers Care Placement Secretary Name Role Phone Ervin JUNG, Reji Primary Care Provider Unavailable Rony Bonny Unavailable [phone] Allergies Allergen (clinical drug ingredient) Drug/Non Drug Allergy documented on EMR Reaction Allergy Type Onset Date Status Azithromycin Unknown Drug Allergy Acti ve Levaquin rash Drug Allergy Active Substance with 1-mmxffvg-4-methylglut aryl-coenzyme A reductase inhibitor mechanism of action (substance) Statins Unknown Drug Allergy Active Results Component Value Reference Range Notes eGFR Reviewed date:11/14/2024 08:26:18 AM Interpretation: Performing Lab:[facility] , [address] [facility] [facility]. [facility] [address] Notes/Report: eGFR 80 >=60 mL/min/1.73 m2 Interpretive Data Reference Interval Normal >/= 90 [...] Current interpretive data was last reviewed 2021. Differential Automated Reviewed date:11/13/2024 06:14:51 PM Interpretation: [facility] , [address] [facility] [place] [address] Notes/Report: Neut Abs 4.2 1.5-6.5 K/cumm ImmGran Abs 0.0 0.0-0.1 K/cumm Lymphocyte Abs 1.4 0.8-3.3 K/cumm Republic Abs 0.7 0.2-0.8 K/cumm Eos Abs 0.2 0.0-0.5 K/cumm Baso Abs 0.1 0.0-0.1 K/cumm Neut Pct 64.5 Interpretive Data Percent cell count reference ranges are not reported, since discordance with absolute values may lead to misinterpretation of CBC data. Current Interpretive Data was last revised on 2017. ImmGran Pct 0.3 Interpretive Data Percent cell count reference ranges are not reported, since discordance with absolute values may lead to misinterpretation of CBC data. Current Interpretive Data was last revised on 2017. Lymph Pct 21.7 Interpretive Data Percent cell count reference ranges are not reported, since discordance with absolute values may lead to misinterpretation of CBC data. Current Interpretive Data was last revised on 2017. Republic Pct 10.1 Interpretive Data Percent cell count reference ranges are not reported, since discordance with absolute values may lead to misinterpretation of CBC data. Current Interpretive Data was last revised on 2017. Eos Pct 2.6 Interpretive Data Percent cell count reference ranges are not reported, since discordance with absolute values may lead to misinterpretation of CBC data. Current Interpretive Data was last revised on 2017. Baso Pct 0.8 Interpretive Data Percent cell count reference ranges are not reported, since discordance with absolute values may lead to misinterpretation of CBC data. Current Interpretive Data was last revised on 2017. SSB Ab Reviewed date:11/14/2024 09:42:56 PM Interpretation: Performing Lab:[facility] , [address] [facility] [place] [address] Notes/Report: SS B Antibody <0.2 <=0.9 Ab Index Interpretive Data Negative: < 1.0 Ab Index Positive: > or = 1.0 Ab Index Current interpretive data was last revised on 2016. SSA Ab Reviewed date:11/14/2024 09:42:56 PM Interpretation: Performing Lab:[facility] , [address] [facility] [facility] [address] Notes/Report: SS A Antibody <0.2 <=0.9 Ab Index Interpretive Data Negative: < 1.0 Ab Index Positive: > or = 1.0 Ab Index Current interpretive data was last revised on 2016. Sed Rate Reviewed date:11/13/2024 06:14:51 PM Interpretation: Performing Lab:[facility] , [facility] [facility] [address] Notes/Report: ESR 23 1-30 mm/hr Rheumatoid Factor Reviewed date:11/14/2024 08:26:18 AM Interpretation: Performing Lab:[facility] , [facility] [address] Notes/Report: RF, Calderon 10 <=15 IUnits/mL Hep C AB Reviewed date:11/13/2024 06:14:51 PM Interpretation: Performing Lab:[facility] , [facility] [address] Notes/Report: Hepatitis C Antibody Nonreactive Nonreactiv Interpretive [...] Interpretive data was last revised on 2019. Hep B surf AG Reviewed date:11/13/2024 06:14:51 PM Interpretation: Performing Lab:[facility] , [facility] [address] Notes/Report: Hepatitis B Surface Antigen Nonreactive Nonreactiv G6PD Ql Reviewed date:11/14/2024 08:26:18 AM Interpretation: Performing Lab:[facility] , [address] [facility] [facility] [address] Notes/Report: G6PD, Qual Normal Normal Interp data: G6PD activity should be interpreted in the context of a patient's hematocrit. Hematocrit < 20% may lead to a falsely deficient result, while hematocrit > 50% may lead to a falsely normal result. Current interpretive data was last revised on 2019. Testing performed by: [facility], [address] [place]., [address] Cryoglobulin, S&P Reviewed date:11/15/2024 12:47:39 PM Interpretation: Performing Lab:[facility] , [facility] [facility] [place] [address] Notes/Report: Cryo S See Footnote Negative Negative. This test is negative at 24 hours. All samples are held and reviewed again at 7 days. If delayed precipitation occurs after 7 days, Immunofixation will be performed and an additional report will follow. Cryofib P Negative Negative Test Performed by: [facility] [address] [place] [address] Photography Professor: Anjali Hernadez Ph.D.; CLIA# [id number] Creatine Kinase Reviewed date:11/14/2024 08:26:18 AM Interpretation: Performing Lab:[facility] , [address] [facility]. [place] [address] Notes/Report: Total CK 44 30-200 Units/L Comprehensive metabolic pane l (CMP) Reviewed date:11/14/2024 08:26:18 AM Interpretation: Performing Lab:[facility] , [address] [facility]. [place] [address] Notes/Report: Sodium 139 135-145 mmol/L Plasma Potassium [...] 22 7-45 Units/L AST 20 10-45 Units/L Complement C4 Reviewed date:11/14/2024 08:26:18 AM Interpretation: Performing Lab:[facility] , [address] [place] [address]. [facility] [address] Notes/Report: Complement, C4 22 10-40 mg/dL Complement C3 Reviewed date:11/14/2024 08:26:18 AM Interpretation: Performing Lab:[facility] , [address] [place] [address]. [place] [address] Notes/Report: Complement, C3 178 90-180 mg/dL CBC w auto diff Reviewed date:11/13/2024 06:14:51 PM Interpretation: Performing Lab:[facility] , [address] [place] [address]. [facility] [address] Notes/Report: WBC 6.6 3.8-9.9 K/cumm Hgb 14.0 11.9-15.5 g/dL Hct 42.8 35.6-45.5 % Platelet Ct 259 150-400 K/cumm MPV 9.6 9.1-12.3 fL RBC 4.49 3.90-5.20 M/cumm MCV 95.3 81.3-96.4 fL MCH 31.2 27.1-33.3 pg MCHC 32.7 32.3-35.7 g/dL RDW CV 12.2 11.1-14.9 % RDW SD 42.5 35.7-48.1 fL NRBC Abs Auto 0.00 0.00-0.01 K/cumm C Reactive Protein Reviewed date:11/14/2024 08:26:18 AM Interpretation: Performing Lab:[facility] , [address] [place] [address]. [facility] [address] Notes/Report: C-Reactive Protein 4.1 <=10.0 mg/L Anti-CCP (Cyclic Citrullinat ed Peptide Ab) Reviewed date:11/14/2024 12:01:33 PM Interpretation: Performing Lab:[facility] , [facility] [address] Notes/Report: CCP Ab <0.5 <=2.9 units/mL Interpretive data Negative: <3 units/mL Positive: > or equal to 3 units/mL Current interpretive data was last revised on 2016. ANCA reflex MPO and PR3 Abs Reviewed date:11/15/2024 12:47:39 PM Interpretation: Performing Lab:[facility] , [address] [place] [address]. [facility] [address] Notes/Report: Neutrophil Cytoplas Ab, Qual Negative Testing performed by: [facility], [address] [place] [address], [id number] SHRUTI reflex titer pattern ROSITA + dsDNA Reviewed date:11/14/2024 12:01:33 PM Interpretation: Performing Lab:[facility] , [address] [place] [address]. [facility] [address] Notes/Report: SHRUTI, Qual Negative Interpretive Data Normal [...] last revised on 2020. Testing performed by: [facility], [address] [place] [address]., [id number] Reason For Referral No Information Medications Medication SIG (Take, Route, Frequency, Duration) Notes Start Date End Date Status hydroCHLOROthiazide 25 MG 1 tablet in th e morning Orally Once a day for 30 day(s) Active Advair Diskus 250-50 MCG/ACT 1 puff Inha lation Twice a day Active Levothyroxine Sodium 75 MCG 1 tablet [...] ce a day for 30 day(s) Active Metoprolol [...] Once a day for 30 day(s) Active Hydroxychloroquine Sulfate 2 00 MG 1 Orally daily with food for 30 days 11/27/2024 02/25/2025 Active Astepro 205.5 MCG/SPRAY 2 sprays (1 spra y in each nostril) Nasally Twice a day for 30 day(s) Active Melatonin [...] 30 days As needed 11/27/2024 01/26/2025 Active QUEtiapine Fumarate 25 MG 1 tablet at be dtime Orally Once a day for 30 day(s) Active Ezetimibe 10 MG 1 tablet Orally Once a day for 30 day(s) Active Walnut 3 1000 MG 1 capsule Orally Three times a day for 30 day(s) Active Multivitamin Active Social History Tobacco Use: Social History Observation Description Date Details (start date - stop date) Never Smoker NA - NA Household Question Answer Notes Marital status: Tobacco Control (Standard) Question Answer Notes Tobacco use: Nonsmoker Problems Problem Type SNOMED Code ICD Code Onset Dates Problem Status W/U Status Risk Notes Problem [id number] 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, 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) Active confirmed Problem [id number] 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 Vital Signs Heart Rate 71 /min 11/13/2024 Temperature 98.3 degrees Fahrenheit 11/13/2024 Blood pressure diastolic 72 mm Hg 11/13/2024 Oximetry 95 % 11/13/2024 Height-cm 173.99 cm 11/13/2024 Weight-kg 116.73 kg 11/13/2024 Height 68.5 in 11/13/2024 Blood pressure systolic 126 mm Hg 11/13/2024 Weight 257.4 lbs 11/13/2024 BMI 38.56 kg/m2 11/13/2024 Encounters Encounter Location Date Provider Diagnosis [facility] [address] [facility] [address] [place] [address] 11/13/2024 Bonny Uribe Multiple joint pain M25.50 and 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 [facility] [address] [facility] [address] [place] [address] 11/27/2024 Bonny Uribe Multiple joint pain M25.50 ; Rheumatoid arthritis without rheumatoid factor, multiple sites M06.09 and 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 [facility] [address] [facility] [address] [place] [address] 08/21/2024 Bonny Uribe Assessments Encounter Date Diagnosis (ICD Code) Assessment [...] ordered. Follow up visit will be scheduled. 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, start plaquenil, continue prednisone 5mg/day prn, return in 2 months Plan Of Treatment Next Appt Details Provider Name:Bonny Uribe, 01/28 01:15:00 PM, [address] , [address], [address], Insurance Providers Payer Name Payer Address Payer Phone Subscriber Number Group Number Insured Name Patient Relationship to Insured Coverage Start Date Coverage End Date Medicare [address] [address] [place] [address] [id number] Elli Garcia Self - patient is the insured [employer] [address] [place], [place] [id number] [phone] [id number] Elli Garcia Self - patient is the insured Medical (General) History Medical History History ICD Code coronary artery disease, 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
== END 2024-12-05 12:22 | disposition home or self-care (01) ==
PROVIDERS: PCP Family Medicine; Visit Provider Physician Assistant
DX: M31.0 Hypersensitivity angiitis (principal); J45.20 Mild intermittent asthma, uncomplicated; R06.09 Other forms of dyspnea; Z83.2 Family history of diseases of the blood and blood-forming organs and certain disorders involving the immune mechanism
CPT/HCPCS: 71250

== ENCOUNTER 2025-01-24 11:54 | Outpatient (CLI) | payer MEDICARE, OTHER, SELFPAY ==
--- OUTSIDE RECORDS SUMMARY | 2025-01-24 11:59 | XMS_ITS | Continuity of Care Document ---
Author Name [facility] Organization [facility] Care Team Providers Care Calender Tender Name Role Phone [facility] Unavailable Unavailable Problems Combined list of problems from Department of Defense and Veterans Affairs facilities. It does not include entries that were removed or entered in error. Problem Status Onset Date Problem Type Date of Resolution Comments Source LONG QT SYNDROME Active Condition DoD VARICOSE VEINS Active Condition DoD Edema Active Condition DoD ACUTE LYMPHADENITIS CERVICAL RIGHT Inactive Condition DoD Body Mass Index Inactive Condition DoD CONDITIONS INFLUENCING HEALTH STATUS Active Condition DoD Vaginal Pap Smear Inactive Condition DoD ROUTINE PELVIC EXAM Inactive Condition D oD Blood Pressure Isolated Elevated Active Condition DoD urinary frequency Active Condition DoD VAGINITIS POSTMENOPAUSAL ATROPHIC Active Condition DoD vaginal discharge Active Condition DoD CHEST PAIN Active Condition DoD Outpatient Physician Consultation Active Condition DoD Suicidal Ideation Active Condition DoD CHRONIC MAJOR DEPRESSION Active Condition DoD HYPOTHYROIDISM Active Condition DoD visit for: screening exam thyroid disorders Inactive Condition DoD Aftercare Active Condition DoD CELLULITIS Inactive Condition DoD Preventive Medicine Estab Patient Checkup Adult 40-64 Inactive Condition DoD LUMBAGO Active Condition DoD joint pain, localized in the right shoulder Active Condition DoD neck pain Active Condition DoD midback pain Active Condition DoD DEPRESSION Active Condition DoD headache Inactive Condition DoD ACUTE BRONCHITIS Inactive Condition DoD NORMAL PRE-EMPLOYMENT SCREENING EXAMINATION Active Condition DoD ACUTE MENISCAL TEAR MEDIAL Active Condition DoD visit for: screening exam Active Condition DoD diffuse joint pains (arthralgias) Inactive Condition DoD ASTIGMATISM Active Condition DoD POSTSURGICAL STATE 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 DoD EPIDERMAL INCLUSION CYST Active Condition DoD lump in / on the skin Inactive Condition DoD UNSPECIFIED MUSCLE STRAIN Inactive Condition DoD pain during urination (dysuria) Inactive Condition DoD ESSENTIAL HYPERTENSION Active Condition DoD BRONCHITIS Inactive Condition DoD OBESITY MORBID Active Condition DoD Patient Education - Dietary Inactive Condition DoD Other Physical Therapy Active Condition DoD pain in the leg (below the knee) Active Condition DoD TENDONITIS ACHILLES Inactive Condition D oD OBESITY Active Condition DoD HYPERLIPIDEMIA Active Condition DoD FATIGUE Active Condition Reassuranc e, probably viral, if symptoms persist over 10-14 days return or sooner any problems DoD SINUSITIS Active Condition DoD NORMAL ROUTINE HISTORY AND PHYSICAL ADULT (18-65) Inactive Condition clearance for eye surgery - pt cleared DoD chest pain or discomfort Active Condition DoD Pelvic Exam (Internal) Active Condition DoD visit for: laboratory Inactive Condition Discussed wnl lab results, discussed f/u annually, prn. Pt understands. 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 DoD REFRACTIVE ERROR - HYPERMETROPIA Active Condition DoD PRESBYOPIA Active Condition DoD ASTIGMATISM - REGULAR Active Condition DoD BLEPHAROCHALASIS Active Condition DoD Corneal Degeneration Arcus Senilis Active Condition DoD joint pain, localized in the knee Active Condition DoD PLANTAR FASCIITIS Active Condition DoD WARTS Active Condition DoD visit for: administrative purpose Inactive Condition DoD OSTEOPENIA Active Condition DoD UPPER RESPIRATORY INFECTION Inactive Condition rx given albuterol MDI 2 puffs q 4 - 6 hrs prn no refills DoD visit for: issue repeat prescription for medication Inactive Condition DoD visit for: issue repeat prescription Inactive Condition DoD Laboratory Studies Active Condition P RIMARY CARE B/BACILIO ALFONSO [id number]@1300 EST/20 PENDINGArrive 15 min early DoD Patient Education - Medication Inactive Condition DoD X-Ray Inactive Condition CT bone density DoD NONSPECIFIC ABNORMAL FINDINGS Inactive Condition DoD visit for: screening exam osteoporosis Inactive Condition DoD visit for: screening exam malignant neoplasm breast Inactive Condition DoD BACTERIAL VAGINOSIS Active Condition Do D Medications Combined list of outpatient medications from Department of Defense and Veterans Affairs facilities.Medications provided include 1) outpatient medications from the last 15 months, and 2) patient-reported medications. Medication Details Route Status Patient Instructions Prescription Expires Prescription Number Last Dispense Date Ordering Provider Order Date Order Qty Source albuterol 90 mcg inhaler [8.5g] See Instruct ions, 0, # 8.5 g, 3 total refill(s ), Hard Stop Ordered 09/10/2025 4 2023 8.5 Ambulat ory Pharmac y albuterol 90 mcg inhaler [8.5g] See Instruct ions, # 8 g, 3 total refill(s ), Hard Stop Complet ed 05/30/2024 3 2023 8.5 Ambulat ory Pharmac y azelastine 137 mcg/inh nasal spray [30mL] See Instruct ions, 0, # 30 mL, 3 total refill(s ), Hard Stop Ordered 11/09/2025 5 2024 30.0 Ambulat ory Pharmac y buPROPion 300 mg/24 hours (XL) oral tablet, extended release TAKE 1 TABLET ONCE A DAY, # 90 EA, 1 total refill(s ), Acute Complet ed 08/31/2023 3 2022 90.0 Ambulat ory Pharmac y buPROPion XL 300 mg/24 hour tablet 300 mg, Oral, # 90 EA, 0 total refill(s ), Hard Stop Oral (given by mouth) Discont inued 04/16/2024 4 2023 90.0 Ambulat ory Pharmac y buPROPion XL 300 mg/24 hour tablet 300 mg, Oral, Daily, # 90 EA, 1 total refill(s ), Hard Stop Oral (given by mouth) Discont inued 10/18/2024 4 2024 90.0 Ambulat ory Pharmac y buPROPion XL 300 mg/24 hour tablet 300 mg, Oral, Daily, # 90 EA, 2 total refill(s ), Hard Stop Oral (given by mouth) Complet ed 02/25/2024 4 2023 90.0 Ambulat ory Pharmac y buPROPion XL 300 mg/24 hour tablet 300 mg, Oral, # 90 EA, 2 total refill(s ), Hard Stop Oral (given by mouth) Ordered 08/15/2025 5 2024 90.0 Ambulat ory Pharmac y CELECOXIB (U/D) 200 MG ORAL CAP Take with plenty of water.Ta ke with food/mil k.Obtain advice for OTCs.Do not take if . 11/15/2024 [id number] 4 2023 90 [employer] Rich [place] ([facility]) celecoxib 200 mg capsule See Instruct ions, # 90 EA, 1 total refill(s ), Hard Stop Ordered 05/14/2025 4 2023 90.0 Ambulat ory Pharmac y celecoxib 200 mg capsule 200 mg, Oral, every morning, # 90 EA, 1 total refill(s ), Hard Stop Oral (given by mouth) Discont inued 05/15/2024 4 2023 90.0 Ambulat ory Pharmac y celecoxib 200 mg capsule 200 mg, Oral, 0, # 90 EA, 1 total refill(s ), Hard Stop Oral (given by mouth) Ordered 11/06/2025 5 2024 90.0 Ambulat ory Pharmac y cetirizine 10 mg tablet 10 mg, Oral, 0, # 90 EA, 3 total refill(s ), Hard Stop Oral (given by mouth) Complet ed 07/10/2024 4 2023 90.0 Ambulat ory Pharmac y cetirizine 10 mg tablet See Instruct ions, Oral, # 90 EA, 3 total refill(s ), Hard Stop Oral (given by mouth) Ordered 07/20/2025 5 2024 90.0 Ambulat ory Pharmac y cetirizine 10 mg tablet See Instruct ions, # 90 EA, 1 total refill(s ), Acute Complet ed 12/15/2023 3 2023 90.0 Ambulat ory Pharmac y CHOLECALCIF (VIT D3) 5,000 UNIT ORAL CAP Active 02/05/2025 [id number] 4 2023 90 [facility] Rich [place] ([facility] cholecalcif faraz 125 mcg (5,000 units) capsule 125 mcg, Oral, Daily, # 90 EA, 2 total refill(s ), Hard Stop Oral (given by mouth) Ordered 02/05/2025 4 2023 90.0 Ambulat ory Pharmac y cholecalcif faraz 125 mcg (5,000 units) capsule See Instruct ions, # 90 EA, 2 total refill(s ), Hard Stop Complet ed 05/09/2024 4 2023 90.0 Ambulat ory Pharmac y cholecalcif faraz 125 mcg (5,000 units) capsule 125 mcg, Oral, Daily, # 90 EA, 2 total refill(s ), Hard Stop Oral (given by mouth) Ordered 11/09/2025 5 2024 90.0 Ambulat ory Pharmac y cholecalcif faraz 125 mcg (5,000 units) capsule See dose instruct ions in comments , # 30 EA, 2 total refill(s ), Acute Complet ed 01/02/2024 3 2023 30.0 Ambulat ory Pharmac y clonazePAM 0.5 mg tablet 0.5 mg, Oral, every day at bedtime, # 90 EA, 1 total refill(s ), Hard Stop Oral (given by mouth) Complet ed 08/24/2023 3 2022 90.0 Ambulat ory Pharmac y clopidogrel 75 mg oral tablet TAKE ONE TABLET DAILY, # 90 EA, 1 total refill(s ), Acute Complet ed 05/02/2023 3 2022 90.0 Ambulat ory Pharmac y conjugated estrogens 0.625 mg/g vaginal cream with applicator INSERT 1 GRAM VAGINALL Y TWICE A WEEK DIRECTED , # 30 g, 1 total refill(s ), Acute Complet ed 05/02/2023 2 2022 30.0 Ambulat ory Pharmac y ezetimibe (U/D) 10 MG ORAL TAB Take or use exactly as directed .Obtain advice for OTCs.Alea ck with your doctor before becoming . 01/17/2025 [id number] 4 2023 90 [employer] [facility] [place] ([facility]) ezetimibe 10 mg tablet 10 mg, Oral, Daily, # 90 EA, 1 total refill(s ), Hard Stop Oral (given by mouth) Discont inued 03/05/2024 4 2023 90.0 Ambulat ory Pharmac y ezetimibe 10 mg tablet 10 mg, Oral, Daily, # 90 EA, 3 total refill(s ), Hard Stop Oral (given by mouth) Complet ed 01/17/2025 5 2024 90.0 Ambulat ory Pharmac y ezetimibe 10 mg tablet See Instruct ions, # 90 EA, 1 total refill(s ), Acute Complet ed 01/17/2024 3 2023 90.0 Ambulat ory Pharmac y ferrous sulf (U/D) 65MG (325MG) ORAL TAB May discolor urine/fe krystian.Chec k with your doctor before becoming .Do not chew or crush. Active 02/05/2025 [id number] 4 2023 90 [employer] [facility] [place] ([facility]) ferrous sulfate 325 mg tablet 325 mg, Oral, Daily, # 90 EA, 3 total refill(s ), Hard Stop Oral (given by mouth) Ordered 02/05/2025 5 2024 90.0 Ambulat ory Pharmac y ferrous sulfate 325 mg tablet See Instruct ions, # 90 EA, 3 total refill(s ), Acute Complet ed 01/25/2024 4 2023 90.0 Ambulat ory Pharmac y fluticasone 50 mcg/inh nasal spray USE ONE SPRAY IN EACH NOSTRIL TWICE A DAY DIRECTED , # 16 g, 4 total refill(s ), Acute Complet ed 10/28/2023 3 2023 16.0 Ambulat ory Pharmac y fluticasone 50 mcg/inh nasal spray [16g] 50 mcg, Nostril- Both, every morning, # 16 g, 3 total refill(s ), Hard Stop Nostri l-Both (into the nose) Complet ed 09/06/2024 4 2023 16.0 Ambulat ory Pharmac y fluticasone 50 mcg/inh nasal spray [16g] See Instruct ions, # 16 g, 3 total refill(s ), Hard Stop Ordered 07/11/2025 5 2024 16.0 Ambulat ory Pharmac y FLUTICASONE -SALMETEROL (fluticason e propionate/ salmeterol xinafoate), 500-50 MCG, BLST W/DEV, INHALATION, PRASCO [facility]S, 60 ea. BLIST PACK Cancele d [id number] : 2023 0 Pharmac y [employer] y FLUTICASONE -SALMETEROL (fluticason e propionate/ salmeterol xinafoate), 500-50 MCG, BLST W/DEV, INHALATION, PRASCO [facility]S, 60 ea. BLIST PACK Active [id number] 4 2023 60 Pharmac y [employer] y fluticasone -salmeterol 250-50 mcg inhaler (60EA) See Instruct ions, # 60 EA, 3 total refill(s ), Hard Stop Ordered 07/11/2025 5 2024 60.0 Ambulat ory Pharmac y fluticasone -salmeterol 250-50 mcg inhaler (60EA) See Instruct ions, # 60 EA, 3 total refill(s ), Hard Stop Discont inued 07/31/2024 4 2023 60.0 Ambulat ory Pharmac y gabapentin 300 mg capsule See dose instruct ions in comments , # 90 EA, 0 total refill(s ), Acute Complet ed 01/17/2024 3 2023 90.0 Ambulat ory Pharmac y hydroCHLORO thiazide 25 mg tablet See Instruct ions, # 90 EA, 1 total refill(s ), Acute Complet ed 01/10/2024 3 2023 90.0 Ambulat ory Pharmac y hydroCHLORO thiazide 25 mg tablet 25 mg, Oral, every morning, # 90 EA, 3 total refill(s ), Hard Stop Oral (given by mouth) Complet ed 07/10/2024 4 2023 90.0 Ambulat ory Pharmac y hydroCHLORO thiazide 25 mg tablet See Instruct ions, # 90 EA, 1 total refill(s ), Hard Stop Ordered 07/06/2025 5 2024 90.0 Ambulat ory Pharmac y isosorbide mononitrate ER 30 mg/24 hour tablet 30 mg, Oral, Daily, # 90 EA, 3 total refill(s ), Soft Stop Oral (given by mouth) Ordered 5 2024 90.0 Ambulat ory Pharmac y levothyroxi ne (Synthroid) 75 mcg tablet 75 mcg, Oral, every morning, # 90 EA, 1 total refill(s ), Hard Stop Oral (given by mouth) Complet ed 01/15/2025 4 2024 90.0 Ambulat ory Pharmac y levothyroxi ne (Synthroid) 75 mcg tablet 75 mcg, Oral, every morning, # 90 EA, 1 total refill(s ), Hard Stop Oral (given by mouth) Discont inued 01/16/2024 4 2023 90.0 Ambulat ory Pharmac y levothyroxi ne (Synthroid) 75 mcg tablet See Instruct ions, # 90 EA, 1 total refill(s ), Hard Stop Ordered 07/06/2025 5 2024 90.0 Ambulat ory Pharmac y levothyroxi ne (Synthroid) 75 mcg tablet 75 mcg, Oral, every morning, # 30 EA, 3 total refill(s ), Hard Stop Oral (given by mouth) Discont inued 01/16/2024 3 2023 30.0 Ambulat ory Pharmac y Levothyroxi ne Sodium (Levothroid ) Tablet 75 mcg Oral Take on empty stomach. Take with plenty of water.Be careful if taking OTCs.Juni e or use exactly as directed . 01/15/2025 [id number] 4 2023 90 [employer] [facility] [place] ([facility] methylPREDN ISolone 4 mg tablet Dose Pack [21EA] See Instruct ions, # 21 EA, 0 total refill(s ), Hard Stop Complet ed 04/18/2024 4 2023 21.0 Ambulat ory Pharmac y methylPREDN ISolone 4 mg tablet Dose Pack [21EA] See Instruct ions, # 21 EA, 0 total refill(s ), Hard Stop Discont inued 04/16/2024 3 2023 21.0 Ambulat ory Pharmac y metoprolol succ (U/D) 25 MG ORAL TB24 Be careful if taking OTCs.Juni e with food/mil k.Take or use exactly as directed .May impair driving. Swallow whole.Ma y cause drowsine ss/dizzi ness. 11/30/2023 [id number] 3 2023 90 [employer] [facility] [place] ([facility]) metoprolol succinate ER 25 mg/24 hour tablet See Instruct ions, # 90 EA, 3 total refill(s ), Acute Complet ed 11/30/2023 4 2023 90.0 Ambulat ory Pharmac y metoprolol succinate ER 25 mg/24 hour tablet See Instruct ions, # 45 EA, 0 total refill(s ), Hard Stop Complet ed 12/10/2024 4 2024 45.0 Ambulat ory Pharmac y metoprolol succinate ER 25 mg/24 hour tablet See Instruct ions, # 45 EA, 0 total refill(s ), Hard Stop Complet ed 08/21/2024 4 2023 45.0 Ambulat ory Pharmac y metoprolol succinate ER 25 mg/24 hour tablet 25 mg, Oral, Daily, # 45 EA, 0 total refill(s ), Hard Stop Oral (given by mouth) Complet ed 12/01/2024 5 2024 45.0 Ambulat ory Pharmac y nystatin-tr iamcinolone 100,000 units/g-0.1 % topical cream APPLY TOPICALL Y TWICE A DAY DIRECTED , # 30 g, 1 total refill(s ), Acute Complet ed 04/06/2023 2 2022 30.0 Ambulat ory Pharmac y omeprazole DR 40 mg capsule 40 mg, Oral, Daily, # 90 EA, 2 total refill(s ), Hard Stop Oral (given by mouth) Ordered 07/20/2025 5 2024 90.0 Ambulat ory Pharmac y QUEtiapine 25 mg tablet 25 mg, Oral, every day at bedtime, # 90 EA, 1 total refill(s ), Hard Stop Oral (given by mouth) Ordered 05/07/2025 4 2023 90.0 Ambulat ory Pharmac y QUEtiapine 25 mg tablet 25 mg, Oral, # 90 EA, 2 total refill(s ), Hard Stop Oral (given by mouth) Discont inued 05/08/2024 4 2023 90.0 Ambulat ory Pharmac y QUEtiapine 25 mg tablet See Instruct ions, # 90 EA, 2 total refill(s ), Hard Stop Ordered 08/15/2025 5 2024 90.0 Ambulat ory Pharmac y QUEtiapine 50 mg tablet See Instruct ions, # 90 EA, 1 total refill(s ), Acute Complet ed 08/31/2023 3 2022 90.0 Ambulat ory Pharmac y QUEtiapine 50 mg tablet See Instruct ions, # 90 EA, 0 total refill(s ), Hard Stop Complet ed 07/26/2024 3 2023 90.0 Ambulat ory Pharmac y rosuvastati n 10 mg tablet 10 mg, Oral, every morning, # 90 EA, 3 total refill(s ), Hard Stop Oral (given by mouth) Discont inued 12/05/2024 4 2024 90.0 Ambulat ory Pharmac y rosuvastati n 10 mg tablet See dose instruct ions in comments , # 90 EA, 3 total refill(s ), Acute Complet ed 11/30/2023 4 2023 90.0 Ambulat ory Pharmac y rosuvastati n 20 mg tablet 20 mg, Oral, every morning, # 90 EA, 3 total refill(s ), Soft Stop Oral (given by mouth) Ordered 5 2024 90.0 Ambulat ory Pharmac y sertraline (U/D) 100 MG ORAL TAB May cause drowsine ss.Take or use exactly as directed .Obtain advice for OTCs. 12/27/2024 [id number] 4 2023 90 [facility] [place] ([facility] sertraline 100 mg oral tablet TAKE 1 TABLET ONCE A DAY, # 90 EA, 1 total refill(s ), Acute Complet ed 08/31/2023 3 2022 90.0 Ambulat ory Pharmac y sertraline 100 mg tablet See Instruct ions, # 90 EA, 2 total refill(s ), Hard Stop Complet ed 02/25/2024 4 2023 90.0 Ambulat ory Pharmac y sertraline 100 mg tablet 100 mg, Oral, Once, # 90 EA, 1 total refill(s ), Hard Stop Oral (given by mouth) Ordered 08/15/2025 5 2024 90.0 Ambulat ory Pharmac y sertraline 100 mg tablet 100 mg, Oral, # 90 EA, 0 total refill(s ), Hard Stop Oral (given by mouth) Discont inued 03/26/2024 4 2023 90.0 Ambulat ory Pharmac y sertraline 100 mg tablet 100 mg, Oral, # 90 EA, 1 total refill(s ), Hard Stop Oral (given by mouth) Discont inued 09/18/2024 4 2023 90.0 Ambulat ory Pharmac y traZODone 50 mg tablet 100 mg, Oral, # 180 EA, 2 total refill(s ), Hard Stop Oral (given by mouth) Complet ed 08/29/2024 4 2023 180.0 Ambulat ory Pharmac y traZODone 50 mg tablet See Instruct ions, Oral, # 90 EA, 2 total refill(s ), Soft Stop Oral (given by mouth) Ordered 5 2024 90.0 Ambulat ory Pharmac y WIXELA INHUB (fluticason e propionate/ salmeterol xinafoate), 500-50 MCG, BLST W/DEV, INHALATION, MYLAN, 60 ea. BLIST PACK Cancele d [id number] : 2023 0 Pharmac y [employer] y WIXELA INHUB (fluticason e propionate/ salmeterol xinafoate), 500-50 MCG, BLST W/DEV, INHALATION, MYLAN, 60 ea. BLIST PACK Cancele d [id number] : 2023 0 Pharmac y [employer] y WIXELA INHUB (fluticason e propionate/ salmeterol xinafoate), 500-50 MCG, BLST W/DEV, INHALATION, MYLAN, 60 ea. BLIST PACK Active [id number] 4 2023 60 Pharmac y [employer] y Wixela Inhub 100-50 mcg inhaler (60EA) See Instruct keyon, # 60 EA, 3 total refill(s ), Acute Complet ed 10/28/2023 3 2023 60.0 Ambulat ory Pharmac y WIXELA INHUB 250-50 MCG INH DSDV [60EA] Obtain advice for OTCs.For inhalati on.Check with your doctor before becoming .Rinse mouth after use. 01/16/2025 [id number] 4 [address] [place] [address] [facility] [place] [facility] [place] [facility] Wixela Inhub 250-50 mcg inhaler (60EA) See Jose ta, # 60 EA, 3 total refill(s ), Hard Stop Discont inued 10/31/2023 4 2023 60.0 Ambulat ory Pharmac y Allergies, Adverse Reactions, Alerts Combined list of allergies from Department of Defense and Veterans Affairs facilities. It does not include entries that were removed or entered in error. Substance Category Reaction Severity Reaction type Status Date Reported Comments Source atorvastatin Propensity to adverse reactions to drug Unknown Active Unknown Organizat ion LEVAQUIN Drug allergy (disorder) Unknown active [address] [place] [address] Rich [place] [facility] [place] levoFLOXacin Propensity to adverse reactions to drug Unknown Active NAUSEA Unknown Organizat ion LIPITOR Drug allergy (disorder) Unknown active [address] [place] [address] Rich [place] [facility] [place] simvastatin Propensity to adverse reactions to drug Unknown Active Unknown Organizat ion ZOCOR Drug allergy (disorder) Unknown active [address] [place] [address]) Immunizations Combined list of available immunizations from the Department of Defense and Veterans Affairs facilities. 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 Comments Source COVID-19, mRNA, LNP-S, PF, 30 mcg/0.3 mL dose, ania-sucrose 2021 THORNTON, Independent IP [place] (PFR) Not Given COVID-19, mRNA, LNP-S, PF, 30 mcg/0.3 mL dose, ania-sucr ose DoD COVID-19, mRNA, LNP-S, PF, 30 mcg/0.3 mL dose 2020 EMIGDIO, Independent IP [place] (PFR) Not Given COVID-19, mRNA, LNP-S, PF, 30 mcg/0.3 mL dose DoD pneumococcal polysaccharid e, 23 valent 2020 zzLef t Arm [id number] Merck & Company Inc complet ed pneumococ theresa polysacch aride, 23 valent 07/01/21 Given Ambulat ory Pharmac y influenza, injectable, quadrivalent- pf 2020 zzRig Arm [id number] GlaxoSmithKli ne complet ed influenza , injectabl e, quadrival ent-pf 07/01/21 Given Ambulat ory Pharmac y pneumococcal polysaccharid e vaccine, 23 valent 1 2020 Unknown, Provider [id number] Merck (MSD) complet ed pneumococ theresa polysacch aride vaccine, 23 valent DoD Influenza, injectable, quadrivalent, preservative free 1 2020 Unknown, Provider [id number] [facility] ([facility]) complet ed Influenza , injectabl e, quadrival ent, preservat sandrine free DoD zoster vaccine, inactivated 2020 zzLef t Arm [id number] GlaxoSmithKli ne complet ed zoster vaccine, inactivat ed 10/10/20 Given Ambulat ory Pharmac y zoster vaccine recombinant 1 2020 Unknown, Provider [id number] Smithine (SKB) complet ed zoster vaccine recombina nt DoD zoster vaccine, inactivated 2019 zzLef t Arm [id number] 187 GlaxoSmithKli ne complet ed zoster vaccine, inactivat ed 07/23/20 Given Ambulat ory Pharmac y zoster vaccine recombinant 1 2019 Unknown, Provider [id number] [address] [place] [address] (SKB) complet ed zoster vaccine recombina nt DoD influenza, injectable, quadrivalent, preservative free 2019 ALUL, () Not Given influenza , injectabl e, quadrival ent, preservat sandrine free DoD influenza, injectable, quadrivalent- pf 2017 150 sanofi pasteur complet ed influenza , injectabl e, quadrival ent-pf 07/10/18 Given Ambulat ory Pharmac y Influenza, inj, MDCK, quadrivalent- pf 2016 zzLef t Arm [id number] [employer] complet ed Influenza , inj, MDCK, quadrival ent-pf 08/01/17 Given Ambulat ory Pharmac y Influenza, injectable, Madin [place] Canine Kidney, preservative free, quadrivalent 1 2016 Unknown, Provider [id number] [employer] (SEQ) complet ed Influenza , injectabl e, Madin Anu Canine Kidney, preservat sandrine free, quadrival ent DoD influenza, injectable, quadrivalent 2015 zzLef t Arm [id number] [employer] complet ed influenza , injectabl e, quadrival ent 06/24/16 Given Ambulat ory Pharmac y zoster vaccine live 2015 zzLef t Arm [id number] Merck & Company Inc complet ed zoster vaccine live 06/24/16 Given Ambulat ory Pharmac y zoster vaccine, live 1 2015 Unknown, Provider [id number] Merck (MSD) complet ed zoster vaccine, live DoD influenza, injectable, quadrivalent, contains preservative 1 2015 Unknown, Provider [id number] (IDB) complet ed influenza , injectabl e, quadrival ent, contains preservat sandrine DoD influenza, injectable, quadrivalent- pf 2014 zzLef t Arm [id number] 150 GlaxoSmithKli ne complet ed influenza , injectabl e, quadrival ent-pf 07/10/15 Given Ambulat ory Pharmac y tetanus, diphtheria, acellular pertu is 2014 zzRig Arm [id number] sanofi pasteur complet ed tetanus, diphtheri a, acellular pertussis 07/10/15 Given Ambulat ory Pharmac y tetanus toxoid, reduced diphtheria toxoid, and acellular pertu is vaccine, adsorbed 1 2014 Unknown, Provider [id number] Sanofi Pasteur (PMC) complet ed tetanus toxoid, reduced diphtheri a toxoid, and acellular pertussis vaccine, adsorbed DoD Influenza, injectable, quadrivalent, preservative free 1 2014 Unknown, Provider [id number] Yoanna [facility] (SKB) complet ed Influenza , injectabl e, quadrival ent, preservat sandrine free DoD influenza, seasonal, injectable-pf 2013 zzRig Arm [id number] Novartis Pharmaceutica ls complet ed influenza , seasonal, injectabl e-pf 06/26/14 Given Ambulat ory Pharmac y Influenza, seasonal, injectable, preservative free 1 2013 Unknown, Provider [id number] Novartis [employer] l [place] (NOV) complet ed Influenza , seasonal, injectabl e, preservat sandrine free DoD influenza, seasonal, injectable-pf 2011 zzRig Arm [id number] sanofi pasteur complet ed influenza , seasonal, injectabl e-pf 07/07/12 Given Ambulat ory Pharmac y Influenza, seasonal, injectable, preservative free 1 2011 Unknown, Provider [id number] [employer] (PMC) complet ed Influenza , seasonal, injectabl e, preservat sandrine free DoD tuberculin purified protein derivative 1999 [id number] [facility] complet ed Patient Tolerance : Negative Ambulat ory Pharmac y tuberculin skin test; purified protein derivative solution, intradermal 1 1999 Unknown, Provider [id number] [facility] (CON) complet ed tuberculi n skin test; purified protein derivativ e solution, intraderm al DoD Encounters Combined list of: 1) Encounters from Department of Veterans Affairs facilities going backup to the last 18 months, not all VA inpatient encounters are included; 2) 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 Location Location Details Encounter Type Encounter Number Reason For Visit Attending Provider ADM Date DC Date Status Disposition Source [employer] [place] ([facility]) ER, DIRECT TO [facility] [id number] 06/18 DISCHARGED HOME [employer] [place] ([facility]) [employer] [place] ([facility]) DIRECT TO [facility] FROM OTHER THAN ER OR [facility] [id number] 07/23 DISCHARGED HOME [facility] [employer] ([facility]) [address] [place] [address] [employer] ([facility] OUTPATIENT [id number] annual pap DYLAN DANIELSON 10/26 Released w/o Limitations [address] [place] [address] [employer] ([facility])(F amily Practic e Non-GME FHI1) [address] [place] [address] [employer] ([facility]) TELE CONSULT [id number] [facility]4-[facility] jovanniJENNY Montemayor 11/[address] [place] [address] [employer] ([facility])(F amily Practic e Non-GME FHI1) [address] [place] [address] [employer] ([facility]) TELE CONSULT [id number] Lab f/u JENNY HDZ 11/[address] [place] [address] [employer] ([facility])(F amily Practic e Non-GME FHI1) [address] [place] [address] [employer] ([facility]) TELE CONSULT [id number] SIERRA TUCSONDEISI WHITESIDE 12/[address] [place] [address] [place] [facility]F amily Practic e Non-GME FHI1) [address] [place] [address] [employer] ([facility]) OUTPATIENT [id number] r/o TORI GAGNON 12/31 Released w/o Limitations [address] [place] [address] [employer] [place] [facility]F amily Practic e Non-GME FHI1) [address] [place] [address] [employer] [place] [facility] Non-[facility]ME FHI1) OUTPATIENT [id number] pain in feet MERCEDESDARRENCHASEJING Karie 06/07 Released w/o Limitations [address] [place] [address] [employer] ([facility])(F amily Practic e Non-GME FHI1) [address] [place] [address] [employer] ([facility])([facility] emily Practice Non-GME FHI1) OUTPATIENT [id number] right knee pain VICKI PFEIFFER 07/20 Released w/o Limitations [address] [place] [address] [employer] ([facility])(F amily Practic e Non-GME FHI1) [address] [place] [address] [employer] [place] [facility] Practice Non-GME FHI1) TELE CONSULT [id number] 0845-re fferal request -ORLANDO Sousa 08/[address] [place] [address] [place] [facility])(F amily Practic e Non-GME FHI1) [address] [place] [address] [place] [facility] Non-[facility] F[facility]1) OUTPATIENT [id number] aretha ARMASINVICKI 08/31 Released w/o Limitations [address] [place] [address] [employer] [place] [facility]F amily Practic e Non-GME FHI1) [address] [place] [address] [employer] [place] [facility] Non-[facility] FHI1) TELE CONSULT [id number] [facility]-GOPAL White am 09/[address] [place] [address] [employer] [place] [facility])(F amily Practic e Non-GME FHI1) [address] [place] [address] [place] [facility] Non-[facility] FHI2) TELE CONSULT [id number] Referra l - ORLANDO Fallon am 11/[address] [place] [address] [place] [facility])(F amily Practic e Non-GME FHI2) [address] [place] [address] [place] [facility] - Orthopedi cs) OUTPATIENT [id number] joint pain, localiz ed in the knee ZOE IZAGUIRRE 12/08 Released w/o Limitations [address] [place] [address] [employer] [place] [facility]V A - Orthope dics) [address] [place] [address] [employer] [place] [facility] - Orthopedi cs) OUTPATIENT [id number] fu knee mri ZOE IZAGUIRRE 12/28 Released w/o Limitations [address] [place] [address] [employer] [place] [facility]V A - Orthope dics) [address] [place] [address] [place] [facility])(Opt ometry) OUTPATIENT [id number] ROUTINE EYE EXAM. PHONE:[phone]*H ARON MCKEON 12/30 Released w/o Limitations [address] [place] [address] [employer] ([facility])(O ptometr y) [address] [place] [address] [employer] [facility] - Orthopedi cs) OUTPATIENT [id number] cortiso ne injecti on rt knee ZOE IZAGUIRRE Dawood Maguire 01/17 Released w/o Limitations [address] [place] [address] [facility])(V A - Orthope dics) [address] [place] [address] [facility])([facility] Practice Non-GME FHI1) OUTPATIENT [id number] Annual PAP JING HERNANDEZ P 01/26 Released w/o Limitations [address] [place] [address])(F amily Practic e Non-GME FHI1) [address] [place] [address])([facility]) OUTPATIENT [id number] f/u on uti/bi- manual. JING HERNANDEZ 02/14 Released w/o Limitations [address] [place] [address])(F amily Practic e Non-GME FHI1) [address] [place] [address])([facility] Practice Non-GME FHI1) TELE CONSULT [id number] [facility]O Fallon am 03/[address] [place] [address] Rich [facility])(F amily Practic e Non-GME FHI1) [address] [place] [address])([facility] Practice Non-GME FHI1) TELE CONSULT [id number] referra l extensi on- ORLANDO Fallon am 03/[address] [place] [address])(F amily Practic e Non-GME FHI1) [address] [place] [address])([facility] Non[facility] F[facility]1) OUTPATIENT [id number] re-eval uation lighthe adejudith-VICKI Lopez 04/14 Released w/o Limitations [address] [place] [address])(F amily Practic e Non-GME FHI1) [address] [place] [address])([facility] Non-[facility]ME FHI1) TELE CONSULT [id number] info [facility]- JENNY Forrest am 05/[address] [place] [address])(F amily Practic e Non-GME FHI1) [address] [place] [address])([facility] Non[facility] F[facility]1) OUTPATIENT [id number] [facility] wanted to see her before surgery JING HERNANDEZ 05/04 Released w/o Limitations [address] [place] [address])(F amily Practic e Non-GME FHI1) [address] [place] [address])([facility] emily Practice Non-GME FHI1) TELE CONSULT [id number] [facility] ORLANDO Fallon am 08/[address] [place] [address])(F amily Practic e Non-GME FHI1) [address] [place] [address])([facility] emily Practice Non-GME FHI1) TELE CONSULT [id number] referra [facility] ORLANDO Fallon am 11/[address] [place] [address])(F amily Practic e Non-GME FHI1) [address] [place] [address])([facility] emily Practice Non-GME FHI2) OUTPATIENT [id number] ; poss sinus infecti on LEROY SPENCER 12/14 Released w/o Limitations [address] [place] [address])(F amily Practic e Non-GME FHI2) [address] [place] [address])([facility] emily Practice Non-GME FHI2) OUTPATIENT [id number]# BACK PAIN,FA TIGUED\ JENIFER STEPHENS 05/10 Released w/o Limitations [address] [place] [address])(F amily Practic e Non-GME FHI2) [address] [place] [address])([facility] emily Practice Non-GME FHI2) TELE CONSULT [id number] results /CASSIUS Zhu 05/[address] [place] [address])(F amily Practic e Non-GME FHI2) [address] [place] [address])(Fam emily Practice Non-GME FHI2) TELE CONSULT [id number] Call back for labs and appt..2 Apr.26- REBECA Posada am 05/[address] [place] [address])(F amily Practic e Non-GME FHI2) [employer] ([facility])(Fam emily Practice Non-GME FHI2) OUTPATIENT [id number] lab results JENIFER STEPHENSNE 05/24 Released w/o Limitations [employer] ([facility])(F amily Practic e Non-GME FHI2) [employer] ([facility])(Phy sical Therapy) OUTPATIENT [id number] TENDONI TIS MITCHELL RENE 05/31 Released w/o Limitations [employer] ([facility])(P hysical Therapy ) [employer] ([facility])(Phy sical Therapy) OUTPATIENT [id number] DUSTIN TRAMMELL 06/04 Released w/o Limitations [employer] ([facility])(P hysical Therapy ) [employer] ([facility])(Phy sical Therapy) OUTPATIENT [id number] DUSTIN TRAMMELL 06/06 Released w/o Limitations [employer] ([facility])(P hysical Therapy ) [employer] ([facility])(Phy sical Therapy) OUTPATIENT [id number] CHANA QUINTERO 06/10 Released w/o Limitations [employer] ([facility])(P hysical Therapy ) [employer] ([facility])(Phy sical Therapy) OUTPATIENT [id number] DUSTIN TRAMMELL 06/12 Released w/o Limitations [employer] ([facility])(P hysical Therapy ) [employer] ([facility])(Phy sical Therapy) OUTPATIENT [id number] DUSTIN TRAMMELL 06/14 Released w/o Limitations [employer] ([facility])(P hysical Therapy ) [employer] ([facility])(Phy sical Therapy) OUTPATIENT [id number] MITCHELL Lozano 06/18 Released w/o Limitations [employer] ([facility])(P hysical Therapy ) [employer] ([facility])([facility] Medicine) OUTPATIENT [id number] HYPERLI PIDEMIA DAVID WHITLOCK 06/19 Released w/o Limitations [employer] ([facility])(N utritio nal Medicin e) [employer] ([facility])(Phy sical Therapy) OUTPATIENT [id number] GONZÁLEZ SIGALA 06/20 Released w/o Limitations [employer] ([facility])(P hysical Therapy ) [employer] ([facility])(Phy sical Therapy) OUTPATIENT [id number] DUSTIN TRAMMELL 06/25 Released w/o Limitations [facility] [employer] ([facility])(P hysical Therapy ) [facility] [employer] ([facility])(Phy sical Therapy) OUTPATIENT [id number] GONZÁLEZ SIGALA 06/28 Released w/o Limitations [facility] [employer] ([facility])(P hysical Therapy ) [facility] [employer] ([facility])(Phy sical Therapy) OUTPATIENT [id number] CHANA QUINTERO 07/04 Released w/o Limitations [facility] [employer] ([facility])(P hysical Therapy ) [facility] [employer] ([facility])(Phy sical Therapy) OUTPATIENT [id number] DUSTIN TRAMMELL 07/08 Released w/o Limitations [facility] [employer] ([facility])(P hysical Therapy ) [facility] [employer] ([facility])(Phy sical Therapy) OUTPATIENT [id number] MITCHELL MORALES 07/09 Released w/o Limitations [facility] [employer] ([facility])(P hysical Therapy ) [facility] [employer] [place] [facility]Fam emily Practice Non-GME FHI1) TELE CONSULT [id number] referra l -- podiatr SIN Chisholm 07/[address] [place] [address] [employer] [place] [facility])(F amily Practic e Non-GME FHI1) [address] [place] [address] [employer] [place] [facility])(Fam emily Practice Non-GME FHI1) TELE CONSULT [id number] pcm-CASSIUS Stock 08/[address] [place] [address] [employer] [place] [facility])(F amily Practic e Non-GME FHI1) [employer] ([facility])([facility] Practice Non-GME FHI1) OUTPATIENT [id number]# f/u eval for med conditi on JING HERNANDEZ P 08/22 Released w/o Limitations [facility] [employer] ([facility])(F amily Practic e Non-GME FHI1) [facility] [facility])([facility] emily Practice Non-GME FHI1) OUTPATIENT [id number] f/u cough/l abs JING HERNANDEZ P 08/29 Released w/o Limitations [facility] [employer] ([facility])(F amily Practic e Non-GME FHI1) [facility] [employer] ([facility])([facility] emily Practice Non-GME FHI1) OUTPATIENT [id number]# f/u eval for bp refill, per pcm/pt. JING HERNANDEZ P 10/31 Released w/o Limitations [facility] [employer] ([facility])(F amily Practic e Non-GME FHI1) [facility] [place] [place] [facility] [facility])(War rior Op Med Cln Tm A Ad) OUTPATIENT [id number] JENIFER Yanes 01/28 Released w/o Limitations [facility] [employer] ([facility])(W arrior Op Med Cln Tm A Ad) [employer] [place] ([facility])(War rior Op Med Cln Tm A Ad) OUTPATIENT [id number] Rec Rev and AHLTA 2766 transcr CASSIUS Javier 02/11 Released w/o Limitations [employer] ([facility])(W arrior Op Med Cln Tm A Ad) [employer] ([facility])(War rior Op Med Cln Tm A Ad) OUTPATIENT [id number] F/U labwork , refill meds [phone] JING HERNANDEZ P 02/18 Released w/o Limitations [employer] [facility])(W arrior Op Med Cln Tm A Ad) [employer] ([facility])(War rior Op Med Cln Tm A Ad) OUTPATIENT [id number] incisio n and jimbosatnam jordi MARY JING P 02/24 Released w/o Limitations [employer] [place] ([facility])(W arrior Op Med Cln Tm A Ad) [facility])([employer] ecology) TELE CONSULT [id number] PAP DUE JACKLYN Seay- [facility] STAN PATRICIA L 03/[address] [place] [address] [place] [employer] [place] [facility] [facility])(G ynecolo gy) [address] [place] [address] [place] [facility])(Sco tt [facility] Team 4) OUTPATIENT [id number] bilater al ankle pain.pt needs a referra l to ortho.. .[phone] IMELDA MASON 06/18 Released w/o Limitations [facility] [employer] ([facility])(S [facility] Team 4) [address] [place] [address] [place] [facility])(Opt ometry) OUTPATIENT [id number] eye [id number] DYLON ARREDONDO 08/08 Released w/o Limitations [employer] [place] ([facility])(O ptometr y) [facility] [place] [employer] [facility] [facility])(Kso tt [facility] Team 4) OUTPATIENT [id number] referra l to rhuemto logy [phone] JENIFER STEPHENS 08/27 Released w/o Limitations [address] [place] [address] [employer] ([facility])(S [facility] Team 4) [address] [place] [address] [place] [facility]War rior Op Med Cln Tm A Ad) OUTPATIENT [id number] fu labs VICKI PFEIFFER 09/30 Released w/o Limitations [employer] ([facility])(W arrior Op Med Cln Tm A Ad) [facility] [employer] ([facility])(Sco tt [facility] Team 4) TELE CONSULT [id number] call back JENIFER PEREA 10/[address] [place] [address] [employer] ([facility])([facility] Team 4) [address] [place] [address] [employer] [place] [facility]War rior Op Med Cln Tm A Ad) OUTPATIENT [id number] right knee pain [id number] EDWARD OLSON 01/16 Released w/o Limitations [employer] ([facility])(W arrior Op Med Cln Tm A Ad) [employer] ([facility])(War rior Op Med Cln Tm A Ad) TELE CONSULT [id number] Rx refill- CASSIUS Wynn 03/09 [employer] [facility]W arrior Op Med Cln Tm A Ad) [employer] [facility] ([facility])(War rior Op Med Cln Tm A Ad) TELE CONSULT [id number] [facility] meisamm PEREA JENIFER R 03/19 [employer] ([facility])(W arrior Op Med Cln Tm A Ad) [employer] [place] ([facility])(War rior Op Med Cln Tm A Ad) OUTPATIENT [id number] F/U on HTN EDWARD OLSON 04/06 Released w/o Limitations [employer] ([facility])(W arrior Op Med Cln Tm A Ad) [employer] [place] ([facility])(War rior Op Med Cln Tm A Ad) OUTPATIENT [id number] physica l [phone] EDWARD OLSON 07/10 Released w/o Limitations [employer] ([facility])(W arrior Op Med Cln Tm A Ad) [employer] [facility] [place] [facility])(War rior Op Med Cln Tm A Ad) OUTPATIENT [id number] cough [id number] EDWARD OLSON 08/07 Released w/o Limitations [employer] ([facility])(W arrior Op Med Cln Tm A Ad) [employer] [facility])(Sco tt [facility] Team 3) OUTPATIENT [id number] migrain e [phone] JETHRO RIVERA 12/14 Released w/o Limitations [employer] ([facility])(S cott [facility] Team 3) [facility] [employer] [facility]Sco tt [facility] Team 3) TELE CONSULT [id number] T con for med refill Dr Rivera phone [phone] ALLY CURTIS 12/[address] [place] [address] [place] [facility])([facility] Team [address]) [address] [place] [address] [place] [employer] [place] [facility] Team 3) TELE CONSULT [id number] Med refill [phone] DEISY EMANUEL R 12/[address] [place] [address] [employer] ([facility])([facility] Team 3) [address] [place] [address] [employer] ([facility])([facility] Team 3) OUTPATIENT [id number] knee pain [phone] KIMBERLYN ARREDONDO 04/02 Released w/o Limitations [address] [place] [address] [place] [employer] [facility] Team [address]) [address] [place] [address] [place] [employer] [facility])([facility] Team 3) TELE CONSULT [id number] seen in ER with back pain DX uti xray shows disc disease needs referra DEISY Howell R 06/[address] [place] [address] [facility] [employer] ([facility])([facility] Team [address]) [address] [place] [address] [place] [facility])([facility] Team 3) OUTPATIENT [id number] Low back pain with radicul opathy, 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 Arredondo : Referre d Pt to Ortho Spine. Please see rad on 2010 CHARLEY ALEMAN 06/[address] [place] [address] Rich [facility] 3) [address] [place] [address] Rich [facility] [facility])([facility] Team 3) TELE CONSULT [id number] Results needed/ Yong /fxs DEISY EMANUEL R 06/[address] [place] [address] Rich [facility] [facility] [address]) [address] [place] [address] Rich [facility])([facility] Team 3) TELE CONSULT [id number] Referra l for PT - Yong - cad/pmh DEISY EMANUEL R 08/[address] [place] [address] Rich [facility] [facility] [address]) [address] [place] [address] Rich [employer] [facility] [place] Team 3) TELE CONSULT [id number] referra lee Arredondo cad tlt DEISY EMANUEL 08/[address] [place] [address] Rich [facility])([facility] 3) [address] [place] [address] Rich [facility])(War rior Op Med Cln Tm A Ad) OUTPATIENT [id number] Lower back pain [phone] VANCE BERG 11/01 Released w/o Limitations [address] [place] [address])(W arrior Op Med Cln Tm A Ad) [address] [place] [address])(Sco tt [facility] Team 3) TELE CONSULT [id number] Notes Entered by: JEREMY LAWRENCE 22 Nov 2011 1055 ------- ------- ------- ------- -- Tcon for doctor' s order Dr Arnie dowling ph [phone] cad dmj DEISY EMANUEL 11/[address] [place] [address] Rich [facility])([facility] 3) [address] [place] [address])(War rior Op Med Cln Tm A Ad) OUTPATIENT [id number] follow up er celluli tis [phone] VANCE BERG 12/26 Released w/o Limitations [address] [place] [address])(W arrior Op Med Cln Tm A Ad) [address] [place] [address] Rich [facility])([facility] Fam Res Tm Green) OUTPATIENT [id number] 2nd floor rich corley/ALANA Rahman 01/18 Released w/o Limitations [address] [place] [address] Rich [facility] [facility])([facility] Fam Res Tm Green) [address] [place] [address] Rich TASNEEMB [facility] [place] [facility])([facility] FAMRES Tm Blue) TELE CONSULT [id number] Notes Entered by: IMELDA TAMAYO 24 Jan 2012 1611 ------- ------- ------- ------- -- Call back C-scope on 2may12- IMELDA Nugent 01/[address] [place] [address] Rich [place]LEY [facility] [facility])([facility] FAMRES Tm Blue) [address] [place] [address])([facility] Team 3) TELE CONSULT [id number] Notes Entered by: ALEXIS PAK 01 Feb 2012 1345 ------- ------- ------- ------- -- Troyio n about medicat ion-Deepa flores /560-90 /DEISY Diaz 01/[address] [place] [address])([facility] 3) [address] [place] [address])(War rior Op Med Cln Tm A Ad) TELE CONSULT [id number] Notes Entered by: YASMIN LOPEZ 01 Feb 2012 1457 ------- ------- ------- ------- -- Labs VANCE BERG 01/[address] [place] [address])(W arrior Op Med Cln Tm A Ad) [address] [place] [address])(War rior Op Med Cln Tm A Ad) TELE CONSULT [id number] Notes Entered by: YASMIN LOPEZ 02 Feb 2012 1613 ------- ------- ------- ------- -- Lab results VANCE BERG 02/[address] [place] [address])(W arrior Op Med Cln Tm A Ad) [address] [place] [address])([facility] Team 3) OUTPATIENT [id number] Recent lab results , GENNY Alcantara 02/07 Released w/o Limitations [address] [place] [address])([facility] 3) [address] [place] [address])([facility] Team 3) TELE CONSULT [id number] Notes Entered by: JEREMY LAWRENCE 26 Apr 2012 0934 ------- ------- ------- ------- -- Tcon for referra lee Gu darren ph [phone] DEISY Heaton 04/[address] [place] [address])([facility] 3) [address] [place] [address])([facility] Team 3) TELE CONSULT [id number] Notes Entered by: LAURA NANCE 28 Jun 2012 1348 ------- ------- ------- ------- -- Med ursula banks cad UDAY Caceres 06/[address] [place] [address])([facility] 3) [address] [place] [address])([facility] Team 3) OUTPATIENT [id number] Pain in both knees [phone] LEROY HERNANDEZ 07/25 Released w/o Limitations [address] [place] [address])([facility] 3) [address] [place] [address])(War rior Op Med Cln Tm A Ad) TELE CONSULT [id number] Notes Entered by: Tan MULLEN 30 Nov 2012 1313 ------- ------- ------- ------- -- Med celebre x 400 mg daily UDAY Marquez 11/[address] [place] [address])(W arrior Op Med Cln Tm A Ad) [address] [place] [address])(War rior Op Med Cln Tm A Ad) TELE CONSULT [id number] Notes Entered by: EUGENE ROBISON 28 Dec 2012 1204 ------- ------- ------- ------- -- Medicat ion terry - Miguel Ángel - [phone] UDAY TORREZ 12/[address] [place] [address])(W arrior Op Med Cln Tm A Ad) [address] [place] [address])(War rior Op Med Cln Tm A Ad) TELE CONSULT [id number] Notes Entered by: MINO WANG 09 Jan 2013 1108 ------- ------- ------- ------- -- Labs UDAY TORREZ 01/09 [facility] Rich [facility])(W arrior Op Med Cln Tm A Ad) [address] [place] [address] Rich [facility])(War rior Op Med Cln Tm A Ad) TELE CONSULT [id number] Notes Entered by: GERMAN OCHOA 23 Jan 2013 1253 ------- ------- ------- ------- -- Kyle Wang - [phone] UDAY TORREZ 01/[address] [place] [address] Group Rich [facility])(W arrior Op Med Cln Tm A Ad) [address] [place] [address] Rich [facility])(War ri[facility] Op Med Cln Tm A Ad) TELE CONSULT [id number] Notes Entered by: Rupal MULLEN 25 Jan 2013 0903 ------- ------- ------- ------- -- No apt avail/S [facility]/ [phone] UDAY TORREZ 01/[address] [place] [address] Group Rich [facility])(W arrior Op Med Cln Tm A Ad) [address] [place] [address] Rich [facility])(War rior Op Med Cln Tm A Ad) TELE CONSULT [id number] Notes Entered by: GERMAN OCHOA 29 Jan 2013 0756 ------- ------- ------- ------- -- [facility]/alivia Wang - [phone] UDAY TORREZ 01/[address] [place] [address] Group Rich [facility])(W arrior Op Med Cln Tm A Ad) [address] [place] [address] Rich [facility])(War rior Op Med Cln Tm A Ad) OUTPATIENT [id number] er follow up/ abd/alea st pain 11/26 VANCE BERG 01/29 Released w/o Limitations [address] [place] [address] Group Rich [place] [facility] [place])(W arrior Op Med Cln Tm A Ad) [address] [place] [address] [facility])(War rior Op Med Cln Tm A Ad) TELE CONSULT [id number] Notes Entered by: DARLENE CHAWLA 05 Mar 2013 0840 ------- ------- ------- ------- -- Network Results -ORTHOP EDICS 2 FREDDY WANG 03/[address] [place] [address] Group [facility])(W arrior Op Med Cln Tm A Ad) [address] [place] [address])(War rior Op Med Cln Tm A Ad) TELE CONSULT [id number] Notes Entered by: LAURA NANCE 17 Apr 2013 0819 ------- ------- ------- ------- -- Vaginal spottin joleen Wang ANTHONY NAVA 04/17 Referred for Appointment [facility])(W arrior Op Med Cln Tm A Ad) [facility] Medical [facility])([employer]) OUTPATIENT [id number] foul smell/b GIRISH Wang 04/17 Released w/o Limitations [address] [place] [address] Group [facility])(G ynecoradha gy) [facility] Medical [facility])([employer]) TELE CONSULT [id number] Notes Entered by: ALEXIS PAK 18 Apr 2013 1333 ------- ------- ------- ------- -- Calling back SKIP OPERATOR-[phone] ASHLEIGH CALDWELL 04/18 [facility])(G ynecoradha gy) [facility])([employer]) OUTPATIENT [id number] WELL GIRISH PURDY 05/03 Released w/o Limitations [address] [place] [address])(G ynecolo gy) [address] [place] [address])(Jonn russo [facility] t) TELE CONSULT [id number] Notes Entered by: Dawood AMARO 07 Jun 2013 1101 ------- ------- ------- ------- -- [facility] follow up KALEY AMARO 06/[address] [place] [address])(U tilizat ion Manage ent) [address] [place] [address])(War rior Op Med Cln Tm A Ad) TELE CONSULT [id number] Notes Entered by: GERMAN OCHOA 10 Jul 2013 0753 ------- ------- ------- ------- -- Lior Wang - [phone] JAMES FISHER 07/[address] [place] [address])(W arrior Op Med Cln Tm A Ad) [address] [place] [address])(War rior Op Med Cln Tm A Ad) OUTPATIENT [id number] neck swollen - x1 year - [phone] FREDDY WANG 07/16 Released w/o Limitations [address] [place] [address])(W arrior Op Med Cln Tm A Ad) [address] [place] [address])(War rior Op Med Cln Tm A Ad) TELE CONSULT [id number] Notes Entered by: MINO WANG 17 Jul 2013 1413 ------- ------- ------- ------- -- labs FREDDY WANG 07/[address] [place] [address])(W arrior Op Med Cln Tm A Ad) [address] [place] [address])(War rior Op Med Cln Tm A Ad) TELE CONSULT [id number] Notes Entered by: LINN CURRAN 23 Jul 2013 1141 ------- ------- ------- ------- -- Lab results /Miguel Ángel / DEISY EMANUEL 07/[address] [place] [address])(W arrior Op Med Cln Tm A Ad) [address] [place] [address])(War rior Op Med Cln Tm A Ad) TELE CONSULT [id number] Notes Entered by: MINO WANG 24 Jul 2013 1611 ------- ------- ------- ------- -- FREDDY Barger 07/[address] [place] [address])(W arrior Op Med Cln Tm A Ad) [address] [place] [address])(War rior Op Med Cln Tm A Ad) TELE CONSULT [id number] Notes Entered by: RAFAEL SALAZAR 20 Aug 2013 0924 ------- ------- ------- ------- -- Med refill/ Miguel Ángel/ JAMES FISEHR 08/[address] [place] [address])(W arrior Op Med Cln Tm A Ad) [address] [place] [address])(War rior Op Med Cln Tm A Ad) TELE CONSULT [id number] Notes Entered by: ALEXIS PAK 10 Oct 2013 1139 ------- ------- ------- ------- -- Med Refill- Miguel Ángel/ GIRISH LONGO 10/[address] [place] [address])(W arrior Op Med Cln Tm A Ad) [address] [place] [address])(War rior Op Med Cln Tm A Ad) OUTPATIENT [id number] f/u on meds/ new plan of care FREDDY WANG 10/29 Released w/o Limitations [address] [place] [address])(W arrior Op Med Cln Tm A Ad) [address] [place] [address])(War rior Op Med Cln Tm A Ad) TELE CONSULT [id number] Notes Entered by: MINO WANG 31 Oct 2013 1131 ------- ------- ------- ------- -- Chest X-ray FREDDY WANG 10/[address] [place] [address])(W arrior Op Med Cln Tm A Ad) [address] [place] [address])(Fam emily Med Tm B Non-AD BCC) TELE CONSULT [id number] Notes Entered by: USAMA SHARMA 16 Nov 2013 1447 ------- ------- ------- ------- -- Network Results -SURGER Y 11/09/13 FREDDY WANG 11/[address] [place] [address])(F amily Med Tm B Non-AD BCC) [address] [place] [address])(War rior Op Med Cln Tm A Ad) TELE CONSULT [id number] Notes Entered by: LINN CURRAN 07 Jan 2014 0816 ------- ------- ------- ------- -- Med renewal /Miguel Ángel / NARAYAN JAMES 01/[address] [place] [address])(W arrior Op Med Cln Tm A Ad) [address] [place] [address])(War rior Op Med Cln Tm A Ad) OUTPATIENT [id number] severe lower back pain FREDDY WANG 01/28 Released w/o Limitations [address] [place] [address])(W arrior Op Med Cln Tm A Ad) [address] [place] [address])(War rior Op Med Cln Tm A Ad) TELE CONSULT [id number] Notes Entered by: MINO WANG 19 Feb 2014 1525 ------- ------- ------- ------- -- Radiolo gy studies FREDDY WANG 02/[address] [place] [address])(W arrior Op Med Cln Tm A Ad) [address] [place] [address])(War rior Op Med Cln Tm A Ad) TELE CONSULT [id number] Notes Entered by: HEATH LAZO 03 Apr 2014 1505 ------- ------- ------- ------- -- Ivory Michaels /Rain Renewal EDWARD DIAZ 04/[address] [place] [address])(W arrior Op Med Cln Tm A Ad) [address] [place] [address])(Fam emily Med Tm B Non-AD BCC) TELE CONSULT [id number] Notes Entered by: PAPI SETH 11 Apr 2014 0806 ------- ------- ------- ------- -- Network Results - Julisa howard Therapy 4 FREDDY WANG 04/[address] [place] [address])(F amily Med Tm B Non-AD BCC) [address] [place] [address])(War rior Op Med Cln Tm A Ad) OUTPATIENT [id number] intermi ttent diarrhe a, nausea x 1 [phone] FREDDY WANG 06/04 Released w/o Limitations [address] [place] [address] Rich [facility])(W arrior Op Med Cln Tm A Ad) [address] [place] [address])(War rior Op Med Cln Tm A Ad) TELE CONSULT [id number] Notes Entered by: MINO WANG 07 Jun 2014 0910 ------- ------- ------- ------- -- Hyperli pidemia and Vitamin D deficie ary FREDDY WANG 06/[address] [place] [address] Group [facility])(W arrior Op Med Cln Tm A Ad) [address] [place] [address])(War rior Op Med Cln Tm A Ad) TELE CONSULT [id number] Notes Entered by: PAPI SETH 12 Jun 2014 1512 ------- ------- ------- ------- -- Network Results - Physica l Therapy 4 FREDDY WANG 06/[address] [place] [address])(W arrior Op Med Cln Tm A Ad) [address] [place] [address])(Med ication Refill Clinic) TELE CONSULT [id number] Notes Entered by: SUZANNE SUMMERS 21 Jun 2014 1128 ------- ------- ------- ------- -- Med refill/ miguel ángel/ NARAYAN JAMES 06/[address] [place] [address])([facility]) [address] [place] [address])(Fam emily Med Tm B Non-AD BCC) TELE CONSULT [id number] Notes Entered by: SIOBHAN ORTA 11 Jul 2014 0847 ------- ------- ------- ------- -- Network Results -GASTRO ENTEROL OGY 4 FREDDY WANG 07/[address] [place] [address])(F amily Med Tm B Non-AD BCC) [address] [place] [address])(War rior Op Med Cln Tm A Ad) OUTPATIENT [id number] swollen , red, tender area on rt. side of neck/61 [phone] FREDDY WANG 07/26 Released w/o Limitations [address] [place] [address])(W arrior Op Med Cln Tm A Ad) [address] [place] [address])(Darren matology) OUTPATIENT [id number] cyst on Neck BHARTI TOMPKINS 08/02 Released w/o Limitations [address] [place] [address])(Judith ermatolee ogy) [address] [place] [address])(Darren matology) TELE CONSULT [id number] Notes Entered by: Ting PECK 12 Aug 2014 1125 ------- ------- ------- ------- -- Lab results BHARTI TOMPKINS 08/[address] [place] [address] Rich [facility]D ermatol ogy) [address] [place] [address] Rich [facility])([employer] ecology) OUTPATIENT [id number] [facility] WILFRID CARPIO 09/25 Released w/o Limitations [address] [place] [address] Rich [facility])(G ynecolo gy) [address] [place] [address] Rich [facility])(Darren matology) OUTPATIENT [id number] Excisio n cyst neck BHARTI TOMPKINS 10/01 Released w/o Limitations [address] [place] [address] Rich [facility])(D ermatol ogy) [address] [place] [address] Rich [facility])(Darren matology) OUTPATIENT [id number] Notes Entered by: Ting PECK 11 Oct 2014 0839 ------- ------- ------- ------- -- suture removal BHARTI TOMPKINS 10/11 Released w/o Limitations [address] [place] [address] Rich [facility])(D ermatol ogy) [address] [place] [address] Rich [facility])(War rior Op Med Cln Tm A Ad) TELE CONSULT [id number] Notes Entered by: RAFAEL SALAZAR 29 Oct 2014 0832 ------- ------- ------- ------- -- Medicat ion refill/ Livermo n/ ANKITA FROST 10/29 Medication Refill Forwarded [address] [place] [address] Rich [facility])(W arrior Op Med Cln Tm A Ad) [address] [place] [address] Rich [facility])(Fam emily Med Tm B Non-AD BCC) OUTPATIENT [id number] chest congest ion [id number] CAROL ARREDONDO 12/03 Released w/o Limitations [address] [place] [address] Rich [facility])(F amily Med Tm B Non-AD BCC) [address] [place] [address] Rich [facility])(Med ication Refill Clinic) TELE CONSULT [id number] Notes Entered by: GUCCI GAMBOA ELS 03 Jan 2015 1416 ------- ------- ------- ------- -- Med Renewal //Liver mon [phone] OBINNA CHIRINOS 01/[address] [place] [address])(M edicati on Refill Clinic) [address] [place] [address])(Sco tt Internal Medicine Tm) OUTPATIENT [id number] pain in left knee due to fall 18560. [phone] GORGE FLYNN Ting 01/14 Released w/o Limitations [address] [place] [address])(S cott Interna l Medicin e Tm) [address] [place] [address])(Med ication Refill Clinic) TELE CONSULT [id number] Notes Entered by: TWILA AGUILAR 21 Feb 2015 0949 ------- ------- ------- ------- -- Med Renewal /Liverm on618. 344.577 4 BHAVNA ROBLES 02/[address] [place] [address])(M edicati on Refill Clinic) [address] [place] [address])(Med ication Refill Clinic) TELE CONSULT [id number] Notes Entered by: TWILA AGUILAR 07 Jul 2015 1404 ------- ------- ------- ------- -- Med Renewal /Liverm on618. 560.900 4 OBINNA CHIRINOS 07/[address] [place] [address])(M edicati on Refill Clinic) [address] [place] [address])(Mihai rior Op Med Cln Tm A Ad) TELE CONSULT [id number] Notes Entered by: UDAY TORREZ 17 Jul 2015 1017 ------- ------- ------- ------- -- labs UDAY TORREZ 07/[address] [place] [address])(W arrior Op Med Cln Tm A Ad) [address] [place] [address] Rich [facility] ([facility])(Fam emily Med Tm B Non-AD BCC) TELE CONSULT [id number] Notes Entered by: ADRIÁN TOPETE 17 Jul 2015 1247 ------- ------- ------- ------- -- Stephanie bacon - Lab result PJ MCKAY 07/[address] [place] [address] Rich [facility] ([facility])(F amily Med Tm B Non-AD BCC) Procedures Combined list of: 1) Procedures from Department of Veterans Affairs facilities going back up to thelast 18 months, not all VA non-surgical procedures are included; 2) All procedures from the Department of Defense facilities. Procedure Procedure Type Code Date Perfomer Dex bacon No data available for this section Ambulatory Pharmacy POSTOPERATIVE FOLLOW-UP VISIT, NORMALLY INCLUDED IN THE SURGICAL PACKAGE, INDICATE THAT EVALUATION & MANAGEMENT SERVICE WAS PERFORMED DURING A POSTOPERATIVE PERIOD REASON RELATED ORIGINAL PROCEDURE 10/11 DoD REPAIR, INTERMEDIATE, WOUNDS OF NECK, HANDS, FEET AND/OR EXTERNAL GENITALIA; 2.5 CM OR LESS 10/01 DoD CERVICAL OR VAGINAL CANCER SCREENING; PELVIC AND CLINICAL BREAST EXAMINATION 09/25 DoD BIOPSY OF SKIN, SUBCUTANEOUS TISSUE AND/OR MUCOUS MEMBRANE (INCLUDING SIMPLE CLOSURE), UNLESS OTHERWISE LISTED; SINGLE LESION 08/02 DoD TELE ASSESS & MGT SRV PROV QUAL NONPHYS HLTH CARE PRO TO EST PAT,PARENT,GUARD NOT ORIG REL ASSESS & MGT SRV PROV W/IN PREV 7 DAYS NOR LEAD ASSESS & MGT SRV/PX W/IN NXT 24 HR/SOON APT;5-10 MIN MED DIS 06/21 DoD TELE ASSESS & MGT SRV PROV QUAL NONPHYS HLTH CARE PRO TO EST PAT,PARENT,GUARD NOT ORIG REL ASSESS & MGT SRV PROV W/IN PREV 7 DAYS NOR LEAD ASSESS & MGT SRV/PX W/IN NXT 24 HR/SOON APT;5-10 MIN MED DIS 04/03 DoD TELE ASSESS & MGT SRV PROV QUAL NONPHYS HLTH CARE PRO TO EST PAT,PARENT,GUARD NOT ORIG REL ASSESS & MGT SRV PROV W/IN PREV 7 DAYS NOR LEAD ASSESS & MGT SRV/PX W/IN NXT 24 HR/SOON APT;5-10 MIN MED DIS 01/07 DoD 12-LEAD ECG PERFORMED (EM) 10/30 DoD TELE ASSESS & MGT SRV PROV QUAL NONPHYS HLTH CARE PRO TO EST PAT,PARENT,GUARD NOT ORIG REL ASSESS & MGT SRV PROV W/IN PREV 7 DAYS NOR LEAD ASSESS & MGT SRV/PX W/IN NXT 24 HR/SOON APT;5-10 MIN MED DIS 10/10 DoD TELE ASSESS & MGT SRV PROV QUAL NONPHYS HLTH CARE PRO TO EST PAT,PARENT,GUARD NOT ORIG REL ASSESS & MGT SRV PROV W/IN PREV 7 DAYS NOR LEAD ASSESS & MGT SRV/PX W/IN NXT 24 HR/SOON APT;5-10 MIN MED DIS 08/20 DoD TELE ASSESS & MGT SRV PROV QUAL NONPHYS HLTH CARE PRO TO EST PAT,PARENT,GUARD NOT ORIG REL ASSESS & MGT SRV PROV W/IN PREV 7 DAYS NOR LEAD ASSESS & MGT SRV/PX W/IN NXT 24 HR/SOON APT;5-10 MIN MED DIS 07/23 DoD BODY MASS INDEX (BMI), DOCUMENTED (PV) 07/17 DoD CASE MANAGEMENT, EACH 15 MINUTES 06/07 DoD CERVICAL OR VAGINAL CANCER SCREENING; PELVIC AND CLINICAL BREAST EXAMINATION 05/03 DoD SMEAR, PRIMARY SOURCE WITH INTERPRETATION; WET MOUNT FOR INFECTIOUS AGENTS (EG, SALINE, JORGE INK, ELVIE PREPS) 04/17 DoD TELE ASSESS & MGT SRV PROV QUAL NONPHYS HLTH CARE PRO TO EST PAT,PARENT,GUARD NOT ORIG REL ASSESS & MGT SRV PROV W/IN PREV 7 DAYS NOR LEAD ASSESS & MGT SRV/PX W/IN NXT 24 HR/SOON APT;5-10 MIN MED DIS 04/17 DoD TELE ASSESS & MGT SRV PROV QUAL NONPHYS HLTH CARE PRO TO EST PAT,PARENT,GUARD NOT ORIG REL ASSESS & MGT SRV PROV W/IN PREV 7 DAYS NOR LEAD ASSESS & MGT SRV/PX W/IN NXT 24 HR/SOON APT;5-10 MIN MED DIS 04/26 DoD CASE MANAGEMENT, EACH 15 MINUTES 04/25 DoD COLORECTAL CANCER SCREENING; COLONOSCOPY ON INDIVIDUAL NOT MEETING CRITERIA FOR HIGH RISK 01/18 DoD TELE ASSESS & MGT SRV PROV QUAL NONPHYS HLTH CARE PRO TO EST PAT,PARENT,GUARD NOT ORIG REL ASSESS & MGT SRV PROV W/IN PREV 7 DAYS NOR LEAD ASSESS & MGT SRV/PX W/IN NXT 24 HR/SOON APT;5-10 MIN MED DIS 11/21 DoD TELE ASSESS & MGT SRV PROV QUAL NONPHYS HLTH CARE PRO TO EST PAT,PARENT,GUARD NOT ORIG REL ASSESS & MGT SRV PROV W/IN PREV 7 DAYS NOR LEAD ASSESS & MGT SRV/PX W/IN NXT 24 HR/SOON APT;5-10 MIN MED DIS 08/17 DoD TELE ASSESS & MGT SRV PROV QUAL NONPHYS HLTH CARE PRO TO EST PAT,PARENT,GUARD NOT ORIG REL ASSESS & MGT SRV PROV W/IN PREV 7 DAYS NOR LEAD ASSESS & MGT SRV/PX W/IN NXT 24 HR/SOON APT;5-10 MIN MED DIS 08/06 DoD TELE ASSESS & MGT SRV PROV QUAL NONPHYS HLTH CARE PRO TO EST PAT,PARENT,GUARD NOT ORIG REL ASSESS & MGT SRV PROV W/IN PREV 7 DAYS NOR LEAD ASSESS & MGT SRV/PX W/IN NXT 24 HR/SOON APT;5-10 MIN MED DIS 06/25 DoD TELE ASSESS & MGT SRV PROV QUAL NONPHYS HLTH CARE PRO TO EST PAT,PARENT,GUARD NOT ORIG REL ASSESS & MGT SRV PROV W/IN PREV 7 DAYS NOR LEAD ASSESS & MGT SRV/PX W/IN NXT 24 HR/SOON APT;5-10 MIN MED DIS 06/10 DoD TELE ASSESS & MGT SRV PROV QUAL NONPHYS HLTH CARE PRO TO EST PAT,PARENT,GUARD NOT ORIG REL ASSESS & MGT SRV PROV W/IN PREV 7 DAYS NOR LEAD ASSESS & MGT SRV/PX W/IN NXT 24 HR/SOON APT;5-10 MIN MED DIS 12/24 DoD THERAPEUTIC, PROPHYLACTIC, OR DIAGNOSTIC INJECTION (SPECIFY SUBSTANCE OR DRUG); SUBCUTANEOUS OR INTRAMUSCULAR 12/14 [facility] VITAL CAPACITY, TOTAL (SEPARATE PROCEDURE) 08/07 [facility] DETERMINATION OF REFRACTIVE STATE 08/08 DoD INCISION AND DRAINAGE OF ABSCESS (EG, CARBUNCLE, SUPPURATIVE HIDRADENITIS, CUTANEOUS OR SUBCUTANEOUS ABSCESS, CYST, FURUNCLE, OR PARONYCHIA); SIMPLE OR SINGLE 02/24 [facility] PHYSICAL THERAPY RE-EVALUATION 07/09 DoD APPLICATION OF A MODALITY TO 1 OR MORE AREAS; DIATHERMY (EG, MICROWAVE) 07/08 DoD APPLICATION OF A MODALITY TO 1 OR MORE AREAS; DIATHERMY (EG, MICROWAVE) 07/04 DoD APPLICATION OF A MODALITY TO 1 OR MORE AREAS; ULTRASOUND, EACH 15 MINUTES 06/28 DoD APPLICATION OF A MODALITY TO 1 OR MORE AREAS; ULTRASOUND, EACH 15 MINUTES 06/25 DoD APPLICATION OF A MODALITY TO 1 OR MORE AREAS; ULTRASOUND, EACH 15 MINUTES 06/20 DoD MEDICAL NUTRITION THERAPY; INITIAL ASSESSMENT AND INTERVENTION, INDIVIDUAL, [id number] WITH THE PATIENT, EACH 15 MINUTES 06/19 [facility] PHYSICAL THERAPY RE-EVALUATION 06/18 DoD APPLICATION OF A MODALITY TO 1 OR MORE AREAS; ULTRASOUND, EACH 15 MINUTES 06/14 DoD APPLICATION OF A MODALITY TO 1 OR MORE AREAS; ULTRASOUND, EACH 15 MINUTES 06/12 DoD APPLICATION OF A MODALITY TO 1 OR MORE AREAS; ULTRASOUND, EACH 15 MINUTES 06/10 DoD APPLICATION OF A MODALITY TO 1 OR MORE AREAS; ULTRASOUND, EACH 15 MINUTES 06/06 DoD APPLICATION OF A MODALITY TO 1 OR MORE AREAS; ULTRASOUND, EACH 15 MINUTES 06/04 DoD PHYSICAL THERAPY EVALUATION 05/31 [facility] ELECTROCARDIOGRAM, ROUTINE ECG WITH AT LEAST 12 LEADS; WITH INTERPRETATION AND REPORT 05/10 [facility] ARTHROCENTESIS, ASPIRATION AND/OR INJECTION, MAJOR JOINT OR BURSA (EG, SHOULDER, HIP, KNEE, SUBACROMIAL BURSA); WITHOUT ULTRASOUND GUIDANCE 01/17 [facility] DETERMINATION OF REFRACTIVE STATE 12/30 [facility] CHEMICAL CAUTERIZATION OF GRANULATION TISSUE (IE, PROUD FLESH) 12/10 [facility] CHEMICAL CAUTERIZATION OF GRANULATION TISSUE (IE, PROUD FLESH) 11/26 [facility] SMEAR, PRIMARY SOURCE WITH INTERPRETATION; WET MOUNT FOR INFECTIOUS AGENTS (EG, SALINE, JORGE INK, ELVIE PREPS) 08/04 [facility] OTHER REPAIR OF VULVA AND PERINEUM 07/24 [facility] VAGINAL SUSPENSION AND FIXATION 07/24 [facility] REPAIR OF RECTOCELE 07/24 [facility] REPAIR OF CYSTOCELE 07/24 [facility] TOTAL ABDOMINAL HYSTERECTOMY 07/24 [facility] OTHER CYSTOSCOPY 07/24 [facility] LAPAROSCOPIC REMOVAL OF BOTH OVARIES AND TUBES AT SAME OPERATIVE EPISODE 07/24 [facility] CARDIOVASCULAR STRESS TEST USING TREADMILL 06/19 [facility] CARDIOVASCULAR STRESS TEST USING MAXIMAL OR SUBMAXIMAL TREADMILL OR BICYCLE EXERCISE,CONTINUOUS ELECTROCARDIOGRAPHIC MONITORING,AND/OR PHARMACOLOGICAL STRESS;W SUPERVISION,INTERPRETA TION AND REPORT 06/19 [facility] INFUSION, NORMAL SALINE SOLUTION, 250 CC 06/18 [facility] EDUCATIONAL SUPPLIES, SUCH BOOKS, TAPES, AND PAMPHLETS, FOR THE PATIENT'S EDUCATION AT COST TO PHYSICIAN OR OTHER QUALIFIED HEALTH AUTOMOTIVE ACCESSORY INSTALLER 03/11 [facility] INJECTION, TRIAMCINOLONE ACETONIDE, NOT OTHERWISE SPECIFIED, 10 MG 02/08 [facility] REPAIR OF UMBILICAL HERNIA WITH PROSTHESIS 02/19 [facility] EKG (SCALP) 03/28 [facility] EPISIOTOMY 03/28 [facility] OTHER ARTIFICIAL RUPTURE OF MEMBRANES 03/28 [facility] OTHER BILATERAL LIGATION AND DIVISION OF FALLOPIAN TUBES 03/28 [facility] Postoperative Visit, Without Charge Postoperative Visit, Without Charge 82686 10/11 BHARTI TOMPKINS [facility] Layer Closure Of Wound Neck .1 to 2.5 cm Layer Closure Of Wound Neck .1 to 2.5 cm 88402 10/01 BHARTI TOMPKINS Excision Of Lesion Neck Benign .6 to 1cm Excision Of Lesion Neck Benign .6 to 1cm 69874 10/01 BHARTI TOMPKINS [facility] Cervical or vaginal cancer screening; pelvic and clinical breast examination 09/25 WILFRID CARPIO [facility] Biopsy Skin Biopsy Skin 97387 08/02 BHARTI TOMPKINS [facility] Non-Physician Phone Call To Patient/Provider Brief (5-10min) Non-Physician Phone Call To Patient/Provider Brief (5-10min) 02311 06/26 NARAYAN JAMES [facility] Non-Physician Phone Call To Patient/Provider Brief (5-10min) Non-Physician Phone Call To Patient/Provider Brief (5-10min) 79274 04/08 EDWARD DIAZ [facility] Non-Physician Phone Call To Patient/Provider Brief (5-10min) Non-Physician Phone Call To Patient/Provider Brief (5-10min) 49860 01/11 NARAYAN JAMES [facility] ECG 12-Lead ECG 12-Lead 3120F 10/30 FREDDY WANG [facility] Non-Physician Phone Call To Patient/Provider Brief (5-10min) Non-Physician Phone Call To Patient/Provider Brief (5-10min) 54241 10/16 GIRISH LONGO [facility] Non-Physician Phone Call To Patient/Provider Brief (5-10min) Non-Physician Phone Call To Patient/Provider Brief (5-10min) 28667 08/21 JAMES FISHER [facility] Non-Physician Phone Call To Patient/Provider Brief (5-10min) Non-Physician Phone Call To Patient/Provider Brief (5-10min) 89799 07/24 DEISY EMANUEL [facility] Preventive Medicine Results Documented/Reviewed Body Ma Index Preventive Medicine Results Documented/Reviewed Body Mass Index 3008F 07/17 ADRYAN WAITE [facility] Case Management, each 15 minutes 06/07 SONDRA, KALEY [facility] Coordinated care fee, maintenance rate 06/07 WEEKSKALEY [facility] Cervical or vaginal cancer screening; pelvic and clinical breast examination 05/03 GIRISH PURDY [facility] Vaginal ELVIE Prep Vaginal ELVIE Prep 63326 04/17 GIRISH PURDY [facility] Vaginal Wet [place] Vaginal [place] 14459 04/17 GIRISH PURDY [facility] Non-Physician Phone Call To Patient/Provider Brief (5-10min) Non-Physician Phone Call To Patient/Provider Brief (5-10min) 24235 04/17 ANTHONY NAVA [facility] Non-Physician Phone Call To Patient/Provider Brief (5-10min) Non-Physician Phone Call To Patient/Provider Brief (5-10min) 35865 04/26 DEISY EMANUEL [facility] Coordinated care fee, maintenance rate 04/25 FERNANDO CUETO [facility] Case Management, each 15 minutes 04/25 FERNANDO CUETO [facility] Colorectal cancer screening; colonoscopy on individual not meeting criteria for high risk 01/18 ALANA HEMPHILL [facility] Non-Physician Phone Call To Patient/Provider Brief (5-10min) Non-Physician Phone Call To Patient/Provider Brief (5-10min) 89220 11/30 DEISY EMANUEL [facility] Non-Physician Phone Call To Patient/Provider Brief (5-10min) Non-Physician Phone Call To Patient/Provider Brief (5-10min) 16782 08/18 DEISY EMANUEL Non-Physician Phone Call To Patient/Provider Brief (5-10min) Non-Physician Phone Call To Patient/Provider Brief (5-10min) 31711 08/06 DEISY EMANUEL Non-Physician Phone Call To Patient/Provider Brief (5-10min) Non-Physician Phone Call To Patient/Provider Brief (5-10min) 89402 06/25 DEISY EMANUEL Non-Physician Phone Call To Patient/Provider Brief (5-10min) Non-Physician Phone Call To Patient/Provider Brief (5-10min) 99128 06/10 DEISY EMANUEL Non-Physician Phone Call To Patient/Provider Brief (5-10min) Non-Physician Phone Call To Patient/Provider Brief (5-10min) 92097 12/[address] Supervised Injection Intramuscular Supervised Injection Intramuscular 82686 12/14 JETHRO RIVERA Patient identified -patient recieved IM injection of toradol 60mg(lot number [id number]/ exp date 19 Jun 2012) in right upper outer glut. Patient tolerated procedure well-await ign reassessme nt. DoD Pulmonary Function Tests Peak Expiratory Flow Pulmonary Function Tests Peak Expiratory Flow 75833 08/07 TERRY SAINZ Created by entry in Vitals Module [facility] Determination Of Refractive State Determination Of Refractive State 90248 08/08 DYLON ARREDONDO [facility] Ophthalmological Prior Patient Start Comprehensive Care Ophthalmological Prior Patient Start Comprehensive Care 33482 08/08 DYLON ARREDONDO Incision And Drainage Of Skin Absce , Simple Incision And Drainage Of Skin Abscess, Simple 18535 02/24 JING HERNANDEZ [facility] Physical Medicine Physical Therapy Re-Evaluation Physical Medicine Physical Therapy Re-Evaluation 18759 07/09 MITCHELL MORALES [facility] Modalities Diathermy Treatment 07/08 DUSTIN TRAMMELL Modalities Iontophoresis Modalities Iontophoresis 62550 07/08 DUSTIN TRAMMELL Physical Therapy: ___ Se ion Segments, 15 Minutes Each Physical Therapy: ___ Session Segments, 15 Minutes Each 10278 07/08 DUSTIN TRAMMELL Physical Therapy Mobilization Joint Physical Therapy Mobilization Joint 74535 07/08 DUSTIN TRAMMELL Modalities Diathermy Treatment 07/04 CHANA QUINTERO [facility] Physical Therapy Mobilization Joint Physical Therapy Mobilization Joint 09436 07/04 CHANA QUINTERO [facility] Modalities Iontophoresis Modalities Iontophoresis 26723 07/04 CHANA QUINTERO [facility] Physical Therapy: ___ Se ion Segments, 15 Minutes Each Physical Therapy: ___ Session Segments, 15 Minutes Each 50843 07/04 CHANA QUINTERO [facility] Modalities Iontophoresis Modalities Iontophoresis 62436 06/28 GONZÁLEZ SIGALA [facility] Modalities Ultrasound Modalities Ultrasound 90538 06/28 GONZÁLEZ SIGALA Physical Therapy Mobilization Joint Physical Therapy Mobilization Joint 35742 06/28 GONZÁLEZ SIGALA [facility] Physical Therapy: ___ Se ion Segments, 15 Minutes Each Physical Therapy: ___ Session Segments, 15 Minutes Each 58145 06/28 GONZÁLEZ SIGALA [facility] Modalities Iontophoresis Modalities Iontophoresis 37633 06/25 DUSTIN TRAMMELL [facility] Physical Therapy Mobilization Joint Physical Therapy Mobilization Joint 31810 06/25 DUSTIN TRAMMELL Modalities Ultrasound Modalities Ultrasound 46739 06/25 DUSTIN TRAMMELL [facility] Physical Therapy: ___ Se ion Segments, 15 Minutes Each Physical Therapy: ___ Session Segments, 15 Minutes Each 75713 06/25 DUSTIN TRAMMELL [facility] Medical Nutrition Therapy Initial A e ment, Intervention Medical Nutrition Therapy Initial Assessment, Intervention 38883 06/20 DAVID WHITE [facility] Modalities Iontophoresis Modalities Iontophoresis 35766 06/20 GONZÁLEZ SIGALA [facility] Modalities Ultrasound Modalities Ultrasound 92122 06/20 GONZÁLEZ SIGALA Physical Therapy Mobilization Joint Physical Therapy Mobilization Joint 23023 06/20 GONZÁLEZ SIGALA Physical Therapy: ___ Se ion Segments, 15 Minutes Each Physical Therapy: ___ Session Segments, 15 Minutes Each 43129 06/20 GONZÁLEZ SIGALA Physical Medicine Physical Therapy Re-Evaluation Physical Medicine Physical Therapy Re-Evaluation 84961 06/18 MITCHELL MORALES [facility] Modalities Ultrasound Modalities Ultrasound 89438 06/14 DUSTIN TRAMMELL [facility] Physical Therapy: ___ Se ion Segments, 15 Minutes Each Physical Therapy: ___ Session Segments, 15 Minutes Each 72535 06/14 DUSTIN TRAMMELL [facility] Physical Therapy Mobilization Joint Physical Therapy Mobilization Joint 71494 06/14 DUSTIN TRAMMELL [facility] Physical Therapy Mobilization Joint Physical Therapy Mobilization Joint 64517 06/12 DUSTIN TRAMMELL [facility] Modalities Ultrasound Modalities Ultrasound 92986 06/12 DUSTIN TRAMMELL [facility] Physical Therapy: ___ Se ion Segments, 15 Minutes Each Physical Therapy: ___ Session Segments, 15 Minutes Each 66025 06/12 VALERI RASTAFARIAN [facility] Modalities Ultrasound Modalities Ultrasound 52932 06/10 CHANA QUINTERO [facility] Physical Therapy Mobilization Joint Physical Therapy Mobilization Joint 50000 06/10 CHANA QUINTERO [facility] Physical Therapy: ___ Se ion Segments, 15 Minutes Each Physical Therapy: ___ Session Segments, 15 Minutes Each 48901 06/10 CHANA QUINTERO [facility] Modalities Ultrasound Modalities Ultrasound 62674 06/06 DUSTIN TRAMMELL [facility] Physical Therapy Mobilization Joint Physical Therapy Mobilization Joint 10494 06/06 DUSTIN TRAMMELL [facility] Physical Therapy: ___ Se ion Segments, 15 Minutes Each Physical Therapy: ___ Session Segments, 15 Minutes Each 71678 06/06 DUSTIN TRAMMELL Physical Therapy Mobilization Joint Physical Therapy Mobilization Joint 44055 06/04 DUSTIN TRAMMELL [facility] Modalities Ultrasound Modalities Ultrasound 61149 06/04 VALERI RASTAFARIAN [facility] Physical Therapy: ___ Se ion Segments, 15 Minutes Each Physical Therapy: ___ Session Segments, 15 Minutes Each 96351 06/04 DUSTIN TRAMMELL [facility] Physical Medicine Physical Therapy Evaluation Physical Medicine Physical Therapy Evaluation 61837 05/31 MITCHELL MORALES [facility] Electrocardiogram Electrocardiogram 18163 05/10 JENIFER STEPHENS [facility] Arthrocentesis Injection Of Knee Joint Arthrocentesis Injection Of Knee Joint 01/17 TETE IZAGUIRRE Hyaluronan (sodium hyaluronate) or derivative, intra-articular injection, per injection 01/17 TETE IZAGUIRRE Visual Whitlock Test Intermediate Examination Visual Whitlock Test Intermediate Examination 36350 12/30 ARON MCKEON [facility] Ophthalmological New Patient Start Comprehensive Care Ophthalmological New Patient Start Comprehensive Care 46132 12/30 ARON MCKEON [facility] Corneal Pachymetry, Bilateral With Interpret And Report Corneal Pachymetry, Bilateral With Interpret And Report 92318 12/30 ARON MCKEON [facility] Determination Of Refractive State Determination Of Refractive State 96783 12/30 ARON MCKEON [facility] Social History Combined list of available smoking, tobacco, and other social history from [facility] of Defense and Veterans Affairs facilities. Social History Type Response Date Comment Sourc e This section is an empty social history section. DoD Assessment and Plan Combined list of future care activities from Department of Defense and Veterans Affairs facilities (e.g., assessment and plan notes, appointments, orders, and referrals). Additional future care activities may be listed in the Plan of Care section. Result Assessment and Plan Date Source Assessment and Plan No data available for this section 01/24/2025 Ambulatory Pharmacy Functional Status Combined list of recent functional and cognitive assessments recorded at [facility] Defense and [facility] (VA).VA Functional [place] Measurement (FIM) Scale: 1 = Total Assistance (Subject = 0% +), 2 = Maximal Assistance (Subject = 25% +), 3 = Moderate Assistance (Subject = 50% +), 4 = Minimal Assistance (Subject = 75% +), 5 = Supervision, 6 = Modified [place] (Device), 7 = Complete [place] (Timely, Safely). Assessment Date/Time Source Assessment Type Assessment Skill Assessment Score Assessment Details No data available for this section
--- OUTSIDE RECORDS SUMMARY | 2025-01-24 12:00 | XMS_ITS | Clinical Summary ---
Author Organization [facility] Address [address] [place] [address] Care Team Providers Care Health Records Technology Teacher Name Role Phone Unavailable Primary Care Provider [...] 1 - Tdap) 1975 Mammogram Screening 1996 Pneumococcal Vaccine: 50+ Ye ars (1 of 1 - PCV) 2006 Zoster Vaccines (1 of 2) 2006 Dexa Scan (General) 2021 COVID-19 Vaccine ( - 2023-2 5 season) 2024 RSV Immunization or 60+ Years (1 [...]
--- OUTSIDE RECORDS SUMMARY | 2025-01-24 12:00 | XMS_ITS | Patient Health Record ---
[facility] Organization [facility] Address [address] [place] [address] Care Team Providers Care Plasma Center Technician Name Role Phone Ervin JUNG, Reji Primary Care Provider Unavailable Rony Bonny Unavailable [phone] Allergies Allergen (clinical drug ingredient) Drug/Non Drug Allergy documented on EMR Reaction Allergy Type Onset Date Status Azithromycin Unknown Drug Allergy Acti ve Levaquin rash Drug Allergy Active Substance with 8-atnlijs-7-methylglut aryl-coenzyme A reductase inhibitor mechanism of action (substance) Statins Unknown Drug Allergy Active Results Component Value Reference Range Notes eGFR Reviewed date:11/14/2024 08:26:18 AM Interpretation: Performing Lab:[facility] , [address] [facility] [address] Notes/Report: eGFR 80 >=60 mL/min/1.73 m2 Interpretive [...] Reviewed date:11/13/2024 06:14:51 PM Interpretation: [facility] , [address] [facility] [place] [address] Notes/Report: Neut Abs 4.2 1.5-6.5 K/cumm ImmGran Abs 0.0 0.0-0.1 K/cumm Lymphocyte Abs 1.4 0.8-3.3 K/cumm [place] Abs 0.7 0.2-0.8 K/cumm Eos Abs 0.2 [...] Interpretive Data was last revised on 2017. [place] Pct 10.1 Interpretive Data Percent cell count [...] Ab Reviewed date:11/14/2024 09:42:56 PM Interpretation: Performing Lab:[facility] , [address] [facility]. [place] [address] Notes/Report: SS B Antibody <0.2 <=0.9 Ab Index Interpretive Data Negative: < 1.0 Ab Index Positive: > or = 1.0 Ab Index Current interpretive data was last revised on 2016. SSA Ab Reviewed date:11/14/2024 09:42:56 PM Interpretation: Performing Lab:[facility] , [address] [facility] [address] Notes/Report: SS A Antibody <0.2 <=0.9 Ab Index Interpretive Data Negative: < 1.0 Ab Index Positive: > or = 1.0 Ab Index Current interpretive data was last revised on 2016. Sed Rate Reviewed date:11/13/2024 06:14:51 PM Interpretation: Performing Lab:[facility] , [facility] [facility] [address] Notes/Report: ESR 23 1-30 mm/hr Rheumatoid Factor Reviewed date:11/14/2024 08:26:18 AM Interpretation: Performing Lab:[facility] , [facility] [address] [facility] [facility] [address] Notes/Report: RF, Calderon 10 <=15 IUnits/mL Hep C AB Reviewed date:11/13/2024 06:14:51 PM Interpretation: Performing Lab:[facility] , [facility] [address] [facility] [address] Notes/Report: Hepatitis C Antibody Nonreactive Nonreactiv Interpretive [...] AG Reviewed date:11/13/2024 06:14:51 PM Interpretation: Performing Lab:[facility] , [facility] [address] [facility] [facility] [address] Notes/Report: Hepatitis B Surface Antigen Nonreactive Nonreactiv G6PD Ql Reviewed date:11/14/2024 08:26:18 AM Interpretation: Performing Lab:[facility] , [address] [facility] [address] Notes/Report: G6PD, Qual Normal Normal Interp data: G6PD activity should be interpreted in the context of a patient's hematocrit. Hematocrit < 20% may lead to a falsely deficient result, while hematocrit > 50% may lead to a falsely normal result. Current interpretive data was last revised on 2019. Testing performed by: [facility], [address] [place]., [address] Cryoglobulin, S&P Reviewed date:11/15/2024 12:47:39 PM Interpretation: Performing Lab:[facility] , [facility] [place] [address] Notes/Report: Cryo S See Footnote Negative Negative. This test is negative at 24 hours. All samples are held and reviewed again at 7 days. If delayed precipitation occurs after 7 days, Immunofixation will be performed and an additional report will follow. Cryofib P Negative Negative Test Performed by: [facility] [address] [place] [address] Quality Assurance Representative: Anjali Hernadez Ph.D.; CLIA# [id number] Creatine Kinase Reviewed date:11/14/2024 08:26:18 AM Interpretation: Performing Lab:[facility] , [address] [facility]. [place] [address] Notes/Report: Total CK 44 30-200 Units/L Comprehensive metabolic pane l (CMP) Reviewed date:11/14/2024 08:26:18 AM Interpretation: Performing Lab:[facility] , [address] [facility]. [place] [address] Notes/Report: Sodium 139 135-145 mmol/L Plasma Potassium [...] C4 Reviewed date:11/14/2024 08:26:18 AM Interpretation: Performing Lab:[facility] , [address] [place] [address]. [facility] [address] Notes/Report: Complement, C4 22 10-40 mg/dL Complement C3 Reviewed date:11/14/2024 08:26:18 AM Interpretation: Performing Lab:[facility] , [address] [place] [address]. [place] [address] Notes/Report: Complement, C3 178 90-180 mg/dL CBC w auto diff Reviewed date:11/13/2024 06:14:51 PM Interpretation: Performing Lab:[facility] , [address] [place] [address]. [facility] [address] Notes/Report: WBC 6.6 3.8-9.9 K/cumm Hgb 14.0 11.9-15.5 g/dL Hct 42.8 35.6-45.5 % Platelet Ct 259 150-400 K/cumm MPV 9.6 9.1-12.3 fL RBC 4.49 3.90-5.20 M/cumm MCV 95.3 81.3-96.4 fL MCH 31.2 27.1-33.3 pg MCHC 32.7 32.3-35.7 g/dL RDW CV 12.2 11.1-14.9 % RDW SD 42.5 35.7-48.1 fL NRBC Abs Auto 0.00 0.00-0.01 K/cumm C Reactive Protein Reviewed date:11/14/2024 08:26:18 AM Interpretation: Performing Lab:[facility] , [address] [place] [address]. [facility] [address] Notes/Report: C-Reactive Protein 4.1 <=10.0 mg/L Anti-CCP (Cyclic Citrullinat ed Peptide Ab) Reviewed date:11/14/2024 12:01:33 PM Interpretation: Performing Lab:[facility] , [facility] [address] [facility] [facility] [address] Notes/Report: CCP Ab <0.5 <=2.9 units/mL Interpretive data Negative: <3 units/mL Positive: > or equal to 3 units/mL Current interpretive data was last revised on 2016. ANCA reflex MPO and PR3 Abs Reviewed date:11/15/2024 12:47:39 PM Interpretation: Performing Lab:[facility] , [address] [place] [address]. [facility] [address] Notes/Report: Neutrophil Cytoplas Ab, Qual Negative Testing performed by: [facility], [address] [place] [address], [address] SHRUTI reflex titer pattern ROSITA + dsDNA Reviewed date:11/14/2024 12:01:33 PM Interpretation: Performing Lab:[facility] , [address] [place] [address]. [facility] [address] Notes/Report: SHRUTI, Qual Negative Interpretive Data Normal [...] last revised on 2020. 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 Vital Signs Heart Rate 71 /min 11/13/2024 Temperature 98.3 degrees Fahrenheit 11/13/2024 Blood pressure diastolic 72 mm Hg 11/13/2024 Oximetry 95 % 11/13/2024 Height-cm 173.99 cm 11/13/2024 Weight-kg 116.73 kg 11/13/2024 Height 68.5 in 11/13/2024 Blood pressure systolic 126 mm Hg 11/13/2024 Weight 257.4 lbs 11/13/2024 BMI 38.56 kg/m2 11/13/2024 Encounters Encounter Location Date Provider Diagnosis [facility] [address] [facility] [place] [address] 11/13/2024 Bonny Uribe Multiple joint pain M25.50 and 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 [facility] [address] [facility] [address] [place] [address] 11/27/2024 Bonny Uribe Multiple joint pain M25.50 ; Rheumatoid arthritis without rheumatoid factor, multiple sites M06.09 and 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 [facility] [address] [facility] [facility] [place] [address] 08/21/2024 Bonny Uribe Assessments Encounter Date Diagnosis [...] Name:Bonny Uribe, 01/28 01:15:00 PM, [address], [place], [address], Insurance Providers Payer Name Payer Address Payer Phone Subscriber Number Group Number Insured Name Patient Relationship to Insured Coverage Start Date Coverage End Date Medicare [address] [address] [place] [address] [id number] Elli Garcia Self - patient is the insured [facility] [employer] 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
--- OUTSIDE RECORDS SUMMARY | 2025-01-24 12:01 | XMS_ITS ---
Author Organization [facility] marcus Address [address] [place] [address] Care Team Providers Care Assisted Living Director Name Role Phone Reji Mueller MD Primary Care Provider Unavailable Bonny Enriquez Unavailable [phone] Allergies Allergen (clinical drug ingredient) Drug/Non Drug Allergy documented on EMR Reaction Allergy Type Onset Date Status Azithromycin Unknown Drug Allergy Acti ve Levaquin rash Drug Allergy Active Substance with 1-siipqap-3-methylglut aryl-coenzyme A reductase inhibitor mechanism of action (substance) Statins Unknown Drug Allergy Active REASON FOR VISIT yd/2 week follow up/flc, joint pain, history of vasculitis, referred by Dr. Reji Mueller [address] [facility], [address], [place] [address], tel [phone], fax [phone] Medications Medication SIG (Take, Route, Frequency, Duration) [...] 30 days As needed 11/27/2024 01/26/2025 Active [place] 3 1000 MG 1 capsule Orally Three [...] Problem Status W/U Status Risk Notes Problem [id number] Rheumatoid arthritis without rheumatoid factor, 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) Active confirmed Encounters Encounter Location Date Provider Diagnosis [facility] [address] [facility] [address] [place] [address] 11/27/2024 Bonny Enriquez Multiple joint pain M25.50 [...] Name:Bonny Enriquez, 01/28 01:15:00 PM, [address] [facility] [address], [place], [address], Progress Notes * Elli GAITANDOB:[birth year] (69 yo F)Acc No.[id number]:11/27/2024 Patient: Elli JONES Provider: Grisel ENRIQUEZ MD :1955 A ge:69 Y S ex:Female Date:11/27/2024 Address:[address] [place] [address] , [facility] Pcp:Reji Mueller MD Subjective: * Chief Complaints: * Y d/2 week follow up/flcJoint pain, history of vasculitisreferred by Dr. Reji Mueller [address] [place] [address], [address], [place] [address], tel [phone], fax [phone] * HPI: G eneral Follow up: Synchronous video/audio telecommunication with [facility] Patient has agreed to telehealth visit and [...] fever, weight loss, weakness. C omments S HPI for details. M usculoskeletal: Comments [facility] HPI for details. S kin: Comments [facility] for details . N eurologic: Patient denies [...] at bedtime Orally Once a day Multivitamin [place]weyville 3 1000 MG Capsule 1 capsule Orally [...] Orally Once a day Taking Multivitamin Taking [place] 3 1000 MG Capsule 1 capsule Orally [...] diff (Order 11/13/2024) (Collection Date & Time - 11/13/2024 11:29 AM) Value Reference Range WBC [...] ab:Anti-CCP (Cyclic Citrullinated Peptide Ab) (Order Date - 11/13/2024) (Collection Date & [...] mg/dL L ab:Comprehensive metabolic panel (CMP) (Order Date 11/13/2024) (Collection Date & Time [...] - Units/L L ab:Cryoglobulin, S&P (Order Date 11/13/2024) (Collection Date & Time - 11/13/2024 11:29 AM) Value Reference Range Cryoglobulin, Serum See Footnote Negative - Cryofibrinogen, Plasma Negative Negative - L ab:G6PD Ql (Order Date 11/13/2024) (Collection Date & Time [...] K/cumm ImmGran Abs 0.0 0.0-0.1 - K/cumm Monona Abs 0.7 0.2-0.8 - K/cumm Eos Abs 0.2 0.0-0.5 - K/cumm Baso Abs 0.1 0.0-0.1 - K/cumm Neut Pct 64.5 - % ImmGran Pct 0.3 - % Lymph Pct 21.7 - % Monona Pct 10.1 - % Eos Pct 2.6 [...] Months * Billing Information: * Visit Code: 21282 Office Visit, Est Pt., Level 4. Modifiers: 95 * Procedure Codes: * Sign off status: Completed true * Provider: Grisel ENRIQUEZ MD Date: 0 11/27/2024 Generated for Prabha mcclure/Mark/Sorin on: 0 01/24/2025 12:01 PM CDT History and Physical Notes * HPI (History of Present Illness) Category Sub-Category Detail Notes Category Not es General Follow up Synchronous video/audio telecommunication with [employer] Patient has agreed to telehealth visit and [...]
--- OUTSIDE RECORDS SUMMARY | 2025-01-24 12:01 | XMS_ITS ---
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
--- OUTSIDE RECORDS SUMMARY | 2025-01-24 12:01 | XMS_ITS | Clinical Summary ---
Author Organization [facility] Address [address] [place] [address] Care Team Providers Care Traveling Buyer Name Role Phone Reji Mueller MD Primary Care Provider Allergies Active Allergy Reactions Criticality Noted Date Comments Azithromycin Unknown 04/23/2021 Levofloxacin Unknown 04/23/2021 Aeuitxe-Cmv-Pkj Reductase Inhibitors Muscle Pain Low 04/23/2021 Medications [...] Comments Blood Pressure 137/79 11/03/2021 2:12 PM RF ENGINEER Pulse 62 11/03/2021 2:12 PM RF ENGINEER Temperature 36.9 C (98.5 F) 08/20/2021 10:41 AM RF ENGINEER Respiratory Rate 18 11/03/2021 2:12 PM RF ENGINEER Oxygen Saturation 98% 11/03/2021 2:12 PM RF ENGINEER Inhaled Oxygen Concentration - - Weight 115.8 kg (255 lb 3.2 oz) 021 10:41 AM RF ENGINEER Height 174 cm (5' 8.5 ) 08/20/2021 10:4 1 AM RF ENGINEER Body Mass Index 38.24 08/20/2021 10:41 AM RF ENGINEER Plan of Treatment Health Maintenance Due Date [...] Completed 10/10/2020, 1112/2019, 06/24/[address] [place] [address] MEDICARE PART A AND B FOR LIFE Care Teams Traveling Buyer Relationship Specialty Start Date End Date Reji Mueller MD [address] [place] [address] PCP - General Family Practice 04/23/21
--- OUTSIDE RECORDS SUMMARY | 2025-01-24 12:02 | XMS_ITS ---
Author Organization [facility] marcus Address [address] [place] [address] Care Team Providers Care Traffic Rate Analyst Name Role Phone Reji Mueller MD Primary Care Provider Unavailable Bonny Enriquez Unavailable [phone] Allergies Allergen (clinical drug ingredient) Drug/Non Drug Allergy documented on EMR Reaction Allergy Type Onset Date Status Azithromycin Unknown Drug Allergy Acti ve Levaquin rash Drug Allergy Active Substance with 6-pkfiiwn-3-methylglut aryl-coenzyme A reductase inhibitor mechanism of action (substance) Statins Unknown Drug Allergy Active Results Component Value Reference Range Notes SHRUTI reflex titer pattern ROSITA + dsDNA Reviewed date:11/14/2024 12:01:33 PM Interpretation: Performing Lab:[facility] , [address] [facility] [place] [address] Notes/Report: SHRUTI, Qual Negative Interpretive Data Normal [...] last revised on 2020. Testing performed by: [facility], [address] [facility]., [address] ANCA reflex MPO and PR3 Abs Reviewed date:11/15/2024 12:47:39 PM Interpretation: Performing Lab:[facility] , [address] [place] [address] Notes/Report: Neutrophil Cytoplas Ab, Qual Negative Testing performed by: [facility], [address] [facility], [place]., [address] Anti-CCP (Cyclic Citrullinat ed Peptide Ab) Reviewed date:11/14/2024 12:01:33 PM Interpretation: Performing Lab:[facility] , [address] [place] [address]. [facility] [address] Notes/Report: CCP Ab <0.5 <=2.9 units/mL Interpretive data Negative: <3 units/mL Positive: > or equal to 3 units/mL Current interpretive data was last revised on 2016. C Reactive Protein Reviewed date:11/14/2024 08:26:18 AM Interpretation: Performing Lab:[facility] , [address] [place] [address]. [facility] [address] Notes/Report: C-Reactive Protein 4.1 <=10.0 mg/L CBC w auto diff Reviewed date:11/13/2024 06:14:51 PM Interpretation: Performing Lab:[facility] , [address] [place] [address]. [facility] [address] Notes/Report: WBC 6.6 3.8-9.9 K/cumm Hgb 14.0 11.9-15.5 g/dL Hct 42.8 35.6-45.5 % Platelet Ct 259 150-400 K/cumm MPV 9.6 9.1-12.3 fL RBC 4.49 3.90-5.20 M/cumm MCV 95.3 81.3-96.4 fL MCH 31.2 27.1-33.3 pg MCHC 32.7 32.3-35.7 g/dL RDW CV 12.2 11.1-14.9 % RDW SD 42.5 35.7-48.1 fL NRBC Abs Auto 0.00 0.00-0.01 K/cumm Complement C3 Reviewed date:11/14/2024 08:26:18 AM Interpretation: Performing Lab:[facility] , [address] [place] [address]. [facility] [address] Notes/Report: Complement, C3 178 90-180 mg/dL Complement C4 Reviewed date:11/14/2024 08:26:18 AM Interpretation: Performing Lab:[facility] , [address] [place] [address]. [facility] [address] Notes/Report: Complement, C4 22 10-40 mg/dL Comprehensive metabolic pane l (CMP) Reviewed date:11/14/2024 08:26:18 AM Interpretation: Performing Lab:[facility] , [address] [place] [address]. [facility] [address] Notes/Report: Sodium 139 135-145 mmol/L Plasma Potassium [...] Kinase Reviewed date:11/14/2024 08:26:18 AM Interpretation: Performing Lab:[facility] , [address] [place] [address]. [facility] [address] Notes/Report: Total CK 44 30-200 Units/L Cryoglobulin, S&P Reviewed date:11/15/2024 12:47:39 PM Interpretation: Performing Lab:[facility] , [address] [place] [address]. [facility] [address] Notes/Report: Cryo S See Footnote Negative Negative. This test is negative at 24 hours. All samples are held and reviewed again at 7 days. If delayed precipitation occurs after 7 days, Immunofixation will be performed and an additional report will follow. Cryofib P Negative Negative Test Performed by: [facility] [address] [place] [address] Warehouse Order Selector: Anjali Hernadez Ph.D.; CLIA# [id number] G6PD Ql Reviewed date:11/14/2024 08:26:18 AM Interpretation: Performing Lab:[facility] , [address] [facility] [place] [address] Notes/Report: G6PD, Qual Normal Normal Interp data: G6PD activity should be interpreted in the context of a patient's hematocrit. Hematocrit < 20% may lead to a falsely deficient result, while hematocrit > 50% may lead to a falsely normal result. Current interpretive data was last revised on 2019. Testing performed by: [facility], [address] [place]., [address] Hep B surf AG Reviewed date:11/13/2024 06:14:51 PM Interpretation: Performing Lab:[facility] , [address] [facility]. [place] [address] Notes/Report: Hepatitis B Surface Antigen Nonreactive Nonreactiv Hep C AB Reviewed date:11/13/2024 06:14:51 PM Interpretation: Performing Lab:[facility] , [address] [facility] [place] [address] Notes/Report: Hepatitis C Antibody Nonreactive Nonreactiv Interpretive [...] Factor Reviewed date:11/14/2024 08:26:18 AM Interpretation: Performing Lab:[facility] , [address] [facility] [place] [address] Notes/Report: RF, Calderon 10 <=15 IUnits/mL Sed Rate Reviewed date:11/13/2024 06:14:51 PM Interpretation: Performing Lab:[facility] , [address] [place] [address]. [facility] [address] Notes/Report: ESR 23 1-30 mm/hr SSA Ab Reviewed date:11/14/2024 09:42:56 PM Interpretation: Performing Lab:[facility] , [address] [place] [address]. [facility] [address] Notes/Report: SS A Antibody <0.2 <=0.9 Ab Index Interpretive Data Negative: < 1.0 Ab Index Positive: > or = 1.0 Ab Index Current interpretive data was last revised on 2016. SSB Ab Reviewed date:11/14/2024 09:42:56 PM Interpretation: Performing Lab:[facility] , [address] [place] [address]. [facility] [address] Notes/Report: SS B Antibody <0.2 <=0.9 Ab Index Interpretive Data Negative: < 1.0 Ab Index Positive: > or = 1.0 Ab Index Current interpretive data was last revised on 2016. REASON FOR VISIT joint pain, history of vasculitis, referred by Dr. 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 Vital Signs Temperature 98.3 degrees Fahrenheit 11/13/19 25 Blood pressure systolic 126 mm Hg 11/13/19 25 Blood pressure diastolic 72 mm Hg 025 Heart Rate 71 /min 11/13/2024 Height 68.5 in 11/13/2024 Weight 257.4 lbs 11/13/2024 BMI 38.56 kg/m2 11/13/2024 Oximetry 95 % 11/13/2024 Height-cm 173.99 cm 11/13/2024 Weight-kg 116.73 kg 11/13/2024 Encounters Encounter Location Date Provider Diagnosis [facility] [address] [facility] [address] [place] [address] 11/13/2024 Bonny Enriquez Multiple joint pain M25.50 [...] Name:Bonny Enriquez, 01/28 01:15:00 PM, [address] [facility] [address], [place], [address], Progress Notes * Elli GAITANDOB:[birth year] (69 yo F)Acc No.[id number]:11/13/2024 Progress Notes Patient: Elli JONES Provider: Grisel ENRIQUEZ MD :1955 A ge:69 Y S ex:Female Date:11/13/2024 Address:[address] [place] [address] [facility] Pcp:Reji Mueller MD Subjective: * Chief Complaints: * J oint pain, history of vasculitisreferred by Dr. Reji Mueller [facility] [facility], [address], [place] [address], tel [phone], fax [phone] * HPI: n ew patient: She developed [...] at bedtime Orally Once a day Multivitamin [place] 3 1000 MG Capsule 1 capsule Orally [...] Orally Once a day Taking Multivitamin Taking [place] 3 1000 MG Capsule 1 capsule Orally [...] with the patient * Allergies: L evaquin: rashStatinsAeloy[Allergies Verified] Objective: * Vitals: B P:126/72mm Hg, [...] Earlene Enriquez on 11/14/2024 at 12:01 PM MEDICAL RECEPTIONIST ASSISTANT ?LAB: ANCA reflex MPO and PR3 Abs* Value Reference Range A NCA Ql Negative - * This lab was reviewed by Earlene Enriquez on 11/15/2024 at 12:47 PM MEDICAL RECEPTIONIST ASSISTANT ?LAB: Anti-CCP (Cyclic Citrullinated Peptide Ab)* Value Reference Range C CP Ab <0.5 <=2.9 - units/mL * This lab was reviewed by Earlene Enriquez on 11/14/2024 at 12:01 PM MEDICAL RECEPTIONIST ASSISTANT ?LAB: C Reactive Protein* Value Reference Range C RP 4.1 <=10.0 - mg/L * This lab was reviewed by Earlene Enriquez on 11/14/2024 at 08:26 AM MEDICAL RECEPTIONIST ASSISTANT ?LAB: CBC w auto diff* Value Reference [...] Earlene Enriquez on 11/13/2024 at 18:14 PM MEDICAL RECEPTIONIST ASSISTANT ?LAB: Complement C3* Value Reference Range C omp C3 178 90-180 - mg/dL * This lab was reviewed by Earlene Enriquez on 11/14/2024 at 08:26 AM MEDICAL RECEPTIONIST ASSISTANT ?LAB: Complement C4* Value Reference Range C omp C4 22 10-40 - mg/dL * This lab was reviewed by Earlene Enriquez on 11/14/2024 at 08:26 AM MEDICAL RECEPTIONIST ASSISTANT ?LAB: Comprehensive metabolic panel (CMP)* Value Reference [...] Earlene Enriquez on 11/14/2024 at 08:26 AM MEDICAL RECEPTIONIST ASSISTANT ?LAB: Creatine Kinase* Value Reference Range C K Totl 44 30-200 - Units/L * This lab was reviewed by Earlene Enriquez on 11/14/2024 at 08:26 AM MEDICAL RECEPTIONIST ASSISTANT ?LAB: Cryoglobulin, S&P* Value Reference Range C ryoglobulin, Serum See Footnote Negative - * C ryofibrinogen, Plasma Negative Negative - * This lab was reviewed by Earlene Enriquez on 11/15/2024 at 12:47 PM MEDICAL RECEPTIONIST ASSISTANT ?LAB: G6PD Ql* Value Reference Range G 6PD Ql Normal Normal - * This lab was reviewed by Earlene Enriquez on 11/14/2024 at 08:26 AM MEDICAL RECEPTIONIST ASSISTANT ?LAB: Hep B surf AG* Value Reference Range H epB Surf Ag Nonreactive Nonreactiv - * This lab was reviewed by Earlene Enriquez on 11/13/2024 at 18:14 PM MEDICAL RECEPTIONIST ASSISTANT ?LAB: Hep C AB* Value Reference Range H epC Ab Nonreactive Nonreactiv - * This lab was reviewed by Earlene Enriquez on 11/13/2024 at 18:14 PM MEDICAL RECEPTIONIST ASSISTANT ?LAB: Rheumatoid Factor* Value Reference Range R F Qn 10 <=15 - IUnits/mL * This lab was reviewed by Earlene Enriquez on 11/14/2024 at 08:26 AM MEDICAL RECEPTIONIST ASSISTANT ?LAB: Sed Rate* Value Reference Range E SR 23 1-30 - mm/hr * This lab was reviewed by Earlene Enriquez on 11/13/2024 at 18:14 PM MEDICAL RECEPTIONIST ASSISTANT ?LAB: SSA Ab* Value Reference Range S S A Ab <0.2 <=0.9 - Ab Index * This lab was reviewed by Earlene Enriquez on 11/14/2024 at 21:42 PM MEDICAL RECEPTIONIST ASSISTANT ?LAB: SSB Ab* Value Reference Range S S B Ab <0.2 <=0.9 - Ab Index * This lab was reviewed by Earlene Enriquez on 11/14/2024 at 21:42 PM MEDICAL RECEPTIONIST ASSISTANT * Procedure Codes: * Follow Up: 2 Weeks * Billing Information: * Visit Code: 94657 Office Visit, New Pt., Level 4. * Procedure Codes: * CAL RECEPTIONIST ASSISTANT Sign off status: Completed true * Provider: Grisel ENRIQUEZ MD Date: 0 11/13/2024 Generated for Shivami kami/Mark/Esthelaitting on: 0 01/24/2025 12:02 PM CDT History and Physical Notes * [...]
[2025-01-24 12:13] LABS: Basophils Percent Auto 0.5 % (0.2-1.2); Eosinophils Absolute Auto 0.1 K/mm3 (0-0.3); Eosinophils Percent Auto 1.5 % (0-4.4); Hematocrit 43.1 % (37.0-47.0); Hemoglobin 14.1 g/dL (12.0-15.0); Immature Granulocyte Absolute 0.01 K/mm3 (0.00-0.031); Immature Granulocyte Percent A 0.2 % (0-0.5); Lymphocytes Absolute Auto 1.16 K/mm3 (0.9-3.2); Lymphocytes Percent Auto 19.9 % (18.3-44.2); Mean Corpuscular HGB Conc 32.7 g/dl (32-36); Mean Corpuscular Hemoglobin 31.1 pg (26-34); Mean Corpuscular Volume 94.9 fl (80-100); Monocytes Absolute Auto 0.6 K/mm3 (0.1-0.6); Monocytes Percent Auto 9.4 % (2.6-8.5); Neutrophils Percent Auto 68.5 % (45.5-73.1); Platelet Count Result 248 k/mm3 (150-375); Red Blood Count 4.54 M/mm3 (4.2-5.4); Red Cell Distribution Width 12.6 % (11.5-14.5); White Blood Count 5.8 K/mm3 (4.5-10.0)
[2025-01-24 12:34] LABS: Alanine Aminotransferase 21 U/L (6-35); Albumin Level 4.2 g/dL (3.5-5.1); Alkaline Phosphatase 76 U/L (38-126); Anion Gap 6 mmol/L (4-12); Aspartate Amino Transferase 31 U/L (14-36); Bilirubin,Total 0.6 mg/dL (0.2-1.3); Blood Urea Nitrogen 9 mg/dL (7-17); Calcium 9.2 mg/dL (8.4-10.2); Carbon Dioxide 34 mmol/L (22-30); Chloride 100 mmol/L (98-107); Cholesterol 193 mg/dL (0-200); Estimated Glomerular Filt Rate > 60; Glucose 112 mg/dL (65-110); HDL Direct 82 mg/dL; Sodium 140 mmol/L (137-145); Triglycerides 68 mg/dL (<150)
[2025-01-24 12:44] LABS: Hemoglobin A1C 5.5 % (<5.7)
[2025-01-24 12:45] LABS: LDL Cholesterol Direct 75 mg/dL
[2025-01-24 12:57] LABS: Vitamin D 25 Hydroxy 94.9 ng/mL
[2025-01-24 13:09] LABS: Thyroid Stimulating Hormone Reflex 0.498 uIU/mL (0.465-4.68)
== END 2025-01-24 11:55 | disposition home or self-care (01) ==
LOC: ANHLAB 11:57
PROVIDERS: PCP Family Medicine; Visit Provider Family Medicine
DX: E55.9 Vitamin D deficiency, unspecified (principal); I10 Essential (primary) hypertension; E53.8 Deficiency of other specified B group vitamins; E78.5 Hyperlipidemia, unspecified; R79.0 Abnormal level of blood mineral; E03.9 Hypothyroidism, unspecified
CPT/HCPCS: 36415; 80053; 80061; 82306; 82607; 82728; 83036; 84443; 85025

== ENCOUNTER 2025-04-08 13:36 | Outpatient (CLI) | payer MEDICARE, OTHER, SELFPAY ==
--- NOTE | ~2025-04-08 | DEXA_ITS ---
Bone Density Report Name: CLAU GAITAN Age: 70 Sex: Female Ethnicity: White Date of : 1955 Indication: postmenopausal; screening for osteoporosis; height loss; prior fracture; asthma or emphysema; hysterectomy; Referring Provider: KALEY LOERA Study: Bone densitometry was performed. Exam Date: April 08, 2025 Accession number: [id number] Bone Density: Region BMD T-score Z-score Classification AP Spine(L1-L4) 1.266 2.0 4.0 Normal Femoral Neck (Right) 0.820 -0.3 1.5 Normal Total Hip (Right) 0.986 0.4 1.8 Normal World Health Organization criteria for BMD impression classify patients as: Normal (T-score at or above -1.0), Osteopenia (T-score between -1.0 and -2.5), or Osteoporosis (T-score at or below -2.5). 10-year Fracture Risk: FRAX not reported because: All T-scores for Spine Total, Hip Total, Femoral Neck at or above -1.0 Prior hip or vertebral fracture Previous Exams: Region Exam Age BMD T-score BMD Change BMD Change Date g/cm2 vs Baseline vs Previous AP Spine (L1-L4) 04/08/2025 70 1.266 2.0 -0.021 (-1.7%) -0.083 (-6.2%) 09/17/2022 67 1.349 2.7 0.062 (4.8%)* 0.110 (8.9%)* 09/28/2019 64 1.239 1.7 -0.048 (-3.7%) -0.048 (-3.7%) 10/14/2015 60 1.287 2.2 Total Hip(Right) 04/08/2025 70 0.986 0.4 -0.031 (-3.1%) 0.057 (6.1%)* 09/17/2022 67 0.929 -0.1 -0.088 (-8.6%) -0.073 (-7.3%) 09/28/2019 64 1.002 0.5 -0.015 (-1.5%) -0.015 (-1.5%) 10/14/2015 60 1.017 0.6 *Denotes significance at 95% confidence level, LSC for AP Spine = 0.022 g/cm2, LSC for Total Hip = 0.027 g/cm2 Clinical Information Provided by Patient: Have had a previous hip or vertebral fracture Has had a low trauma fracture Has used the following medications: Vitamin D, Calcium Has the following medical conditions: Asthma or Emphysema, Hysterectomy, hypothryroidism Patient maximum height was 69 Menopause Age: 49 No regular weight bearing exercise Does not regularly consume dairy products Drinks caffeinated beverages Onset of menses at age 15 Number of children 2 Impression: The patient has normal bone mass. The patient has risk factors, including: previous fracture. The BMD for the AP Spine (L1-L4) decreased, changing by -6.2% since the last DXA exam. Discussion: INCREASED RISK OF FRACTURE DUE TO HISTORY OF FRACTURE. The patient's previous fracture puts the patient at high risk of a future fracture. In untreated patients, the risk of osteoporotic fracture increases approximately two-fold for each 1.0 SD decrease in T-score. Low bone density is not the only risk factor for fracture; also consider factors such as patient's age, frailty or poor health, risk of falling, risk of injury, previous osteoporotic fracture, family history of osteoporosis, cigarette smoking, low body weight, etc. Not everyone with a low trauma fracture has osteoporosis; osteomalacia and other metabolic bone disorders should also be considered. Patients who have osteoporosis should be evaluated for specific diseases and conditions (secondary causes) that may cause or contribute to bone loss and fracture risk. National Osteoporosis Foundation (NOF) recommends pharmacologic intervention for patients with a prior hip or vertebral fracture regardless of BMD T-score. The patient should follow a healthful lifestyle (good nutrition with adequate calcium and vitamin D, and appropriate weight-bearing exercise). Follow-Up: Consider a repeat BMD and Vertebral Fracture Assessment (VFA) exam in 2 years or sooner if medically necessary, to reassess this patient's status. Reported by: FRANCISCO on 04/08/2025 2:12:00 PM. Reviewed, dictated and finalized at location A.
--- OUTSIDE RECORDS SUMMARY | 2025-04-08 13:40 | XMS_ITS | Continuity of Care Document ---
Author Name [facility] Organization [facility] Care Team Providers Care Director Ehs Name Role Phone [facility] Unavailable Unavailable Problems [...] Active Condition P RIMARY CARE B/BACILIO ALFONSO [id number] EST/20 PENDINGArrive 15 min early DoD Patient [...] y buPROPion XL 300 mg/24 hour tablet = 1 tab(s), Oral, # 90 EA, 2 total refill(s ), Hard Stop Oral (given by mouth) Ordered 08/15/2025 5 2024 90.0 Ambulat ory Pharmac y celecoxib 200 mg capsule See Instruct ions, # 90 EA, 1 total refill(s ), Hard Stop Ordered 05/14/2025 4 2023 90.0 Ambulat ory Pharmac y celecoxib 200 mg capsule 200 mg, Oral, every morning, # 90 EA, 1 total refill(s ), Hard Stop Oral (given by mouth) Discont inued 05/15/2024 4 2023 90.0 Ambulat ory Pharmac y celecoxib 200 mg capsule = 1 cap(s), Oral, 0, # 90 EA, 1 total [...] CHOLECALCIF (VIT D3) 5,000 UNIT ORAL CAP 02/05/2025 [id number] 4 2023 90 [facility] [place] cholecalcif faraz 125 mcg (5,000 units) capsule 125 mcg, Oral, Daily, # 90 EA, 2 total refill(s ), Hard Stop Oral (given by mouth) Complet ed 02/05/2025 4 2024 90.0 Ambulat ory Pharmac y cholecalcif faraz 125 mcg (5,000 units) capsule See Instruct ions, # 90 EA, 2 total refill(s ), Hard Stop Complet ed 05/09/2024 4 2023 90.0 Ambulat ory Pharmac y cholecalcif faraz 125 mcg (5,000 units) capsule = 1 cap(s), Oral, Daily, # 90 EA, 2 total [...] with your doctor before becoming . 01/17/2025 [id number] 4 2023 90 [employer] [place] ezetimibe 10 mg tablet 10 mg, Oral, Daily, # 90 EA, 1 total refill(s ), Hard Stop Oral (given by mouth) Discont inued 03/05/2024 4 2023 90.0 Ambulat ory Pharmac y ezetimibe 10 mg tablet = 1 tab(s), Oral, Daily, # 90 EA, 3 total [...] before becoming .Do not chew or crush. 02/05/2025 [id number] 4 2023 90 [facility] [employer] [place] ([facility] ferrous sulfate 325 mg tablet 325 mg, Oral, Daily, # 90 EA, 3 total refill(s ), Hard Stop Oral (given by mouth) Complet ed 02/05/2025 5 2024 90.0 Ambulat ory Pharmac [...] 5 2024 16.0 Ambulat ory Pharmac y fluticasone -salmeterol 250-50 [...] isosorbide mononitrate ER 30 mg/24 hour tablet = 1 tab(s), Oral, Daily, # 90 EA, 3 total [...] or use exactly as directed . 01/15/2025 [id number] 4 2023 90 [employer] [facility] [place] methylPREDN ISolone 4 mg tablet Dose Pack [21EA] See Instruct ions, # 21 EA, 0 total refill(s ), Hard Stop Complet ed 04/18/2024 4 2023 21.0 Ambulat ory Pharmac y methylPREDN ISolone 4 mg tablet Dose Pack [21EA] See Instruct ions, # 21 EA, 0 total refill(s ), Hard Stop Discont inued 04/16/2024 3 2023 21.0 Ambulat ory Pharmac y metoprolol succinate ER 25 mg/24 hour tablet See Instruct ions, # 90 EA, 3 total refill(s ), Acute Complet ed 11/30/2023 4 2023 90.0 Ambulat ory Pharmac y metoprolol succinate ER 25 mg/24 hour tablet = 1 tab(s), Oral, Daily, # 90 EA, 3 total refill(s ), Soft Stop Oral (given by mouth) Ordered 5 2024 90.0 Ambulat ory Pharmac y metoprolol succinate [...] metoprolol succinate ER 25 mg/24 hour tablet = 1 tab(s), Oral, Daily, # 45 EA, 0 total refill(s ), Hard Stop Oral (given by mouth) Complet ed 12/01/2024 5 2024 45.0 Ambulat ory Pharmac y nystatin-tr iamcinolone 100,000 units/g-0.1 % topical cream APPLY TOPICALL Y TWICE A DAY DIRECTED , # 30 g, 1 total refill(s ), Acute Complet ed 04/06/2023 2 2022 30.0 Ambulat ory Pharmac y omeprazole DR 40 mg capsule = 1 cap(s), Oral, Daily, # 90 EA, 2 total [...] Pharmac y rosuvastati n 20 mg tablet = 1 tab(s), Oral, every morning, # 90 EA, 3 total refill(s ), Soft Stop Oral (given by mouth) Ordered 5 2024 90.0 Ambulat ory Pharmac y sertraline 100 mg oral tablet TAKE 1 TABLET ONCE A DAY, # 90 EA, 1 total refill(s ), Acute Complet ed 08/31/2023 3 2022 90.0 Ambulat ory Pharmac y sertraline 100 mg tablet See Instruct ions, # 90 EA, 2 total refill(s ), Hard Stop Complet ed 02/25/2024 4 2023 90.0 Ambulat ory Pharmac y sertraline 100 mg tablet = 1 tab(s), Oral, Once, # 90 EA, 1 total [...] y traZODone 50 mg tablet See Instruct keyon, Oral, # 90 EA, 2 total refill(s ), Soft Stop Oral (given by mouth) Ordered 5 2024 90.0 Ambulat ory Pharmac y Wixela Inhub 100-50 mcg inhaler (60EA) See Instruct ions, # 60 EA, 3 total refill(s ), Acute Complet ed 10/28/2023 3 2023 60.0 Ambulat ory Pharmac y WIXELA INHUB 250-50 MCG INH DSDV [60EA] Obtain advice for OTCs.For inhalati on.Check with your doctor before becoming .Rinse mouth after use. 01/16/2025 [id number] 4 [address] [place] [address]) Wixela Inhub 250-50 mcg inhaler (60EA) See Instruct keyon, # [...] LEVAQUIN Drug allergy (disorder) Unknown active [address] [place] [address]) levoFLOXacin Propensity to adverse reactions to drug Unknown Active NAUSEA Unknown Organizat ion LIPITOR Drug allergy (disorder) Unknown active [address] [place] [address]) simvastatin Propensity to adverse reactions to drug Unknown Active Unknown Organizat ion ZOCOR Drug allergy (disorder) Unknown active [address] [place] [address]) Immunizations Combined list of available immunizations from the Department of Defense and Veterans Affairs facilities. 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 Status Comments Source COVID-19, mRNA, LNP-S, PF, 30 mcg/0.3 mL dose, ania-sucrose 2021 THORNTON, JJ PHARMA [place] (PFR) Not Given COVID-19, mRNA, LNP-S, PF, 30 mcg/0.3 mL dose, ania-sucr ose DoD COVID-19, mRNA, LNP-S, PF, 30 mcg/0.3 mL dose 2020 EMIGDIORetidoc [place] (PFR) Not Given COVID-19, mRNA, LNP-S, PF, 30 mcg/0.3 mL dose DoD pneumococcal polysaccharid e, 23 valent 2020 zzLef t Arm [id number] Merck & Company Inc complet ed pneumococ theresa polysacch aride, 23 valent 07/01/21 Given Ambulat ory Pharmac y influenza, injectable, quadrivalent- pf 2020 zzRig ht Arm [id number] 150 GlaxoSmithKli ne complet ed influenza , injectabl e, quadrival ent-pf 07/01/21 Given Ambulat ory Pharmac y pneumococcal polysaccharid e vaccine, 23 valent 1 2020 Unknown, Provider [id number] Merck (MSD) complet ed pneumococ theresa polysacch aride vaccine, 23 valent DoD Influenza, injectable, quadrivalent, preservative free 1 2020 Unknown, Provider [id number] 150 [facility] complet ed Influenza , injectabl e, quadrival ent, preservat sandrine free DoD zoster vaccine, inactivated 2020 zzLef t Arm [id number] 187 GlaxoSmithKli ne complet ed zoster vaccine, inactivat ed 10/10/20 Given Ambulat ory Pharmac y zoster vaccine recombinant 1 2020 Unknown, Provider [id number] SmithKline (SKB) complet ed zoster vaccine recombina nt DoD zoster vaccine, inactivated 2019 zzLef t Arm [id number] 187 GlaxoSmithKli ne complet ed zoster vaccine, inactivat ed 07/23/20 Given Ambulat ory Pharmac y zoster vaccine recombinant 1 2019 Unknown, Provider [id number] 187 [employer] ([facility]) complet ed zoster vaccine recombina nt DoD influenza, injectable, quadrivalent, preservative free 2019 ALUL, () Not Given influenza , injectabl e, quadrival ent, preservat sandrine free DoD influenza, injectable, quadrivalent- pf 2017 150 sanofi pasteur complet ed influenza , injectabl e, quadrival ent-pf 07/10/18 Given Ambulat ory Pharmac y Influenza, inj, MDCK, quadrivalent- pf 2016 zzLef t Arm [id number] Se[employer]irus complet ed Influenza , inj, MDCK, quadrival ent-pf 08/01/17 Given Ambulat ory Pharmac y Influenza, injectable, Madin [place] Canine Kidney, preservative free, quadrivalent 1 2016 Unknown, Provider [id number] 171 Seqirus (SEQ) complet ed Influenza , injectabl e, Madin [place] Canine Kidney, preservat sandrine free, quadrival ent DoD influenza, injectable, quadrivalent 2015 zzLef t Arm [id number] [employer] complet ed influenza , injectabl e, quadrival ent 06/24/16 Given Ambulat ory Pharmac y zoster vaccine live 2015 zzLef t Arm [id number] Merck & Company Inc complet ed zoster vaccine live 06/24/16 Given Ambulat ory Pharmac y zoster vaccine, live 1 2015 Unknown, Provider [id number] 121 Merck (MSD) complet ed zoster vaccine, [...] tetanus, diphtheria, acellular pertu is 2014 zzRig ht Arm [id number] 115 sanofi pasteur complet ed tetanus, diphtheri a, acellular pertussis 07/10/15 Given Ambulat ory Pharmac y tetanus toxoid, reduced diphtheria toxoid, and acellular pertu is vaccine, adsorbed 1 2014 Unknown, Provider [id number] 115 Sanofi Pasteur (PMC) complet ed tetanus toxoid, reduced diphtheri a toxoid, and acellular pertussis vaccine, adsorbed DoD Influenza, injectable, quadrivalent, preservative free 1 2014 Unknown, Provider [id number] Yoanna Fernández (SKB) complet ed Influenza , injectabl e, quadrival ent, preservat sandrine free DoD influenza, seasonal, injectable-pf 2013 zzRig ht Arm [id number] 140 Novartis Pharmaceutica ls complet ed influenza , seasonal, injectabl e-pf 06/26/14 Given Ambulat ory Pharmac y Influenza, seasonal, injectable, preservative free 1 2013 Unknown, Provider [id number] 140 Novartis Pharmaceutica l [place] (NOV) complet ed Influenza , seasonal, injectabl e, preservat sandrine free DoD influenza, seasonal, injectable-pf 2011 zzRig ht Arm [id number] 140 sanofi pasteur complet ed influenza , seasonal, injectabl e-pf 07/07/12 Given Ambulat ory Pharmac y Influenza, seasonal, injectable, preservative free 1 2011 Unknown, Provider [id number] 140 Sanofi Pasteur (PMC) complet ed Influenza , seasonal, injectabl e, preservat sandrine free DoD tuberculin purified protein derivative 1999 [id number] [facility] complet ed Patient Tolerance : Negative Ambulat ory Pharmac y tuberculin skin test; purified protein derivative solution, intradermal 1 1999 Unknown, Provider [id number] 96 [place] (CON) complet ed tuberculi n [...] Disposition Source [employer] [place] ([facility], DIRECT TO [facility] [id number] 06/18 DISCHARGED HOME [employer] [facility] [place] ([facility] [employer] [facility] [place] ([facility] DIRECT TO [facility] FROM OTHER THAN ER OR APU [id number] 07/23 DISCHARGED HOME [employer] ([facility] [address] [place] [address] [employer] ([facility]Fam emily Practice Non-GME FHI1) OUTPATIENT [id number] annual pap DYLAN DANIELSON 10/26 Released w/o Limitations [address] [place] [address] [employer] ([facility]F amily Practic e Non-GME FHI1) [address] [place] [address] [employer] ([facility]Fam emily Practice Non-GME FHI1) TELE CONSULT [id number] [address] [place] [address] JENNY Jimenes 11/[address] [place] [address] [employer] [facility]F amily Practic e Non-GME FHI1) [address] [place] [address] [employer] ([facility]Fam emily Practice Non-GME FHI1) TELE CONSULT [id number] Lab f/u JENNY HDZ 11/[address] [place] [address] [employer] ([facility]F amily Practic e Non-GME FHI1) [address] [place] [address] [employer] ([facility]Fam emily Practice Non-GME FHI1) TELE CONSULT [id number] [facility] WHITES[facility] 12/[address] [place] [address] [employer] [facility]F amily Practic e Non-GME FHI1) [address] [place] [address] [employer] ([facility]Fam emily Practice Non-GME FHI1) OUTPATIENT [id number] r/o TORI GAGNON 12/31 Released w/o Limitations [address] [place] [address] [employer] ([facility]F amily Practic e Non-GME FHI1) [address] [place] [address] [employer] ([facility]Fam emily Practice Non-GME FHI1) OUTPATIENT [id number] pain in feet JING HERNANDEZ Karie 06/07 Released w/o Limitations [address] [place] [address] [employer] ([facility]F amily Practic e Non-GME FHI1) [address] [place] [address] [employer] ([facility]Fam emily Practice Non-GME FHI1) OUTPATIENT [id number] right knee pain VICKI PFEIFFER 07/20 Released w/o Limitations [address] [place] [address] [employer] ([facility]F amily Practic e Non-GME FHI1) [address] [place] [address] [employer] ([facility]Fam emily Practice Non-GME FHI1) TELE CONSULT [id number] 0845-re fferal darian -[place] Sousa 08/[address] [place] [address] Rich [facility])(F amily Practic e Non-GME FHI1) [address] [place] [address] Rich [facility] OUTPATIENT [id number] sore on VICKI Abdullahi Lee 08/31 Released w/o Limitations [address] [place] [address] Rich [facility])(F amily Practic e Non-GME FHI1) [address] [place] [address] Rich [facility]) TELE CONSULT [id number] refill med-GOPAL White am 09/[address] [place] [address] Rich [facility])(F amily Practic e Non-GME FHI1) [address] [place] [address] Rich [facility]2) TELE CONSULT [id number] Referra [place]O Fierro am 11/[address] [place] [address] Rich [facility])(F amily Practic e Non-GME FHI2) [address] [place] [address] Rich [facility])([facility] - [facility]oped[facility] cs) OUTPATIENT [id number] joint pain, localiz ed in the knee ZOE IZAGUIRRE 12/08 Released w/o Limitations [address] [place] [address] Rich B ([facility]V A - Orthope dics) [address] [place] [address] Rich B [facility] - Orthopedi cs) OUTPATIENT [id number] fu knee mri ZOE IZAGUIRRE 12/28 Released w/o Limitations [address] [place] [address] Rich [facility])(V A - Orthope dics) [address] [place] [address] Rich [facility])(Opt ometry) OUTPATIENT [id number] ROUTINE EYE EXAM. PHONE:[phone]*H ARON MCKEON 12/30 Released w/o Limitations [address] [place] [address] [employer] [facility])(O ptometr y) [address] [place] [address] Rich B [facility] - Orthoped[facility] cs) OUTPATIENT [id number] cortiso ne injecti on rt knee ZOE IZAGUIRRE Dawood Maguire 01/17 Released w/o Limitations [address] [place] [address])(V A - Orthope dics) [address] [place] [address])(Fam emily Practice Non-GME FHI1) OUTPATIENT [id number] Annual PAP JING HERNANDEZ 01/26 Released w/o Limitations [address] [place] [address])(F amily Practic e Non-GME FHI1) [address] [place] [address])([facility] emily Practice Non-GME FHI1) OUTPATIENT [id number] f/u on uti/bi- manual. JING HERNANDEZ 02/14 Released w/o Limitations [address] [place] [address])(F amily Practic e Non-GME FHI1) [address] [place] [address])([facility]) TELE CONSULT [id number] [facility] refill- [place] Leal am 03/[address] [place] [address])(F amily Practic e Non-GME FHI1) [address] [place] [address])([facility]1) TELE CONSULT [id number] referra l monserratsi on- [place]O Leal am 03/[address] [place] [address])(F amily Practic e Non-GME FHI1) [address] [place] [address])([facility] Non[facility] F[facility]1) OUTPATIENT [id number] re-eval VICKI Schulz 04/14 Released w/o Limitations [address] [place] [address])(F amily Practic e Non-GME FHI1) [address] [place] [address])([facility] Non[facility]1) TELE CONSULT [id number] info mile- JENNY Forrest am 05/[address] [place] [address])(F amily Practic e Non-GME FHI1) [address] [place] [address])([facility] emily Practice Non-GME FHI1) OUTPATIENT [id number] history in [facility] for surgery , wanted to see her before surgery JING HERNANDEZ 05/04 Released w/o Limitations [address] [place] [address] Rich [facility])(F amily Practic e Non-GME FHI1) [address] [place] [address] Rich [facility])([facility] emily Practice Non-GME FHI1) TELE CONSULT [id number] [facility] [place]O Leal am 08/[address] [place] [address] Rich [facility])(F amily Practic e Non-GME FHI1) [address] [place] [address] Rich B [facility] emily Practice Non-GME FHI1) TELE CONSULT [id number] referra [facility] [place]O Leal am 11/[address] [place] [address])(F amily Practic e Non-GME FHI1) [address] [place] [address])([facility] emily Practice Non-GME FHI2) OUTPATIENT [id number] ; poss sinus infecti on LEROY SPENCER 12/14 Released w/o Limitations [address] [place] [address])(F amily Practic e Non-GME FHI2) [address] [place] [address])([facility] emily Practice Non-GME FHI2) OUTPATIENT [id number] 774H# BACK PAIN,FA TIGUED\ JENIFER STEPHENS 05/10 Released w/o Limitations [address] [place] [address])(F amily Practic e Non-GME FHI2) [address] [place] [address])([facility] emily Practice Non-GME FHI2) TELE CONSULT [id number] results /CASSIUS Zhu 05/[address] [place], [place] [address]B [facility])(F amily Practic e Non-GME FHI2) [address] [place], [place] [address]B [facility])(Fam emily Practice Non-GME FHI2) TELE CONSULT [id number] Call back for labs and appt..2 Apr.26- REBECA Posada am 05/[address] [place] [address])(F amily Practic e Non-GME FHI2) [employer] ([facility]Fam emily Practice Non-GME FHI2) OUTPATIENT [id number] lab results JENIFER STEPHENS RADHA 05/24 Released w/o Limitations [employer] ([facility]F amily Practic e Non-GME FHI2) [employer] ([facility]Phy sical Therapy) OUTPATIENT [id number] TENDONI TIS MITCHELL RENE 05/31 Released w/o Limitations [employer] ([facility]P hysical Therapy ) [employer] ([facility]Phy sical Therapy) OUTPATIENT [id number] DUSTIN TRAMMELL 06/04 Released w/o Limitations [employer] ([facility]P hysical Therapy ) [employer] ([facility]Phy sical Therapy) OUTPATIENT [id number] DUSTIN TRAMMELL 06/06 Released w/o Limitations [employer] ([facility]P hysical Therapy ) [employer] ([facility]Phy sical Therapy) OUTPATIENT [id number] CHANA QUINTERO 06/10 Released w/o Limitations [employer] ([facility]P hysical Therapy ) [facility] [employer] ([facility]Phy sical Therapy) OUTPATIENT [id number] DUSTIN TRAMMELL 06/12 Released w/o Limitations [employer] ([facility]P hysical Therapy ) Medical [facility] [employer] ([facility]Phy sical Therapy) OUTPATIENT [id number] DUSTIN TRAMMELL 06/14 Released w/o Limitations [employer] ([facility]P hysical Therapy ) [employer] ([facility]Phy sical Therapy) OUTPATIENT [id number] MITCHELL Lozano 06/18 Released w/o Limitations [employer] ([facility]P hysical Therapy ) [employer] ([facility]) OUTPATIENT [id number] HYPERLI PIDEMIA DAVID WHITLOCK 06/19 Released w/o Limitations [employer] ([facility]N utritio nal Medicin e) [employer] ([facility]Phy sical Therapy) OUTPATIENT [id number] GONZÁLEZ SIGALA 06/20 Released w/o Limitations [employer] ([facility]P hysical Therapy ) [employer] ([facility]Phy sical Therapy) OUTPATIENT [id number] DUSTIN TRAMMELL 06/25 Released w/o Limitations [employer] ([facility]P hysical Therapy ) [facility] [employer] ([facility]Phy sical Therapy) OUTPATIENT [id number] GONZÁLEZ SIGALA 06/28 Released w/o Limitations [employer] ([facility]P hysical Therapy ) [facility] Medical [facility] [employer] ([facility]Phy sical Therapy) OUTPATIENT [id number] CHANA QUINTERO 07/04 Released w/o Limitations [facility] [employer] ([facility]P hysical Therapy ) [facility] [employer] ([facility]Phy sical Therapy) OUTPATIENT [id number] DUSTIN TRAMMELL 07/08 Released w/o Limitations [facility] [employer] ([facility]P hysical Therapy ) [facility] Medical [facility] [employer] ([facility]Phy sical Therapy) OUTPATIENT [id number] MITCHELL MORALES 07/09 Released w/o Limitations [address] [place] [address] [employer] ([facility]P hysical Therapy ) [facility] Medical [facility] [employer] [facility] emily Practice Non-GME FHI1) TELE CONSULT [id number] referra l -- podiatr SIN Chisholm 07/09 [facility] [employer] [facility])(F amily Practic e Non-GME FHI1) [facility] Medical [facility] [employer] ([facility]Fam emily Practice Non-GME FHI1) TELE CONSULT [id number] pcm-CASSIUS Stock 08/20 [facility] Medical [facility] [employer] [facility])(F amily Practic e Non-GME FHI1) [facility] Medical [facility])(Fam emily Practice Non-GME FHI1) OUTPATIENT [id number]# f/u eval for med conditi on JING HERNANDEZ P 08/22 Released w/o Limitations [facility] Rich [facility])(F amily Practic e Non-GME FHI1) [facility])([facility] Practice Non-GME FHI1) OUTPATIENT [id number] f/u cough/l abs JING HERNANDEZ P 08/29 Released w/o Limitations [facility])(F amily Practic e Non-GME FHI1) [address] [place] [address])([facility] Practice Non-GME FHI1) OUTPATIENT [id number]# f/u eval for bp refill, per pcm/pt. JING HERNANDEZ P 10/31 Released w/o Limitations [facility])(F amily Practic e Non-GME FHI1) [address] [place] [address])([facility] Tm A Ad) OUTPATIENT [id number] JENIFER Yanes 01/28 Released w/o Limitations [facility])([facility] Ad) [facility])([facility] Tm A Ad) OUTPATIENT [id number] Rec Rev and AHLTA 2766 transcr iptCASSIUS Howe 02/11 Released w/o Limitations [facility])([facility] Med Cln Tm A Ad) [facility] [facility])(War rior Op Med Cln Tm A Ad) OUTPATIENT [id number] F/U labwork , refill meds [phone] JING HERNANDEZ P 02/18 Released w/o Limitations [facility])(W ar[facility] Op Med Cln Tm A Ad) [facility])(War ri[facility] Op Med Cln Tm A Ad) OUTPATIENT [id number] incisio n and drainag jordi HERNANDEZ JING Karie 02/24 Released w/o Limitations [employer] [place] ([facility]W arrior Op Med Cln Tm A Ad) 375 Medical [facility] Rich B [facility])([employer] ecology) TELE CONSULT [id number] PAP DUE JACKLYN [facility] PATRICIA PIERCE Lee 03/20 [facility] Rich TASNEEMB [facility])(G ynecolo gy) [facility] Rich B [facility])(Ino tt [facility] Team 4) OUTPATIENT [id number] bilater al ankle pain.pt needs a referra l to ortho.. .[phone] IMELDA MSAON 06/18 Released w/o Limitations [employer] Rich [place] [facility])([facility] Team 4) [address] [place] [address] Rich B [facility])(Opt ometry) OUTPATIENT [id number] eye [id number] DYLON ARREDONDO 08/08 Released w/o Limitations [employer] Rich [place] [facility])(O ptometr y) [address] [place] [address] Rich B [facility])(Ino [facility] Team 4) OUTPATIENT [id number] referra l to rhuemto logy [phone] JENIFER STEPHENS 08/27 Released w/o Limitations [facility] Group Rihc [place] ([facility])([facility] Team 4) [address] [place] [address] Rich B [facility])(War rior Op Med Cln Tm A Ad) OUTPATIENT [id number] labs [phone] VICKI PFEIFFER 09/30 Released w/o Limitations [employer] Rich [place] [facility])(W arrior Op Med Cln Tm A Ad) [facility] Medical [facility] Rich B [facility])(Sco tt [facility] Team 4) TELE CONSULT [id number] call back JENIFER PEREA 10/[address] [place] [address] Rich B [facility])([facility] Team 4) [address] [place] [address] Rich B [facility])(War rior Op Med Cln Tm A Ad) OUTPATIENT [id number] right knee pain [phone] EDWARD OLSON 01/16 Released w/o Limitations [facility] Rich [facility])(W arrior Op Med Cln Tm A Ad) [employer] Rich [place] ([facility])(War rior Op Med Cln Tm A Ad) TELE CONSULT [id number] Rx refill- CASSIUS Wynn 03/09 [employer] [place] ([facility])(W arrior Op Med Cln Tm A Ad) [employer] [place] ([facility])(War rior Op Med Cln Tm A Ad) TELE CONSULT [id number] [facility] ellyn PEREA JENIFER R 03/19 [employer] [place] ([facility])(W arrior Op Med Cln Tm A Ad) [employer] [place] ([facility])(War rior Op Med Cln Tm A Ad) OUTPATIENT [id number] F/U on HTN EDWARD OLSON 04/06 Released w/o Limitations [employer] [place] ([facility])(W arrior Op Med Cln Tm A Ad) [employer] Rich [place] [facility])(War rior Op Med Cln Tm A Ad) OUTPATIENT [id number] physica l [phone] EDWARD OLSON 07/10 Released w/o Limitations [employer] Rich [place] ([facility])(W arrior Op Med Cln Tm A Ad) Medical Group Rich B [facility])(War rior Op Med Cln Tm A Ad) OUTPATIENT [id number] cough [id number] EDWARD OLSON 08/07 Released w/o Limitations Medical Group Rich [place] ([facility])(W arrior Op Med Cln Tm A Ad) [facility] Medical Group Rich [facility])(Ino tt [facility] Team 3) OUTPATIENT [id number] migrain e [phone] JETHRO RIVERA 12/14 Released w/o Limitations [employer] Rich [place] [facility])(Ellyn carcamo [facility] Team 3) [facility] Medical Group Rich [place] [facility])([facility] tt [facility] Team 3) TELE CONSULT [id number] T con for med refill Dr Rivera phone [phone] ALLY CURTIS 12/22 Medical Group Rich BOATENGB [facility])( carlos alberto [facility] Team 3) [address] [place] [address] Rich [facility])([facility] Team 3) TELE CONSULT [id number] Med refill [phone] DEISY EMANUEL R 12/[address] [place] [address] Rich [facility])([facility] Team 3) [address] [place] [address] Rich [facility])([facility] Team 3) OUTPATIENT [id number] knee pain [phone] KIMBERLYN ARREDONDO D 04/02 Released w/o Limitations [address] [place] [address] Rich [facility])([facility] Team 3) [address] [place] [address] Rich [facility])([facility] Team 3) TELE CONSULT [id number] seen in ER with back pain DX uti xray shows disc disease needs referra l DEISY EMANUEL R 06/[address] [place] [address] Rich [facility])([facility] Team 3) [address] [place] [address] Rich [facility])([facility] Team 3) OUTPATIENT [id number] Low back pain with radicul opathy, 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 Arredondo : Referre d Pt to Ortho Spine. Please see rad on 2010 CHARLEY ALEMAN R 06/[address] [place] [address])([facility] Team 3) [address] [place] [address])([facility] Team 3) TELE CONSULT [id number] Results needed/ Yong /fxs DEISY EMANUEL R 06/[address] [place] [address] Rich [facility])([facility] Team 3) [address] [place] [address] Rich [facility])([facility] Team 3) TELE CONSULT [id number] Referra l for PT - Yong - ayla/pmh DEISY EMANUEL R 08/[address] [place] [address] Rich B [facility])([facility] Team 3) [address] [place] [address] Rich B [facility])([facility] Team 3) TELE CONSULT [id number] referra l Yong aguila tlt DEISY EMANUEL 08/[address] [place] [address] Group Rich BOATENGHunter [facility])([facility] Team 3) [address] [place] [address] Rich [facility])(War rior Op Med Cln Tm A Ad) OUTPATIENT [id number] Lower back pain [phone] VANCE BERG 11/01 Released w/o Limitations [address] [place] [address] Group Rich BOATENGB [facility])(W arrior Op Med Cln Tm A Ad) [address] [place] [address] Rich B [facility])(Sco tt [facility] Team 3) TELE CONSULT [id number] Notes Entered by: JEREMY LAWRENCE 22 Nov 2011 1055 ------- ------- ------- ------- -- Tcon for doctor' s order Dr Arnie dowling ph [phone] cad dmj DEISY EMANUEL 11/[address] [place] [address] Rich [facility] Team 3) [address] [place] [address] Rich [facility])(War rior Op Med Cln Tm A Ad) OUTPATIENT [id number] follow up er celluli tis [phone] VANCE BERG 12/26 Released w/o Limitations [address] [place] [address] Rich BOATENGB [facility])(W arrior Op Med Cln Tm A Ad) [address] [place] [address] Rich BOATENGB [facility])([facility] Fam Res Tm Green) OUTPATIENT [id number] 2nd floor rich corley/ALANA Rahman 01/18 Released w/o Limitations [address] [place] [address] Rich TASNEEMB [facility])([facility] Fam Res Tm Green) [address] [place] [address] Rich TASNEEMB [facility])([facility] FAMRES Tm Blue) TELE CONSULT [id number] Notes Entered by: IMELDA TAMAYO 24 Jan 2012 1611 ------- ------- ------- ------- -- Call back C-scope on 2may12- IMELDA Nugent 01/[address] [place] [address] Rich CORLEY [facility])([facility] FAMRES Tm Blue) [address] [place] [address] Rich TASNEEMB [facility])(Sco tt [facility] Team 3) TELE CONSULT [id number] Notes Entered by: ALEXIS PAK 01 Feb 2012 1345 ------- ------- ------- ------- -- Lior soriano about medicat rodriguez-Deepa flores /560-90 /DEISY Diaz 01/[address] [place] [address])([facility] Team 3) [address] [place] [address])(War rior Op Med Cln Tm A Ad) TELE CONSULT [id number] Notes Entered by: YASMIN LOPEZ 01 Feb 2012 1457 ------- ------- ------- ------- -- Labs VANCE BERG 01/[address] [place] [address])(W arrior Op Med Cln Tm A Ad) [address] [place] [address])(War rior Op Med Cln Tm A Ad) TELE CONSULT [id number] Notes Entered by: YASMIN LOPEZ 02 Feb 2012 1613 ------- ------- ------- ------- -- Lab results VANCE BERG 02/[address] [place] [address])(W arrior Op Med Cln Tm A Ad) [address] [place] [address])([facility] Team 3) OUTPATIENT [id number] Recent lab results , plan GENNY GARRIDO 02/07 Released w/o Limitations [address] [place] [address])([facility] Team 3) [address] [place] [address])([facility] Team 3) TELE CONSULT [id number] Notes Entered by: JEREMY LAWRENCE 26 Apr 2012 0934 ------- ------- ------- ------- -- Tcon for kyle Gu darren ph [phone] DEISY Heaton 04/[address] [place] [address])([facility] Team 3) [address] [place] [address])([facility] Team 3) TELE CONSULT [id number] Notes Entered by: LAURA NANCE 28 Jun 2012 1348 ------- ------- ------- ------- -- Med UDAY Dougherty 06/[address] [place] [address])([facility] Team 3) [address] [place] [address])([facility] Team 3) OUTPATIENT [id number] Pain in both knees [phone] LEROY HERNANDEZ 07/25 Released w/o Limitations [address] [place] [address])([facility] Team 3) [address] [place] [address])(War rior Op Med Cln Tm A Ad) TELE CONSULT [id number] Notes Entered by: Tan MULLEN 30 Nov 2012 1313 ------- ------- ------- ------- -- Med celebre x 400 mg daily UDAY Marquez 11/[address] [place] [address])(W arrior Op Med Cln Tm A Ad) [address] [place] [address])(War rior Op Med Cln Tm A Ad) TELE CONSULT [id number] Notes Entered by: EUGENE ROBISON 28 Dec 2012 1204 ------- ------- ------- ------- -- [facility] - Miguel Ángel - UDAY TORREZ 12/[address] [place] [address])(W arrior Op Med Cln Tm A Ad) [address] [place] [address])(War rior Op Med Cln Tm A Ad) TELE CONSULT [id number] Notes Entered by: MINO WANG 09 Jan 2013 1108 ------- ------- ------- ------- -- KIRSTIE SingletonW W 01/09 [facility] Medical Group Rich [facility]W arrior Op Med Cln Tm A Ad) [address] [place] [address] Group Rich [facility])(War rior Op Med Cln Tm A Ad) TELE CONSULT [id number] Notes Entered by: GERMAN OCHOA 23 Jan 2013 1253 ------- ------- ------- ------- -- [facility] - [phone] UDAY TORREZ 01/[address] [place] [address] Group Rich [facility])(W arrior Op Med Cln Tm A Ad) [address] [place] [address] Group [facility])(War rior Op Med Cln Tm A Ad) TELE CONSULT [id number] Notes Entered by: Rupal MULLEN 25 Jan 2013 0903 ------- ------- ------- ------- -- No apt avail/[place] [phone] UDAY TORREZ 01/[address] [place] [address] Group Rich [facility])(W arrior Op Med Cln Tm A Ad) [address] [place] [address])(War rior Op Med Cln Tm A Ad) TELE CONSULT [id number] Notes Entered by: GERMAN OCHOA 29 Jan 2013 0756 ------- ------- ------- ------- -- [facility] f/u Norma Wang - [phone] UDAY TORREZ 01/[address] [place] [address] Group Rich [facility])(W arrior Op Med Cln Tm A Ad) [address] [place] [address] Rich [facility])(War rior Op Med Cln Tm A Ad) OUTPATIENT [id number] er follow up/ abd/alea st pain 11/26 VANCE BERG 01/29 Released w/o Limitations [address] [place] [address] Group Rich BOATENG ([facility]W arrior Op Med Cln Tm A Ad) [address] [place] [address] Rich [facility] ([facility])(War rior Op Med Cln Tm A Ad) TELE CONSULT [id number] Notes Entered by: DARLENE CHAWLA 05 Mar 2013 0840 ------- ------- ------- ------- -- Network Results -ORTHOP EDICS 2 FREDDY WANG 03/[address] [place] [address] Group [facility])(W arrior Op Med Cln Tm A Ad) [address] [place] [address])(War rior Op Med Cln Tm A Ad) TELE CONSULT [id number] Notes Entered by: LAURA NANCE 17 Apr 2013 0819 ------- ------- ------- ------- -- Vaginal spottin joleen Wang ANTHONY NAVA 04/17 Referred for Appointment [address] [place] [address])(W arrior Op Med Cln Tm A Ad) [address] [place] [address])([employer]) OUTPATIENT [id number] ed correia/GIRISH Rondon 04/17 Released w/o Limitations [address] [place] [address])(G yamycoradha gy) [address] [place] [address])([employer]) TELE CONSULT [id number] Notes Entered by: ALEXIS PAK 18 Apr 2013 1333 ------- ------- ------- ------- -- Calling back GROUND SUPPORT AGENT-[phone] ASHLEIGH CALDWELL 04/[address] [place] [address])(G yamycoradha gy) [facility] Medical [facility])([employer] ecology) OUTPATIENT [id number] WELL [phone] GIRISH PURDY 05/03 Released w/o Limitations [address] [place] [address])(G ynecolo gy) [address] [place] [address])([facility] t) TELE CONSULT [id number] Notes Entered by: Dawood AMARO 07 Jun 2013 1101 ------- ------- ------- ------- -- [facility] lee zaragoza follow up WEEKSKALEY 06/[address] [place] [address])(U tilizat ion Manage ent) [address] [place] [address])(War rior Op Med Cln Tm A Ad) TELE CONSULT [id number] Notes Entered by: GERMAN OCHOA 10 Jul 2013 0753 ------- ------- ------- ------- -- Lior Wang - [phone] JAMES FISHER 07/[address] [place] [address])(W arrior Op Med Cln Tm A Ad) [address] [place] [address])(War rior Op Med Cln Tm A Ad) OUTPATIENT [id number] neck swollen - x1 year - [id number] FREDDY WANG 07/16 Released w/o Limitations [address] [place] [address])(W arrior Op Med Cln Tm A Ad) [address] [place] [address])(War rior Op Med Cln Tm A Ad) TELE CONSULT [id number] Notes Entered by: MINO WANG 17 Jul 2013 1413 ------- ------- ------- ------- -- labs FREDDY WANG 07/[address] [place] [address])(W arrior Op Med Cln Tm A Ad) [address] [place] [address])(War rior Op Med Cln Tm A Ad) TELE CONSULT [id number] Notes Entered by: LINN CURRAN 23 Jul 2013 1141 ------- ------- ------- ------- -- Lab results /Miguel Ángel / DEISY EMANUEL 07/[address] [place] [address])(W arrior Op Med Cln Tm A Ad) [address] [place] [address])(War rior Op Med Cln Tm A Ad) TELE CONSULT [id number] Notes Entered by: MINO WANG 24 Jul 2013 1611 ------- ------- ------- ------- -- FREDDY Barger 07/[address] [place] [address])(W arrior Op Med Cln Tm A Ad) [address] [place] [address])(War rior Op Med Cln Tm A Ad) TELE CONSULT [id number] Notes Entered by: RAFAEL SALAZAR 20 Aug 2013 0924 ------- ------- ------- ------- -- Med refill/ Miguel Ángel/ [phone] JAMES FISHER 08/[address] [place] [address])(W arrior Op Med Cln Tm A Ad) [address] [place] [address])(War rior Op Med Cln Tm A Ad) TELE CONSULT [id number] Notes Entered by: ALEXIS PAK 10 Oct 2013 1139 ------- ------- ------- ------- -- Med Refill- Miguel Ángel/ GIRISH LONGO 10/[address] [place] [address])(W arrior Op Med Cln Tm A Ad) [address] [place] [address])(War rior Op Med Cln Tm A Ad) OUTPATIENT [id number] f/u on meds/ new plan of care FREDDY WANG 10/29 Released w/o Limitations [address] [place] [address])(W arrior Op Med Cln Tm A Ad) [address] [place] [address])(War rior Op Med Cln Tm A Ad) TELE CONSULT [id number] Notes Entered by: MINO WANG 31 Oct 2013 1131 ------- ------- ------- ------- -- Chest X-ray FREDDY WANG 10/[address] [place] [address])(W arrior Op Med Cln Tm A Ad) [address] [place] [address])(Fam emily Med Tm B Non-AD BCC) TELE CONSULT [id number] Notes Entered by: USAMA SHARMA 16 Nov 2013 1447 ------- ------- ------- ------- -- Network Results -SURGEDawood Dowling 11/09/13 FREDDY WANG 11/[address] [place] [address])(F amily Med Tm B Non-AD BCC) [address] [place] [address])(War rior Op Med Cln Tm A Ad) TELE CONSULT [id number] Notes Entered by: LINN CURRAN 07 Jan 2014 0816 ------- ------- ------- ------- -- Med terry /Miguel Ángel / NARAYAN JAMES 01/[address] [place] [address])(W arrior Op Med Cln Tm A Ad) [address] [place] [address])(War rior Op Med Cln Tm A Ad) OUTPATIENT [id number] severe lower back pain FREDDY WANG 01/28 Released w/o Limitations [address] [place] [address])(W arrior Op Med Cln Tm A Ad) [address] [place] [address])(War rior Op Med Cln Tm A Ad) TELE CONSULT [id number] Notes Entered by: MINO WANG 19 Feb 2014 1525 ------- ------- ------- ------- -- Radiolo gy studies FREDDY WANG 02/[address] [place] [address])(W arrior Op Med Cln Tm A Ad) [address] [place] [address])(War rior Op Med Cln Tm A Ad) TELE CONSULT [id number] Notes Entered by: HEATH LAZO 03 Apr 2014 1505 ------- ------- ------- ------- -- Miguel Ángel/ Kyle Michaels /Script EDWARD Encarnacion 04/[address] [place] [address])(W arrior Op Med Cln Tm A Ad) [address] [place] [address])(Fam emily Med Tm B Non-AD BCC) TELE CONSULT [id number] Notes Entered by: PAPI SETH 11 Apr 2014 0806 ------- ------- ------- ------- -- Network Results - Physica l Therapy 4 FREDDY WANG 04/[address] [place] [address])(F amily Med Tm B Non-AD BCC) [address] [place] [address])(War rior Op Med Cln Tm A Ad) [facility] [id number] [facility] a, nausea x 1 [id number] FREDDY WANG 06/04 Released w/o Limitations [address] [place] [address])(W arrior Op Med Cln Tm A Ad) [address] [place] [address])(War rior Op Med Cln Tm A Ad) TELE CONSULT [id number] Notes Entered by: MINO WANG 07 Jun 2014 0910 ------- ------- ------- ------- -- Hyperli pidemia and Vitamin D deficie FREDDY Shepherd 06/[address] [place] [address])(W arrior Op Med Cln Tm A Ad) [address] [place] [address])(War rior Op Med Cln Tm A Ad) TELE CONSULT [id number] Notes Entered by: PAPI SETH 12 Jun 2014 1512 ------- ------- ------- ------- -- Network Results - Physica l Therapy 4 FREDDY WANG 06/[address] [place] [address])(W arrior Op Med Cln Tm A Ad) [address] [place] [address])(Med ication Refill Clinic) TELE CONSULT [id number] Notes Entered by: SUZANNE SUMMERS 21 Jun 2014 1128 ------- ------- ------- ------- -- Med refill/ miguel ángel/ NARAYAN JAMES 06/[address] [place] [address])([facility]) [address] [place] [address])(Fam emily Med Tm B Non-AD BCC) TELE CONSULT [id number] Notes Entered by: SIOBHAN ORTA 11 Jul 2014 0847 ------- ------- ------- ------- -- Network Results -GASTRO ENTEROL OGY 4 FREDDY WANG 07/[address] [place] [address])(F amily Med Tm B Non-AD BCC) [address] [place] [address])(War rior Op Med Cln Tm A Ad) OUTPATIENT [id number] swollen , red, tender area on rt. side of neck/61 [phone] FREDDY WANG 07/26 Released w/o Limitations [address] [place] [address])(W arrior Op Med Cln Tm A Ad) [address] [place] [address])(Darren matology) OUTPATIENT [id number] cyst on Neck BHARTI TOMPIKNS 08/02 Released w/o Limitations [address] [place] [address])(D ermatol ogy) [address] [place] [address])(Darren matology) TELE CONSULT [id number] Notes Entered by: Ting PECK 12 Aug 2014 1125 ------- ------- ------- ------- -- Lab results BHARTI TOMPKINS 08/[address] [place] [address])(D ermatol ogy) [address] [place] [address])([employer] ecology) OUTPATIENT [id number] [facility] [phone] WILFRID CARPIO 09/25 Released w/o Limitations [address] [place] [address] Rich [facility])(G ynecolo gy) [address] [place] [address] Rich [facility])(Darren matology) OUTPATIENT [id number] Excisio n cyst neck BHARTI TOMPKINS 10/01 Released w/o Limitations [address] [place] [address] Rich [facility])(D ermatol ogy) [address] [place] [address])(Darren matology) OUTPATIENT [id number] Notes Entered by: Ting PECK 11 Oct 2014 0839 ------- ------- ------- ------- -- suture removal BHARTI TOMPKINS 10/11 Released w/o Limitations [address] [place] [address])(D ermatol ogy) [address] [place] [address])(War rior Op Med Cln Tm A Ad) TELE CONSULT [id number] Notes Entered by: RAFAEL SALAZAR 29 Oct 2014 0832 ------- ------- ------- ------- -- Medicat ion refill/ Livermo n/ ANKITA FROST 10/29 Medication Refill Forwarded [address] [place] [address] Rich [facility])(W arrior Op Med Cln Tm A Ad) [address] [place] [address] Rich [facility])(Fam emily Med Tm B Non-AD BCC) OUTPATIENT [id number] chest congest ion [id number] CAROL ARREDONDO 12/03 Released w/o Limitations [address] [place] [address])(F amily Med Tm B Non-AD BCC) [address] [place] [address])(Med ication Refill Clinic) TELE CONSULT [id number] Notes Entered by: GUCCI GAMBOA ELS 03 Jan 2015 1416 ------- ------- ------- ------- -- Med Renewal //Liver mon [phone] OBINNA CHIRINOS 01/[address] [place] [address])([facility]) [address] [place] [address])(Sco tt Internal Medicine Tm) OUTPATIENT [id number] pain in left knee due to fall 18560. 9004 GORGE FLYNN 01/14 Released w/o Limitations [address] [place] [address])(S cott Interna l Medicin e Tm) [address] [place] [address])(Med ication Refill Clinic) TELE CONSULT [id number] Notes Entered by: TWILA AGUILAR 21 Feb 2015 0949 ------- ------- ------- ------- -- Med Renewal /Liverm on618. [phone] BHAVNA ROBLES 02/[address] [place] [address])([facility]) [address] [place] [address])(Med ication Refill Clinic) TELE CONSULT [id number] Notes Entered by: TWILA AGUILAR 07 Jul 2015 1404 ------- ------- ------- ------- -- Med Renewal /Liverm on/618. [phone] OBINNA CHIRINOS 07/[address] [place] [address])([facility]) [address] [place] [address])(Mihai rior Op Med Cln Tm A Ad) TELE CONSULT [id number] Notes Entered by: UDAY TORREZ 17 Jul 2015 1017 ------- ------- ------- ------- -- labs UDAY TORREZ 07/[address] [place] [address])(W arrior Op Med Cln Tm A Ad) [address] [place] [address])(Fam emily Med Tm B Non-AD BCC) TELE CONSULT [id number] Notes Entered by: ADRIÁN TOPETE 17 Jul 2015 1247 ------- ------- ------- ------- -- Stephanei e - Lab result PJ MCKAY 07/17 [employer] [facility] [place] [place]F amily Med Tm B Non-AD BCC) Procedures Combined list of: 1) Procedures from Department of Veterans Affairs facilities going back up to thelast 18 months, not all VA non-surgical procedures are included; 2) All procedures from the Department of Defense facilities. Procedure Procedure Type Code Date Perfomer Comments Nydia bacon No data available for this section [...] SUBSTANCE OR DRUG); SUBCUTANEOUS OR INTRAMUSCULAR 12/14 DoD VITAL CAPACITY, TOTAL (SEPARATE PROCEDURE) 08/07 [facility] DETERMINATION OF REFRACTIVE STATE 08/08 DoD INCISION AND DRAINAGE OF ABSCESS (EG, CARBUNCLE, SUPPURATIVE HIDRADENITIS, CUTANEOUS OR SUBCUTANEOUS ABSCESS, CYST, FURUNCLE, OR PARONYCHIA); SIMPLE OR SINGLE 02/24 DoD PHYSICAL THERAPY RE-EVALUATION 07/09 DoD APPLICATION OF A MODALITY TO 1 OR MORE AREAS; DIATHERMY (EG, MICROWAVE) 07/08 DoD APPLICATION OF A MODALITY TO 1 OR MORE AREAS; DIATHERMY (EG, MICROWAVE) 07/04 [facility] APPLICATION OF A MODALITY TO 1 OR MORE AREAS; ULTRASOUND, EACH 15 MINUTES 06/28 DoD APPLICATION OF A MODALITY TO 1 OR MORE AREAS; ULTRASOUND, EACH 15 MINUTES 06/25 DoD APPLICATION OF A MODALITY TO 1 OR MORE AREAS; ULTRASOUND, EACH 15 MINUTES 06/20 [facility] MEDICAL NUTRITION THERAPY; INITIAL ASSESSMENT AND INTERVENTION, INDIVIDUAL, PBMP-TO-KSCQ WITH THE PATIENT, EACH 15 MINUTES 06/19 DoD PHYSICAL THERAPY RE-EVALUATION 06/18 DoD APPLICATION OF [...] MINUTES 06/04 DoD PHYSICAL THERAPY EVALUATION 05/31 [facility] ELECTROCARDIOGRAM, ROUTINE ECG WITH AT LEAST 12 LEADS; WITH INTERPRETATION AND REPORT 05/10 [facility] ARTHROCENTESIS, ASPIRATION AND/OR INJECTION, MAJOR JOINT OR BURSA (EG, SHOULDER, HIP, KNEE, SUBACROMIAL BURSA); WITHOUT ULTRASOUND GUIDANCE 01/17 [facility] DETERMINATION OF REFRACTIVE STATE 12/30 [facility] CHEMICAL CAUTERIZATION OF GRANULATION TISSUE (IE, PROUD FLESH) 12/10 [facility] CHEMICAL CAUTERIZATION OF GRANULATION TISSUE (IE, PROUD FLESH) 11/26 [facility] SMEAR, PRIMARY SOURCE WITH INTERPRETATION; WET MOUNT FOR INFECTIOUS AGENTS (EG, SALINE, JORGE INK, ELVIE PREPS) 08/04 [facility] OTHER REPAIR OF VULVA AND PERINEUM 07/24 [facility] VAGINAL SUSPENSION AND FIXATION 07/24 [facility] REPAIR OF RECTOCELE 07/24 [facility] REPAIR OF CYSTOCELE 07/24 [facility] TOTAL ABDOMINAL HYSTERECTOMY 07/24 [facility] OTHER CYSTOSCOPY 07/24 [facility] LAPAROSCOPIC REMOVAL OF BOTH OVARIES AND TUBES AT SAME OPERATIVE EPISODE 07/24 [facility] CARDIOVASCULAR STRESS TEST USING TREADMILL 10/01 /2003 [facility] CARDIOVASCULAR STRESS TEST USING MAXIMAL OR SUBMAXIMAL TREADMILL OR BICYCLE EXERCISE,CONTINUOUS ELECTROCARDIOGRAPHIC MONITORING,AND/OR PHARMACOLOGICAL STRESS;W SUPERVISION,INTERPRETA TION AND REPORT 06/19 [facility] INFUSION, NORMAL SALINE SOLUTION, 250 CC 06/18 [facility] EDUCATIONAL SUPPLIES, SUCH BOOKS, TAPES, AND PAMPHLETS, FOR THE PATIENT'S EDUCATION AT COST TO PHYSICIAN OR OTHER QUALIFIED HEALTH HOT DOG VENDER 03/11 [facility] INJECTION, TRIAMCINOLONE ACETONIDE, NOT OTHERWISE SPECIFIED, 10 MG 02/08 [facility] REPAIR OF UMBILICAL HERNIA WITH PROSTHESIS 02/19 [facility] EKG (SCALP) 03/28 [facility] EPISIOTOMY 03/28 [facility] OTHER ARTIFICIAL RUPTURE OF MEMBRANES 03/28 [facility] OTHER BILATERAL LIGATION AND DIVISION OF FALLOPIAN TUBES 03/28 [facility] Postoperative Visit, Without Charge Postoperative Visit, Without Charge 32704 10/11 BHARTI TOMPKINS [facility] Layer Closure Of Wound Neck .1 to 2.5 cm Layer Closure Of Wound Neck .1 to 2.5 cm 56546 10/01 BHARTI TOMPKINS Excision Of Lesion Neck Benign .6 to 1cm Excision Of Lesion Neck Benign .6 to 1cm 03459 10/01 BHARTI TOMPKINS [facility] Cervical or vaginal cancer screening; pelvic and clinical breast examination 09/25 WILFRID CARPIO [facility] Biopsy Skin Biopsy Skin 37242 08/02 BHARTI TOMPKINS [facility] Non-Physician Phone Call To Patient/Provider Brief (5-10min) Non-Physician Phone Call To Patient/Provider Brief (5-10min) 75277 06/26 NARAYAN JAMES [facility] Non-Physician Phone Call To Patient/Provider Brief (5-10min) Non-Physician Phone Call To Patient/Provider Brief (5-10min) 95796 04/08 EDWARD DIAZ [facility] Non-Physician Phone Call To Patient/Provider Brief (5-10min) Non-Physician Phone Call To Patient/Provider Brief (5-10min) 86085 01/11 NARAYAN JAMES [facility] ECG 12-Lead ECG 12-Lead 3120F 10/30 FREDDY WANG [facility] Non-Physician Phone Call To Patient/Provider Brief (5-10min) Non-Physician Phone Call To Patient/Provider Brief (5-10min) 59193 10/16 GIRISH LONGO [facility] Non-Physician Phone Call To Patient/Provider Brief (5-10min) Non-Physician Phone Call To Patient/Provider Brief (5-10min) 57487 08/21 ESPERANZADELL JAEMS A [facility] Non-Physician Phone Call To Patient/Provider Brief (5-10min) Non-Physician Phone Call To Patient/Provider Brief (5-10min) 61772 07/24 DEISY EMANUEL Preventive Medicine Results Documented/Reviewed Body Ma Index Preventive Medicine Results Documented/Reviewed Body Mass Index 3008F 07/17 ADRYAN WAITE [facility] Case Management, each 15 minutes 06/07 SONDRA, KALEY [facility] Coordinated care fee, maintenance rate 06/07 KALEY AMARO Cervical or vaginal cancer screening; pelvic and clinical breast examination 05/03 GIRISH PURDY Vaginal ELVEI Prep Vaginal ELVIE Prep 78692 04/17 GIRISH PURDY Vaginal Wet [place] Vaginal [place] 68867 04/17 GIRISH PURDY Non-Physician Phone Call To Patient/Provider Brief (5-10min) Non-Physician Phone Call To Patient/Provider Brief (5-10min) 98541 04/17 ANTHONY NAVA [facility] Non-Physician Phone Call To Patient/Provider Brief (5-10min) Non-Physician Phone Call To Patient/Provider Brief (5-10min) 85440 04/26 DEISY EMANUEL Coordinated care fee, maintenance rate 04/25 FERNANDO CUETO [facility] Case Management, each 15 minutes 04/25 FERNANDO CUETO Colorectal cancer screening; colonoscopy on individual not meeting criteria for high risk 01/18 ALANA HEMPHILL Non-Physician Phone Call To Patient/Provider Brief (5-10min) Non-Physician Phone Call To Patient/Provider Brief (5-10min) 84269 11/30 DEISY EMANUEL Non-Physician Phone Call To Patient/Provider Brief (5-10min) Non-Physician Phone Call To Patient/Provider Brief (5-10min) 11323 08/18 DEISY EMANUEL Non-Physician Phone Call To Patient/Provider Brief (5-10min) Non-Physician Phone Call To Patient/Provider Brief (5-10min) 46992 08/06 DEISY EMANUEL Non-Physician Phone Call To Patient/Provider Brief (5-10min) Non-Physician Phone Call To Patient/Provider Brief (5-10min) 58315 06/25 DEISY EMANUEL Non-Physician Phone Call To Patient/Provider Brief (5-10min) Non-Physician Phone Call To Patient/Provider Brief (5-10min) 67882 06/10 DEISY EMANUEL Non-Physician Phone Call To Patient/Provider Brief (5-10min) Non-Physician Phone Call To Patient/Provider Brief (5-10min) 43911 12/[address] Supervised Injection Intramuscular Supervised Injection Intramuscular 27182 12/14 JETHRO RIVERA Patient identified -patient recieved IM injection of toradol 60mg(lot number [id number]/ exp date 19 Jun 2012) in right upper outer glut. Patient tolerated procedure well-await ign reassessme nt. [facility] Pulmonary Function Tests Peak Expiratory Flow Pulmonary Function Tests Peak Expiratory Flow 59378 08/07 TERRY SAINZ Created by entry in Vitals Module [facility] Determination Of Refractive State Determination Of Refractive State 73261 08/08 DYLON ARREDONDO [facility] Ophthalmological Prior Patient Start Comprehensive Care Ophthalmological Prior Patient Start Comprehensive Care 90590 08/08 DYLON ARREDONDO [facility] Incision And Drainage Of Skin Absce , Simple Incision And Drainage Of Skin Abscess, Simple 47760 02/24 JING HERNANDEZ [facility] Physical Medicine Physical Therapy Re-Evaluation Physical Medicine Physical Therapy Re-Evaluation 39918 07/09 MITCHELL MORALES [facility] Modalities Diathermy Treatment 07/08 DUSTIN TRAMMELL Modalities Iontophoresis Modalities Iontophoresis 79134 07/08 DUSTIN TRAMMELL Physical Therapy: ___ Se ion Segments, 15 Minutes Each Physical Therapy: ___ Session Segments, 15 Minutes Each 10417 07/08 DUSTIN TRAMMELL Physical Therapy Mobilization Joint Physical Therapy Mobilization Joint 78283 07/08 DUSTIN TRAMMELL Modalities Diathermy Treatment 07/04 CHANA QUINTERO [facility] Physical Therapy Mobilization Joint Physical Therapy Mobilization Joint 35121 07/04 CHANA QUINTERO [facility] Modalities Iontophoresis Modalities Iontophoresis 96405 07/04 CHANA QUINTERO [facility] Physical Therapy: ___ Se ion Segments, 15 Minutes Each Physical Therapy: ___ Session Segments, 15 Minutes Each 09647 07/04 CHANA QUINTERO Modalities Iontophoresis Modalities Iontophoresis 75029 06/28 GONZÁLEZ SIGALA [facility] Modalities Ultrasound Modalities Ultrasound 37078 06/28 GONZÁLEZ SIGALA Physical Therapy Mobilization Joint Physical Therapy Mobilization Joint 79851 06/28 GONZÁLEZ SIGALA Physical Therapy: ___ Se ion Segments, 15 Minutes Each Physical Therapy: ___ Session Segments, 15 Minutes Each 62887 06/28 GONZÁLEZ SIGALA Modalities Iontophoresis Modalities Iontophoresis 57106 06/25 DUSTIN TRAMMELL Physical Therapy Mobilization Joint Physical Therapy Mobilization Joint 90228 06/25 DUSTIN TRAMMELL Modalities Ultrasound Modalities Ultrasound 79731 06/25 DUSTIN TRAMMELL Physical Therapy: ___ Se ion Segments, 15 Minutes Each Physical Therapy: ___ Session Segments, 15 Minutes Each 96269 06/25 DUSTIN TRAMMELL Medical Nutrition Therapy Initial A e ment, Intervention Medical Nutrition Therapy Initial Assessment, Intervention 48098 06/20 DAVID WHITE [facility] Modalities Iontophoresis Modalities Iontophoresis 44354 06/20 GONZÁLEZ SIGALA Modalities Ultrasound Modalities Ultrasound 53242 06/20 GONZÁLEZ SIGALA Physical Therapy Mobilization Joint Physical Therapy Mobilization Joint 56642 06/20 GONZÁLEZ SIGALA Physical Therapy: ___ Se ion Segments, 15 Minutes Each Physical Therapy: ___ Session Segments, 15 Minutes Each 39826 06/20 GONZÁLEZ SIGALA Physical Medicine Physical Therapy Re-Evaluation Physical Medicine Physical Therapy Re-Evaluation 15524 06/18 MITCHELL MORALES [facility] Modalities Ultrasound Modalities Ultrasound 86004 06/14 DUSTIN TRAMMELL Physical Therapy: ___ Se ion Segments, 15 Minutes Each Physical Therapy: ___ Session Segments, 15 Minutes Each 10777 06/14 DUSTIN TRAMMELL Physical Therapy Mobilization Joint Physical Therapy Mobilization Joint 07604 06/14 DUSTIN TRAMMELL [facility] Physical Therapy Mobilization Joint Physical Therapy Mobilization Joint 03203 06/12 DUSTIN TRAMMELL [facility] Modalities Ultrasound Modalities Ultrasound 05823 06/12 DUSTIN TRAMMELL [facility] Physical Therapy: ___ Se ion Segments, 15 Minutes Each Physical Therapy: ___ Session Segments, 15 Minutes Each 70334 06/12 DUSTIN TRAMMELL [facility] Modalities Ultrasound Modalities Ultrasound 52073 06/10 CHANA QUINTERO [facility] Physical Therapy Mobilization Joint Physical Therapy Mobilization Joint 92751 06/10 CHANA QUINTERO [facility] Physical Therapy: ___ Se ion Segments, 15 Minutes Each Physical Therapy: ___ Session Segments, 15 Minutes Each 58191 06/10 CHANA QUINTERO [facility] Modalities Ultrasound Modalities Ultrasound 52498 06/06 DUSTIN TRAMMELL Physical Therapy Mobilization Joint Physical Therapy Mobilization Joint 97916 06/06 DUSTIN TRAMMELL [facility] Physical Therapy: ___ Se ion Segments, 15 Minutes Each Physical Therapy: ___ Session Segments, 15 Minutes Each 18977 06/06 DUSTIN TRAMMELL Physical Therapy Mobilization Joint Physical Therapy Mobilization Joint 91966 06/04 DUSTIN TRAMMELL [facility] Modalities Ultrasound Modalities Ultrasound 53707 06/04 DUSTIN TRAMMELL [facility] Physical Therapy: ___ Se ion Segments, 15 Minutes Each Physical Therapy: ___ Session Segments, 15 Minutes Each 20247 06/04 DUSTIN TRAMMELL [facility] Physical Medicine Physical Therapy Evaluation Physical Medicine Physical Therapy Evaluation 63673 05/31 MITCHELL MORALES [facility] Electrocardiogram Electrocardiogram 96449 05/10 JENIFER STEPHENS [facility] Arthrocentesis Injection Of Knee Joint Arthrocentesis Injection Of Knee Joint 38412 01/17 TETE IZAGUIRRE Hyaluronan (sodium hyaluronate) or derivative, intra-articular injection, per injection 01/17 TETE IZAGUIRRE Visual Whitlock Test Intermediate Examination Visual Whitlock Test Intermediate Examination 10510 12/30 ARON MCKEON Ophthalmological New Patient Start Comprehensive Care Ophthalmological New Patient Start Comprehensive Care 02550 12/30 ARON MCKEON [facility] Corneal Pachymetry, Bilateral With Interpret And Report Corneal Pachymetry, Bilateral With Interpret And Report 96793 12/30 ARON MCKEON [facility] Determination Of Refractive State Determination Of Refractive State 99066 12/30 ARON MCKEON [facility] Social History Combined list of available smoking, [...] Plan No data available for this section 04/08/2025 Ambulatory Pharmacy Functional Status Combined list of recent functional and cognitive assessments recorded at [facility] of Defense and [facility] (VA).VA Functional [place] Measurement (FIM) Scale: 1 = Total Assistance (Subject = 0% +), 2 = Maximal Assistance (Subject = 25% +), 3 = Moderate Assistance (Subject = 50% +), 4 = Minimal Assistance (Subject = 75% +), 5 = Supervision, 6 = Modified [place] (Device), 7 = Complete [place] (Timely, Safely). Assessment Date/Time Source Assessment Type Assessment Skill Assessment Score Assessment Details No data available for this section
--- OUTSIDE RECORDS SUMMARY | 2025-04-08 13:41 | XMS_ITS | Clinical Summary ---
Author Organization [facility] [address] Address [address] [place] [address] Care Team Providers Care Windows Server Administrator Name Role Phone Reji Mueller MD Primary Care Provider Rober Gordillo MD Unavailable [phone] Allergies Active Allergy Reactions Criticality Noted Date Comments Atorvastatin Muscle pain Reaction: Muscular Pain, Azithromycin Unknown 04/23/2021 Levofloxacin Simvastatin Muscle pain Reaction: Muscular Pain, Medications levothyroxine (SYNTHROID) 75 mcg tablet take 1 tablet by oral route every day 0 0 4 Active aspirin 81 mg tablet take 1 tablet by oral route every day 0 0 4 Active hydroCHLOROthiaz rhett (HYDRODIURIL) 25 mg tablet take 1 tablet by oral route every day 0 0 4 Active buPROPion XL (WELLBUTRIN XL) 300 mg 24 hr tablet take 1 tablet by oral route every day 0 0 4 Active omega-3 fatty acids-fish oil 340-1,000 mg capsule take 1 by Oral route once 0 0 4 Active calcium carbonate-vitami n D3 (CALCIUM 600 + D,3,) 1500 mg [...] (10 mg total) by mouth daily Active multivitamin-Ca- iron-minerals tablet Take 1 tablet by mouth daily Active pantoprazole DR (PROTONIX) 20 mg EC tablet 2 Active melatonin 5 mg tablet Active traMADoL (ULTRAM) 50 mg tablet Take 1 tablet (50 mg total) by mouth every 6 (six) hours as needed for pain Active ferrous sulfate 325 mg (65 mg of elemental iron) tabletIndication s:Iron Deficiency Anemia Take 1 tablet (325 mg total) by mouth daily with breakfast Active coenzyme Q10 200 mg capsule Take 1 capsule (200 mg total) by mouth daily 90 capsule 3 2 Active traZODone (DESYREL) 50 mg tablet Take 1 tablet (50 mg total) by mouth nightly 4 Active rosuvastatin (CRESTOR) 20 mg tablet Take 1 tablet (20 mg total) by mouth every morning 90 tablet 3 5 Active isosorbide mononitrate ER (IMDUR) 30 mg 24 hr tablet Take 1 tablet (30 mg total) by mouth daily 90 tablet 3 5 11/13/19 26 Active metoprolol XL (TOPROL-XL) 25 mg extended release tablet Take 1 tablet (25 mg total) by mouth daily 90 tablet 3 5 02/23/20 26 Active Active Problems Problem Noted Date Diagnosed Date Chronic fatigue 01/02/2024 Vasculitis 06/29/2023 Morbid (severe) obesity due to excess calories 0 05/03/2022 Coronary artery disease invo lving [place] coronary artery of [place] heart without angina pectoris 09/16/2021 Medication side [...] Encounters Date Type Department Care Team Description 02/22/2025 Telephone [facility] Cardiology [address] [place] [address] Harris Lindsey MD from Last 3 Months Surgical [...] on file Legal Sex Female 9:46 AM CALL CENTER NURSE Gender Identity Not on file Sexual Orientation Not on file Obstetrics History Last Filed Vital Signs Vital Sign Reading Time Taken Comments Blood Pressure 136/70 10/16/2024 7:55 AM CALL CENTER NURSE Pulse 70 10/16/2024 7:55 AM CALL CENTER NURSE Temperature - - Respiratory Rate 16 08/19/2021 3:40 PM CALL CENTER NURSE Oxygen Saturation 97% 10/16/2024 7:55 AM CALL CENTER NURSE Inhaled Oxygen Concentration - - Weight 112 kg (247 lb) 10/16/2024 7:55 AM CALL CENTER NURSE Height 172.7 cm (5' 8) 10/16/2024 7:55 AM CALL CENTER NURSE Body Mass Index 37.56 10/16/2024 7:55 AM CALL CENTER NURSE Plan of Treatment Health Maintenance Due Date Last Done Comments Breast Cancer Screening-Mammogram 1956 Colon Cancer Screening-Colonoscopy 1956 Depression Screening 1956 Fall Risk Assessment 1956 Osteoporosis Screening-Bone Density Scan 1956 Hepatitis B Screening 1974 Well Visit 65+ 2021 Pneumococcal vaccine 65+ (2 of 2 - PCV) 07/01/2022 07/01/2021 Covid-19 Vaccine (3 - 2023-2 5 season) 2024 07/13/2021, 11/21/2020 Influenza Vaccine (#1) 2025 , 07/07/2020, 07/10/2018, Additional history exists DTaP/Tdap/Td Vaccine (2 - Td or Tdap) 07/10/2025 07/10/2015 Zoster Vaccine Completed 10/10/2020, 11/0 12/2019, 06/24/2016 Hepatitis C Screening Completed 11/13/2024 Procedures Procedure Name Priority Date/Time Associated Diagnosis Comments HEPATITIS C ANTIBODY Routine 11/13/2024 11:29 AM CALL CENTER NURSE from Last 3 Months or Most Recently Relevant to Health Maintenance Results * Hepatitis C antibody Blood (11/13/2024 11:29 AM CALL CENTER NURSE) Hep C Ab Nonreactive Nonreactive Comment: Interpretive [...] on 2019. Blood 11/13/2024 11:2 9 AM CALL CENTER NURSE 11/13/2024 3:24 PM CALL CENTER NURSE Bonny Uribe MD LAB MICROBIOLOGY - GENERAL ORDER [place] Final Result [facility] [address] Department [place] [address] from Last 3 Months or Most Recently Relevant to Health [place] [address] [place] [address] MEDICARE [facility] Address: [facility] [address] [place] [address] [employer] Care Teams Windows Server Administrator Relationship Specialty Start Date End Date Reji Mueller MD PCP - General Family Practice 07/21/21 Rober Gordillo MD [address] [facility] [address] [place] [address] Referring Physician Orthopedic Surgery 08/16/22
--- OUTSIDE RECORDS SUMMARY | 2025-04-08 13:41 | XMS_ITS | Patient Health Record ---
Author Organization [facility] Cli marcus Address [address] [facility] [address] [place] [address] Care Team Providers Care Spoilage Worker Name Role Phone Ervin JUNG, Reji Primary Care Provider Unavailable Rony Bonny Unavailable [phone] Allergies Allergen (clinical drug ingredient) Drug/Non Drug Allergy documented on EMR Reaction Allergy Type Onset Date Status Azithromycin Unknown Drug Allergy Acti ve Levaquin rash Drug Allergy Active Substance with 5-vbkhdat-3-methylglut aryl-coenzyme A reductase inhibitor mechanism of action (substance) Statins Unknown Drug Allergy Active Results Component Value Reference Range Notes SHRUTI reflex titer pattern ROSITA + dsDNA Reviewed date:11/14/2024 12:01:33 PM Interpretation: Performing Lab:[facility] , [address] [place] [place] [address] Notes/Report: SHRUTI, Qual Negative Interpretive Data Normal [...] last revised on 2020. Testing performed by: [facility], [address] [facility] [place]., [address] ANCA reflex MPO and PR3 Abs Reviewed date:11/15/2024 12:47:39 PM Interpretation: Performing Lab:[facility] , [address] [place] [address] Notes/Report: Neutrophil Cytoplas Ab, Qual Negative Testing performed by: [facility], [address] [place]., [address] Anti-CCP (Cyclic Citrullinat ed Peptide Ab) Reviewed date:11/14/2024 12:01:33 PM Interpretation: Performing Lab:[facility] , [address] [place] [address]. [facility] [address] Notes/Report: CCP Ab <0.5 <=2.9 units/mL Interpretive data Negative: <3 units/mL Positive: > or equal to 3 units/mL Current interpretive data was last revised on 2016. C Reactive Protein Reviewed date:11/14/2024 08:26:18 AM Interpretation: Performing Lab:[facility] , [address] [place] [address]. [facility] [address] Notes/Report: C-Reactive Protein 4.1 <=10.0 mg/L CBC w auto diff Reviewed date:11/13/2024 06:14:51 PM Interpretation: Performing Lab:[facility] , [address] [place] [address]. [facility] [address] Notes/Report: WBC 6.6 3.8-9.9 K/cumm Hgb 14.0 11.9-15.5 g/dL Hct 42.8 35.6-45.5 % Platelet Ct 259 150-400 K/cumm MPV 9.6 9.1-12.3 fL RBC 4.49 3.90-5.20 M/cumm MCV 95.3 81.3-96.4 fL MCH 31.2 27.1-33.3 pg MCHC 32.7 32.3-35.7 g/dL RDW CV 12.2 11.1-14.9 % RDW SD 42.5 35.7-48.1 fL NRBC Abs Auto 0.00 0.00-0.01 K/cumm Complement C3 Reviewed date:11/14/2024 08:26:18 AM Interpretation: Performing Lab:[facility] , [address] [place] [address]. [facility] [address] Notes/Report: Complement, C3 178 90-180 mg/dL Complement C4 Reviewed date:11/14/2024 08:26:18 AM Interpretation: Performing Lab:[facility] , [address] [place] [address]. [facility] [address] Notes/Report: Complement, C4 22 10-40 mg/dL Comprehensive metabolic pane l (CMP) Reviewed date:11/14/2024 08:26:18 AM Interpretation: Performing Lab:[facility] , [address] [place] [address]. [facility] [address] Notes/Report: Sodium 139 135-145 mmol/L Plasma Potassium [...] Kinase Reviewed date:11/14/2024 08:26:18 AM Interpretation: Performing Lab:[facility] , [address] [place] [address]. [facility] [address] Notes/Report: Total CK 44 30-200 Units/L Cryoglobulin, S&P Reviewed date:11/15/2024 12:47:39 PM Interpretation: Performing Lab:[facility] , [address] [place] [address]. [facility] [address] Notes/Report: Cryo S See Footnote Negative Negative. This test is negative at 24 hours. All samples are held and reviewed again at 7 days. If delayed precipitation occurs after 7 days, Immunofixation will be performed and an additional report will follow. Cryofib P Negative Negative Test Performed by: [facility] [address] [place] [address] Edge Inker Uppers: Anjali Hernadez Ph.D.; CLIA# [id number] G6PD Ql Reviewed date:11/14/2024 08:26:18 AM Interpretation: Performing Lab:[facility] , [address] [facility] [place] [address] Notes/Report: G6PD, Qual Normal Normal Interp data: G6PD activity should be interpreted in the context of a patient's hematocrit. Hematocrit < 20% may lead to a falsely deficient result, while hematocrit > 50% may lead to a falsely normal result. Current interpretive data was last revised on 2019. Testing performed by: [facility], [address] [facility] [place]., [address] Hep B surf AG Reviewed date:11/13/2024 06:14:51 PM Interpretation: Performing Lab:[facility] , [address] [facility] [place] [address] Notes/Report: Hepatitis B Surface Antigen Nonreactive Nonreactiv Hep C AB Reviewed date:11/13/2024 06:14:51 PM Interpretation: Performing Lab:[facility] , [address] [facility] [place] [address] Notes/Report: Hepatitis C Antibody Nonreactive Nonreactiv Interpretive [...] Factor Reviewed date:11/14/2024 08:26:18 AM Interpretation: Performing Lab:[facility] , [address] [facility] [place] [address] Notes/Report: RF, Calderon 10 <=15 IUnits/mL Sed Rate Reviewed date:11/13/2024 06:14:51 PM Interpretation: Performing Lab:[facility] , [address] [place] [address]. [facility] [address] Notes/Report: ESR 23 1-30 mm/hr SSA Ab Reviewed date:11/14/2024 09:42:56 PM Interpretation: Performing Lab:[facility] , [address] [place] [address]. [facility] [address] Notes/Report: SS A Antibody <0.2 <=0.9 Ab Index Interpretive Data Negative: < 1.0 Ab Index Positive: > or = 1.0 Ab Index Current interpretive data was last revised on 2016. SSB Ab Reviewed date:11/14/2024 09:42:56 PM Interpretation: Performing Lab:[facility] , [address] [place] [address]. [facility] [address] Notes/Report: SS B Antibody <0.2 <=0.9 Ab Index Interpretive Data Negative: < 1.0 Ab Index Positive: > or = 1.0 Ab Index Current interpretive data was last revised on 2016. Differential Automated Reviewed date:11/13/2024 06:14:51 PM Interpretation: Performing Lab:[facility] , [address] [place] [address]. [facility] [address] Notes/Report: Neut Abs 4.2 1.5-6.5 K/cumm ImmGran Abs 0.0 0.0-0.1 K/cumm Lymphocyte Abs 1.4 0.8-3.3 K/cumm [place] Abs 0.7 0.2-0.8 K/cumm Eos Abs 0.2 [...] Interpretive Data was last revised on 2017. [place] Pct 10.1 Interpretive Data Percent cell count [...] Interpretive Data was last revised on 2017. eGFR Reviewed date:11/14/2024 08:26:18 AM Interpretation: Performing Lab:[facility] , [address] [place] [address]. [facility] [address] Notes/Report: eGFR 80 >=60 mL/min/1.73 m2 Interpretive [...] Current interpretive data was last reviewed 2021. Reason For Referral No Information Medications Medication SIG (Take, Route, Frequency, Duration) Notes Start Date End Date Status Rosuvastatin Calcium 10 MG 1 tablet Oral ly Once a day; Duration: 30 day(s) Active [place] 3 1000 MG 1 capsule Orally Three times a day; Duration: 30 day(s) Active Nitroglycerin 0.4 MG 1 tablet under the tongue and allow to dissolve as needed. Take every 5 minutes up to 3 times if chest pain persists Sublingual Three times a day; Duration: 30 day(s) Active Calcium 500 MG 1 tablet with meals Orally Twice a day; Duration: 30 day(s) Active Ferrous Sulfate 325 (65 Fe) MG 1 tablet Orally once a day; Duration: 30 day(s) Active QUEtiapine Fumarate 25 MG 1 tablet at be dtime Orally Once a day; Duration: 30 day(s) Active Metoprolol Succinate ER 25 MG 1 tablet O rally Once a day; Duration: 30 day(s) Active Multivitamin Active traZODone HCl 50 MG 1 tablet at bedtime as needed Orally Once a day; Duration: 30 day(s) Active Levothyroxine Sodium 75 MCG 1 tablet in the morning on an empty stomach Orally Once a day; Duration: 30 day(s) Active Vitamin D3 50 MCG (2000 UT) 1 capsule Or ally Once a day; Duration: 30 day(s) Active Advair Diskus 250-50 MCG/ACT 1 puff Inha lation Twice a day Active Omeprazole 40 MG 1 capsule 1/2 to 1 hour before morning meal Orally Once a day; Duration: 30 day(s) Active hydroCHLOROthiazide 25 MG 1 tablet in morning Orally Once a day; Duration: 30 day(s) Active Celecoxib 200 MG 1 capsule with food Orally Once a day; Duration: 30 day(s) Active Sertraline HCl 100 MG 1 tablet Orally On ce a day; Duration: 30 day(s) Active Magnesium 200 MG 2 tablets with a michael l Orally Once a day; Duration: 30 day(s) Active Albuterol Sulfate 108 (90 Ba se) MCG/ACT 1 puff as needed Inhalation every 4 hrs Active Cetirizine HCl 10 MG 1 tablet Orally Onc e a day; Duration: 30 day(s) Active Aspirin 81 81 MG 1 tablet Orally Once a day; Duration: 30 day(s) Active Melatonin 3 MG 1 tablet at bedtime as needed Orally Once a day; Duration: 30 day(s) Active Astepro 205.5 MCG/SPRAY 2 sprays (1 spra y in each nostril) Nasally Twice a day; Duration: 30 day(s) Active buPROPion HCl ER (XL) 300 MG 1 tablet in the morning Orally Once a day; Duration: 30 day(s) Active CoQ-10 200 MG as directed Orally Active Social History Tobacco Use: Social History Observation Description Date Details (start date - stop date) Never Smoker NA - NA Household Question Answer Notes Marital status: Tobacco Control (Standard) Question Answer Notes Tobacco use: Nonsmoker Problems Problem Type SNOMED Code ICD Code Onset Dates Problem Status W/U Status Risk Notes Problem Rheumatoid arthritis (65512617) Rheumatoid arthritis without rheumatoid factor, 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) Active confirmed Problem Leukocytoclastic vasculitis (90301729) 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 Vital Signs Heart Rate 72 /min 01/28/2025 Temperature 98.0 degrees Fahrenheit 01/28/2025 Blood pressure diastolic 70 mm Hg 01/28/2025 Oximetry 94 % 01/28/2025 Height-cm 173.99 cm 01/28/2025 Weight-kg 109.77 kg 01/28/2025 Height 68.5 in 01/28/2025 Blood pressure systolic 110 mm Hg 01/28/2025 Weight 242.0 lbs 01/28/2025 BMI 36.26 kg/m2 01/28/2025 Encounters Encounter Location Date Provider Diagnosis [facility] [address] [address] [address] 11/13/2024 Bonny Du Multiple joint pain M25.50 and 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 [facility] [address] [facility] [address] [address] 11/27/2024 Bonny Du Multiple joint pain M25.50 ; Rheumatoid arthritis without rheumatoid factor, multiple sites M06.09 and 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 [facility] [address] [facility] [address] [address] 01/28/2025 Bonny Du Multiple joint pain M25.50 and 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 [facility] [address] [address] [address] 08/21/2024 Bonny Du Assessments Encounter Date Diagnosis (ICD Code) Assessment [...] prednisone 5mg/day prn, return in 2 months 01/28/2025 Multiple joint pain (ICD-10 - M25.50) did not tolera te plaquenil, no obvious synovitis on exam, will monitor, continue celebrex, return in 3 to 4 months 01/28/2025 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) did not tolerate plaquenil, no obvious synovitis on exam, will monitor, continue celebrex, return in 3 to 4 months 11/27/2024 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, joint pain steroid responsive, 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, start plaquenil, continue prednisone 5mg/day prn, return in 2 months Plan Of Treatment Next Appt Details Provider Name:Bonny Uribe, 07/29 01:00:00 PM, [address] [facility] [address], [place], [address], Insurance Providers Payer Name Payer Address Payer Phone Subscriber Number Group Number Insured Name Patient Relationship to Insured Coverage Start Date Coverage End Date Medicare [address] [address] [place] [address] [id number] Elli Garcia Self - patient is the insured For [employer] [address] [place], [place] [id number] [phone] [id number] Elli Garcia Self - patient is the insured Medical (General) History Medical History History ICD Code coronary artery disease, CARBURIZER D, hypertension, hyperlipidemia, sleep apnea, depression, bipolar, carcinoma (vaginal biopsy), hypothyroidism, osteopenia, Surgical History Surgery Date(Month/Year) knee surgery, breast biopsy, coronary artery stent, hysterectomy, tonsillectomy, hernia repair, cholecystectomy, left hip replacement
--- OUTSIDE RECORDS SUMMARY | 2025-04-08 13:41 | XMS_ITS | Referral Summary ---
Author Organization [facility] [address] [place] [address] [address] [place] [address] Care Team Providers Care Manager Document Name Role Phone Reji Mueller MD Primary Care Provider Rober Gordillo MD Unavailable [phone] Encounters Date Type Department Care Team Description 02/22/2025 Telephone [facility] Cardiology [address] [facility] [address] [place] [address] Harris Lindsey MD from Last 3 Months Allergies [...] 0 05/03/2022 Coronary artery disease invo lving [place] coronary artery of [place] heart without angina pectoris 09/16/2021 Medication side [...] on file Legal Sex Female 9:46 AM FINANCIAL PROFESSIONAL Gender Identity Not on file Sexual Orientation Not on file Last Filed Vital Signs Vital Sign Reading Time Taken Comments Blood Pressure 136/70 10/16/2024 7:55 AM FINANCIAL PROFESSIONAL Pulse 70 10/16/2024 7:55 AM FINANCIAL PROFESSIONAL Temperature - - Respiratory Rate 16 08/19/2021 3:40 PM FINANCIAL PROFESSIONAL Oxygen Saturation 97% 10/16/2024 7:55 AM FINANCIAL PROFESSIONAL Inhaled Oxygen Concentration - - Weight 112 kg (247 lb) 10/16/2024 7:55 AM FINANCIAL PROFESSIONAL Height 172.7 cm (5' 8) 10/16/2024 7:55 AM FINANCIAL PROFESSIONAL Body Mass Index 37.56 10/16/2024 7:55 AM FINANCIAL PROFESSIONAL Plan of Treatment Not on file Procedures Procedure Name Priority Date/Time Associated Diagnosis Comments HEPATITIS C ANTIBODY Routine 11/13/2024 11:29 AM FINANCIAL PROFESSIONAL from Last 3 Months or Most Recently Relevant to Health Maintenance Results * Hepatitis C antibody Blood (11/13/2024 11:29 AM FINANCIAL PROFESSIONAL) Hep C Ab Nonreactive Nonreactive Comment: Interpretive [...] on 2019. Blood 11/13/2024 11:2 9 AM FINANCIAL PROFESSIONAL 11/13/2024 3:24 PM FINANCIAL PROFESSIONAL us Bonny Uribe MD LAB MICROBIOLOGY - GENERAL ORDER [place] Final Result [facility] [address] [place] [address] from Last 3 Months or Most Recently Relevant to Health Maintenance Insurance [place]ICARE [place] [address] MEDICARE FOR LIFE Care Teams Manager Document Relationship Specialty Start Date End Date Reji Mueller MD PCP - General Family Practice 07/21/21 Rober Gordillo MD [address] [facility] [address] [place] [address] Referring Physician Orthopedic Surgery 08/16/22
--- OUTSIDE RECORDS SUMMARY | 2025-04-08 13:41 | XMS_ITS | Clinical Summary ---
Author Organization [facility] Address [address] [place] [address] Care Team Providers Care Industrial Chemist Name Role Phone Reji Mueller MD Primary Care Provider Allergies Active Allergy Reactions Criticality Noted Date Comments Azithromycin Unknown 04/23/2021 Levofloxacin Unknown 04/23/2021 Kfghpjf-Vpl-Dsi Reductase Inhibitors Muscle Pain Low 04/23/2021 Medications [...] Comments Blood Pressure 137/79 11/03/2021 2:12 PM TWINE WINDER Pulse 62 11/03/2021 2:12 PM TWINE WINDER Temperature 36.9 C (98.5 F) 08/20/2021 10:41 AM TWINE WINDER Respiratory Rate 18 11/03/2021 2:12 PM TWINE WINDER Oxygen Saturation 98% 11/03/2021 2:12 PM TWINE WINDER Inhaled Oxygen Concentration - - Weight 115.8 kg (255 lb 3.2 oz) 021 10:41 AM TWINE WINDER Height 174 cm (5' 8.5) 08/20/2021 10:4 1 AM TWINE WINDER Body Mass Index 38.24 08/20/2021 10:41 AM TWINE WINDER Plan of Treatment Health Maintenance Due Date Last Done Comments BREAST CANCER SCREENING 1996 COLORECTAL SCREENING 2001 Colorectal Cancer Screening 2001 FIT-DNA Q 3 years 2001 FIT/FOBT Q 1 year 2001 Flex Sig/CT Colonography Q 5 years 2001 OSTEOPOROSIS SCREENING 2021 PNEUMOCOCCAL VACCINE 50+ YEA RS (2 of 2 - PCV) 07/01/2022 07/01/2021 INFLUENZA VACCINE (#1) 2025 , 08/01/2017, 06/24/2016, Additional history exists DTAP/TDAP/TD VACCINES (2 - T d or Tdap) 07/10/2025 07/10/2015 RSV VACCINE (60+ or ) (1 - 1-dose 75+ series) 2031 ZOSTER VACCINE Completed 10/10/2020, 1112/2019, 06/24/[address] [place] [address] MEDICARE PART A AND B FOR LIFE [facility] Address: [place] [address] Care Teams Industrial Chemist Relationship Specialty Start Date End Date Reji Mueller MD [address] [place] [id number] PCP - General Family Practice 04/23/21
--- OUTSIDE RECORDS SUMMARY | 2025-04-08 13:41 | XMS_ITS | Clinical Summary ---
Author Organization [facility] Address [address] [place] [address] Care Team Providers Care River Pilot Name Role Phone Unavailable Primary Care Provider [...]
== END 2025-04-08 13:37 | disposition home or self-care (01) ==
LOC: ANHIMG 13:37
PROVIDERS: PCP Family Medicine; Visit Provider Student in an Organized Health Care Education/Training Program
DX: Z78.0 Asymptomatic menopausal state (principal)
CPT/HCPCS: 77080

== ENCOUNTER 2025-05-06 15:26 | Outpatient (CLI) | payer MEDICARE, OTHER, SELFPAY ==
--- OUTSIDE RECORDS SUMMARY | 2025-05-06 16:02 | XMS_ITS | Clinical Summary ---
Author Organization [facility] Address [address] [place] [address] Care Team Providers Care Composite Engineer Name Role Phone Reji Mueller MD Primary Care Provider Allergies Active Allergy Reactions Criticality Noted Date Comments Azithromycin Unknown 04/23/2021 Levofloxacin Unknown 04/23/2021 Yqtddzt-Mrd-Vtr Reductase Inhibitors Muscle Pain Low 04/23/2021 Medications [...] Comments Blood Pressure 137/79 11/03/2021 2:12 PM SUGAR LABORATORY ASSISTANT Pulse 62 11/03/2021 2:12 PM SUGAR LABORATORY ASSISTANT Temperature 36.9 C (98.5 F) 08/20/2021 10:41 AM SUGAR LABORATORY ASSISTANT Respiratory Rate 18 11/03/2021 2:12 PM SUGAR LABORATORY ASSISTANT Oxygen Saturation 98% 11/03/2021 2:12 PM SUGAR LABORATORY ASSISTANT Inhaled Oxygen Concentration - - Weight 115.8 kg (255 lb 3.2 oz) 021 10:41 AM SUGAR LABORATORY ASSISTANT Height 174 cm (5' 8.5) 08/20/2021 10:4 1 AM SUGAR LABORATORY ASSISTANT Body Mass Index 38.24 08/20/2021 10:41 AM SUGAR LABORATORY ASSISTANT Plan of Treatment Health Maintenance Due Date [...] ZOSTER VACCINE Completed 10/10/2020, 1112/2019, 06/24/2016 Insurance * Guarantor: Elli Garcia Account Type Relation to Patient Date of Phone Billing Address Personal/Family Self [address] [place] [address] [place] [address] MEDICARE PART A AND B FOR LIFE Care Teams Composite Engineer Relationship Specialty Start Date End Date Reji Mueller MD [address] [place] [id number] PCP - General Family Practice 04/23/21
--- OUTSIDE RECORDS SUMMARY | 2025-05-06 16:02 | XMS_ITS | Patient Health Record ---
Author Organization [facility] marcus Address [address] [place] [address] Care Team Providers Care 3Rd Pressman Name Role Phone Ervin JUNG, Reji Primary Care Provider Unavailable Rony Bonny Unavailable [phone] Allergies Allergen (clinical drug ingredient) Drug/Non Drug Allergy documented on EMR Reaction Allergy Type Onset Date Status azithromycin Azithromycin Unknown Drug Allergy A ctive Levaquin rash Drug Allergy Active Substance with 2-jtqstjr-9-methylgluta ryl-coenzyme A reductase inhibitor mechanism of action (substance) Statins Unknown Drug Allergy Active Results Component Value Reference Range Notes eGFR Reviewed date:11/14/2024 08:26:18 AM Interpretation: Performing Lab:[facility] , [address] [facility] [facility] [facility] [address] Notes/Report: eGFR 80 >=60 mL/min/1.73 m2 Interpretive [...] Automated Reviewed date:11/13/2024 06:14:51 PM Interpretation: Performing Lab:[facility] , [address] [facility]. [place] [address] Notes/Report: Neut Abs 4.2 1.5-6.5 K/cumm ImmGran Abs 0.0 0.0-0.1 K/cumm Lymphocyte Abs 1.4 0.8-3.3 K/cumm Fergus Abs 0.7 0.2-0.8 K/cumm Eos Abs 0.2 [...] Interpretive Data was last revised on 2017. Fergus Pct 10.1 Interpretive Data Percent cell count [...] Ab Reviewed date:11/14/2024 09:42:56 PM Interpretation: Performing Lab:[facility] , [address] [facility]. [place] [address] Notes/Report: SS B Antibody <0.2 <=0.9 Ab Index Interpretive Data Negative: < 1.0 Ab Index Positive: > or = 1.0 Ab Index Current interpretive data was last revised on 2016. SSA Ab Reviewed date:11/14/2024 09:42:56 PM Interpretation: Performing Lab:[facility] , [facility] [facility]. [facility] [address] Notes/Report: SS A Antibody <0.2 <=0.9 Ab Index Interpretive Data Negative: < 1.0 Ab Index Positive: > or = 1.0 Ab Index Current interpretive data was last revised on 2016. Sed Rate Reviewed date:11/13/2024 06:14:51 PM Interpretation: Performing Lab:[facility] , [facility] [facility] [facility] [address] Notes/Report: ESR 23 1-30 mm/hr Rheumatoid Factor Reviewed date:11/14/2024 08:26:18 AM Interpretation: Performing Lab:[facility] , [facility] [facility] [address] Notes/Report: RF, Calderon 10 <=15 IUnits/mL Hep C AB Reviewed date:11/13/2024 06:14:51 PM Interpretation: Performing Lab:[facility] , [facility] [address] Notes/Report: Hepatitis C Antibody Nonreactive Nonreactiv Interpretive [...] AG Reviewed date:11/13/2024 06:14:51 PM Interpretation: Performing Lab:[facility] , [facility] [address] Notes/Report: Hepatitis B Surface Antigen Nonreactive Nonreactiv G6PD Ql Reviewed date:11/14/2024 08:26:18 AM Interpretation: Performing Lab:[facility] , [facility] [facility]. [facility] [address] Notes/Report: G6PD, Qual Normal Normal Interp data: G6PD activity should be interpreted in the context of a patient's hematocrit. Hematocrit < 20% may lead to a falsely deficient result, while hematocrit > 50% may lead to a falsely normal result. Current interpretive data was last revised on 2019. Testing performed by: [facility], [address] [place]., [address] Cryoglobulin, S&P Reviewed date:11/15/2024 12:47:39 PM Interpretation: Performing Lab:[facility] , [address] [facility]. [place] [address] Notes/Report: Cryo S See Footnote Negative Negative. This test is negative at 24 hours. All samples are held and reviewed again at 7 days. If delayed precipitation occurs after 7 days, Immunofixation will be performed and an additional report will follow. Cryofib P Negative Negative Test Performed by: [facility] [address] [place] [address] [employer]: Anjali Hernadez Ph.D.; CLIA# [id number] Creatine Kinase Reviewed date:11/14/2024 08:26:18 AM Interpretation: Performing Lab:[facility] , [address] [facility] [place] [address] Notes/Report: Total CK 44 30-200 Units/L Comprehensive metabolic pane l (CMP) Reviewed date:11/14/2024 08:26:18 AM Interpretation: Performing Lab:[facility] , [address] [facility]. [place] [address] Notes/Report: Sodium 139 135-145 mmol/L Plasma Potassium [...] C4 Reviewed date:11/14/2024 08:26:18 AM Interpretation: Performing Lab:[facility] , [address] [place] [address]. [facility] [address] Notes/Report: Complement, C4 22 10-40 mg/dL Complement C3 Reviewed date:11/14/2024 08:26:18 AM Interpretation: Performing Lab:[facility] , [address] [place] [address]. [place] [address] Notes/Report: Complement, C3 178 90-180 mg/dL CBC w auto diff Reviewed date:11/13/2024 06:14:51 PM Interpretation: Performing Lab:[facility] , [address] [place] [address]. [facility] [address] Notes/Report: WBC 6.6 3.8-9.9 K/cumm Hgb 14.0 11.9-15.5 g/dL Hct 42.8 35.6-45.5 % Platelet Ct 259 150-400 K/cumm MPV 9.6 9.1-12.3 fL RBC 4.49 3.90-5.20 M/cumm MCV 95.3 81.3-96.4 fL MCH 31.2 27.1-33.3 pg MCHC 32.7 32.3-35.7 g/dL RDW CV 12.2 11.1-14.9 % RDW SD 42.5 35.7-48.1 fL NRBC Abs Auto 0.00 0.00-0.01 K/cumm C Reactive Protein Reviewed date:11/14/2024 08:26:18 AM Interpretation: Performing Lab:[facility] , [facility] [address] Notes/Report: C-Reactive Protein 4.1 <=10.0 mg/L Anti-CCP (Cyclic Citrullinat ed Peptide Ab) Reviewed date:11/14/2024 12:01:33 PM Interpretation: Performing Lab:[facility] , [facility] [facility] [address] Notes/Report: CCP Ab <0.5 <=2.9 units/mL Interpretive data Negative: <3 units/mL Positive: > or equal to 3 units/mL Current interpretive data was last revised on 2016. ANCA reflex MPO and PR3 Abs Reviewed date:11/15/2024 12:47:39 PM Interpretation: Performing Lab:[facility] , [address] [place] [address]. [facility] [address] Notes/Report: Neutrophil Cytoplas Ab, Qual Negative Testing performed by: [facility], [address] [place] [address], [address] SHRUTI reflex titer pattern ROSITA + dsDNA Reviewed date:11/14/2024 12:01:33 PM Interpretation: Performing Lab:[facility] , [address] [place] [address]. [facility] [address] Notes/Report: SHRUTI, Qual Negative Interpretive Data Normal [...] performed by: [facility], [address] [place] [address]., [address] Reason For Referral No Information Medications Medication SIG (Take, Route, Frequency, Duration) Notes Start Date End Date Status Rosuvastatin Calcium 10 MG 1 tablet Oral ly Once a day; Duration: 30 day(s) Active Hay 3 1000 MG 1 capsule Orally Three [...] Cetirizine HCl 10 MG 1 tablet Orally e a day; Duration: 30 day(s) Active [...] W/U Status Risk Notes Problem Rheumatoid arthritis (66297600) Rheumatoid arthritis without rheumatoid factor, 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) Active confirmed Problem Leukocytoclastic vasculitis (53299831) 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 Vital Signs Heart Rate 72 /min 01/28/2025 Temperature 98.0 degrees Fahrenheit 01/28/2025 Blood pressure diastolic 70 mm Hg 01/28/2025 Oximetry 94 % 01/28/2025 Height-cm 173.99 cm 01/28/2025 Weight-kg 109.77 kg 01/28/2025 Height 68.5 in 01/28/2025 Blood pressure systolic 110 mm Hg 01/28/2025 Weight 242.0 lbs 01/28/2025 BMI 36.26 kg/m2 01/28/2025 Encounters Encounter Location Date Provider Diagnosis [facility] [address] [address], [place] [address] 11/13/2024 Bonny Du Multiple joint pain M25.50 and 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 [facility] [address] [address] [place] [address] 11/27/2024 Bonny Du Multiple joint pain M25.50 ; Rheumatoid arthritis without rheumatoid factor, multiple sites M06.09 and 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 [facility] [address] [address], [place] [address] 01/28/2025 Bonny Du Multiple joint pain M25.50 and 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 [facility] [address] [address], [place] [address] 08/21/2024 Bonny Du Assessments Encounter Date Diagnosis [...] Name:Bonny Uribe, 07/29 01:00:00 PM, [address] [facility] [address], [place], [address], Insurance Providers Payer Name Payer Address Payer Phone Subscriber Number Group Number Insured Name Patient Relationship to Insured Coverage Start Date Coverage End Date Medicare [address] [address] [place] [address] [id number] Elli Garcia Self - patient is the insured [employer] [address] [place], [place] [id number] Elli Garcia Self - patient is the insured Medical (General) History Medical History History ICD Code coronary artery disease, 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
--- OUTSIDE RECORDS SUMMARY | 2025-05-06 16:02 | XMS_ITS | Clinical Summary ---
Author Organization [facility] [address] Address [address] [place] [address] Care Team Providers Care Fisher Line Name Role Phone Reji Mueller MD Primary Care Provider Rober Gordillo MD Unavailable [phone] Allergies Active Allergy Reactions Criticality Noted Date [...] 0 05/03/2022 Coronary artery disease invo lving [place] coronary artery of [place] heart without angina pectoris 09/16/2021 Medication side [...] Encounters Date Type Department Care Team Description 04/16/2025 9:00 AM CDT Office Visit [facility] [address] [place] [address] Harris Lindsey MD Coronary artery disease involving [place] coronary artery of [place] heart without angina pectoris (Primary Dx) 02/22/2025 Telephone [facility] [address] [place] [address] Harris Lindsey MD from Last 3 Months [...] on file Legal Sex Female 9:46 AM RUBY ON RAILS DEVELOPER Gender Identity Not on file Sexual Orientation Not on file Obstetrics History Last Filed Vital Signs Vital Sign Reading Time Taken Comments Blood Pressure 104/66 04/16/2025 8:44 AM CDT Pulse 71 04/16/2025 8:44 AM CDT Temperature - - Respiratory Rate 16 08/19/2021 3:40 PM RUBY ON RAILS DEVELOPER Oxygen Saturation 95% 04/16/2025 8:44 AM CDT Inhaled Oxygen Concentration - - Weight 106.1 kg (234 lb) 04/16/2025 8:44 AM CDT Height 172.7 cm (5' 8) 04/16/2025 8:44 AM CDT Body Mass Index 35.58 04/16/2025 8:44 AM CDT Plan of Treatment Health Maintenance Due Date Last Done Comments Breast Cancer Screening-Mammogram 1956 Colon Cancer Screening-Colonoscopy 1955 Depression Screening 1956 Fall Risk Assessment 1955 Osteoporosis Screening-Bone Density Scan 1956 Hepatitis B Screening 1974 Well Visit 65+ 2021 Pneumococcal vaccine 65+ (2 of 2 - PCV) 07/01/2022 07/01/2021 Covid-19 Vaccine ( - 2023-2 5 season) 2024 07/13/2021, 11/21/2020 Influenza Vaccine (#1) 2025 , 07/07/2020, 07/10/2018, Additional history exists DTaP/Tdap/Td Vaccine (2 - Td or Tdap) 07/10/2025 07/10/2015 Zoster Vaccine Completed 10/10/2020, 11/0 12/2019, 06/24/2016 Hepatitis C Screening Completed 11/13/2024 Procedures Procedure Name Priority Date/Time Associated Diagnosis Comments POCT LIPID PANEL Routine 04/16/2025 8:38 AM CDT Coronary artery disease involving [place] coronary artery of [place] heart without angina pectoris HEPATITIS C ANTIBODY Routine 11/13/2024 11:29 AM RUBY ON RAILS DEVELOPER from Last 3 Months or Most Recently Relevant to Health Maintenance Results * POCT lipid panel (04/16/2025 8:38 AM CDT) Cholesterol, POC 162 <200 MG/DL HDL, POC 63 >=40 mg/dL Triglycerides, POC 78 <=149 mg/dL LDL Cholesterol POC 83 <=129 mg/dL Chol/HDL Ratio, POC 1.3 NONE Non-HDL Cholesterol, POC 99 NONE mg/dL Cholesterol Total, POC 162 30 - 199 mg/dL Capillary blood 04/16/2025 8 :38 AM CDT Harris Lindsey MD POINT OF CARE TEST ORDERABLES Fi nal Result * Hepatitis C antibody Blood (11/13/2024 11:29 AM RUBY ON RAILS DEVELOPER) Hep C Ab Nonreactive Nonreactive Comment: Interpretive [...] on 2019. Blood 11/13/2024 11:2 9 AM RUBY ON RAILS DEVELOPER 11/13/2024 3:24 PM RUBY ON RAILS DEVELOPER us Bonny Uribe MD LAB MICROBIOLOGY - GENERAL ORDER SCHUYLER Final Result [facility] [address] [place] [address] from Last 3 Months or Most Recently Relevant to Health Maintenance Insurance MEDICARE [employer] MEDICARE FOR LIFE Care Teams Fisher Line Relationship Specialty Start Date End Date Reji Mueller MD PCP - General Family Practice 07/21/21 Roebr Gordillo MD [address] [place] [address] Referring Physician Orthopedic Surgery 08/16/22
[2025-05-06 18:57] LABS: Ferritin 74.40 ng/mL (11.1-264)
== END 2025-05-06 15:27 | disposition home or self-care (01) ==
LOC: ANHLAB 15:28
PROVIDERS: PCP Family Medicine; Visit Provider Physician Assistant
DX: D64.9 Anemia, unspecified (principal)
CPT/HCPCS: 36415; 82728

== ENCOUNTER 2025-05-30 12:00 | Outpatient (CLI) | payer MEDICARE, OTHER, SELFPAY ==
--- NOTE | ~2025-05-30 | XR_ITS ---
EXAMINATION: XR foot LT min 3V, 05/30/2025 12:08 CDT HISTORY: Pain in left toe(s), 4th toe pain x 2 weeks, stubbed COMPARISON: No comparisons available. Findings: Nondisplaced fracture of the distal aspect of the intermediate phalanx fourth digit. No significant degenerative changes. Soft tissues unremarkable. Impression: Fracture detailed above Reviewed, dictated and finalized at location A. Impression: Fracture detailed above
== END 2025-05-30 12:01 | disposition home or self-care (01) ==
LOC: GOSHIMG 12:03
PROVIDERS: PCP Family Medicine; Visit Provider Nurse Practitioner Family
DX: M79.89 Other specified soft tissue disorders (principal); S92.535A Nondisplaced fracture of distal phalanx of left lesser toe(s), initial encounter for closed fracture; X58.XXXA Exposure to other specified factors, initial encounter
CPT/HCPCS: 73630

== ENCOUNTER 2025-05-30 12:35 | Outpatient (CLI) | payer MEDICARE, OTHER, SELFPAY ==
--- OUTSIDE RECORDS SUMMARY | 2025-05-30 14:11 | XMS_ITS | Clinical Summary ---
Author Organization [employer] [facility] Address [address] [place] [address] Care Team Providers Care Scaler Name Role Phone Reji Mueller MD Primary Care Provider Allergies Active Allergy Reactions Criticality Noted Date Comments Azithromycin Unknown 04/23/2021 Levofloxacin Unknown 04/23/2021 Flwwrew-Inz-Ewq Reductase Inhibitors Muscle Pain Low 04/23/2021 Medications [...] Comments Blood Pressure 137/79 11/03/2021 2:12 PM SOCIAL MEDIA STRATEGIST Pulse 62 11/03/2021 2:12 PM SOCIAL MEDIA STRATEGIST Temperature 36.9 C (98.5 F) 08/20/2021 10:41 AM SOCIAL MEDIA STRATEGIST Respiratory Rate 18 11/03/2021 2:12 PM SOCIAL MEDIA STRATEGIST Oxygen Saturation 98% 11/03/2021 2:12 PM SOCIAL MEDIA STRATEGIST Inhaled Oxygen Concentration - - Weight 115.8 kg (255 lb 3.2 oz) 021 10:41 AM SOCIAL MEDIA STRATEGIST Height 174 cm (5' 8.5) 08/20/2021 10:4 1 AM SOCIAL MEDIA STRATEGIST Body Mass Index 38.24 08/20/2021 10:41 AM SOCIAL MEDIA STRATEGIST Plan of Treatment Health Maintenance Due Date [...] Completed 10/10/2020, 1112/2019, 06/24/[address] [place] [address] MEDICARE PART A AND B FOR LIFE Care Teams Scaler Relationship Specialty Start Date End Date Reji Mueller MD [address] [place] [address] PCP - General Family Practice 04/23/21
--- OUTSIDE RECORDS SUMMARY | 2025-05-30 14:11 | XMS_ITS | Clinical Summary ---
Author Organization [facility] Address [address] [place] [address] Care Team Providers Care Dairy Processing Supervisor Name Role Phone Unavailable Primary Care Provider [...] COVID-19 Vaccine ( - 2023-2 5 season) 2025 RSV Immunization or 60+ Years (1 - [...]
--- OUTSIDE RECORDS SUMMARY | 2025-05-30 14:11 | XMS_ITS | Clinical Summary ---
Author Organization [facility] [address] Address [address] [place] [address] Care Team Providers Care Director Of Player Personnel Name Role Phone Reji uMeller MD Primary Care Provider Rober Gordillo MD Unavailable [phone] Allergies Active Allergy Reactions Criticality Noted Date [...] 0 05/03/2022 Coronary artery disease invo lving [place] coronary artery of [place] heart without angina pectoris 09/16/2021 Medication side [...] Description 04/16/2025 9:00 AM CDT Office Visit [facility] Cardiology [address] [place] [address] Harris Lindsey MD Coronary artery disease involving [place] coronary artery of [place] heart without angina pectoris (Primary Dx) from Last 3 Months Surgical History Surgery [...] on file Legal Sex Female 9:46 AM FOOD PHOTOGRAPHER Gender Identity Not on file Sexual Orientation Not on file Obstetrics History Last Filed Vital Signs Vital Sign Reading Time Taken Comments Blood Pressure 104/66 04/16/2025 8:44 AM CDT Pulse 71 04/16/2025 8:44 AM CDT Temperature - - Respiratory Rate 16 08/19/2021 3:40 PM FOOD PHOTOGRAPHER Oxygen Saturation 95% 04/16/2025 8:44 AM CDT [...] PCV) 07/01/2022 07/01/2021 Covid-19 Vaccine (3 - 2024-2 6 season) 2025 07/13/2021, 11/21/2020 Influenza Vaccine (#1) 2025 , 07/07/2020, 07/10/2018, Additional history exists DTaP/Tdap/Td Vaccine (2 - Td or Tdap) 07/10/2025 07/10/2015 Zoster Vaccine Completed 10/10/2020, 11/0 12/2019, 06/24/2016 Hepatitis C Screening Completed 11/13/2024 Procedures Procedure Name Priority Date/Time Associated Diagnosis Comments POCT LIPID PANEL Routine 04/16/2025 8:38 AM CDT Coronary artery disease involving [place] coronary artery of [place] heart without angina pectoris HEPATITIS C ANTIBODY Routine 11/13/2024 11:29 AM FOOD PHOTOGRAPHER from Last 3 Months or Most Recently [...] Hepatitis C antibody Blood (11/13/2024 11:29 AM FOOD PHOTOGRAPHER) Hep C Ab Nonreactive Nonreactive Comment: Interpretive [...] on 2019. Blood 11/13/2024 11:2 9 AM FOOD PHOTOGRAPHER 11/13/2024 3:24 PM FOOD PHOTOGRAPHER Bonny Uribe MD LAB MICROBIOLOGY - GENERAL ORDER SCHUYLER Final Result [facility] [address] Department [place] [address] from Last 3 Months or Most Recently Relevant to Health Maintenance Insurance MEDICARE FOR LIFE MEDICARE FOR LIFE Care Teams Director Of Player Personnel Relationship Specialty Start Date End Date Reji Mueller MD PCP - General Family Practice 07/21/21 Rober Gordillo MD [address] [facility] [address] [place] [address] Referring Physician Orthopedic Surgery 08/16/22
--- OUTSIDE RECORDS SUMMARY | 2025-05-30 14:11 | XMS_ITS | Patient Health Record ---
Author Organization [facility] marcus Address [address] [facility] [address] [place] [address] Care Team Providers Care Emergency Vehicle Technician Name Role Phone Ervin JUNG, Reji Primary Care Provider Unavailable Rony Bonny Unavailable [phone] Allergies Allergen (clinical drug ingredient) Drug/Non Drug Allergy documented on EMR Reaction Allergy Type Onset Date Status azithromycin Azithromycin Unknown Drug Allergy A ctive Levaquin rash Drug Allergy Active Substance with 8-iqqjwuf-5-methylgluta ryl-coenzyme A reductase inhibitor mechanism of action (substance) Statins Unknown Drug Allergy Active Results Component Value Reference Range Notes eGFR Reviewed date:11/14/2024 08:26:18 AM Interpretation: Performing Lab:[facility] , [address] [facility] [address] Notes/Report: eGFR 80 >=60 mL/min/1.73 m2 Interpretive [...] Automated Reviewed date:11/13/2024 06:14:51 PM Interpretation: Performing Lab:[facility] , [address] [facility]. [place] [address] Notes/Report: Neut Abs 4.2 1.5-6.5 K/cumm ImmGran Abs 0.0 0.0-0.1 K/cumm Lymphocyte Abs 1.4 0.8-3.3 K/cumm Churchill Abs 0.7 0.2-0.8 K/cumm Eos Abs 0.2 [...] Interpretive Data was last revised on 2017. Churchill Pct 10.1 Interpretive Data Percent cell count [...] Ab Reviewed date:11/14/2024 09:42:56 PM Interpretation: Performing Lab:[facility] , [address] [facility]. [place] [address] Notes/Report: SS B Antibody <0.2 <=0.9 Ab Index Interpretive Data Negative: < 1.0 Ab Index Positive: > or = 1.0 Ab Index Current interpretive data was last revised on 2016. SSA Ab Reviewed date:11/14/2024 09:42:56 PM Interpretation: Performing Lab:[facility] , [facility] [facility] [facility] [address] Notes/Report: SS A Antibody <0.2 <=0.9 Ab Index Interpretive Data Negative: < 1.0 Ab Index Positive: > or = 1.0 Ab Index Current interpretive data was last revised on 2016. Sed Rate Reviewed date:11/13/2024 06:14:51 PM Interpretation: Performing Lab:[facility] , [facility] [facility] [facility] [address] Notes/Report: ESR 23 1-30 mm/hr Rheumatoid Factor Reviewed date:11/14/2024 08:26:18 AM Interpretation: Performing Lab:[facility] , [facility] [address] Notes/Report: RF, Calderon 10 <=15 IUnits/mL Hep C AB Reviewed date:11/13/2024 06:14:51 PM Interpretation: Performing Lab:[facility] , [facility] [address] Notes/Report: Hepatitis C Antibody Nonreactive Nonreactiv Interpretive [...] AG Reviewed date:11/13/2024 06:14:51 PM Interpretation: Performing Lab:[facility] , [facility] [address] Notes/Report: Hepatitis B Surface Antigen Nonreactive Nonreactiv G6PD Ql Reviewed date:11/14/2024 08:26:18 AM Interpretation: Performing Lab:[facility] , [facility] [facility] [facility] [address] Notes/Report: G6PD, Qual Normal Normal Interp data: G6PD activity should be interpreted in the context of a patient's hematocrit. Hematocrit < 20% may lead to a falsely deficient result, while hematocrit > 50% may lead to a falsely normal result. Current interpretive data was last revised on 2019. Testing performed by: [facility], [address] [place]., [address] Cryoglobulin, S&P Reviewed date:11/15/2024 12:47:39 PM Interpretation: Performing Lab:[facility] , [address] [facility]. [place] [address] Notes/Report: Cryo S See Footnote Negative Negative. This test is negative at 24 hours. All samples are held and reviewed again at 7 days. If delayed precipitation occurs after 7 days, Immunofixation will be performed and an additional report will follow. Cryofib P Negative Negative Test Performed by: [facility] [address] [place] [address] Registered Dietician: Anjali Hernadez Ph.D.; CLIA# [id number] Creatine Kinase Reviewed date:11/14/2024 08:26:18 AM Interpretation: Performing Lab:[facility] , [address] [facility] [place] [address] Notes/Report: Total CK 44 30-200 Units/L Comprehensive metabolic pane l (CMP) Reviewed date:11/14/2024 08:26:18 AM Interpretation: Performing Lab:[facility] , [address] [facility]. [place] [address] Notes/Report: Sodium 139 135-145 mmol/L Plasma Potassium [...] C4 Reviewed date:11/14/2024 08:26:18 AM Interpretation: Performing Lab:[facility] , [address] [place] [address]. [facility] [address] Notes/Report: Complement, C4 22 10-40 mg/dL Complement C3 Reviewed date:11/14/2024 08:26:18 AM Interpretation: Performing Lab:[facility] , [address] [place] [address]. [place] [address] Notes/Report: Complement, C3 178 90-180 mg/dL CBC w auto diff Reviewed date:11/13/2024 06:14:51 PM Interpretation: Performing Lab:[facility] , [address] [place] [address]. [facility] [address] Notes/Report: WBC 6.6 3.8-9.9 K/cumm Hgb 14.0 11.9-15.5 g/dL Hct 42.8 35.6-45.5 % Platelet Ct 259 150-400 K/cumm MPV 9.6 9.1-12.3 fL RBC 4.49 3.90-5.20 M/cumm MCV 95.3 81.3-96.4 fL MCH 31.2 27.1-33.3 pg MCHC 32.7 32.3-35.7 g/dL RDW CV 12.2 11.1-14.9 % RDW SD 42.5 35.7-48.1 fL NRBC Abs Auto 0.00 0.00-0.01 K/cumm C Reactive Protein Reviewed date:11/14/2024 08:26:18 AM Interpretation: Performing Lab:[facility] , [facility] [address] Notes/Report: C-Reactive Protein 4.1 <=10.0 mg/L Anti-CCP (Cyclic Citrullinat ed Peptide Ab) Reviewed date:11/14/2024 12:01:33 PM Interpretation: Performing Lab:[facility] , [facility] [facility] [facility] [address] Notes/Report: CCP Ab <0.5 <=2.9 units/mL Interpretive data Negative: <3 units/mL Positive: > or equal to 3 units/mL Current interpretive data was last revised on 2016. ANCA reflex MPO and PR3 Abs Reviewed date:11/15/2024 12:47:39 PM Interpretation: Performing Lab:[facility] , [address] [place] [address]. [facility] [address] Notes/Report: Neutrophil Cytoplas Ab, Qual Negative Testing performed by: [facility], [address] [place] [address], [address] SHRUTI reflex titer pattern ROSITA + dsDNA Reviewed date:11/14/2024 12:01:33 PM Interpretation: Performing Lab:[facility] , [address] [place] [address]. [facility] [address] Notes/Report: SHRUTI, Qual Negative Interpretive Data Normal [...] last revised on 2020. 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 Vital Signs Heart Rate 72 /min 01/28/2025 Temperature 98.0 degrees Fahrenheit 01/28/2025 Blood pressure diastolic 70 mm Hg 01/28/2025 Oximetry 94 % 01/28/2025 Height-cm 173.99 cm 01/28/2025 Weight-kg 109.77 kg 01/28/2025 Height 68.5 in 01/28/2025 Blood pressure systolic 110 mm Hg 01/28/2025 Weight 242.0 lbs 01/28/2025 BMI 36.26 kg/m2 01/28/2025 Encounters Encounter Location Date Provider Diagnosis [facility] [address] [facility] [address], [place] [address] 11/13/2024 Bonny Du Multiple joint pain M25.50 and 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 [facility] [address] [facility] [address] [address] [place] [address] 11/27/2024 Bonny Du Multiple joint pain M25.50 ; Rheumatoid arthritis without rheumatoid factor, multiple sites M06.09 and 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 [facility] [address] [facility] [address], [place] [address] 01/28/2025 Bonny Du Multiple joint pain M25.50 and 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 [facility] [address] [facility] [address], [place] [address] 08/21/2024 Bonny Du Assessments Encounter Date Diagnosis [...] Name:Bonny Uribe, 07/29 01:00:00 PM, [address] [facility] [address], [place], [address], Insurance Providers Payer Name Payer Address Payer Phone Subscriber Number Group Number Insured Name Patient Relationship to Insured Coverage Start Date Coverage End Date Medicare [address] [address] [place] [address] [id number] Elli Garcia Self - patient is the insured [employer] [address] [place], [place] [id number] [phone] [id number] Elli Garcia Self - patient is the insured Medical (General) History Medical History History ICD Code 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
[2025-05-30 19:21] LABS: Hematocrit 42.7 % (37.0-47.0); Hemoglobin 13.8 g/dL (12.0-15.0); Immature Granulocyte Percent A 0.3 % (0-0.5); Lymphocytes Absolute Auto 1.40 K/mm3 (0.9-3.2); Mean Corpuscular HGB Conc 32.3 g/dl (32-36); Mean Corpuscular Hemoglobin 30.9 pg (26-34); Mean Corpuscular Volume 95.7 fl (80-100); Nucleated Red Blood Cells Absolute Auto 0.000 K/mm3 (0.0-0.012); Nucleated Red Blood Cells Perc 0.0 % (0.0-0.2); Platelet Count Result 249 k/mm3 (150-375); Red Blood Count 4.46 M/mm3 (4.2-5.4); White Blood Count 6.0 K/mm3 (4.5-10.0)
[2025-05-30 19:35] LABS: Alanine Aminotransferase 18 U/L (6-35); Albumin Level 4.2 g/dL (3.5-5.1); Alkaline Phosphatase 83 U/L (38-126); Anion Gap 7 mmol/L (4-12); Aspartate Amino Transferase 47 U/L (14-36); Bilirubin,Total 0.5 mg/dL (0.2-1.3); Blood Urea Nitrogen 8 mg/dL (7-17); Calcium 9.3 mg/dL (8.4-10.2); Carbon Dioxide 31 mmol/L (22-30); Chloride 96 mmol/L (98-107); Estimated Glomerular Filt Rate > 60; Glucose 98 mg/dL (65-110); Potassium 4.1 mmol/L (3.4-5.0); Sodium 134 mmol/L (137-145); Total Protein 7.3 g/dL (6.3-8.2)
== END 2025-05-30 12:36 | disposition home or self-care (01) ==
LOC: ANHGOSHLAB 12:36
PROVIDERS: PCP Family Medicine; Visit Provider Nurse Practitioner Family
DX: M79.89 Other specified soft tissue disorders (principal)
CPT/HCPCS: 36415; 80053; 85025

== ENCOUNTER 2025-07-01 12:03 | Outpatient (CLI) | payer MEDICARE, OTHER, SELFPAY ==
--- NOTE | ~2025-07-01 | XR_ITS ---
EXAMINATION: XR knee RT min 4V, 07/01/2025 12:20 CDT HISTORY: M25.561 - Pain in right knee COMPARISON: No comparisons available. Findings: No acute fracture or malalignment. Severe tricompartmental degenerative changes Soft tissues unremarkable. Impression: No acute fracture or malalignment. Reviewed, dictated and finalized at location P. Impression: No acute fracture or malalignment.
--- OUTSIDE RECORDS SUMMARY | 2025-07-01 13:12 | XMS_ITS | Patient Health Record ---
Author Organization [facility] marcus Address [address] [facility] [address] [place] [address] Care Team Providers Care Breakdown Person Name Role Phone Ervin JUNG, Reji Primary Care Provider Unavailable Rony Bonny Unavailable [phone] Allergies Allergen (clinical drug ingredient) Drug/Non Drug Allergy documented on EMR Reaction Allergy Type Onset Date Status azithromycin Azithromycin Unknown Drug Allergy A ctive Levaquin rash Drug Allergy Active Substance with 6-cffnrql-7-methylgluta ryl-coenzyme A reductase inhibitor mechanism of action (substance) Statins Unknown Drug Allergy Active Results Component Value Reference Range Notes eGFR Reviewed date:11/14/2024 08:26:18 AM Interpretation: Performing Lab:[facility] , [address] [facility] [facility] [address] Notes/Report: eGFR 80 >=60 mL/min/1.73 m2 Interpretive [...] Automated Reviewed date:11/13/2024 06:14:51 PM Interpretation: Performing Lab:[facility] , [address] [facility]. [place] [address] Notes/Report: Neut Abs 4.2 1.5-6.5 K/cumm ImmGran Abs 0.0 0.0-0.1 K/cumm Lymphocyte Abs 1.4 0.8-3.3 K/cumm Humphreys Abs 0.7 0.2-0.8 K/cumm Eos Abs 0.2 [...] Interpretive Data was last revised on 2017. Humphreys Pct 10.1 Interpretive Data Percent cell count [...] Ab Reviewed date:11/14/2024 09:42:56 PM Interpretation: Performing Lab:[facility] , [address] [facility]. [place] [address] Notes/Report: SS B Antibody <0.2 <=0.9 Ab Index Interpretive Data Negative: < 1.0 Ab Index Positive: > or = 1.0 Ab Index Current interpretive data was last revised on 2016. SSA Ab Reviewed date:11/14/2024 09:42:56 PM Interpretation: Performing Lab:[facility] , [facility] [facility] [address] Notes/Report: SS A Antibody <0.2 <=0.9 Ab Index Interpretive Data Negative: < 1.0 Ab Index Positive: > or = 1.0 Ab Index Current interpretive data was last revised on 2016. Sed Rate Reviewed date:11/13/2024 06:14:51 PM Interpretation: Performing Lab:[facility] , [facility] [facility] [address] Notes/Report: ESR 23 1-30 mm/hr Rheumatoid Factor Reviewed date:11/14/2024 08:26:18 AM Interpretation: Performing Lab:[facility] , [facility] [address] Notes/Report: RF, Calderon 10 <=15 IUnits/mL Hep C AB Reviewed date:11/13/2024 06:14:51 PM Interpretation: Performing Lab:[facility] , [facility] [address] Notes/Report: Hepatitis C Antibody Nonreactive Nonreactiv Interpretive [...] AG Reviewed date:11/13/2024 06:14:51 PM Interpretation: Performing Lab:[facility] , [facility] [address] Notes/Report: Hepatitis B Surface Antigen Nonreactive Nonreactiv G6PD Ql Reviewed date:11/14/2024 08:26:18 AM Interpretation: Performing Lab:[facility] , [facility] [facility] [address] Notes/Report: G6PD, Qual Normal Normal Interp data: G6PD activity should be interpreted in the context of a patient's hematocrit. Hematocrit < 20% may lead to a falsely deficient result, while hematocrit > 50% may lead to a falsely normal result. Current interpretive data was last revised on 2019. Testing performed by: [facility], [address] [place]., [address] Cryoglobulin, S&P Reviewed date:11/15/2024 12:47:39 PM Interpretation: Performing Lab:[facility] , [address] [facility]. [place] [address] Notes/Report: Cryo S See Footnote Negative Negative. This test is negative at 24 hours. All samples are held and reviewed again at 7 days. If delayed precipitation occurs after 7 days, Immunofixation will be performed and an additional report will follow. Cryofib P Negative Negative Test Performed by: [facility] [address] [place] [address] Food Service Associate: Anjali Hernadez Ph.D.; CLIA# [id number] Creatine Kinase Reviewed date:11/14/2024 08:26:18 AM Interpretation: Performing Lab:[facility] , [address] [facility] [place] [address] Notes/Report: Total CK 44 30-200 Units/L Comprehensive metabolic pane l (CMP) Reviewed date:11/14/2024 08:26:18 AM Interpretation: Performing Lab:[facility] , [address] [facility]. [place] [address] Notes/Report: Sodium 139 135-145 mmol/L Plasma Potassium [...] C4 Reviewed date:11/14/2024 08:26:18 AM Interpretation: Performing Lab:[facility] , [address] [place] [address]. [facility] [address] Notes/Report: Complement, C4 22 10-40 mg/dL Complement C3 Reviewed date:11/14/2024 08:26:18 AM Interpretation: Performing Lab:[facility] , [address] [place] [address]. [place] [address] Notes/Report: Complement, C3 178 90-180 mg/dL CBC w auto diff Reviewed date:11/13/2024 06:14:51 PM Interpretation: Performing Lab:[facility] , [address] [place] [address]. [facility] [address] Notes/Report: WBC 6.6 3.8-9.9 K/cumm Hgb 14.0 11.9-15.5 g/dL Hct 42.8 35.6-45.5 % Platelet Ct 259 150-400 K/cumm MPV 9.6 9.1-12.3 fL RBC 4.49 3.90-5.20 M/cumm MCV 95.3 81.3-96.4 fL MCH 31.2 27.1-33.3 pg MCHC 32.7 32.3-35.7 g/dL RDW CV 12.2 11.1-14.9 % RDW SD 42.5 35.7-48.1 fL NRBC Abs Auto 0.00 0.00-0.01 K/cumm C Reactive Protein Reviewed date:11/14/2024 08:26:18 AM Interpretation: Performing Lab:[facility] , [facility] [address] Notes/Report: C-Reactive Protein 4.1 <=10.0 mg/L Anti-CCP (Cyclic Citrullinat ed Peptide Ab) Reviewed date:11/14/2024 12:01:33 PM Interpretation: Performing Lab:[facility] , [facility] [facility] [address] Notes/Report: CCP Ab <0.5 <=2.9 units/mL Interpretive data Negative: <3 units/mL Positive: > or equal to 3 units/mL Current interpretive data was last revised on 2016. ANCA reflex MPO and PR3 Abs Reviewed date:11/15/2024 12:47:39 PM Interpretation: Performing Lab:[facility] , [address] [place] [address]. [facility] [address] Notes/Report: Neutrophil Cytoplas Ab, Qual Negative Testing performed by: [facility], [address] [place] [address], [address] SHRUTI reflex titer pattern ROSITA + dsDNA Reviewed date:11/14/2024 12:01:33 PM Interpretation: Performing Lab:[facility] , [address] [place] [address]. [facility] [address] Notes/Report: SHRUTI, Qual Negative Interpretive Data Normal [...] last revised on 2020. Testing performed by: [facility], [address] [place] [address]., [address] Reason For Referral No Information Medications Medication SIG (Take, Route, Frequency, Duration) Notes Start Date End Date Status Davenport 3 1000 MG 1 capsule Orally Three times a day; Duration: 30 day(s) Active Calcium 500 MG 1 tablet with meals Orally Twice a day; Duration: 30 day(s) Active QUEtiapine Fumarate 25 MG 1 tablet at be dtime Orally Once a day; Duration: 30 day(s) Active Multivitamin Active traZODone HCl 50 MG 1 tablet at bedtime as needed Orally Once a day; Duration: 30 day(s) Active Vitamin D3 50 MCG (2000 UT) 1 capsule Or ally Once a day; Duration: 30 day(s) Active Omeprazole 40 MG 1 capsule 1/2 to 1 hour before morning meal Orally Once a day; Duration: 30 day(s) Active Sertraline HCl 100 MG 1 tablet Orally On ce a day; Duration: 30 day(s) Active Cetirizine HCl 10 MG 1 tablet Orally Onc e a day; Duration: 30 day(s) Active Aspirin 81 81 MG 1 tablet Orally Once a day; Duration: 30 day(s) Active buPROPion HCl ER (XL) 300 MG 1 tablet in the morning Orally Once a day; Duration: 30 day(s) Active Rosuvastatin Calcium 10 MG 1 tablet Oral ly Once a day; Duration: 30 day(s) Active Nitroglycerin 0.4 MG 1 tablet under the tongue and allow to dissolve as needed. Take every 5 minutes up to 3 times if chest pain persists Sublingual Three times a day; Duration: 30 day(s) Active Ferrous Sulfate 325 (65 Fe) MG 1 tablet Orally once a day; Duration: 30 day(s) Active Metoprolol Succinate ER 25 MG 1 tablet O rally Once a day; Duration: 30 day(s) Active Levothyroxine Sodium 75 MCG 1 tablet in the morning on an empty stomach Orally Once a day; Duration: 30 day(s) Active Advair Diskus 250-50 MCG/ACT 1 puff Inha lation Twice a day Active hydroCHLOROthiazide 25 MG 1 tablet in e morning Orally Once a day; Duration: 30 day(s) Active Celecoxib 200 MG 1 capsule with food Orally Once a day; Duration: 30 day(s) Active Magnesium 200 MG 2 tablets with a michael l Orally Once a day; Duration: 30 day(s) Active Albuterol Sulfate 108 (90 Ba se) MCG/ACT 1 puff as needed Inhalation every 4 hrs Active predniSONE 5 MG TAKE 1 TABLET BY MOUTH DAILY NEEDED; Duration: 30 Active Melatonin 3 MG 1 tablet at bedtime as needed Orally Once a day; Duration: 30 day(s) Active Astepro 205.5 MCG/SPRAY 2 sprays (1 spra y in each nostril) Nasally Twice a day; Duration: 30 day(s) Active CoQ-10 [...] W/U Status Risk Notes Problem Rheumatoid arthritis (52050669) Rheumatoid arthritis without rheumatoid factor, 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) Active confirmed Problem Leukocytoclastic vasculitis (77442854) 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 Vital Signs [...] Provider Diagnosis [facility] [address] [facility] [address], [place] [address] 11/13/2024 Bonny Du Multiple joint pain M25.50 and 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 [facility] [address] [facility] [address], [place] [address] 11/27/2024 Bonny Du Multiple joint pain M25.50 ; Rheumatoid arthritis without rheumatoid factor, multiple sites M06.09 and 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 [facility] [address] [facility] [address], [place] [address] 01/28/2025 Bonny Du Multiple joint pain M25.50 and 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 [facility] [address] [facility] [address], [place] [address] 08/21/2024 Bonny Du Assessments Encounter Date Diagnosis [...] Name:Bonny Uribe, 07/29 01:00:00 PM, [address] [facility] [address], [place], [address], Insurance Providers Payer Name Payer Address Payer Phone Subscriber Number Group Number Insured Name Patient Relationship to Insured Coverage Start Date Coverage End Date Medicare [address] [address] [place] [address] [id number] Elli Garcia Self - patient is the insured [employer] [address] [place], [place] [id number] [phone] [id number] Elli Garcia Self - patient is the insured Medical (General) History Medical History History ICD Code 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
== END 2025-07-01 12:04 | disposition home or self-care (01) ==
PROVIDERS: PCP Family Medicine; Visit Provider Orthopaedic Surgery
DX: M25.561 Pain in right knee (principal)
CPT/HCPCS: 73564

== ENCOUNTER 2025-08-22 09:46 | Outpatient (CLI) | payer MEDICARE, OTHER, SELFPAY ==
--- OUTSIDE RECORDS SUMMARY | 2025-08-22 10:38 | XMS_ITS | Clinical Summary ---
Author Organization [facility] [address] Address [address] [place] [address] Care Team Providers Care Wealth Management Consultant Name Role Phone Reji Mueller MD Primary Care Provider Rober Gordillo MD Unavailable [phone] Allergies Active Allergy Reactions Criticality Noted Date [...] 0 05/03/2022 Coronary artery disease invo lving [place] coronary artery of [place] heart without angina pectoris 09/16/2021 Medication side [...] Date Dyslipidemia 09/15/2016 09/16/2021 Overview (12/23/2016): Dyslipidemia Surgical History Surgery Date Site/Laterality Comments BIOPSY [...] on file Legal Sex Female 9:46 AM TALLOW MAKER Gender Identity Not on file Sexual Orientation Not on file Last Filed Vital Signs Vital Sign Reading Time Taken Comments Blood Pressure 104/66 04/16/2025 8:44 AM CDT Pulse 71 04/16/2025 8:44 AM CDT Temperature - - Respiratory Rate 16 08/19/2021 3:40 PM TALLOW MAKER Oxygen Saturation 95% 04/16/2025 8:44 AM CDT [...] Tdap) 07/10/2025 07/10/2015 Zoster Vaccine Completed 10/10/2020, 1112/2019, 06/24/2016 Hepatitis C Screening Completed 11/13/2024 Procedures Procedure Name Priority Date/Time Associated Diagnosis Comments HEPATITIS C ANTIBODY Routine 11/13/2024 11:29 AM TALLOW MAKER from Last 3 Months or Most Recently Relevant to Health Maintenance Results * Hepatitis C antibody Blood (11/13/2024 11:29 AM TALLOW MAKER) Hep C Ab Nonreactive Nonreactive Comment: Interpretive [...] on 2019. Blood 11/13/2024 11:2 9 AM TALLOW MAKER 11/13/2024 3:24 PM TALLOW MAKER us Bonny Uribe MD LAB MICROBIOLOGY - GENERAL ORDER [place] Final Result [facility] [address] Department [place] [address] from Last 3 Months or Most Recently Relevant to Health Maintenance [place] [address] MEDICARE [employer] MEDICARE [facility] Address: [facility] [address] [place] [address] FOR LIFE Care Teams Wealth Management Consultant Relationship Specialty Start Date End Date Reji Mueller MD PCP - General Family Practice 07/21/21 Rober Gordillo MD [address] [place] [address] Referring Physician Orthopedic Surgery 08/16/22
--- OUTSIDE RECORDS SUMMARY | 2025-08-22 10:38 | XMS_ITS | Clinical Summary ---
Author Organization [facility] Address [id number] [place] [id number] Care Team Providers Care Web Methods Developer Name Role Phone Reji Mueller MD Primary Care Provider Allergies Active Allergy Reactions Criticality Noted Date Comments Azithromycin Unknown 04/23/2021 Levofloxacin Unknown 04/23/2021 Dfmuppq-Ebf-Drt Reductase Inhibitors Muscle Pain Low 04/23/2021 Medications [...] Comments Blood Pressure 137/79 11/03/2021 2:12 PM DERMATOLOGY PHYSICIAN Pulse 62 11/03/2021 2:12 PM DERMATOLOGY PHYSICIAN Temperature 36.9 C (98.5 F) 08/20/2021 10:41 AM DERMATOLOGY PHYSICIAN Respiratory Rate 18 11/03/2021 2:12 PM DERMATOLOGY PHYSICIAN Oxygen Saturation 98% 11/03/2021 2:12 PM DERMATOLOGY PHYSICIAN Inhaled Oxygen Concentration - - Weight 115.8 kg (255 lb 3.2 oz) 021 10:41 AM DERMATOLOGY PHYSICIAN Height 174 cm (5' 8.5) 08/20/2021 10:4 1 AM DERMATOLOGY PHYSICIAN Body Mass Index 38.24 08/20/2021 10:41 AM DERMATOLOGY PHYSICIAN Plan of Treatment Health Maintenance Due Date [...] 75+ series) 2031 ZOSTER VACCINE Completed 10/10/2020, 12/2019, 06/24/2016 Insurance MEDICARE PART A AND B FOR LIFE Care Teams Web Methods Developer Relationship Specialty Start Date End Date Reji Mueller MD [address] [place] [address] PCP - General Family Practice 04/23/21
--- OUTSIDE RECORDS SUMMARY | 2025-08-22 10:38 | XMS_ITS | Clinical Summary ---
Author Organization [facility] Address [address] [place] [id number] Care Team Providers Care Technology Sales Specialist Name Role Phone Unavailable Primary Care Provider [...] Scan (General) 2021 COVID-19 Vaccine ( - 2024-2 6 season) 2025 Influenza Adult (#1) 2025 RSV Immunization or 60+ Years (1 - 1-dose 75+ series) 2031 Hepatitis A Vaccines Aged Out No long er eligible based on patient's age to complete this topic Meningococcal B Vaccine Aged Out No l onger eligible based on patient's age to complete this topic Meningococcal Vaccine Aged Out No cristobal margaret eligible based on patient's age to complete this topic RSV Immunizations Under 20 Months Aged Out No longer eligible based on patient's age to complete this topic
[2025-08-22 14:23] LABS: Hematocrit 44.1 % (37.0-47.0); Hemoglobin 14.4 g/dL (12.0-15.0); Immature Granulocyte Percent A 0.4 % (0-0.5); Lymphocytes Absolute Auto 1.34 K/mm3 (0.9-3.2); Mean Corpuscular HGB Conc 32.7 g/dl (32-36); Mean Corpuscular Hemoglobin 31.4 pg (26-34); Mean Corpuscular Volume 96.3 fl (80-100); Nucleated Red Blood Cells Absolute Auto 0.000 K/mm3 (0.0-0.012); Nucleated Red Blood Cells Perc 0.0 % (0.0-0.2); Platelet Count Result 230 k/mm3 (150-375); Red Blood Count 4.58 M/mm3 (4.2-5.4); White Blood Count 5.5 K/mm3 (4.5-10.0)
[2025-08-22 14:41] LABS: Alanine Aminotransferase 22 U/L (6-35); Albumin Level 4.3 g/dL (3.5-5.1); Alkaline Phosphatase 77 U/L (38-126); Anion Gap 4 mmol/L (4-12); Aspartate Amino Transferase 84 U/L (14-36); Bilirubin,Total 0.7 mg/dL (0.2-1.3); Blood Urea Nitrogen 14 mg/dL (7-17); Calcium 9.4 mg/dL (8.4-10.2); Carbon Dioxide 32 mmol/L (22-30); Chloride 99 mmol/L (98-107); Cholesterol 185 mg/dL (0-200); Estimated Glomerular Filt Rate > 60; Glucose 97 mg/dL (65-110); HDL Direct 78 mg/dL; Magnesium 2.3 mg/dL (1.6-2.3); Potassium 3.9 mmol/L (3.4-5.0); Sodium 135 mmol/L (137-145); Total Protein 7.5 g/dL (6.3-8.2); Triglycerides 84 mg/dL (<150)
[2025-08-22 15:35] LABS: Vitamin B12 500.0 pg/mL (239-931)
[2025-08-22 16:23] LABS: Thyroid Stimulating Hormone Reflex 0.673 uIU/mL (0.465-4.68)
[2025-08-22 16:28] LABS: Hemoglobin A1C 5.4 % (<5.7)
== END 2025-08-22 09:47 | disposition home or self-care (01) ==
LOC: ANHGOSHLAB 09:47
PROVIDERS: PCP Family Medicine; Visit Provider Nurse Practitioner Family
DX: E78.5 Hyperlipidemia, unspecified (principal); I10 Essential (primary) hypertension; E55.9 Vitamin D deficiency, unspecified; I25.10 Atherosclerotic heart disease of native coronary artery without angina pectoris; R73.9 Hyperglycemia, unspecified; F31.9 Bipolar disorder, unspecified; E66.9 Obesity, unspecified; Z68.36 Body mass index [BMI] 36.0-36.9, adult
CPT/HCPCS: 36415; 80053; 80061; 82306; 82607; 83036; 83735; 84443; 85025

== ENCOUNTER 2025-09-02 13:29 | Outpatient (CLI) | payer MEDICARE, OTHER, SELFPAY ==
--- NOTE | ~2025-09-02 | CT_ITS ---
EXAM/PROCEDURE: [id number] HISTORY: Preoperative Planning COMPARISON: None available. TECHNIQUE: CONFORMIS CT preoperative planning CT of right knee FINDINGS: Tricompartmental osteoarthritic degenerative changes which are severe in the medial compartment and patellofemoral joint with milder changes in the lateral compartment. Small effusion. Bones and soft tissues are otherwise unremarkable. IMPRESSION: Advanced degenerative changes of the right knee as above. Reviewed, dictated and finalized at location A. NDMAN/LINEMAN
== END 2025-09-02 13:30 | disposition home or self-care (01) ==
PROVIDERS: PCP Family Medicine; Visit Provider Orthopaedic Surgery
DX: Z01.818 Encounter for other preprocedural examination (principal); M17.11 Unilateral primary osteoarthritis, right knee
CPT/HCPCS: 73700